=== PATIENT | female | born 1935 | race Caucasian/White ===

== ENCOUNTER 2016-10-24 14:39 | Emergency (ER) | payer MEDICARE, BC ==
--- NOTE | 2016-10-24 17:17 | RAD ---
Indication: Fall striking face. Bruising. Minor laceration to the LEFT facial region. Comparison: June 09, 2006 CT angiogram head. Technique: Noncontrast CT vertex of skull through foramen magnum. Report: Moderate prominence of the cerebral sulci and ventricles secondary to atrophy increased over the 2006 exam. Decreased density in the periventricular and subcortical white matter while non-specific is most likely due to chronic microangiopathy. Negative for lee matter white matter obscuration, intra or extra-axial hemorrhage, or mass effect. Atherosclerotic calcification at the intracranial internal carotid arteries. Negative for calvarial or skull base fracture. Clear visualized paranasal sinuses and mastoid air spaces. Negative for scalp hematoma. IMPRESSION: No evidence for traumatic brain injury or acute intracranial process. Involutional change and stigmata of chronic small vessel ischemic disease.
--- NOTE | 2016-10-24 17:20 | RAD ---
INDICATION: Fall onto face. Bruising and minor laceration to the LEFT facial region. COMPARISON: Head CT of the same date. TECHNIQUE: Multidetector CT base of the skull through mandible without contrast. Multiplanar reformation. REPORT: Artifact from dental amalgam. Mild infiltrative edema or hematoma superficial to the LEFT zygomatic arch. Negative for loculated hematoma. No subcutaneous emphysema evident. Unremarkable orbital contents. The orbital and maxillary sinus margins, zygomatic arches, lamina papyracea, base of the maxilla, pterygoid plates, and nasal bones are intact. The mandible is intact. Normal temporal mandibular joint alignment. Clear paranasal sinuses. IMPRESSION: 1. Mild infiltrative edema or hematoma superficial to the LEFT zygomatic arch. Negative for loculated hematoma. 2. Negative for maxillofacial fracture.
--- NOTE | 2016-10-24 18:20 | ED ---
Head Injury - HPI Summary HPI Summary: 81F presents with facial contusion. She was taking her to his dr trentont today here and was walking from her car that was parked far away and slipped on the pavement due to it being wet. denies any LOC. admits to pain on left side of face and left wrist pain. not on blood thinners. mild headache. no n/v. wrist full ROM. is right handed. has back stimulator. - History Of Current Complaint Chief Complaint: EDFacialInjury Stated Complaint: FALL Time Seen by Provider: 10/24/16 17:49 Pain Intensity: 3 - Allergies/Home Medications Allergies/Adverse Reactions: Allergies Allergy/AdvReac Type Severity Reaction Status Date / Time Alendronate [From Fosamax] Allergy GI Upset Verified 03/20/16 11:49 Meperidine [From Demerol HCl] Allergy BP DROPPED Verified 03/20/16 11:49 Penicillins Allergy Rash Verified 03/20/16 11:49 Risedronate [From Actonel] Allergy GI Upset Verified 03/20/16 11:49 Sulfa Drugs Allergy Rash Verified 03/20/16 11:49 Scopolamine AdvReac Dizziness Verified 03/20/16 11:49 PMH/Surg Hx/FS Hx/Imm Hx Endocrine/Hematology History: Reports: Hx Thyroid Disease - hypo, Other Endocrine/Hematological Disorders Cardiovascular History: Denies: Other Cardiovascular Problems/Disorders Respiratory History: Reports: Hx Sleep Apnea - MILD, Other Respiratory Problems/ Disorders - MUSCLE SPASMS DURING REM SLEEP GI History: Reports: Hx Gastroesophageal Reflux Disease, Hx Irritable Bowel Denies: Other GI Disorders History: Reports: Hx Kidney Stones - MANY YEARS AGO Musculoskeletal History: Reports: Hx Arthritis - ALL OVER, Other Musculoskeletal History Sensory History: Reports: Hx Contacts or Glasses - GLASSES Denies: Hx Hearing Aid Opthamlomology History: Reports: Hx Contacts or Glasses - GLASSES Neurological History: Reports: Hx Migraine - 2001, SILENT MIGRAINE Denies: Other Neuro Impairments/Disorders - Cancer History Cancer Type, Location and Year: skin ca - Surgical History Surgery Procedure, Year, and Place: TAYLER CARPAL TUNNEL, 1979, 1980,. 2009, LOW BACK, [facility]. TAYLER BUNIONECTOMYS, 1985, 1989, [facility]. RIGHT SHOULDER, 1995, [facility]. RIGHT BREAST BX, 1989, [facility]. LEFT KNEE, 2005, [place]. [place]EE, [place] , 2014. DCS trial 03/16/14 Hx Anesthesia Reactions: Yes - NO OPIATES Infectious Disease History: Denies: Traveled Outside the [place] in Last 30 Days - Family History Known Family History: Positive: Hypertension - Social History Alcohol Use: None Substance Use Type: Reports: None Smoking Status (MU): Never Smoked Tobacco Have You Smoked in the Last Year: No Review of Systems Negative: Fever Negative: Chest Pain Negative: Shortness Of Breath Positive: Myalgia - left wrist Positive: Headache All Other Systems Reviewed And Are Negative: Yes Physical Exam Triage Information Reviewed: Yes Vital Signs On Initial Exam: Initial Vitals Temp Pulse Resp BP Pulse Ox 97.9 F 78 18 156/73 96 10/24/16 14:49 10/24/16 14:49 10/24/16 14:49 10/24/16 14:49 10/24/16 14:49 Vital Signs Reviewed: Yes Appearance: Positive: Well-Appearing Skin: Positive: Warm, Dry Head/Face: Positive: Normal Head/Face Inspection, Other - contusion on left side of face, no step off, racoon eyes, schneider sign Eyes: Positive: Normal, EOMI, DA, Conjunctiva Clear ENT: Positive: Normal ENT inspection, Pharynx normal, TMs normal Respiratory/Lung Sounds: Positive: Clear to Auscultation, Breath Sounds Present Cardiovascular: Positive: Normal, RRR Musculoskeletal: Positive: Strength/ROM Intact - left wrist with pain, Other - no step off, tender over left wrist, no snuff box tenderness, good pulses, capillary refill<2 secs Neurological: Positive: Sensory/Motor Intact, Alert, Oriented to Person Place, Time, CN Intact II-III - Dino Coma Scale Best Eye Response: 4 - Spontaneous Best Motor Response: 6 - Obeys Commands Best Verbal Response: 5 - Oriented Coma Scale Total: 15 Diagnostics - Vital Signs Vital Signs Temp Pulse Resp BP Pulse Ox 10/24/16 18:00 98.8 F 68 16 163/71 97 10/24/16 17:59 71 97 10/24/16 17:20 97.4 F 71 16 159/77 100 10/24/16 16:15 98.3 F 74 16 161/83 10/24/16 14:49 97.9 F 78 18 156/73 96 - Laboratory Lab Statement: Any lab studies that have been ordered have been reviewed, and results considered in the medical decision making process. - CT brain CT Interpretation: No Acute Changes CT Interpretation Completed By: Radiologist maxillary facial CT Interpretation: Positive (See Comments) - contusion on left side of face CT Interpretation Completed By: Radiologist Head Injury Course/Dx Course Of Treatment: 81F presents with facial contusion. She was taking her to his dr appt today here and was walking from her car that was parked far away and slipped on the pavement due to it being wet. denies any LOC. admits to pain on left side of face and left wrist pain. not on blood thinners. mild headache. no n/v. wrist full ROM. normal neuro exam. CT face and head normal. patient refused wrist xray. patient will follow up with urgent care if pain tomorrow. patient understands and agrees with plan. - Diagnoses Differential Diagnosis/HQI/PQRI: Concussion Without LOC, Contusion, Hematoma Provider Diagnoses: Facial contusion, Head injury, Left wrist pain Discharge - Discharge Plan Condition: Good Disposition: HOME Patient Education Materials: Contusion in Adults (ED) Referrals: Brian Hernández MD [Primary Care Provider] - Additional Instructions: Take Tylenol every 6 hours as needed for pain Apply ice, rest, elevate Follow up with primary care physician within 5 days Return to ED if develop severe headache, vomiting or any new or worsening symptoms
[2016-10-24 18:46] VITALS: BP 173/67
== END 2016-10-24 18:48 | disposition home or self-care (01) ==
LOC: ED 14:39
DX: S00.83XA Contusion of other part of head, initial encounter (principal); S09.90XA Unspecified injury of head, initial encounter; M25.532 Pain in left wrist; R51 Headache; W19.XXXA Unspecified fall, initial encounter; Y93.9 Activity, unspecified; Y92.9 Unspecified place or not applicable
CPT/HCPCS: 70450; 70486; 99283

== ENCOUNTER 2017-02-17 15:46 | Emergency (ER) | payer MEDICARE, BC ==
[2017-02-17 16:14] VITALS: BP 182/67
--- NOTE | 2017-02-17 16:36 | UC ---
Lower Extremity/Ankle HPI - HPI Summary HPI Summary: 81 yo WF c/o sharp bottom of left foot pain proximal to left ball of foot x 1 day. Has h/o Right foot bunion and hammer toe surgery in 11/2015 and OLD LEFT FOOT (bunion) surgery in 1986, also has h/o osteoporosis , walks with a walker, although denies subjective antalgic gait or recent injuries/trauma. - History of Current Complaint Chief Complaint: UCLowerExtremity Stated Complaint: FOOT PAIN Time Seen by Provider: 02/17/17 16:04 Hx Obtained From: Patient Hx From Patient Unobtainable Due To: Other ?: No Onset/Duration: Sudden Onset Severity Initially: Moderate Severity Currently: Moderate - Allergies/Home Medications Allergies/Adverse Reactions: Allergies Allergy/AdvReac Type Severity Reaction Status Date / Time Alendronate [From Fosamax] Allergy GI Upset Verified 02/17/17 16:01 Meperidine [From Demerol HCl] Allergy BP DROPPED Verified 02/17/17 16:01 Penicillins Allergy Rash Verified 02/17/17 16:01 Risedronate [From Actonel] Allergy GI Upset Verified 02/17/17 16:01 Sulfa Drugs Allergy Rash Verified 02/17/17 16:01 Scopolamine AdvReac Dizziness Verified 02/17/17 16:01 PMH/Surg Hx/FS Hx/Imm Hx - Additional Past Medical History Additional PMH: osteoporosis Previously Healthy: Yes - Surgical History Surgical History: Yes Surgery Procedure, Year, and Place: TAYLER CARPAL TUNNEL, 1979, 1980,. 2009, LOW BACK, [facility]. TAYLER BUNIONECTOMYS, 1985, 1989, [facility]. RIGHT SHOULDER, 1995, [facility]. RIGHT BREAST BX, 1989, [facility]. LEFT KNEE, 2004, [place]. [facility]. DCS trial 03/16/14. R foot surgery 2017 - Family History Known Family History: Positive: Hypertension - Social History Alcohol Use: None Substance Use Type: None Smoking Status (MU): Never Smoked Tobacco Have You Smoked in the Last Year: No - Immunization History Most Recent Influenza Vaccination: 2017 Most Recent Tetanus Shot: unsure Most Recent Pneumonia Vaccination: states up to date Review of Systems Constitutional: Negative Skin: Negative Eyes: Negative ENT: Negative Respiratory: Negative Cardiovascular: Negative Gastrointestinal: Negative Genitourinary: Negative Motor: Negative Neurovascular: Negative Musculoskeletal: Negative, Other: - mid-left planter foot pain Neurological: Negative Psychological: Negative All Other Systems Reviewed And Are Negative: Yes Physical Exam Triage Information Reviewed: Yes Appearance: Well-Appearing, No Pain Distress Vital Signs: Initial Vital Signs Temp 36.6 C 02/17/17 16:05 Pulse 73 02/17/17 16:05 Resp 18 02/17/17 16:05 BP 182/67 02/17/17 16:05 Pulse Ox 100 02/17/17 16:05 Eye Exam: Normal ENT Exam: Normal Dental Exam: Normal Neck exam: Normal Neck: Positive: 1 Respiratory Exam: Normal Cardiovascular Exam: Normal Abdominal Exam: Normal Musculoskeletal Exam: Normal Musculoskeletal: Positive: Strength Intact, ROM Intact, No Edema, Other: - left midfoot plantar tenderness in between 1st and 2nd metatarsal, NVI, DP pulse 2+ Neurological Exam: Normal Psychological Exam: Normal Skin Exam: Normal Lower Extremity Course/Dx - Course Course Of Treatment: XR of left foot neg for fx or stress reaction but positive for mild osteroarthritis and today's left plantar foot pain may be related to increasing arthritic pain, especially around the old surgical site - Differential Dx/Diagnosis Differential Diagnosis/HQI/PQRI: Arthritis, Fracture (Closed), Sprain, Strain, Tendonitis, Tenosynovitis Provider Diagnoses: Osteoarthritis of left foot Discharge - Discharge Plan Condition: Stable Disposition: HOME Patient Education Materials: Arthralgia (ED), Arthritis (ED) Referrals: Brian Hernández MD [Primary Care Provider] - Additional Instructions: as tolerated, F/u with customer solutions specialist
--- NOTE | 2017-02-17 17:08 | RAD ---
Indication: Sharp pain LEFT foot previous bunionectomy and metatarsal shortening. Comparison: No relevant prior exams available on the [facility] for comparison. Technique: AP, lateral, and oblique views LEFT foot. Report: Bone density appears decreased. No fracture or stress reaction evident. Mild hallux valgus deformity and mild osteoarthritis with mild overlying soft tissue swelling at the first metatarsal phalangeal joint. Healed second metatarsal proximal osteotomy site. Mild nonfocal soft tissue swelling. IMPRESSION: Negative for fracture. Mild degenerative arthropathy at the first metatarsal phalangeal joint. Mild nonfocal soft tissue swelling.
== END 2017-02-17 17:51 | disposition home or self-care (01) ==
LOC: UCEAST 15:46
DX: M19.072 Primary osteoarthritis, left ankle and foot (principal); M79.672 Pain in left foot; Z88.5 Allergy status to narcotic agent; Z88.0 Allergy status to penicillin; Z88.2 Allergy status to sulfonamides
CPT/HCPCS: 99212; G0463

== ENCOUNTER 2017-05-26 21:53 | Emergency (ER) | payer MEDICARE, BC ==
[2017-05-26] MEDS ORDERED: NS 0.9% 1000 ML* 1,000 ML IV ONE (23:03)
[2017-05-26] MEDS ORDERED: Ondansetron INJ* 2 MG/ML VIAL IV ONE (23:03)
[2017-05-26 23:19] LABS: Hematocrit 39 % (35-47); Hemoglobin 13.1 g/dl (12.0-16.0); Mean Corpuscular HGB Conc 33 g/dl (31-36); Mean Corpuscular Hemoglobin 30 pg (27-31); Mean Corpuscular Volume 92 fL (80-97); Mean Platelet Volume 7.1 um3 (7.4-10.4); Platelet Count 227 10^3/ul (150-450); Red Blood Count 4.31 10^6/ul (4.0-5.4); Red Cell Distribution Width 14 % (10.5-15); White Blood Count 10.5 10^3/ul (3.5-10.8)
[2017-05-26 23:31] LABS: EGFR Non-African American 60.2 (>60)
[2017-05-27 00:14] LABS: ABS Basophils 0 10^3/ul (0-0.2); ABS Eosinophils 0 10^3/ul (0-0.6); ABS Lymphocytes 0.2 10^3/ul (1.0-4.8); ABS Monocytes 0 10^3/ul (0-0.8); ABS Neutrophils 10.1 10^3/ul (1.5-7.7); ABS Nucleated RBC 0 10^3/ul; Eosinophil % 0.2 % (0-6); Lymphocyte % 2.3 % (25-47); Nucleated Red Blood Cells % 0
[2017-05-27] MEDS ORDERED: Iohexol 300* (CONTRAST) 10 ML SDV IV ONE (00:15)
[2017-05-27 01:12] LABS: INR 0.87 (0.77-1.02)
[2017-05-27 02:12] LABS: Urine Appearance Clear; Urine Blood 1+ (Negative); Urine Color Yellow; Urine Ketones Trace (Negative); Urine Protein Negative (Negative); Urine Specific Gravity > 1.060 (1.010-1.030); Urine Urobilinogen Negative (Negative)
[2017-05-27] MEDS ORDERED: Levofloxacin 500 MG IVPREMIX(* 500 MG/100 ML BAG IVPB ONE (02:17)
[2017-05-27] MEDS ORDERED: Acetaminophen TAB* 325 MG PO ONE (03:20)
[2017-05-27 05:23] VITALS: BP 101/53
--- NOTE | 2017-05-27 05:37 | CONSULT ---
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 After supper, she developed nausea and was assisted to bed by her who then called his son asking him to come over. In bed she had 2 episodes of small volume emesis while lying on her back, but no coughing or SOB. Her son arrived and noted she was hyporesponsive, as in she would acknowledge some questions and ignore others. She would often answer if her name was called first or the question repeated. She also had some tremor in her R hand. Family decided to call EMS for transport and further evaluation. By her arrival to [facility], she was back to her baseline. There was some subjective chills, but no report of facial droop, focal W/N/T, change in vision, swallow, or quality of speech, chest pain, SOB, congestion, fevers, sweats, or diarrhea. She was seen to ambulate the long-axis of the ED using a walker and reporting her ambulation to be at baseline. Options of discharge home vs observation were offered. Questions were sought & answered to their satisfaction. She would prefer to go home and was requested to return to the ED for intractable N/V, further confusion, F/C, or other issues she finds worrisome enough to warrant emergent evaluation. Otherwise, she should call her PCP in the AM and arrange F/U within the week. PMedHx REM sleep w/o atonia hypothyroidism chronic LBP prolapsed bladder GERD esophageal spasms osteoporosis Ambulatory Orders Acetaminophen [Acetaminophen Extra Strength] 500 mg PO Q4H PRN MDD 8 tablets 11/04 Aluminum Hydroxide 600 mbq PO TID PRN 05/26/17 Calcium Carbonate TAB* 1,400 mg PO DAILY 05/26/17 Cholecalciferol TAB* [Vitamin D TAB*] 4,000 unit PO DAILY 05/26/17 DULoxetine CAP* [Cymbalta CAP*] 60 mg PO BEDTIME 05/26/17 Docusate Sodium [Stool Softener] 300 mg PO DAILY 05/26/17 Estradiol VAGINAL TAB(NF) [Vagifem(NF)] 25 mcg VAGINAL .TWICEWEEKLY 05/26/17 Levothyroxine TAB* [Synthroid TAB*] 75 mcg PO DAILY 05/26/17 Magnesium Oxide [Magnesium] 500 - 1,000 mg PO DAILY 05/26/17 Multivitamins/Minerals TAB* [Theragran/minerals TAB*] 1 tab PO DAILY 05/26/17 Oxaprozin [Daypro] 600 mg PO BID 05/26/17 Pantoprazole TAB (NF) [Protonix TAB (NF)] 40 mg PO BID 05/26/17 Psyllium JODEE* [Metamucil JODEE*] 1 pkt PO DAILY 05/26/17 clonazePAM TAB(*) [KlonoPIN TAB(*)] 1 mg PO BEDTIME PRN 05/26/17 levoFLOXacin [Levofloxacin] 500 mg PO DAILY #2 tablet 05/27/17 Allergies Penicillins Allergy (Verified 05/26/17 22:12) Rash risedronate sodium [From Actonel] Allergy (Verified 05/26/17 22:13) Rash And Itching Sulfa (Sulfonamide Antibiotics) Allergy (Verified 05/26/17 22:12) Rash alendronate sodium [From Fosamax] Adverse Reaction (Verified 05/27/17 04:53) Vomiting meperidine [From Demerol] Adverse Reaction (Verified 05/27/17 04:53) Vomiting scopolamine Adverse Reaction (Verified 05/27/17 04:53) Dizziness PSurgHx B carpal tunnel release L bunionectomy R foot surgery L-spine nerve stimulator implant SocHx: no tobacco, rare alcohol, no recreational drugs; lives with her ; full code status FamHx: reviewed & non-contributory to presentation ROS: as above, otherwise reviewed and all were negative vitals: Vital Signs Temp 37.2 C 05/27/17 05:22 Pulse 98 05/27/17 05:22 Resp 16 05/27/17 05:22 BP 101/53 05/27/17 05:22 Pulse Ox 99 05/27/17 05:22 Intake & Output 05/26/17 05/26/17 05/27/17 11:59 23:59 11:59 Intake Total 1000 100 Balance 1000 100 Weight 68.039 kg Intake: IV Fluids 1000 100 Constitutional: NAD, normally developed, obese elderly white female HEENM: atraumatic; sclera/conjunctiva: anicteric/clear; hearing: clinically intact; oropharynx: clear, mucosa moist Neck: soft tissue: no nuchal rigidity; thyroid: normal Pulmonary: clear to auscultation bilaterally, good aeration, no accessory muscle use CV: RR/RR, normal S1S2, no carotid bruit, no jugular venous distention, 2+ B DP/ PT, no edema Abdominal: soft, non-distended, non-tender, no rebound/guarding/rigidity, normoactive bowel sounds, no hepatosplenomegaly or masses, no costovertebral angle tenderness Musculoskeletal: general: grossly intact, non-tender to palpation; gait: stable with walker Integumental: normal appearance and texture of exposed skin Psychiatric orientation: AA&O to PPS affect: calm mood: pleasant eye contact: good content: reliable memory: recalls getting into ambulance, but not the actual ride to [facility] responses: timely insight: good Testing: Lab Results 05/26/17 05/26/17 05/26/17 Range/Units 01:50 22:30 22:30 WBC (3.5-10.8) 10^3/ul RBC (4.0-5.4) 10^6/ul Hgb (12.0-16.0) g/dl Hct (35-47) % MCV (80-97) fL MCH (27-31) pg MCHC (31-36) g/dl RDW (10.5-15) % Plt Count (150-450) 10^3/ul MPV (7.4-10.4) um3 Neut % (Auto) (38-83) % Lymph % (Auto) (25-47) % [place] % (Auto) (0-7) % Eos % (Auto) (0-6) % Baso % (Auto) (0-2) % Absolute Neuts (auto) (1.5-7.7) 10^3/ul Absolute Lymphs (auto) (1.0-4.8) 10^3/ul Absolute Monos (auto) (0-0.8) 10^3/ul Absolute Eos (auto) (0-0.6) 10^3/ul Absolute Basos (auto) (0-0.2) 10^3/ul Absolute Nucleated RBC 10^3/ul Nucleated RBC % INR (Anticoag Therapy) 0.87 (0.77-1.02) APTT 25.2 L (26.0-36.3) seconds Sodium 139 (139-145) mmol/L Potassium 3.8 (3.5-5.0) mmol/L Chloride 103 (101-111) mmol/L Carbon Dioxide 26 (22-32) mmol/L Anion Gap 10 (2-11) mmol/L BUN 23 (6-24) mg/dL Creatinine 0.90 (0.51-0.95) mg/dL Est GFR ( Amer) 77.5 (>60) Est GFR (Non-Af Amer) 60.2 (>60) BUN/Creatinine Ratio 25.6 H (8-20) Glucose 96 (70-100) mg/dL Calcium 9.7 (8.6-10.3) mg/dL Magnesium 1.8 L (1.9-2.7) mg/dL Total Bilirubin 1.10 H (0.2-1.0) mg/dL AST 21 (13-39) U/L ALT 16 (7-52) U/L Alkaline Phosphatase 78 (34-104) U/L C-Reactive Protein 27.46 H (< 5.00) mg/L Total Protein 7.3 (6.4-8.9) g/dL Albumin 4.3 (3.2-5.2) g/dL Globulin 3.0 (2-4) g/dL Albumin/Globulin Ratio 1.4 (1-3) Amylase 40 (29-103) U/L Lipase < 10 L (11.0-82.0) U/L Urine Color Yellow Urine Appearance Clear Urine pH 5.0 (5-9) Ur Specific [place] > 1.060 H (1.010-1.030) Urine Protein Negative (Negative) Urine Ketones Trace A (Negative) Urine Blood 1+ A (Negative) Urine Nitrate Negative (Negative) Urine Bilirubin Negative (Negative) Urine Urobilinogen Negative (Negative) Ur Leukocyte Esterase 2+ A (Negative) Urine WBC (Auto) 2+(11-20/hpf) A (Absent) Urine RBC (Auto) 2+(6-10/hpf) A (Absent) Ur Squamous Epith Cells Present A (Absent) Urine Bacteria Absent (Absent) Urine Glucose Negative (Negative) 05/26/17 Range/Units 22:30 WBC 10.5 (3.5-10.8) 10^3/ul RBC 4.31 (4.0-5.4) 10^6/ul Hgb 13.1 (12.0-16.0) g/dl Hct 39 (35-47) % MCV 92 (80-97) fL MCH 30 (27-31) pg MCHC 33 (31-36) g/dl RDW 14 (10.5-15) % Plt Count 227 (150-450) 10^3/ul MPV 7.1 L (7.4-10.4) um3 Neut % (Auto) 96.9 H (38-83) % Lymph % (Auto) 2.3 L (25-47) % [place] % (Auto) 0.4 (0-7) % Eos % (Auto) 0.2 (0-6) % Baso % (Auto) 0.2 (0-2) % Absolute Neuts (auto) 10.1 H (1.5-7.7) 10^3/ul Absolute Lymphs (auto) 0.2 L (1.0-4.8) 10^3/ul Absolute Monos (auto) 0 (0-0.8) 10^3/ul Absolute Eos (auto) 0 (0-0.6) 10^3/ul Absolute Basos (auto) 0 (0-0.2) 10^3/ul Absolute Nucleated RBC 0 10^3/ul Nucleated RBC % 0 INR (Anticoag Therapy) (0.77-1.02) APTT (26.0-36.3) seconds Sodium (139-145) mmol/L Potassium (3.5-5.0) mmol/L Chloride (101-111) mmol/L Carbon Dioxide (22-32) mmol/L Anion Gap (2-11) mmol/L BUN (6-24) mg/dL Creatinine (0.51-0.95) mg/dL Est GFR ( Amer) (>60) Est GFR (Non-Af Amer) (>60) BUN/Creatinine Ratio (8-20) Glucose (70-100) mg/dL Calcium (8.6-10.3) mg/dL Magnesium (1.9-2.7) mg/dL Total Bilirubin (0.2-1.0) mg/dL AST (13-39) U/L ALT (7-52) U/L Alkaline Phosphatase (34-104) U/L C-Reactive Protein (< 5.00) mg/L Total Protein (6.4-8.9) g/dL Albumin (3.2-5.2) g/dL Globulin (2-4) g/dL Albumin/Globulin Ratio (1-3) Amylase (29-103) U/L Lipase (11.0-82.0) U/L Urine Color Urine Appearance Urine pH (5-9) Ur Specific [place] (1.010-1.030) Urine Protein (Negative) Urine Ketones (Negative) Urine Blood (Negative) Urine Nitrate (Negative) Urine Bilirubin (Negative) Urine Urobilinogen (Negative) Ur Leukocyte Esterase (Negative) Urine WBC (Auto) (Absent) Urine RBC (Auto) (Absent) Ur Squamous Epith Cells (Absent) Urine Bacteria (Absent) Urine Glucose (Negative) CT brain WO, personally reviewed: IMPRESSION: No evidence of acute pathology. CT abd/pel WO, personally reviewed: IMPRESSION: No definite acute pathology. Moderate-sized hiatal hernia. Small fat containing umbilical hernia. Severe degenerative changes of the spine with scoliosis. Impression: 81F presenting with N/V and hypo-responsive episode found to have a UTI & moderate size hiatal hernia DIAGNOSIS & PLAN Primary UTI : 500mg IV levofloxacin given in ED : 500mg PO levofloxacin RX sent to her pharmacy to start Sunday 05/28 : follow up with PCP w/i 1 week : return to ED for F/C, intractable N/V, further confusion or other symptoms worrisome enough to warrant emergent evaluation GERD/hiatal hernia : continue pantoprazole Secondary REM sleep w/o atonia : continue clonazepam HS hypothyroidism : continue levothyroxine chronic LBP : continue duloxetine & oxaprozin prolapsed bladder : keep appointment w/ S MD [facility]
--- NOTE | 2017-05-27 05:58 | ED ---
Amarjit Perkins Stephanie, scribed for Francois Courtney MD on 05/26/17 at 2305 . GI/ HPI - HPI Summary HPI Summary: The pt is an 81 y/o F presenting to the ED with c/o N/V that began today after dinner. Symptoms include confusion, weakness and diarrhea. The pt states she vomited 3 times. Per family, the pt was not able to appropriately respond to questions at 20:00. 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 Onset/Duration: Started Hours Ago - 3, Resolved Timing: Intermittent Current Severity: Mild Pain Intensity: 0 Location of Pain: None Associated Signs and Symptoms: Positive: Weakness, Nausea, Vomiting, Diarrhea, Other: - confusion Aggravating Factor(s): Nothing Alleviating Factor(s): Nothing - Allergy/Home Medications Allergies/Adverse Reactions: Allergies Allergy/AdvReac Type Severity Reaction Status Date / Time Penicillins Allergy Rash Verified 05/26/17 22:12 risedronate sodium Allergy Rash And Verified 05/26/17 22:13 [From Actonel] Itching Sulfa (Sulfonamide Allergy Rash Verified 05/26/17 22:12 Antibiotics) alendronate sodium AdvReac Vomiting Verified 05/27/17 04:53 [From Fosamax] meperidine [From Demerol] AdvReac Vomiting Verified 05/27/17 04:53 scopolamine AdvReac Dizziness Verified 05/27/17 04:53 Home Medications: Home Medications Acetaminophen [Acetaminophen Extra Strength] 500 mg PO Q4H PRN MDD 8 tablets 11/04 [History Confirmed 05/26/17] Aluminum Hydroxide 600 mbq PO TID PRN 05/26/17 [History Confirmed 05/26/17] Calcium Carbonate TAB* 1,400 mg PO DAILY 05/26/17 [History Confirmed 05/26/17] Cholecalciferol TAB* [Vitamin D TAB*] 4,000 unit PO DAILY 05/26/17 [History Confirmed 05/26/17] DULoxetine DR CAP* [Cymbalta CAP*] 60 mg PO BEDTIME 05/26/17 [History Confirmed 05/26/17] Docusate Sodium [Stool Softener] 300 mg PO DAILY 05/26/17 [History Confirmed 11/04] Estradiol VAGINAL TAB(NF) [Vagifem(NF)] 25 mcg VAGINAL .TWICEWEEKLY 05/26/17 [ History Confirmed 05/26/17] Levothyroxine TAB* [Synthroid TAB*] 75 mcg PO DAILY 05/26/17 [History Confirmed 05/26/17] Magnesium Oxide [Magnesium] 500 - 1,000 mg PO DAILY 05/26/17 [History Confirmed 05/26/17] Multivitamins/Minerals TAB* [Theragran/minerals TAB*] 1 tab PO DAILY 05/26/17 [ History Confirmed 05/26/17] Oxaprozin [Daypro] 600 mg PO BID 05/26/17 [History Confirmed 05/26/17] Pantoprazole TAB (NF) [Protonix TAB (NF)] 40 mg PO BID 05/26/17 [History Confirmed 05/26/17] Psyllium JODEE* [Metamucil JODEE*] 1 pkt PO DAILY 05/26/17 [History Confirmed ] clonazePAM TAB(*) [KlonoPIN TAB(*)] 1 mg PO BEDTIME PRN 05/26/17 [History Confirmed 05/26/17] PMH/Surg Hx/FS Hx/Imm Hx Endocrine/Hematology History: Reports: Hx Thyroid Disease - hypo, Other Endocrine/Hematological Disorders Cardiovascular History: Denies: Hx Hypertension, Other Cardiovascular Problems/Disorders Respiratory History: Reports: Hx Sleep Apnea - MILD, Other Respiratory Problems/ Disorders - MUSCLE SPASMS DURING REM SLEEP GI History: Reports: Hx Gastroesophageal Reflux Disease, Hx Irritable Bowel Denies: Other GI Disorders History: Reports: Hx Kidney Stones - MANY YEARS AGO Musculoskeletal History: Reports: Hx Arthritis - ALL OVER, Other Musculoskeletal History Sensory History: Reports: Hx Contacts or Glasses - GLASSES Denies: Hx Hearing Aid Opthamlomology History: Reports: Hx Contacts or Glasses - GLASSES Neurological History: Reports: Hx Migraine - 2001, SILENT MIGRAINE Denies: Other Neuro Impairments/Disorders - Cancer History Cancer Type, Location and Year: skin ca - Surgical History Surgery Procedure, Year, and Place: TAYLER CARPAL TUNNEL, 1979, 1980,. 2009, LOW BACK, [place]. TAYLER BUNIONECTOMYS, 1985, 1989, [place]. RIGHT SHOULDER, 1995, [place]. RIGHT BREAST BX, 1989, [facility] [facility]. LEFT KNEE, 2005, [place]. RIGHT KNEE, [place] , 2014. DCS trial 03/16/14. R foot surgery 2017 Hx Anesthesia Reactions: Yes - NO OPIATES Infectious Disease History: No Infectious Disease History: Denies: Traveled Outside the US in Last 30 Days - Family History Known Family History: Positive: Hypertension - Social History Occupation: Retired Lives: With Family Alcohol Use: None Hx Substance Use: No Substance Use Type: Reports: None Hx Tobacco Use: No Smoking Status (MU): Never Smoked Tobacco Have You Smoked in the Last Year: No Review of Systems Positive: Vomiting, Diarrhea, Nausea Neurological: Other - confusion Positive: Weakness All Other Systems Reviewed And Are Negative: Yes Physical Exam - Summary Physical Exam Summary: VITAL SIGNS: Reviewed. GENERAL: Patient is a well-developed and nourished FEMALE who is lying comfortable in the stretcher. Patient is not in any acute respiratory distress. HEAD AND FACE: No signs of trauma. No ecchymosis, hematomas or skull depressions. No sinus tenderness. EYES: PERRLA, EOMI x 2, No injected conjunctiva, no nystagmus. EARS: Hearing grossly intact. Ear canals and tympanic membranes are within normal limits. MOUTH: Oropharynx within normal limits. NECK: Supple, trachea is midline, no adenopathy, no JVD, no carotid bruit, no c- spine tenderness, neck with full ROM. CHEST: Symmetric, no tenderness at palpation LUNGS: Clear to auscultation bilaterally. No wheezing or crackles. CVS: Regular rate and rhythm, S1 and S2 present, no murmurs or gallops appreciated. ABDOMEN: Soft, non-tender. No signs of distention. No rebound no guarding, and no masses palpated. hyperactive bowel sounds EXTREMITIES: FROM in all major joints, no edema, no cyanosis or clubbing. NEURO: Alert and oriented x 3. No acute neurological deficits. Speech is normal and follows commands. SKIN: Dry and warm Triage Information Reviewed: Yes Vital Signs On Initial Exam: Initial Vitals Temp Pulse Resp BP Pulse Ox 100.3 F 133 16 136/70 96 05/26/17 22:06 05/26/17 22:06 05/26/17 22:06 05/26/17 22:06 05/26/17 22:06 Vital Signs Reviewed: Yes Diagnostics - Vital Signs Vital Signs Temp Pulse Resp BP Pulse Ox 05/26/17 22:06 100.3 F 133 16 136/70 96 - Laboratory Result Diagrams: 05/26/17 22:30 05/26/17 22:30 Lab Statement: Any lab studies that have been ordered have been reviewed, and results considered in the medical decision making process. - CT Abd/Pelvis CT Interpretation: Positive (See Comments) CT Interpretation Completed By: Radiologist - No definite acute pathology. Moderate-sized hiatal hernia. SMall fat containing umbilical hernia. Severe degenerative changes of the spine with scoliosis. ED physician has reviewed this report. Head CT Interpretation: No Acute Changes CT Interpretation Completed By: Radiologist - No evidence of acute pathology. ED physician has reviewed this report. - EKG 02:09 Cardiac Rate: Tachycardia EKG Rhythm: Sinus Tachycardia - 109 BPM EKG Interpretation: Normal axis. Normal interval. No ischemic changes Re-Evaluation - Re-Evaluation First Eval Re-Evaluation Time: 23:46 Change: Improved - The pt feels better but family says pt was confused and unresponsive QUALITY ASSURANCE INTERN for 1.5 hrs. GIGU Course/Dx - Course Course Of Treatment: The pt is an 81 y/o F presenting to the ED with c/o N/V that began today after dinner. Symptoms include confusion, weakness and diarrhea. The pt states she vomited 3 times. Per family, the pt was not able to appropriately respond to questions at 20:00. The pt was examined by the hospitalist who discharged the pt home. - Diagnoses Provider Diagnoses: UTI (urinary tract infection), Vomiting, Syncope, Hiatal hernia - Physician Notifications Discussed Care Of Patient With: Juni Granados Time Discussed With Above Provider: 02:19 Instructed by Provider To: Will See In ED Discharge - Sign-Out/Discharge Documenting (check all that apply): Discharge - Discharge Plan Condition: Stable Disposition: HOME Prescriptions: levoFLOXacin [Levofloxacin] 500 mg PO DAILY #2 tablet Patient Education Materials: Hiatal Hernia (ED), Urinary Tract Infection in Women (ED) Referrals: Brian Hernández MD [Primary Care Provider] - Additional Instructions: As tolerated The documentation as recorded by the Amarjit farooq Stephanie accurately reflects the service I personally performed and the decisions made by me, Francois Courtney MD.
--- NOTE | 2017-05-27 07:37 | RAD ---
INDICATION: Nausea and vomiting after degenerative COMPARISON: None TECHNIQUE: Axial source images were obtained from the hemidiaphragms to the symphysis pubis following administration of intravenous contrast only. 91 mL of Omnipaque 300 was utilized coronal and sagittal reconstructed images were acquired. Lung bases: The lung bases are clear. Liver: The liver is normal in size. There are no masses. There is no ductal dilatation. Gallbladder: There are no calcified gallstones. There is no evidence of wall thickening or pericholecystic fluid. Spleen: The spleen is normal in size. There are no masses. Pancreas: There is no focal pancreatic mass or ductal dilatation. Adrenal glands: There is no evidence of adrenal mass. Kidneys: The kidneys are normal in size and position. There are prompt nephrograms and there is prompt excretion bilaterally. There are no renal parenchymal masses. There is no evidence of nephrolithiasis. Adenopathy: There is no evidence of adenopathy by size criteria. Fluid collections: There are no free or localized fluid collections. Vessels:There are no significant atherosclerotic changes involving the aorta. There is no focal aneurysm. The iliac vessels are normal in caliber. The IVC appears normal. GI tract: Evaluation GI tract is limited as no oral contrast was given. There is moderate to large hiatal hernia. The small bowel is grossly normal. There are scattered diverticula of the colon but the colon is otherwise unremarkable. Pelvic organs: The uterus and adnexa appear normal Bladder: There are no bladder masses. Abdominal and pelvic soft tissues: There is a small fat-containing periumbilical hernia. Osseous structures: There is moderate to advanced osteocytic change of the thoracolumbar spine with a S-type scoliotic deformity. Other: There is a dorsal column stimulator. IMPRESSION: 1. Moderate to large hiatal hernia. 2. Small periumbilical hernia. 3. Degenerative change of the spine with scoliotic deformity. 4. No acute CT findings.
--- NOTE | 2017-05-27 07:48 | RAD ---
INDICATION: Confusion COMPARISON: October 24, 2016 TECHNIQUE: Noncontrast axial source images were acquired from the skull base to the vertex. FINDINGS: Ventricles/sulci: There is cortical atrophy with compensatory dilatation of the CSF spaces. Brain parenchyma: There is periventricular and subcortical white matter change compatible with chronic ischemia. Intracranial hemorrhage:None. Extra-axial spaces: There are no abnormal extra axial fluid collections or evidence of extra-axial mass. Calvarium: There is no calvarial fracture or other calvarial abnormality. Scalp: There is no evidence of scalp or extracalvarial soft tissue abnormality. Paranasal sinuses/mastoid: The paranasal sinuses and mastoid air cells are clear. Other: None. IMPRESSION: Cortical atrophy with chronic microvascular ischemic change. No acute findings
--- NOTE | 2017-05-30 06:45 | PN ---
Progress Note - Progress Note Date of Service: 05/30/17 Note: Patient's urine culture grew E coli greater than 100,000. Patient was placed on Levaquin which final culture shows sensitive to. No further action required.
== END 2017-05-27 05:29 | disposition home or self-care (01) ==
LOC: ED 21:53
DX: N39.0 Urinary tract infection, site not specified (principal); B96.20 Unspecified Escherichia coli [E. coli] as the cause of diseases classified elsewhere; R11.10 Vomiting, unspecified; R55 Syncope and collapse; R41.0 Disorientation, unspecified; R00.0 Tachycardia, unspecified; K44.9 Diaphragmatic hernia without obstruction or gangrene; E03.9 Hypothyroidism, unspecified; K21.9 Gastro-esophageal reflux disease without esophagitis; Z88.5 Allergy status to narcotic agent; Z88.0 Allergy status to penicillin; Z88.2 Allergy status to sulfonamides; Z88.8 Allergy status to other drugs, medicaments and biological substances
CPT/HCPCS: 36415; 70450; 74177; 80053; 81003; 81015; 82150; 83690; 83735; 85025; 85610; 85730; 86140; 87077; 87086; 87186; 93005; 99283; A9270-GY; J1956; J2405; Q9967

== ENCOUNTER 2017-06-12 15:45 | Emergency (ER) | payer MEDICARE, BC ==
[2017-06-12 16:17] VITALS: BP 148/91
[2017-06-12] MEDS ORDERED: Levofloxacin TAB* 250 MG PO ONE (17:30)
--- NOTE | 2017-06-12 17:44 | ED ---
GI/ HPI - HPI Summary HPI Summary: 81 yo WF c/o urinary frequency and urgency x since d/c from ER a few weeks ago ( 05/27) on Levaquin, felt better but UTI sx returned associated with weakness and fatigue, denies f/c/URI sx. Denies LBP, or flank pain - History of Current Complaint Chief Complaint: UCGeneralIllness Time Seen by Provider: 06/12/17 16:11 Stated Complaint: ACHES, AND HEADACHE Hx Obtained From: Patient Hx From Patient Unobtainable Due To: Other Onset/Duration: Started Weeks Ago Timing: Lasting Days Severity: Moderate Current Severity: Moderate Pain Intensity: 7 - Allergy/Home Medications Allergies/Adverse Reactions: Allergies Allergy/AdvReac Type Severity Reaction Status Date / Time Penicillins Allergy Rash Verified 06/12/17 16:12 risedronate sodium Allergy Rash And Verified 06/12/17 16:12 [From Actonel] Itching Sulfa (Sulfonamide Allergy Rash Verified 06/12/17 16:12 Antibiotics) alendronate sodium AdvReac Vomiting Verified 06/12/17 16:12 [From Fosamax] meperidine [From Demerol] AdvReac Vomiting Verified 06/12/17 16:12 scopolamine AdvReac Dizziness Verified 06/12/17 16:12 PMH/Surg Hx/FS Hx/Imm Hx Endocrine/Hematology History: Reports: Hx Thyroid Disease - hypo, Other Endocrine/Hematological Disorders Denies: Hx Diabetes Cardiovascular History: Denies: Hx Hypertension, Other Cardiovascular Problems/Disorders Respiratory History: Reports: Hx Sleep Apnea - MILD, Other Respiratory Problems/ Disorders - MUSCLE SPASMS DURING REM SLEEP GI History: Reports: Hx Gastroesophageal Reflux Disease, Hx Irritable Bowel Denies: Other GI Disorders History: Reports: Hx Kidney Stones - MANY YEARS AGO Denies: Hx Renal Disease Musculoskeletal History: Reports: Hx Arthritis - ALL OVER, Other Musculoskeletal History Sensory History: Reports: Hx Contacts or Glasses - GLASSES Denies: Hx Hearing Aid Opthamlomology History: Reports: Hx Contacts or Glasses - GLASSES Neurological History: Reports: Hx Migraine - 2001, SILENT MIGRAINE Denies: Other Neuro Impairments/Disorders - Cancer History Cancer Type, Location and Year: skin ca - Surgical History Surgery Procedure, Year, and Place: TAYLER CARPAL TUNNEL, 1979, 1980,. 2009, LOW BACK, [facility]. TAYLER BUNIONECTOMYS, 1985, 1989, [place]. RIGHT SHOULDER, 1995, [place]. RIGHT BREAST BX, 1989, [place]. LEFT KNEE, 2004, [place]. RIGHT KNEE, [place] , 2013. DCS trial 03/16/14. R foot surgery 2017 Hx Anesthesia Reactions: Yes - NO OPIATES Infectious Disease History: No Infectious Disease History: Denies: Traveled Outside the US in Last 30 Days - Family History Known Family History: Positive: Hypertension - Social History Alcohol Use: None Hx Substance Use: No Substance Use Type: Reports: None Hx Tobacco Use: No Smoking Status (MU): Never Smoked Tobacco Have You Smoked in the Last Year: No Review of Systems Constitutional: Negative Eyes: Negative ENT: Negative Cardiovascular: Negative Respiratory: Negative Gastrointestinal: Negative Positive: see HPI, frequency, incontinence, urgency Skin: Negative All Other Systems Reviewed And Are Negative: Yes Physical Exam Triage Information Reviewed: Yes Vital Signs On Initial Exam: Initial Vitals Temp Pulse Resp BP Pulse Ox 36.5 C 122 18 148/91 100 06/12/17 16:13 06/12/17 16:13 06/12/17 16:13 06/12/17 16:13 06/12/17 16:13 Vital Signs Reviewed: Yes Appearance: Positive: Well-Appearing Skin: Positive: Warm Eyes: Positive: Normal ENT: Positive: Normal ENT inspection Neck: Positive: Supple Respiratory/Lung Sounds: Positive: Clear to Auscultation Cardiovascular: Positive: Normal Abdomen Description: Positive: CVA Tenderness (R) - mild, CVA Tenderness (L) - mild Diagnostics - Vital Signs Vital Signs Temp Pulse Resp BP Pulse Ox 06/12/17 16:13 36.5 C 122 18 148/91 100 - Laboratory Lab Statement: Any lab studies that have been ordered have been reviewed, and results considered in the medical decision making process. GIGU Course/Dx - Course Course Of Treatment: PT urinated prior to obtaining a UA and could not obtain another. Recommended f/u with her urologist for supression of recurrent UTI in light of her h/o urinary incontinence. Will restart her Levaquin at 250mg PO ( pt was on it for previous UTI 1.5 weeks ago and culture grew E.coli sensitive to Levaquin) for her recurrent UTI and perhaps to mitigate a possible yeast infection - Diagnoses Provider Diagnoses: Recurrent UTI Discharge - Sign-Out/Discharge Documenting (check all that apply): Discharge/Admit/Transfer - Discharge Plan Condition: Stable Disposition: HOME Prescriptions: Levofloxacin TAB* [Levaquin TAB*] 250 mg PO DAILY 7 Days #7 tab Patient Education Materials: Urinary Tract Infection in Women (ED) Referrals: Brian Hernández MD [Primary Care Provider] - Additional Instructions: follow up with your urologist tomorrow - Billing Disposition and Condition Condition: STABLE Disposition: HOME
== END 2017-06-12 17:49 | disposition home or self-care (01) ==
LOC: UCEAST 15:45
DX: N39.0 Urinary tract infection, site not specified (principal); R53.1 Weakness; R53.83 Other fatigue; Z87.440 Personal history of urinary (tract) infections; E03.9 Hypothyroidism, unspecified; K21.9 Gastro-esophageal reflux disease without esophagitis; G43.909 Migraine, unspecified, not intractable, without status migrainosus; Z88.5 Allergy status to narcotic agent; Z88.0 Allergy status to penicillin; Z88.2 Allergy status to sulfonamides; Z88.8 Allergy status to other drugs, medicaments and biological substances
CPT/HCPCS: 99212; A9270-GY; G0463

== ENCOUNTER 2017-10-16 13:25 | Emergency (ER) | payer MEDICARE, BC ==
[2017-10-16] MEDS ORDERED: NS 0.9% 1000 ML* 1,000 ML IV ONE (13:44)
[2017-10-16] MEDS ORDERED: Aspirin 81 mg CHEW TAB* 81 MG TAB.CHEW PO ONE (13:44)
[2017-10-16 13:57] VITALS: BP 155/84
--- NOTE | 2017-10-16 13:57 | UC ---
Cardiac HPI - HPI Summary HPI Summary: Patient is an 82 y/o female who presents to [facility] c/o CP. She states she was doing errands before her appointment with Dr. Lucas this morning, when she began to have sharp, mid-sternal, constant, non-radiating, 10/10 CP. The pain is now 4-5/10 in severity. She also c/o mild SOB and intermittent nausea, but denies any diaphoresis or leg pain. Patient has Lyme disease and has been taking Doxycycline. She states the medication doesnt make her feel good especially after eating. She has a bulls-eye rash on her right knee, and states she might have additional tick bites. PMHx GERD, but no HTN, DM, or HLD. Her BP was 110/60 4 days ago. - History of Current Complaint Stated Complaint: CHEST PAIN Time Seen by Provider: 10/16/17 13:28 Hx Obtained From: Patient Onset/Duration: Sudden Onset, Lasting Hours - This morning, Still Present Timing: Constant Initial Severity: Severe - 10/10 Current Severity: Moderate - 4-5/10 Chest Pain Location: Mid Sternal Character: Sharp/Stabbing Aggravating Factor(s): Nothing Alleviating Factor(s): Nothing Associated Signs & Symptoms: Positive: Chest Pain, SOB, Nausea/Vomiting. Negative: Diaphoresis - Allergy/Home Medications Allergies/Adverse Reactions: Allergies Allergy/AdvReac Type Severity Reaction Status Date / Time Penicillins Allergy Rash Verified 10/16/17 13:58 risedronate sodium Allergy Rash And Verified 10/16/17 13:58 [From Actonel] Itching Sulfa (Sulfonamide Allergy Rash Verified 10/16/17 13:58 Antibiotics) alendronate sodium AdvReac Vomiting Verified 10/16/17 13:58 [From Fosamax] meperidine [From Demerol] AdvReac Vomiting Verified 10/16/17 13:58 scopolamine AdvReac Dizziness Verified 10/16/17 13:58 PMH/Surg Hx/FS Hx/Imm Hx Endocrine History: Other Other Endocrine History: NEGATIVE: DM Cardiovascular History: Other Other Cardiovascular History: NEGATIVE: HTN, HLD GI/ History: Gastroesophageal Reflux - Surgical History Surgical History: Yes Surgery Procedure, Year, and Place: TAYLER CARPAL TUNNEL, 1979, 1980,. 2009, [facility] BACK, [facility]. TAYLER BUNIONECTOMYS, 1985, 1989, [place]. RIGHT SHOULDER, 1995, [place]. RIGHT BREAST BX, 1989, [place]. LEFT KNEE, 2004, [place]. RIGHT KNEE, [place] , 2013. DCS trial 03/16/14. R foot surgery 2017 - Family History Known Family History: Positive: Hypertension - Social History Alcohol Use: None Substance Use Type: None Smoking Status (MU): Never Smoked Tobacco Have You Smoked in the Last Year: No - Immunization History Most Recent Influenza Vaccination: 2017 Most Recent Tetanus Shot: unsure Most Recent Pneumonia Vaccination: states up to date Review of Systems Constitutional: Negative - Diaphoresis Skin: Rash - Tick bite - Lyme disease Respiratory: Shortness Of Breath Cardiovascular: Chest Pain Gastrointestinal: Nausea Musculoskeletal: Negative - Leg pain All Other Systems Reviewed And Are Negative: Yes Physical Exam - Summary Physical Exam Summary: General: well-appearing, no pain distress Skin: warm, color reflects adequate perfusion, dry, Bulls-eye rash on lateral right knee Head: normal Eyes: EOMI, DA ENT: normal Neck: supple, nontender Respiratory: CTA, breath sounds present Cardiovascular: RRR Abdomen: soft, nontender Bowel: present Musculoskeletal: normal, strength/ROM intact Neurological: sensory/motor intact, A&O x3 Psychological: affect/mood appropriate Triage Information Reviewed: Yes Vital Signs Reviewed: Yes Diagnostics - EKG EKG Comments: 13:43 Cardiac Rate: NL - 90 bpm Cardiac Rhythm: Sinus: Normal Ectopy: None ST Segment: Normal - Assessment/Plan Course Of Treatment: TRANSFER BY AMBULANCE TO EMERGENCY DEPARTMENT - Clinical Impression Provider Diagnoses: CHEST PAIN Discharge - Sign-Out/Discharge Documenting (check all that apply): Patient Departure - Transfer All imaging exams completed and their final reports reviewed: No Studies - Discharge Plan Condition: Stable Disposition: TRANS HIGHER LVL OF CARE FAC Referrals: Brian Hernández MD [Primary Care Provider] - - Billing Disposition and Condition Condition: STABLE Disposition: Trans Higher Lvl of Care Fac - Attestation Statements Document Initiated by Scribe: Yes Documenting Scribe: Irma Monreal Provider For Whom Scribe is Documenting (Include Credential): Darell Lackey MD Scribe Attestation: Irma Perkins, scribed for Darell Lackey MD on 10/16/17 at 1412. Scribe Documentation Reviewed: Yes Provider Attestation: The documentation as recorded by the scribeIrma accurately reflects the service I personally performed and the decisions made by me, Darell Lackey MD
== END 2017-10-16 14:20 | disposition short-term general hospital (02) ==
LOC: UCEAST 13:25
DX: R07.89 Other chest pain (principal); R21 Rash and other nonspecific skin eruption; Z88.0 Allergy status to penicillin; Z88.2 Allergy status to sulfonamides; Z88.8 Allergy status to other drugs, medicaments and biological substances; R06.02 Shortness of breath; R11.0 Nausea; A69.20 Lyme disease, unspecified
CPT/HCPCS: 93005; 99213; A9270-GY; G0463

== ENCOUNTER → 2017-10-16 14:40 | Emergency (ER) | payer MEDICARE, BC ==
[~2017-10-16 14:40] MED LIST: Sucralfate SUSP 1 GM/10 ml 10 ML UDC PO SCH
--- NOTE | 2017-10-16 15:09 | ED ---
HPI Chest Pain - HPI Summary HPI Summary: 82 y/o female presents to the ED c/o intermittent sharp pains in the middle of the chest radiating to the chest starting this mid-morning. Mild CP currently. Pt on doxy for lyme disease, started three days ago - and still has an area of redness at her R leg. Pt also c/o nausea. Denies SOB. CP aggravated with swallowing. PMHx GERD and arthritis. - History of Current Complaint Chief Complaint: EDChestPainROMI Hx Obtained From: Patient Onset/Duration: Started Hours Ago Timing: Intermittent Pain Intensity: 0 Pain Scale Used: 0-10 Numeric Chest Pain Location: Mid Sternal Chest Pain Radiates: Yes Chest Pain Radiates To:: Back Character: Sharp/Stabbing Aggravating Factor(s): Other: - swallowing Alleviating Factor(s): Nothing Associated Signs and Symptoms: Positive: Chest Pain, Nausea - Allergy/Home Medications Allergies/Adverse Reactions: Allergies Allergy/AdvReac Type Severity Reaction Status Date / Time Penicillins Allergy Rash Verified 10/16/17 13:58 risedronate sodium Allergy Rash And Verified 10/16/17 13:58 [From Actonel] Itching Sulfa (Sulfonamide Allergy Rash Verified 10/16/17 13:58 Antibiotics) alendronate sodium AdvReac Vomiting Verified 10/16/17 13:58 [From Fosamax] meperidine [From Demerol] AdvReac Vomiting Verified 10/16/17 13:58 scopolamine AdvReac Dizziness Verified 10/16/17 13:58 Home Medications: Home Medications DOXYcycline CAP(*) [DOXYcycline 100MG CAP(*)] 100 mg PO BID 10/16/17 [History Confirmed 10/16/17] PMH/Surg Hx/FS Hx/Imm Hx Previously Healthy: No Endocrine/Hematology History: Reports: Hx Thyroid Disease - hypo, Other Endocrine/Hematological Disorders Denies: Hx Diabetes Cardiovascular History: Denies: Hx Hypertension, Other Cardiovascular Problems/Disorders Respiratory History: Reports: Hx Sleep Apnea - MILD, Other Respiratory Problems/ Disorders - MUSCLE SPASMS DURING REM SLEEP Denies: Hx Asthma, Hx Chronic Obstructive Pulmonary Disease (COPD) GI History: Reports: Hx Gastroesophageal Reflux Disease, Hx Irritable Bowel Denies: Hx Ulcer, Other GI Disorders History: Reports: Hx Kidney Stones - MANY YEARS AGO Denies: Hx Renal Disease Musculoskeletal History: Reports: Hx Arthritis - ALL OVER, Other Musculoskeletal History Sensory History: Reports: Hx Contacts or Glasses - GLASSES Denies: Hx Hearing Aid Opthamlomology History: Reports: Hx Contacts or Glasses - GLASSES Neurological History: Reports: Hx Migraine - 2001, SILENT MIGRAINE Denies: Other Neuro Impairments/Disorders - Cancer History Cancer Type, Location and Year: skin ca - Surgical History Surgery Procedure, Year, and Place: TAYLER CARPAL TUNNEL, 1979, 1980,. 2009, LOW BACK, [facility]. TAYLER BUNIONECTOMYS, 1985, 1989, [facility]. RIGHT SHOULDER, 1995, [place]. RIGHT BREAST BX, 1989, [facility]. LEFT KNEE, 2004, [place]. [place] KNEE, [place] , 2013. DCS trial 03/16/14. R foot surgery 2016. Bladder surgery 08/19/2017 Hx Anesthesia Reactions: Yes - NO OPIATES Infectious Disease History: No Infectious Disease History: Denies: Hx Hepatitis, Hx Human Immunodeficiency Virus (HIV), Traveled Outside the in Last 30 Days - Family History Known Family History: Positive: Hypertension - Social History Alcohol Use: None Hx Substance Use: No Substance Use Type: Reports: None Hx Tobacco Use: No Smoking Status (MU): Never Smoked Tobacco Have You Smoked in the Last Year: No Review of Systems Constitutional: Negative Eyes: Negative ENT: Negative Positive: Chest Pain Respiratory: Negative Positive: Nausea Genitourinary: Negative Musculoskeletal: Negative Positive: Rash - @ R knee Neurological: Negative Psychological: Normal All Other Systems Reviewed And Are Negative: No Physical Exam - Summary Physical Exam Summary: Appearance: Alert, conversive, nontoxic appearing Skin: Warm, dry, no mottling, no contusions. Large target lesion @ R lateral leg. HEENT: EOMI, PERRL, moist mucous membranes Neck: No masses on the neck, supple Respiratory: Clear to auscultation, breath sounds present, no rales, no rhonchi , no wheezes Cardiovascular: RRR, pulses are symmetrical in both lower and upper extremities Abdomen: Soft, non-tender Bowel Sounds: Present Musculoskeletal: No CVA tenderness, no obvious deformity, moving all extremities in a grossly normal manner Neurological: A&Ox3, CN II-XII Intact, moving all extremities symmetrically Psychiatric: Normal affect and mood Triage Information Reviewed: Yes Vital Signs On Initial Exam: Initial Vitals Temp Pulse Resp BP Pulse Ox 99.3 F 87 18 138/87 96 10/16/17 14:46 10/16/17 14:46 10/16/17 14:46 10/16/17 14:46 10/16/17 14:46 Vital Signs Reviewed: Yes Diagnostics - Vital Signs Vital Signs Temp Pulse Resp BP Pulse Ox 10/16/17 14:46 99.3 F 87 18 138/87 96 - Laboratory Result Diagrams: 10/16/17 15:24 10/16/17 15:24 Lab Statement: Any lab studies that have been ordered have been reviewed, and results considered in the medical decision making process. - Radiology CXR Xray Interpretation: No Acute Changes - No evidence for acute intrathoracic disease Radiology Interpretation Completed By: Radiologist - ED Physician Reviews and agrees - EKG 1 EKG Interpretation: 15:06 - SR @ 96 BPM. Normal QRS, QTc, R axis, normal ST T wave segment. Chest Pain Course/Dx - Course Assessment/Plan: 82 y/o female presents to the ED c/o intermittent sharp pains in the middle of the chest radiating to the chest starting this mid-morning. Pt on doxy for lyme diseas. CXR NAD. EKG 15:06 - SR @ 96 BPM. Normal QRS, QTc, R axis, normal ST T wave segment. Trop and repeat Trop 0.01. Pt will be d/c home f /u PCP. - Diagnoses Provider Diagnoses: Chest pain, Esophagitis Discharge - Sign-Out/Discharge Documenting (check all that apply): Patient Departure - Discharge Plan Condition: Stable Disposition: HOME Prescriptions: Sucralfate SUSP (NF) [Carafate SUSP (NF)] 10 ml PO Q6HR #210 ml MDD 40 Patient Education Materials: Chest Pain (ED), Esophagitis (ED) Referrals: Brian Hernández MD [Primary Care Provider] - Additional Instructions: Return if worse or any new symptoms. Take the carafate to help with your esophagitis. when you take the doxycycline, please drink plenty of water. Follow up with your primary care physician. Take all other medications as previously instructed. - Billing Disposition and Condition Condition: STABLE Disposition: Home - Attestation Statements Document Initiated by Scribe: Yes Documenting Scribe: Miguel Blanco Provider For Whom Scribe is Documenting (Include Credential): MD Ana Sifuentes Attestation: I, Miguel Blanco, scribed for Emely Mart MD on 10/16/17 at 1846. Scribe Documentation Reviewed: Yes Provider Attestation: The documentation as recorded by the scribeMiguel accurately reflects the service I personally performed and the decisions made by me, Emely Mart MD
[2017-10-16 15:34] LABS: ABS Basophils 0.1 10^3/ul (0-0.2); ABS Eosinophils 0 10^3/ul (0-0.6); ABS Lymphocytes 1.8 10^3/ul (1.0-4.8); ABS Monocytes 0.6 10^3/ul (0-0.8); ABS Neutrophils 5.2 10^3/ul (1.5-7.7); ABS Nucleated RBC 0 10^3/ul; Eosinophil % 0.3 % (0-6); Hematocrit 39 % (35-47); Hemoglobin 13.1 g/dl (12.0-16.0); Lymphocyte % 23.6 % (25-47); Mean Corpuscular HGB Conc 33 g/dl (31-36); Mean Corpuscular Hemoglobin 30 pg (27-31); Mean Corpuscular Volume 90 fL (80-97); Mean Platelet Volume 6.7 um3 (7.4-10.4); Nucleated Red Blood Cells % 0; Platelet Count 320 10^3/ul (150-450); Red Blood Count 4.36 10^6/ul (4.00-5.40); Red Cell Distribution Width 15 % (10.5-15); White Blood Count 7.7 10^3/ul (3.5-10.8)
--- NOTE | 2017-10-16 15:42 | RAD ---
Indication: Midsternal chest pain. Comparison: May 27, 2017 CT abdomen Technique: Upright AP 1522 hours Report: Negative for pneumothorax. Upper normal heart size. Unremarkable central pulmonary vasculature. Moderate retrocardiac hiatal hernia without change. Dorsal column stimulator leads with the cephalad margin at the level of the T6 vertebral body. Advanced arthropathy of the shoulders. Surgical anchors at the RIGHT humeral head. IMPRESSION: #. No evidence for acute intrathoracic disease.
[2017-10-16 16:00] LABS: EGFR Non-African American 69.8 (>60)
[2017-10-16 18:42] VITALS: BP 140/76
== END | disposition home or self-care (01) ==
LOC: ED 14:40
DX: R07.89 Other chest pain (principal); K20.9 Esophagitis, unspecified; R11.0 Nausea; Z88.5 Allergy status to narcotic agent; Z88.0 Allergy status to penicillin; Z88.2 Allergy status to sulfonamides; Z88.8 Allergy status to other drugs, medicaments and biological substances; R21 Rash and other nonspecific skin eruption; R06.02 Shortness of breath; A69.20 Lyme disease, unspecified
CPT/HCPCS: 36415; 71045; 80053; 83690; 83735; 83880; 84484; 85025; 93005; 99284; A9270-GY

== ENCOUNTER 2017-10-18 01:59 | Emergency (ER) | payer MEDICARE, BC ==
--- OUTSIDE RECORDS SUMMARY | 2017-10-18 02:10 | XMS REPORT ---
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 Problem Hematuria, R31.9 Active 17191340 unspecified Problem Urinary tract N39.0 Active 92342598 infection, site not specified ALLERGIES No Information ENCOUNTERS Encounter Location Date Diagnosis [facility] [address] [place], [place] [id number] [facility] [address], OBGYN [place], [place] [id number] [facility] [address] Sep, Stress incontinence [address] [place], (female) (male) N39.3 [place] [id number] and Complete uterovaginal prolapse N81.3 [facility] [address] Aug, OBGYN [place] [id number] [facility] [address] Aug, Stress incontinence OBGYN [facility], (female) (male) N39.3 [place] [id number] and Complete uterovaginal prolapse N81.3 [place] [facility] [address] Aug, [place] [id number] [place] [facility] [address] Aug, [place], [place] [id number] [place] [facility] [address] Aug, [place] [id number] [facility] [address] [place], Aug, Stress incontinence [facility] [place] [id number] (female) (male) N39.3 and Complete uterovaginal prolapse N81.3 [place] [facility] [address] Aug, [place]BG[place], [place] [id number] [place] [facility] [address] Jul, [place], [place] [id number] [place] [facility] [address] Jul, [place] [id number] [place] [facility] 103 Jul, Incomplete uterovaginal OBGYN [facility], prolapse N81.2 ; [place] [id number] Hematuria, unspecified R31.9 ; Unspecified urinary incontinence R32 and Urinary tract infection, site not specified N39.0 [place] [facility] [address] Jul, Incomplete uterovag[address] [place], prolapse N81.2 ; [place] [id number] Unspecified urinary incontinence R32 ; Hematuria, unspecified R31.9 and Urinary tract infection, site not specified N39.0 [place] [facility] [address] Jul, [place] [id number] [place] [facility] 103 Jul, Unspecified urinary OBGYN [facility], incontinence R32 [place] [id number] [place] [facility] 103 Jul, Unspecified urinary OBGYN [facility], incontinence R32 [place] [id number] [place] [facility] [address] Jul, [place] [id number] [place] [facility] [address] 14 Jul, [address] [place], prolapse N81.2 ; [place] [id number] Unspecified urinary incontinence R32 and Hematuria, unspecified R31.9 [place] [facility] [address] Jul, [place] [id number] [place] [facility] [address] Jul, [place] [id number] [place] [facility] 103 June, Dysuria R30.0 [place] [id number] [place] [facility] [address] June, [place] [id number] [place] [facility] 103 June, Incomplete uterovaginal OBGYN [facility], prolapse N81.2 ; [place] [id number] Unspecified urinary incontinence R32 and Encounter for screening for malignant neoplasm of cervix Z12.4 [place] [facility] 103 June, Incomplete uterovaginal OBGYN [facility], prolapse N81.2 and [place] [id number] Abnormal findings on diagnostic imaging of other specified body structures R93.8 [place] [facility] [address] June, [place] [id number] [place] [facility] 103 June, [place] [id number] [place] [facility] 103 June, Unspecified urinary OBGYN [facility], incontinence R32 [place] [id number] [place] [facility] [address] June, [place]BG[place], [place] [id number] [place] [facility] [address] June, Incomplete uterov[address] [place], prolapse N81.2 and [place] [id number] Unspecified urinary incontinence R32 IMMUNIZATIONS No Known Immunizations SOCIAL HISTORY Never Assessed REASON FOR REFERRAL FUNCTIONAL STATUS PLAN OF CARE VITAL SIGNS MEDICATIONS Unknown Medications PROCEDURES No Known procedures RESULTS No Results REASON FOR VISIT NS Insurance Providers [facility] Member Patient Patient Patient Patient Patient Subscriber Subscriber Subscriber Group Insurance Plan Plan Plan Plan ID Relationship Address Phone Name Date of ID Name Date of No Type Insurance Insurance Insurance Coverage to Subscriber Address Phone Name Dates [place] [phone] [place] [id number] Plan for 1600 Plan for [facility] [employer] [facility] [employer] [place] [employer] [id number] Medicare [phone] Medicare self [place] [id number] [facility] [address] MEDICAL (GENERAL) HISTORY Type Description Date Medical History anxiety Medical History depression Medical History psoriasis Medical History optical migraines Medical History chronic back pain Medical History arthritis Medical History osteopenia - feet Medical History GERD with severe esophageal spasms Medical History fibromyalgia Medical History muscle contractions during REM (REM without Atonia) Medical History RT wrist carpal instability Medical History Back - degenerative disc, stenosis, scoliosis, compressed disc, pinched nerves, slipped discs, spondylolisthesis Surgical History colonoscopy 2007 Surgical History bilateral carpal tunnel [id number] Surgical History LT foot bunionectomy and metatarsal bone reposition 1985 Surgical History RT foot bunionectomy and hammer toe 1989 Surgical History RT rotator cuff 1995 Surgical History breast biopsy 1989 Surgical History LT knee arthroscopic 2004 Surgical History Laminectomies 2 levels lower lumbar 2008 Surgical History numerous nerve blocks Surgical History percutaneous lysis of adhesions 08/24/12 Surgical History arthroscopy RT knee 03/03/13 Surgical History colpocleisis/TOT/cysto 08/19/2017 Hospitalization History childbirth 1960 Hospitalization History childbirth 1963 Hospitalization History childbirth 1966
--- NOTE | 2017-10-18 02:19 | ED ---
GI/ HPI - HPI Summary HPI Summary: This patient is an 82 year old F presenting to [facility] accompanied by her with a chief complaint of nausea and vomiting since 5 days ago. Patient reports that she was seen at [facility] several times this week for similar symptoms. The patient rates the pain 0/10 in severity. Symptoms aggravated by nothing. Symptoms alleviated by nothing. Patient notes pink emesis like coffee grounds . Patient reports rash, abdominal pain, dizziness, lightheadedness, and low fever. Patient also notes chest pain earlier in the week that has resolved. Patient denies diarrhea or dysuria. Patient notes that she has not been drinking as much water recently. Patient reports that she was recently diagnosed with lyme disease and has been taking doxycycline for 4 days. The patient reports that her doctor recommended she stop taking the doxycycline due to her symptoms. - History of Current Complaint Chief Complaint: EDNauseaVomitDiarrh Stated Complaint: VOMITTING Hx Obtained From: Patient, Family/Research Microbiologist - patient's Onset/Duration: Started Days Ago - 5 days, Atraumatic, Still Present Timing: Constant, Lasting Days Pain Intensity: 0 Associated Signs and Symptoms: Positive: Nausea, Vomiting, Fever, Other: - rash Aggravating Factor(s): Nothing Alleviating Factor(s): Nothing - Allergy/Home Medications Allergies/Adverse Reactions: Allergies Allergy/AdvReac Type Severity Reaction Status Date / Time Penicillins Allergy Rash Verified 10/18/17 02:04 risedronate sodium Allergy Rash And Verified 10/18/17 02:04 [From Actonel] Itching Sulfa (Sulfonamide Allergy Rash Verified 10/18/17 02:04 Antibiotics) alendronate sodium AdvReac Vomiting Verified 10/18/17 02:04 [From Fosamax] meperidine [From Demerol] AdvReac Vomiting Verified 10/18/17 02:04 scopolamine AdvReac Dizziness Verified 10/18/17 02:04 PMH/Surg Hx/FS Hx/Imm Hx Endocrine/Hematology History: Reports: Hx Thyroid Disease - hypo, Other Endocrine/Hematological Disorders Denies: Hx Diabetes Cardiovascular History: Denies: Hx Hypertension, Other Cardiovascular Problems/Disorders Respiratory History: Reports: Hx Sleep Apnea - MILD, Other Respiratory Problems/ Disorders - MUSCLE SPASMS DURING REM SLEEP Denies: Hx Asthma, Hx Chronic Obstructive Pulmonary Disease (COPD) GI History: Reports: Hx Gastroesophageal Reflux Disease, Hx Irritable Bowel Denies: Hx Ulcer, Other GI Disorders History: Reports: Hx Kidney Stones - MANY YEARS AGO Denies: Hx Renal Disease Musculoskeletal History: Reports: Hx Arthritis - ALL OVER, Other Musculoskeletal History Sensory History: Reports: Hx Contacts or Glasses - GLASSES Denies: Hx Hearing Aid Opthamlomology History: Reports: Hx Contacts or Glasses - GLASSES Neurological History: Reports: Hx Migraine - 2002, [facility] [place] Denies: Other Neuro Impairments/Disorders - Cancer History Cancer Type, Location and Year: skin ca - Surgical History Surgery Procedure, Year, and Place: TAYLER CARPAL TUNNEL, 1979, 1980,. 2009, LOW BACK, [facility]. TAYLER BUNIONECTOMYS, 1985, 1989, [facility]. [place] [facility], 1995, [facility] [place]. RIGHT BREAST BX, 1989, [facility]. LEFT KNEE, 2004, [place]. [place]NEE, [place] , 2013. DCS trial 03/16/14. R foot surgery 2016. Bladder surgery 08/19/2017 Hx Anesthesia Reactions: Yes - NO OPIATES - Immunization History Date of Tetanus Vaccine: unknown Date of Influenza Vaccine: [id number] Infectious Disease History: No Infectious Disease History: Denies: Hx Hepatitis, Hx Human Immunodeficiency Virus (HIV), Traveled Outside the in Last 30 Days - Family History Known Family History: Positive: Hypertension - Social History Lives: With Family Alcohol Use: None Hx Substance Use: No Substance Use Type: Reports: None Hx Tobacco Use: No Smoking Status (MU): Never Smoked Tobacco Have You Smoked in the Last Year: No Review of Systems Positive: Fever Negative: Epistaxis Positive: Abdominal Pain, Vomiting, Nausea. Negative: Diarrhea Negative: dysuria Positive: Rash Neurological: Other - dizziness, lightheadedness All Other Systems Reviewed And Are Negative: Yes Physical Exam - Summary Physical Exam Summary: Appearance: Well-appearing, Well-nourished, lying in bed comfortably Skin: Warm, dry, no obvious rash Eyes: sclera anicteric, no conjunctival pallor ENT: mucous membranes moist, pharynx appears normal Neck: Supple, nontender Respiratory: Clear to auscultation, no signs of respiratory distress Cardiovascular: Normal S1, S2. No murmurs. Normal distal pulses in tibial and radial bilaterally. Mildly tachycardic with HR 105 bpm. Abdomen: Soft, nontender, normal active bowel sounds present Musculoskeletal: Signs of chronic arthritis in her hands Neurological: A&Ox3, awake and alert, mentation is normal, speech is fluent and appropriate Psychiatric: affect is normal, does not appear anxious or depressed Triage Information Reviewed: Yes Vital Signs On Initial Exam: Initial Vitals Temp Pulse Resp BP Pulse Ox 97.2 F 132 20 158/95 97 10/18/17 02:01 10/18/17 02:01 10/18/17 02:01 10/18/17 02:01 10/18/17 02:01 Vital Signs Reviewed: Yes Diagnostics - Vital Signs Vital Signs Temp Pulse Resp BP Pulse Ox 10/18/17 02:01 97.2 F 132 20 158/95 97 - Laboratory Result Diagrams: 10/18/17 05:54 10/18/17 02:37 Lab Statement: Any lab studies that have been ordered have been reviewed, and results considered in the medical decision making process. - EKG 02:29 Cardiac Rate: Tachycardia - at 106 bpm EKG Rhythm: Sinus Tachycardia ST Segment: Normal Ectopy: None EKG Interpretation: Sinus tachycardia with nml intervals and no ischemic changes Re-Evaluation - Re-Evaluation First Eval Re-Evaluation Time: 03:36 Change: Unchanged Comment: Patient still has nausea despite Zofran. We'll try some Compazine. Her hemoglobin is normal. I will plan on repeating that a couple of hours. There has been no further vomiting. Discharge - Sign-Out/Discharge Documenting (check all that apply): Patient Departure - Discharge Plan Condition: Good Disposition: HOME Prescriptions: Prochlorperazine SUPP* [Compazine Supp*] 25 mg MS Q12H PRN #10 supp PRN Reason: Nausea Patient Education Materials: Lyme Disease (ED), Esophagitis (ED), Radha- Gaitan Syndrome (ED) Referrals: Brian Hernández MD [Primary Care Provider] - Additional Instructions: Continue the 2nd antibiotic prescribed. I think your gastrointestinal symptoms are from the doxycycline. The bleeding has proven to be fairly minimal and should stop on its own as your stomach and esophagus heal. - Attestation Statements Document Initiated by Scribe: Yes Documenting Scribe: Angelika Morales Provider For Whom Scribe is Documenting (Include Credential): Satish Watson MD Scribe Attestation: I, Angelika Morales, scribed for Satish Watson MD on 10/18/17 at 0643.
[2017-10-18] MEDS ORDERED: NS 0.9% 1000 ML* 1,000 ML IV ONE (02:24)
[2017-10-18] MEDS ORDERED: Ondansetron INJ* 2 MG/ML VIAL IV ONE (02:24)
[2017-10-18 02:50] LABS: ABS Basophils 0.1 10^3/ul (0-0.2); ABS Eosinophils 0 10^3/ul (0-0.6); ABS Lymphocytes 1.3 10^3/ul (1.0-4.8); ABS Monocytes 0.8 10^3/ul (0-0.8); ABS Neutrophils 15.8 10^3/ul (1.5-7.7); ABS Nucleated RBC 0 10^3/ul; Eosinophil % 0 % (0-6); Hematocrit 41 % (35-47); Hemoglobin 13.5 g/dl (12.0-16.0); Lymphocyte % 7.3 % (25-47); Mean Corpuscular HGB Conc 33 g/dl (31-36); Mean Corpuscular Hemoglobin 30 pg (27-31); Mean Corpuscular Volume 89 fL (80-97); Nucleated Red Blood Cells % 0.1; Platelet Count 349 10^3/ul (150-450); Red Blood Count 4.57 10^6/ul (4.00-5.40); Red Cell Distribution Width 15 % (10.5-15)
[2017-10-18 02:52] LABS: INR 1.02 (0.77-1.02)
[2017-10-18 03:00] LABS: EGFR Non-African American 66.9 (>60)
[2017-10-18] MEDS ORDERED: PROCHLORPERAZINE INJ 5 MG/ML 2 ML VIAL IV ONE (03:37)
[2017-10-18 06:06] LABS: Hematocrit 37 % (35-47)
[2017-10-18 07:05] VITALS: BP 138/75
== END 2017-10-18 07:01 | disposition home or self-care (01) ==
LOC: ED 01:59
DX: R11.2 Nausea with vomiting, unspecified (principal); E03.9 Hypothyroidism, unspecified; Z85.828 Personal history of other malignant neoplasm of skin
CPT/HCPCS: 36415; 80053; 85014; 85018; 85025; 85610; 86850; 86900; 86901; 93005; 96361; 96374; 96375; 99282; J2405

== ENCOUNTER 2017-10-23 13:46 | Inpatient (IN) | payer MEDICARE, BC ==
[2017-10-23] MEDS ORDERED: NS 0.9% 1000 ML* 1,000 ML IV ONE (13:48)
--- NOTE | 2017-10-23 14:03 | RAD ---
HISTORY: Neurological changes/code lee COMPARISONS: May 27, 2017 TECHNIQUE: Multiple contiguous axial CT scans were obtained of the head without intravenous contrast. FINDINGS: HEMORRHAGE/INFARCT: There is no hemorrhage or acute infarct. MASSES/SHIFT: There is no mass or shift. EXTRA-AXIAL SPACES: There are no extra-axial fluid collections. SULCI AND VENTRICLES: There is diffuse and proportional enlargement of the sulci and ventricles. CEREBRUM: There is hypoattenuation of the periventricular and subcortical white matter. BRAINSTEM: There are no focal parenchymal abnormalities. CEREBELLUM: There are no focal parenchymal abnormalities. VESSELS: The vessels are grossly normal. PARANASAL SINUSES: The paranasal sinuses are clear. ORBITS: The orbits are unremarkable. BONES AND SOFT TISSUE: No bone or soft tissue abnormalities are noted. OTHER: None IMPRESSION: NO ACUTE INTRACRANIAL PATHOLOGY. DIFFUSE INVOLUTIONAL CHANGE WITH CHRONIC SMALL VESSEL ISCHEMIC CHANGES. PRELIMINARY FINDINGS WERE DISCUSSED WITH DR. FIORE AT APPROXIMATELY 1:59 PM ON 2017 .
--- NOTE | 2017-10-23 14:10 | ED ---
Neurological HPI - HPI Summary HPI Summary: This patient is a 82 year old F BIBA to [facility] accompanied by her with a chief complaint of slurred speech that began this morning at 0700 which progressed until she could not speak. The patient rates the pain 0/10 in severity. Patient denies pain and trouble walking. Adenike wilkins called at 1345 Pt was seen by neurology at 1358 at he suggested admitting the patient for a work up. - History of Current Complaint Chief Complaint: EDNeurologicalDeficit Stated Complaint: ADENIKE MARIN Time Seen by Provider: 10/23/17 13:47 Hx Obtained From: Patient Onset/Duration: Still Present Timing: Constant Onset Severity: Mild Current Severity: Moderate Pain Intensity: 0 Pain Scale Used: 0-10 Numeric Syncope Context: Loss of Consciousness: No Associated Signs and Symptoms: Positive: Negative - pain and trouble walking. TPA Considered: No - Allergy/Home Medications Allergies/Adverse Reactions: Allergies Allergy/AdvReac Type Severity Reaction Status Date / Time Penicillins Allergy Rash Verified 10/23/17 14:12 risedronate sodium Allergy Rash And Verified 10/23/17 14:12 [From Actonel] Itching Sulfa (Sulfonamide Allergy Rash Verified 10/23/17 14:12 Antibiotics) alendronate sodium AdvReac Vomiting Verified 10/23/17 14:12 [From Fosamax] meperidine [From Demerol] AdvReac Vomiting Verified 10/23/17 14:12 scopolamine AdvReac Dizziness Verified 10/23/17 14:12 Home Medications: Home Medications Cefuroxime 500 MG(NF) 500 mg PO BID 10/23/17 [History Confirmed 10/23/17] Docusate CAP* [Colace Cap*] 300 mg PO DAILY 10/23/17 [History Confirmed 10/23/17 ] PMH/Surg Hx/FS Hx/Imm Hx Endocrine/Hematology History: Reports: Hx Thyroid Disease - hypo, Other Endocrine/Hematological Disorders Denies: Hx Diabetes Cardiovascular History: Denies: Hx Hypertension, Other Cardiovascular Problems/Disorders Respiratory History: Reports: Hx Sleep Apnea - MILD, Other Respiratory Problems/ Disorders - MUSCLE SPASMS DURING REM SLEEP Denies: Hx Asthma, Hx Chronic Obstructive Pulmonary Disease (COPD) GI History: Reports: Hx Gastroesophageal Reflux Disease, Hx Irritable Bowel Denies: Hx Ulcer, Other GI Disorders History: Reports: Hx Kidney Stones - MANY YEARS AGO Denies: Hx Renal Disease Musculoskeletal History: Reports: Hx Arthritis - ALL OVER, Other Musculoskeletal History Sensory History: Reports: Hx Contacts or Glasses - GLASSES Denies: Hx Hearing Aid Opthamlomology History: Reports: Hx Contacts or Glasses - GLASSES Neurological History: Reports: Hx Migraine - 2002, SILENT MIGRAINE Denies: Other Neuro Impairments/Disorders - Cancer History Cancer Type, Location and Year: skin ca - Surgical History Surgery Procedure, Year, and Place: TAYLER CARPAL TUNNEL, 1979, 1980,. 2009, LOW BACK, [facility]. T[facility]ER BUNIONECTOMYS, 1985, 1989, [place]. RIGHT SHOULDER, 1995, [place]. RIGHT BREAST BX, 1989, [place]. LEFT KNEE, 2004, [place]. RIGHT KNEE, [place] , 2013. DCS trial 03/16/14. R foot surgery 2016. Bladder surgery 08/19/2017 Hx Anesthesia Reactions: Yes - NO OPIATES - Immunization History Date of Tetanus Vaccine: unknown Date of Influenza Vaccine: 8380-1701 Infectious Disease History: Denies: Hx Hepatitis, Hx Human Immunodeficiency Virus (HIV), Traveled Outside the in Last 30 Days - Family History Known Family History: Positive: Hypertension - Social History Alcohol Use: None Hx Substance Use: No Substance Use Type: Reports: None Hx Tobacco Use: No Smoking Status (MU): Never Smoked Tobacco Have You Smoked in the Last Year: No Review of Systems Musculoskeletal: Negative - pain and no altered gait Positive: Slurred Speech All Other Systems Reviewed And Are Negative: Yes Physical Exam - Summary Physical Exam Summary: Appearance: Well-appearing, Well-nourished, lying in bed comfortably Skin: Warm, dry, no obvious rash Eyes: sclera anicteric, no conjunctival pallor ENT: mucous membranes moist, pharynx appears normal Neck: Supple, nontender Respiratory: Clear to auscultation, no signs of respiratory distress Cardiovascular: Normal S1, S2. No murmurs. Normal distal pulses in tibial and radial bilaterally. Abdomen: Soft, nontender, normal active bowel sounds present Musculoskeletal: Normal, Strength/ROM Intact Psychiatric: affect is normal, does not appear anxious or depressed GCS: 15 Triage Information Reviewed: Yes Vital Signs Reviewed: Yes Diagnostics - Laboratory Result Diagrams: 10/24/17 06:28 10/24/17 06:28 Lab Statement: Any lab studies that have been ordered have been reviewed, and results considered in the medical decision making process. - Radiology CXR Radiology Interpretation Completed By: Radiologist - NO ACTIVE CARDIOPULMONARY DISEASE. - CT CT Brain CT Interpretation Completed By: Radiologist - NO ACUTE INTRACRANIAL PATHOLOGY. DIFFUSE INVOLUTIONAL CHANGE WITH CHRONIC SMALL VESSEL ISCHEMIC CHANGES. PRELIMINARY FINDINGS WERE DISCUSSED WITH DR. FIORE AT APPROXIMATELY 1:59 PM ON 2017 . ED physician has reviewed this radiology report. - EKG 14;02 Cardiac Rate: NL EKG Rhythm: Sinus Rhythm - at [address] Segment: Non-Specific EKG Interpretation: abnormal R wave progression, NIH Scale - NIH Scale Level of Consciousness: Alert/Keenly Responsive Ask Patient the Month and His/Her Age: Both Correct Ask Pt to Open/Close Eyes and Batch Still Operator/Release Non-Paretic Hand: Both Correctly Best Gaze (Only Horizontal Eye Movement): Normal Visual Field Testing: No Visual Loss Facial Paresis-Pt to Smile & Close Eyes or Grimace Symmetry: Normal/Symmetrical Motor Function - Right Arm: No Drift-Holds 10 Seconds Motor Function - Left Arm: No Drift-Holds 10 Seconds Motor Function - Right Leg: No Drift-Holds 10 Seconds Motor Function - Left Leg: No Drift-Holds 10 Seconds Limb Ataxia-Must be out of Proportion to Weakness Present: Absent Sensory (Use Pinprick to Test Arms/Legs/Trunk/Face): Normal Best Language (Describe Picture, Name Items): Some Loss Dysarthria (Read Several Words): Normal Extinction and Inattention: No Abnormality Total Score: 1 Re-Evaluation - Re-Evaluation First Eval Re-Evaluation Time: 14:57 Change: Worse Comment: Pt reports PARR and some numbness into her hand. Course/Dx - Course Assessment/Plan: This patient is a 82 year old F BIBA to [facility] accompanied by her with a chief complaint of slurred speech that began this morning at 0700 which progressed until she could not speak. The patient rates the pain 0/ 10 in severity. Patient denies pain and trouble walking. Adenike wilkins called at 1345. Pt was seen by neurology at 1358 at he suggested admitting the patient for a work up. An EKG reveals NSR, non specific t wave changes, abnormal R wave progression. CXR reveals, per radiologist, NO ACTIVE CARDIOPULMONARY DISEASE. CT Brain reveals, per radiologist, NO ACUTE INTRACRANIAL PATHOLOGY. DIFFUSE INVOLUTIONAL CHANGE WITH CHRONIC SMALL VESSEL ISCHEMIC CHANGES. Blood work obtained. We discussed patient care with Dr Townsend and they have accepted the patient for admission. Patient will be admitted. The patient is agreeable with this plan. - Diagnoses Provider Diagnoses: CVA (cerebral vascular accident) Discharge - Sign-Out/Discharge Documenting (check all that apply): Patient Departure - admitted All imaging exams completed and their final reports reviewed: Yes - Discharge Plan Condition: Guarded Disposition: ADMITTED TO [facility] - Billing Disposition and Condition Condition: GUARDED Disposition: Admitted to [facility] - Attestation Statements Document Initiated by Scribe: Yes Documenting Scribe: Ethan Peterson Provider For Whom Adalidibe is Documenting (Include Credential): Satish Watson MD Scribe Attestation: Ethan Perkins , scribed for Satish Watson MD on 10/24/17 at 0850. Scribe Documentation Reviewed: Yes Provider Attestation: The documentation as recorded by the Ethan farooq accurately reflects the service I personally performed and the decisions made by , Satish Watson MD
--- NOTE | 2017-10-23 14:14 | RAD ---
HISTORY: Neurological Changes/Code White COMPARISONS: October 16, 2017 VIEWS: 1: frontal portable view of the chest at 1:58 PM FINDINGS: LINES AND TUBES: None. CARDIOMEDIASTINAL SILHOUETTE: The cardiomediastinal silhouette is normal for portable technique. PLEURA: The costophrenic angles are sharp. No pleural abnormalities are noted. LUNG PARENCHYMA: The lungs are clear. ABDOMEN: The upper abdomen is clear. There is no subphrenic gas. BONES AND SOFT TISSUES: A dorsal column stimulator is noted. There is postsurgical change to the right shoulder. IMPRESSION: NO ACTIVE CARDIOPULMONARY DISEASE.
[2017-10-23 14:33] LABS: INR 0.98 (0.77-1.02)
[2017-10-23 14:43] LABS: ABS Basophils 0 10^3/ul (0-0.2); ABS Eosinophils 0 10^3/ul (0-0.6); ABS Lymphocytes 1.8 10^3/ul (1.0-4.8); ABS Monocytes 0.5 10^3/ul (0-0.8); ABS Neutrophils 5.7 10^3/ul (1.5-7.7); ABS Nucleated RBC 0 10^3/ul; Eosinophil % 0.2 % (0-6); Hematocrit 38 % (35-47); Hemoglobin 12.5 g/dl (12.0-16.0); Lymphocyte % 22.7 % (25-47); Mean Corpuscular HGB Conc 33 g/dl (31-36); Mean Corpuscular Hemoglobin 30 pg (27-31); Mean Corpuscular Volume 90 fL (80-97); Mean Platelet Volume 7.6 um3 (7.4-10.4); Nucleated Red Blood Cells % 0.1; Platelet Count 283 10^3/ul (150-450); Red Blood Count 4.17 10^6/ul (4.00-5.40); Red Cell Distribution Width 15 % (10.5-15)
[2017-10-23] MEDS ORDERED: Perflutren Lipid Microsphere* 3 ML VIAL ONE (15:31)
--- NOTE | 2017-10-23 16:12 | ECHO ---
Amended Report Patient: CHANDLER VILLANUEVA [facility] Rec#: [id number] : 1935 Date: 10/23/2017 Age: 82y Height: 147 cm / 57.9 in Weight: 59 kg / 130.0 lbs Sex: F BSA: 1.51 Room#: ED 12 Admit Date#: 10/23/2017 Type: Inpatient Referring: Abdulaziz Liriano Reading: Leeroy Godoy MD Air Gun Operator: Dina Bob RDCS,RDMS CC: Brian Hernández MD Transthoracic Echocardiogram Indication: CVA BP: 123/71 HR: 77 Rhythm: NSR Findings History: JENNY, CP, esophagitis Technical Comments: The study quality is good. Left Ventricle: The left ventricular chamber size is normal. Basal interventricular septum shows moderate thickening. There are multiple regional wall motion abnormalities. The estimated ejection fraction is 30-35%. closer to 30%. The basal segments and the inferior segments are hyperdynamic. There is chordal NELLY. Abnormal left ventricular diastolic function is observed. Abnormal left ventricular diastolic filling is observed, consistent with impaired relaxation. The mid anterior, mid anterolateral, and mid inferolateral wall segments are hypokinetic (score 2). The apical septal, apical anterior, apical lateral, and apical inferior wall segments are akinetic (score 3). Overall wallmotion score index is 1.69 A thrombus is visualized in the left ventricular apex. Left Atrium: The left atrium is mildly dilated. Right Ventricle: The right ventricular cavity size is normal. The right ventricular global systolic function is hyperdynamic. Right Atrium: The right atrial cavity size is normal. The bubble study is negative. A patent foramen ovale is not demonstrated with color Doppler and agitated contrast. Aortic Valve: The aortic valve is trileaflet. The aortic valve leaflets are mildly thickened. There is no evidence of aortic regurgitation. There is no evidence of aortic stenosis. Mitral Valve: There is mitral annular calcification. The mitral valve leaflets are mildly thickened. There is a trace of mitral regurgitation. There is no evidence of mitral stenosis. Tricuspid Valve: The tricuspid valve leaflets are normal. There is trace tricuspid regurgitation. Unable to estimate the right ventricular systolic pressure. Pulmonic Valve: There is no evidence of pulmonic valve thickening. There is a trace pulmonic regurgitation. Pericardium: There is no significant pericardial effusion. Aorta: The ascending aorta is not well visualized. There is no dilatation of the aortic arch. The aortic root is normal in size. Pulmonary Artery: The main pulmonary artery appears normal. Venous: The inferior vena cava appears normal in size. There is a greater than 50% respiratory change in the inferior vena cava dimension. Contrast: Definity was used to optimize study. A total of 2 ml was used Intravenous agitated saline contrast was used to assess intracardiac shunting. Images 1 and 2 Summary: There was not any prior study for comparison. Conclusions The left atrium is mildly dilated. The aortic valve leaflets are mildly thickened. There is a trace of mitral regurgitation. There is trace tricuspid regurgitation. There are multiple regional wall motion abnormalities. The estimated ejection fraction is 30-35%, closer to 30%. The basal segments and the inferior segments are hyperdynamic. There is chordal NELLY. Abnormal left ventricular diastolic filling is observed, consistent with impaired relaxation. A thrombus is visualized in the left ventricular apex. addendum: A patent foramen ovale is not demonstrated with color Doppler and agitated contrast. Measurements Name Value Normal Range RVIDd (AP) 2D 2.3 cm (0.9 - 2.6) RVDdMajor (2D) 2.9 cm (2.2 - 4.4) RAd ISD 4CH 4.4 cm (3.4 - 4.9) RA (A4C)W 3.4 cm (2.9 - 4.6) IVSd (2D) 1.7 cm (0.6 - 1) LVPWd (2D) 0.9 cm (0.6 - 1) LVIDd (2D) 3.8 cm (3.6 - 5.4) LVIDs (2D) 2 cm - LV FS (2D) 48 % (25 - 45) Aortic Annulus 2 cm (1.4 - 2.6) Ao root diameter (2D) 2.6 cm (2.1 - 3.5) Aortic arch 2.9 cm (1.8 - 3.4) LA dimension (AP) 2D 3.5 cm (2.3 - 3.8) LAd ISD 4CH 5.5 cm (2.9 - 5.3) LA ISD 4CH W 4.3 cm (2.5 - 4.5) Name Value Normal Range LA ESV BP (A/L) index 35 ml/m2 - Name Value Normal Range MV E-wave Vmax 1 m/sec - MV deceleration time 111 msec - MV A-wave Vmax 1.2 m/sec - MV E:A ratio 0.8 ratio - LV septal e' Vmax 0.05 m/sec - LV lateral e' Vmax 0.07 m/sec - LV E:e' septal ratio 20 ratio - LV E:e' lateral ratio 14 ratio - Name Value Normal Range AV Vmax 1.4 m/sec - AV VTI 25 cm - AV peak gradient 8 mmHg - AV mean gradient 5 mmHg - LVOT Vmax 1.3 m/sec - LVOT VTI 25 cm - LVOT peak gradient 7 mmHg - LVOT mean gradient 4 mmHg - MADIHA Vmax 0.4 m/sec - Name Value Normal Range MV Vmax 1.2 m/sec - MV VTI 29 cm - MV peak gradient 6 mmHg - MV mean gradient 3 mmHg - MV PHT 79 msec - MVA (PHT) 2.8 cm2 - Name Value Normal Range IVC diameter 1.9 cm - Name Value Normal Range PV Vmax 0.8 m/sec - PV peak gradient 2.6 mmHg - Wallmotion BAS Normal BA Normal BAL Normal TAYLER Normal BI Normal BIS Normal MAS Normal MA Hypokinetic MAL Hypokinetic MIL Hypokinetic MS Normal MIS Normal Akinetic AA Akinetic AL Akinetic AI Akinetic APEX Akinetic
[2017-10-23] MEDS ORDERED: Metoprolol Tartrate IV* 1 MG/ML 5 ML VIAL IV ONE (16:45)
[2017-10-23] MEDS ORDERED: Psyllium PAK PO PRN (16:46)
--- NOTE | 2017-10-23 17:03 | HP ---
H&P (Free Text) History and Physical: Reviewed the TTE report. Pt has low EF at 30% and a left ventricular thrombus. I suspect her dysphasia is related to a cardio-embolic stroke in the setting of a left ventricular thrombus. The patient's NIHSS is 1 for mild dysphasia. She is at high risk for developing new embolic strokes with or without any further cardiac interventions. Given the low NIHSS, her stroke core is small and most likely tiny embolization involving the left hemisphere greater than right. I recommend , with the risks and benefits discussed with family, to proceed with cardiac catheterization if the patient has evidence of an PA or develops symptoms of an acute PA. Please keep SBP greater than 120 < 160 mmHg during the procedure. We will repeat a CT head without contrast tomorrow to evaluate for the size of the cerebral infarction. If we don't see any infarction, or tiny embolic infarction on CT, then anti-platelet and anticoagulation therapy can be initiated with a lower risk for ICH or hemorrhagic conversion. Again risk and benefits of anti-platelet and anticoagulation therapy will need to be discussed in detail with the patient and spouse. I will continue to follow. Please call me with any questions or concerns.
[2017-10-23] MEDS ORDERED: Ondansetron INJ* 2 MG/ML VIAL IV PRN (17:06)
[2017-10-23] MEDS ORDERED: cefTRIAXone(*) 2 GM in NS 0.9% 50 ML* 100 ML IVPB SCH (18:00)
[2017-10-23] MEDS ORDERED: Potassium Chlor TAB* 20 MEQ TAB.ER PO ONE (18:00)
[2017-10-23] MEDS ORDERED: Magnesium Sulfate 1 GM IV* 1 GM/100 ML BAG IV ONE (18:07)
[2017-10-23] MEDS: cefTRIAXone(*) 2 GM in NS 0.9% 50 ML* 50 ML IVPB SCH (18:28)
[2017-10-23] MEDS: Heparin DRIP 25,000 UNITS(*) 25,000 UNITS/500 ML BAG IV SCH (18:28)
[2017-10-23] MEDS: Sucralfate TAB* 1 GM PO SCH (19:42)
[2017-10-23] MEDS: DULoxetine DR CAP* 60 MG CAP.DR PO SCH (20:10)
[2017-10-23] MEDS: Omeprazole CAP* 20 MG PO SCH (20:10)
[2017-10-23] MEDS: Metoprolol Tartrate TAB* 25 MG PO SCH (20:14)
--- NOTE | 2017-10-23 20:54 | CONS ---
NEUROLOGY CONSULTATION REPORT: DATE OF CONSULT: 10/23/17 CONSULTING PROVIDER: Dr. Brian Hernández. REASON FOR CONSULT: Activated code lee to evaluate the patient for word- finding difficulty. CHIEF COMPLAINT: Confusion. HISTORY OF PRESENT ILLNESS: Mrs. Opal Quick is an 82-year-old right-handed female who presents to [facility] via EMS due to sudden onset of word - finding difficulty. The patient was diagnosed with Lyme disease last week on 10/16/17 after she discovered a rash in the right lower extremity. According to her , the patient lives in [place] and they have ticks all around the grass. This morning, the patient was in normal state of health at 6:30 a.m. She went back to bed until 7 to 8 a.m. when her noticed that she has intermittent confusion. She could not items that they needed for grocery shopping when they were making a list. She was unable to recall names. Her symptoms got better, but restarted again at 12 p.m. EMS was immediately contacted. The patient denied any headaches, right upper extremity weakness, or paresthesias. She denied any seizure-like activity. She has never had similar symptoms in the past. NIH Stroke Scale was [address] head was obtained without contrast that showed no evidence of acute intracranial process. CTA was not performed due to low NIH Stroke Scale. The patient was started on IV fluids. She is aspirin naive. The patient's complains that the patient has had memory problems over the last year. She forgets objects and items throughout the house; however, he also is concerned that he may be having memory problems and it is hard to monitor her memory dysfunction. PAST MEDICAL HISTORY: Recent diagnosis of Lyme. The patient has history of anxiety. PAST SURGICAL HISTORY: She had a bladder lift. MEDICATIONS: 1. Multivitamins. 2. Calcium. 3. Magnesium oxide. 4. Vitamin D. 5. Pantoprazole. 6. Duloxetine 60 mg. 7. Aluminum hydroxide 600 p.o. t.i.d. 8. Acetaminophen. 9. Oxaprozin. 10. Klonopin 0.5 mg at bedtime. 11. Prochlorperazine 25 mg daily. 12. Cefuroxime 500 mg tablets twice daily. ALLERGIES: PENICILLIN, RISEDRONATE, SULFA. FAMILY HISTORY: No family history of stroke or seizures. SOCIAL HISTORY: The patient is retired. 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 She lives in [place]. She denied any tobacco or alcohol use. REVIEW OF SYSTEMS: A 14-point review of systems was obtained and otherwise negative except for what was mentioned in the HPI. PHYSICAL EXAM: Vitals: Temperature of 97.8, pulse of 82, respiratory rate of 19, oxygen saturation of 99%, blood pressure of 123/71. General: Well- nourished, well- developed female, in no acute distress. She is alert and cooperative. Head is normocephalic without any obvious abnormality. Eyes: Conjunctivae/corneas are clear. No scleral icterus. Neck is supple and symmetrical with no carotid bruit. Lungs are clear to auscultation bilaterally. Cardiovascular: Regular rate and rhythm with normal S1, S2. Extremities: Normal range of motion with no cyanosis. Skin: No skin lesions or lacerations. Psych: Affect is broad. She is slightly anxious, but comfortable overall. Neurological Examination: Mental Status: The patient is alert, awake, and oriented to person, place, time, and general circumstances. She has mild dysphasia, but is able to follow complex command, name, and repeat without any limitation. Cranial Nerves: Normal confrontation testing bilaterally. Normal consensual response. Extraocular muscles are intact. No ptosis. Sensation is intact in the face to light touch and pinprick. No facial asymmetry. She is able to hear throughout the history process. She has symmetrical palatal elevation. Tongue is symmetric and midline with no atrophy or fasciculation. Motor: She has no abnormal movement and questionable pronator drift on the right upper extremity that is more upright than downward drift. Otherwise, strength is 5/5 throughout the upper and lower extremities. Reflexes: Right/ left, brachioradialis 1/1, biceps 1/1, triceps 1/1, patella 1/1, ankle 1/1, plantar mute/flexor. Sensation is intact to light touch, pinprick, and temperature sensation throughout. She has reduced vibration to 3 seconds on the right and 4 seconds on the left toe, but intact proprioception at the great toes bilaterally. Coordination: Normal [id number] and rapid alternating movement. Gait was not assessed as the patient was being evaluated for acute stroke. DIAGNOSTIC STUDIES/LAB DATA: There is no laboratory data available. We do know that Accu-Chek was 106, within normal range. CT head without contrast was reviewed. The CT showed diffuse cerebral atrophy most prominent in the frontal and temporal region with extensive white matter hypodensity consistent with chronic small vessel disease. ASSESSMENT: Mrs. Opal Quick is an 82-year-old female who was recently diagnosed with Lyme's disease, who presents with fluctuating word-finding difficulty. Her NIH Stroke Scale was 1. We suspect that the patient may have an acute distal MCA ischemia infarction involving the left frontoparietal region. Other differential diagnosis may be encephalitis related to Lyme disease. We will order an MRI brain with and without contrast to evaluate for a stroke or any leptomeningeal enhancement. She has no nuchal rigidity and no fevers and therefore, I do not suspect this is related to an encephalitis. I also recommend ordering a carotid ultrasound and an MRA of the head to evaluate the intracranial vessels. Please also order a transthoracic echo with bubble study. Please place the patient on aspirin 81 mg daily. If the MRI is negative and she continues to have symptoms of word-finding difficulty, then we will need to proceed with a lumbar puncture. Please start the patient on heparin subcutaneous injection 5000 units for DVT prophylaxis rather than starting enoxaparin as we will not be able to perform the lumbar puncture on enoxaparin for at least 12 hours after the last dose. I also recommend starting the patient on IV fluids. Keep her systolic blood pressure between 140 to less than 180. Admit to the hospitalist service. Continue neuro checks every 4 hours. Continue supportive care. Please add that the patient was not a candidate for IV t-PA due to low NIH Stroke Scale and last known well time is outside the 4-1/2-hour window. We did not assess for large vessel occlusion since the patient's NIH Stroke Scale was low. Recent history of Lyme disease. The patient could not tolerate doxycycline due to GI upset. She is currently on cefuroxime. Defer further management to the primary team. TIME SPENT: I spent a total of 70 minutes, of which greater than 50% was spent directly reviewing the medical chart, obtaining history, examining the patient, education and counseling, and discussing the treatment plan as mentioned above. I will continue to follow. [id number]/[facility] #: [id number] BRODIE
--- NOTE | 2017-10-23 22:34 | HP ---
CC: Dr. Brian Hernández; Dr. Abdulaziz Liriano * HISTORY AND PHYSICAL: DATE OF ADMISSION: 10/23/17 PRIMARY CARE PROVIDER: Dr. Brian Hernández. ATTENDING PHYSICIAN: Dr. Denisse Townsend * (dictated by Sharad Meza NP). CHIEF COMPLAINT: Difficulty with speech. HISTORY OF PRESENT ILLNESS: Ms. Quick is an 82-year-old female with past medical history significant for sleep apnea, hypothyroidism, chronic low back pain, history of prolapsed bladder, GERD, esophageal spasms, osteoporosis, who reported to being in her usual state of health until approximately 10 days ago when she developed erythema migrans. The patient was started on doxycycline, which she took for a couple of days. She then developed epigastric discomfort and was seen in [facility] and then transferred to the emergency room on . At that time, she had troponins that were flat x2 at 0.01. It was suspected that her chest discomfort and epigastric pain was secondary to gastritis and she was started on Carafate and prescribed Compazine. The patient states that her symptoms have resolved. She denies any recent fevers, chills, chest pain, shortness of breath, or diarrhea. This morning, the patient awoke and was noted to have slurred speech around 7 a.m. This then progressed to aphasia. Its to note that the patient isn't clear on her history at this time. Due to her symptoms, her brought her to the emergency room for further evaluation. While in the emergency room, the patient continued to have some mild aphasia and a Code White was called. She had a CT showing chronic small vessel ischemic changes, but no acute findings. She had a chest x-ray without acute findings. She had the labs that were unremarkable with the exception of an elevated troponin of 0.96. She had an EKG showing a sinus rhythm with abnormal R-wave progression and mild ST elevation. She was seen in consultation by Dr. Abdulaziz Liriano, who recommended she would be admitted. During the patient's time in the emergency room, she was really unsure why she presented to [facility]gent Care approximately a week ago. She was unsure if she was having chest pain at that time or not. She was really unable to explain any of her current symptoms. When asked how she was feeling, she was able to state "horrible", and reported nausea, but then stated that she just did not feel well. She was really unable to elaborate on how she was feeling. She was also seen in consultation by Cardiology after she had an echocardiogram in the emergency room showing EF of 30% and a left ventricle thrombus. The patient is reporting a headache in the emergency room and states this has been ongoing since today. At this time, she denies any pain such as chest pain or shortness of breath. The hospitalists were asked to evaluate the patient for admission. PAST MEDICAL HISTORY: 1. REM sleep abnormality. 2. Hypothyroidism. 3. Chronic low back pain. 4. Prolapsed bladder. 5. Skin cancer. 6. GERD. 7. Esophageal spasms. 8. Osteoporosis. 9. Sleep apnea. PAST SURGICAL HISTORY: 1. Status post bladder surgery for repair of prolapse. 2. Status post bilateral knee surgery. 3. Status post right breast biopsy. 4. Status post right shoulder surgery. 5. Status post bilateral carpal tunnel release. 6. Status post bilateral bunionectomies. 7. Status post right foot surgery. 8. Status post lumbar spine nerve stimulator implant. MEDICATIONS: Home medications include: 1. Carafate 10 mL oral every 6 hours. 2. Klonopin 0.5 mg oral daily at bedtime as needed for anxiety. 3. Aluminum hydroxide 600 mEq oral 3 times daily as needed for indigestion. 4. Acetaminophen 500 mg oral every 4 hours as needed for fever and pain. 5. Selenium 1 packet oral daily as needed for constipation. 6. Colace 300 mg oral daily. 7. Cymbalta 600 mg oral daily at bedtime. 8. Protonix 40 mg oral twice daily. 9. Magnesium oxide 500 to 1000 mg oral daily. 10. Vitamin D 4000 units oral daily. 11. Multivitamin 1 tablet oral daily. 12. Calcium carbonate 1400 mg oral daily. 13. Cefuroxime 500 mg oral twice daily. 14. Compazine 25 mg [place] every 12 hours as needed for nausea. ALLERGIES: PENICILLIN, ACTONEL, SULFA, FOSAMAX, DEMEROL, SCOPOLAMINE. FAMILY HISTORY: The patient's father passed in his 80s from a CVA. She denies family history of heart disease or diabetes. Her sister has a history of breast cancer. SOCIAL HISTORY: She denies tobacco, alcohol, or recreational drug use. She lives with her . Her , Cornell Quick, will be her surrogate decision maker in the event that she is unable to make decisions for herself. REVIEW OF SYSTEMS: I performed a 11-point review of systems. All the pertinent positives and negatives are mentioned in the history of present illness. The remaining review of systems is negative. PHYSICAL EXAMINATION GENERAL APPEARANCE: The patient is alert, pleasant, appears to be in no acute distress. VITAL SIGNS: Temperature 97.8, heart rate 87, respiratory rate 16, O2 saturation 100% on room air, blood pressure 126/75. HEENT: Normocephalic, atraumatic. Pupils are equal and reactive to light. Extraocular movements are intact. RESPIRATORY: There is no accessory muscle use and the lungs are clear to auscultation bilaterally. CARDIOVASCULAR: Regular rate and rhythm. S1 and S2 present. There are no murmurs, rubs, or gallops heard. ABDOMEN: Soft, nontender, and nondistended. There are bowel sounds present x4. EXTREMITIES: There is no lower extremity edema. DP and PT pulses are 2+ and symmetric. MUSCULOSKELETAL: There is no clubbing or cyanosis noted. NEUROLOGICAL: The paitent is alert and oriented to person, place and time. She continues to have mild aphasia. Smile is symmetric with the exception of a very subtle left sided facial droop. Hand general ledger accountant are equal and she has no pronator drift. Dorsi and plantar flex are equal bilateral. She is able to perform heel from ankle to knee and finger to nose bilateral. PSYCHOLOGICAL: The patient is calm and cooperative. SKIN: There are no rashes or abnormalities seen DIAGNOSTIC STUDIES/LABORATORY DATA: Sodium 139, potassium 3.7, chloride 107, CO2 24, BUN 18, creatinine 0.68, glucose 99. White blood cell count 8.0, hemoglobin 12.5, hematocrit 38, and platelet count 283. Troponin 0.96. EKG shows a sinus rhythm with a rate of 83. There is a T-wave inversion and aVL , and abnormal R-wave progression of possible mild ST elevation. Chest x-ray from today. Radiologist impression: No active cardiopulmonary disease. Brain CT from today. Radiologist impression: No acute intracranial pathology. Diffuse involutional changes with chronic ischemic changes. Transthoracic echocardiogram from today. Body Die Maker's conclusion: Left atrium is mildly dilated, the aortic leaflets are mildly thickened, there is trace mitral regurgitation, trace tricuspid regurgitation. There are multiple regional wall motion abnormalities. The estimated ejection fraction is 30% to 35%, closer to 30%. The basal segments and the inferior segments are hyperdynamic. There is chordal NELLY. Abnormal left ventricular diastolic filling is observed, consistent with impaired relaxation. A thrombus is visualized in the left ventricular apex. IMPRESSION: Ms. Quick is an 82-year-old female with past medical history significant for rapid eye movement sleep disorder and sleep apnea, hypothyroidism, chronic low back pain, prolapsed bladder, status post repair; skin cancer, gastroesophageal reflux disease, esophageal spasms, and osteoporosis, who presented to the emergency room with complaints of aphasia. She will be admitted as an inpatient for cerebrovascular accident, elevated troponin, and left ventricular thrombus. ASSESSMENT/PLAN: 1. Aphasia. I suspect this is likely secondary to a cerebrovascular accident. The patient has been seen in consultation by Neurology. She will have neuro Checks q.2 hours, and will be monitored on telemetry. She is unable to have an MRI due to a lumbar spinal stimulator. She will have a repeat CT in the morning to eval for evolving cerebrovascular accident. We will check fasting lipids in the morning. Due to the finding of a left ventricular thrombus, the patient will be put on a heparin drip as this is likely the source of her cerebrovascular accident. We will hold on aspirin as she, per Neurology, does not need aspirin as she is being placed on heparin drip. She is not currently on a statin, once we know her fasting lipids in the morning we will evaluate her need for a statin and place her on a statin accordingly. 2. Elevated troponin. I suspect this could be secondary to the left ventricular thrombus or an myocardial infarction. The patient was previously seen with complaints of chest pain, but at this time is unsure if she is having chest pain or not. We will trend her troponins, monitor on telemetry, check fasting lipids in the morning. Cardiology asked for now that we hold the aspirin. We will give her aspirin if her troponins are trending up. She already had an echo as described previously. She had been seen in consultation by Cardiology. We will get her electrolyte to a goal of potassium of greater than 4, magnesium greater than 2. We will give her potassium, magnesium supplements today, recheck tomorrow. The patient appeared to have slight ST elevation on first EKG, but repeat EKG in ER looks like this is improving. Cardiology is requesting that the patient receive 5 mg of IV metoprolol to lower her heart rate in the ER and then place her on a low-dose beta-debbie. We need to be cautious with any antihypertensive agents as we want to allow permissive hypertension in the setting of a cerebrovascular accident. 3. Suspected gastritis. The patient will be continued on Carafate and Protonix. 4. Erythema migrans. The patient was initially treated with doxycycline and then had gastrointestinal upset. This was changed to cefuroxime on 10/17/17, for a 10- day supply. For now, I am going to change the patient to ceftriaxone 2 g to cover for the possibility of Lyme endocarditis. 5. 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 We are going to hold the patient's clonazepam in the setting of cerebrovascular accident, as I would like to be able to identify changes on her neurological status overnight. 6. Hypothyroidism. Her TSH is 2.32. It looks like she is no longer taking levothyroxine. 7. Chronic low back pain. She will be continued on her Cymbalta. I am going to hold the oxaprozin in the setting of possible gastritis. 8. Fluids, electrolytes, and nutrition. She is having nausea. We will just place her on a clear liquid diet and they are determining if they are going to take her for cardiac catheterization. 9. Code status. Full code. 10. DVT prophylaxis. She is at highest risk and is on a heparin drip. 11. Disposition. Inpatient. TIME SPENT: Time for this admission was approximately 60 minutes, greater than half of that was spent with the patient and discussing medications, past medical history, the events leading up to her arrival today, performing a physical examination. The case has been reviewed with the attending, Dr. Townsend, who agrees with the plan of care. Reviewed by SHARAD MEZA, PRETTY 10/24/17 1258 [id number]/[facility] #: [id number] BRODIE
--- NOTE | 2017-10-23 23:07 | CONS ---
CC: Dr. Hernández; Dr. Godoy * CARDIOLOGY CONSULTATION: DATE OF CONSULT: 10/23/17 CONSULTING PHYSICIAN: Dr. Denisse Townsend. REASON FOR EVALUATION: Stroke, cardiomyopathy, intracardiac thrombus. HISTORY OF PRESENT ILLNESS: This is an 82-year-old woman who is accompanied by her . She has had multiple complaints over the last 10 days or so, but today was brought to the emergency room because of confused speech and suspected to have had a right MCA CVA. No complaints of shortness of breath, orthopnea, dyspnea, or chest pain. However, as part of her workup, she got an echocardiogram, which revealed severe LV dysfunction with an anterior apical wall motion abnormality, EF of approximately 30% and what appeared to be an apical thrombus. She has no previous history of heart disease. She does have history of migraine headaches dating back to 2001. She denies diabetes, tobacco use ,or hypertension. She has been diagnosed with gastroesophageal reflux, apparently had some reflux symptoms about 2 months ago when she was seen for UTI. She also had multiple evaluations over the last week for variable symptoms. The history is somewhat confusing based on the patient's inability to express herself and 's limited memory, but apparently about 10 days ago, he noted a rash on her right leg and she was complaining of some weakness. She apparently was started on doxycycline, but came back to the emergency room on 10/16/17 complaining of sharp chest pain 10/10 dropping to 5/ 10 and nausea and vomiting and it was thought that she had had possible reaction to her medication. She was transferred to the emergency room and had a negative troponin and her EKG from 10/16/17 at 1506 revealed sinus rhythm with possible LVH and minor nonspecific ST changes. Repeat EKG from 10/18/17 at 2:29 a.m. revealed sinus rhythm with minor nonspecific ST depressions laterally. According to the , she had no further chest burning after that , but did well until this morning when she had the expressive aphasia. She was brought here and her EKG from 1402 revealed sinus rhythm with approximately 0.[address] elevation in I, aVL and anteriorly, new compared to the previous. She had a repeat EKG at 1700, which revealed partial improvement in ST elevations. Her troponin came back elevated at 0.96. As mentioned on 10/16/17, she had 2 troponins that were 0.01. She denies any syncope, palpitations, orthopnea, or peripheral edema. She is limited by spinal stenosis and walks with a walker. Normally, she is able to walk through the supermarket with a walker. PAST MEDICAL HISTORY: Includes recent Lyme disease, UTI, GERD, and laminectomies, leg pain. She denies strokes, mini strokes, tobacco use, diabetes, hypertension. She does have a history of migraine headaches diagnosed in 2001. She also has optical migraines, chronic back pain through early 60s, osteoporosis, GERD with severe esophageal spasms, fibromyalgia in 2003, 2002. Tinnitus in 2013. PAST SURGICAL HISTORY: Include carpal tunnel surgery of both wrist, left foot bunionectomy and metatarsal bone reposition, right foot bunionectomy and hammertoe 1989, right rotator cuff surgery, breast biopsy, arthroscopy on the left knee, back laminectomies in 2008 in her low lumbar spine. She had multiple nerve blocks. ALLERGIES: Include PENICILLIN, SULFA, DEMEROL, and OSTEOPOROSIS MEDS. She has been able to tolerate Versed and fentanyl. SOCIAL HISTORY: She denies alcohol abuse since her 20s. She denies tobacco use. She is and will be 61 years this year. She is accompanied by her . She has 3 children, 2 sons and a daughter. 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 REVIEW OF SYSTEMS: Review of systems x10 was negative except as above. PHYSICAL EXAM: She is a well-developed, well-nourished female, in no apparent distress. When asked questions, she responds, but has trouble getting her words straight and often has difficulty making a sensible response. She could not tell me the date or the month. Blood pressure 128/71, pulse 85. No significant JVD. Carotids 2+ without bruits. Extraocular muscles intact. Sclerae anicteric. Cardiac Exam: S1, S2. No clear murmurs, gallops, or rubs. Chest was clear. No CVAT. Abdominal Exam: Bowel sounds present, nontender. Femoral pulses intact with a right femoral bruit. Distal pulses intact. No edema. Motor strength 5/5 bilaterally in the upper extremities and the lower extremities. Deep tendon reflexes diminished in the lower extremities, 2/4 in the upper extremities. DIAGNOSTIC STUDIES/LAB DATA: Labs include sodium 139, potassium of 3.7, BUN 18 , creatinine of 0.68, magnesium of 1.7. Troponin of 0.96. Cholesterol 163, LDL of 92, HDL of 46, triglycerides of 128. Chest x-ray, no significant changes. EKGs were described above. Echocardiogram performed earlier this afternoon revealed multiple regional wall motion abnormalities, EF of 30% to 35% closer to 30%. The apical regions were akinetic and there was apical thrombus. There was severe hypokinesis at the [id number] anterior septal, anterolateral, anterior segments and distal inferolateral. RV with normal size and function. There is trace MR, trace TR, trace PI. IMPRESSION: My impression is that Ms. Quick appears to have CVA, cardiomyopathy with intracardiac thrombus, and elevated troponins. It is possible that she had a recent infarct complicated by LV dysfunction and thrombus formation. The timing is unclear. Other possibilities include a nonischemic cardiomyopathy or perhaps a stress cardiomyopathy. Options for treatment are limited due to her recent stroke. I have discussed the case with Dr. Townsend and Dr. Liriano of Neurology. She is at increased risk for conversion of hemorrhagic stroke with aggressive anticoagulation. I have also discussed the case with our interventionalist, Dr. Davila and I have discussed the case with the patient, her , and her son via telephone. Her diagnosis is guarded. At this point, I recommend the followin. We will continue with IV heparin without bolus as per Neurology. 2. We will consider adding aspirin if safe to use it from neurologic standpoint. We will try using a low dose of metoprolol given the recent infarct and LV dysfunction. We will start with IV Lopressor 5 mg and 12.5 mg b.i.d. trying to avoid excessive hypotension. 3. We will follow serial EKGs and troponins. 4. We will check CRP and sed rate. 5. We will consider adding a statin given her suspected recent infarct and femoral bruit heard on exam. 6. Carotid studies are pending. 7. Prognosis is guarded. [id number]/[facility] #: [id number] [facility] LAWRENCE HEALTH SYSTEMFelipa
[2017-10-23] MEDS: Atorvastatin* 40 MG TAB PO SCH (23:42)
[2017-10-24] MEDS: Sucralfate TAB* 1 GM PO SCH ×4 (00:45→17:34)
[2017-10-24 07:05] LABS: ABS Basophils 0.1 10^3/ul (0-0.2); ABS Eosinophils 0 10^3/ul (0-0.6); ABS Lymphocytes 1.9 10^3/ul (1.0-4.8); ABS Monocytes 0.5 10^3/ul (0-0.8); ABS Neutrophils 3.6 10^3/ul (1.5-7.7); ABS Nucleated RBC 0 10^3/ul; Eosinophil % 0.6 % (0-6); Hematocrit 34 % (35-47); Hemoglobin 11.2 g/dl (12.0-16.0); Lymphocyte % 31.8 % (25-47); Mean Corpuscular HGB Conc 33 g/dl (31-36); Mean Corpuscular Hemoglobin 30 pg (27-31); Mean Corpuscular Volume 91 fL (80-97); Mean Platelet Volume 8.1 um3 (7.4-10.4); Nucleated Red Blood Cells % 0.1; Platelet Count 239 10^3/ul (150-450); Red Blood Count 3.75 10^6/ul (4.00-5.40); Red Cell Distribution Width 15 % (10.5-15); White Blood Count 6.1 10^3/ul (3.5-10.8)
[2017-10-24 07:14] LABS: EGFR Non-African American 90.7 (>60)
--- NOTE | 2017-10-24 08:10 | RAD ---
HISTORY: Follow-up CVA COMPARISONS: 6 October 23, 2017 TECHNIQUE: Multiple contiguous axial CT scans were obtained of the head without intravenous contrast. FINDINGS: HEMORRHAGE/INFARCT: There is no hemorrhage or acute infarct. MASSES/SHIFT: There is no mass or shift. EXTRA-AXIAL SPACES: There are no extra-axial fluid collections. SULCI AND VENTRICLES: There is diffuse and proportional enlargement of the sulci and ventricles. CEREBRUM: There is hypoattenuation of the periventricular and subcortical white matter. BRAINSTEM: There are no focal parenchymal abnormalities. CEREBELLUM: There are no focal parenchymal abnormalities. VESSELS: The vessels are grossly normal. PARANASAL SINUSES: The paranasal sinuses are clear. ORBITS: The orbits are unremarkable. BONES AND SOFT TISSUE: No bone or soft tissue abnormalities are noted. OTHER: None IMPRESSION: NO ACUTE INTRACRANIAL PATHOLOGY. DIFFUSE INVOLUTIONAL CHANGE WITH CHRONIC SMALL VESSEL ISCHEMIC CHANGES. NO SIGNIFICANT CHANGE FROM 2017
[2017-10-24] MEDS: Metoprolol Tartrate TAB* 25 MG PO SCH ×2 (08:36→22:06)
[2017-10-24] MEDS: Omeprazole CAP* 20 MG PO SCH ×2 (08:36→22:06)
[2017-10-24] MEDS: Multivitamins/Minerals TAB PO SCH (08:36)
[2017-10-24] MEDS: Aspirin 81 mg CHEW TAB* 81 MG TAB.CHEW PO SCH (10:43)
[2017-10-24] MEDS: NS 0.9% 1000 ML* 1,000 ML IV SCH ×2 (10:44→18:12)
[2017-10-24] MEDS ORDERED: Iohexol 350* (CONTRAST) 500 ML MDV IV ONE (11:07)
[2017-10-24] MEDS: Cyanocobalamin TAB* 500 MCG PO SCH (13:07)
--- NOTE | 2017-10-24 13:57 | RAD ---
HISTORY: left MCA stroke COMPARISONS: Head CT dated October 24, 2017, CTA dated June 09, 2006 TECHNIQUE: Multiple contiguous axial CT scans were obtained of the head and neck after the administration of nonionic intravenous contrast timed to the systemic arterial phase of contrast enhancement. Coronal and sagittal multiplanar reformations are submitted for review. Multiple 3-D maximum intensity projection reconstructions are also submitted for review. FINDINGS: CTA NECK: AORTIC ARCH: There is a bovine configuration, with the left common carotid artery originating from the brachiocephalic trunk. There is no ostial or proximal stenosis of the cephalic great vessels. RIGHT VERTEBRAL ARTERY: The right vertebral artery is patent along its course, without stenosis. LEFT VERTEBRAL ARTERY: The left vertebral artery is patent along its course, without stenosis. DOMINANCE: The vertebral arteries are codominant. RIGHT COMMON CAROTID ARTERY: The right common carotid artery is patent. The right carotid bifurcation occurs at C5-C6 RIGHT INTERNAL CAROTID ARTERY: There is atheromatous disease of the right carotid bifurcation, without right internal carotid artery stenosis by NASCET criteria. RIGHT EXTERNAL CAROTID ARTERY: The right external carotid artery is unremarkable. LEFT COMMON CAROTID ARTERY: The left common carotid artery is patent. The left carotid bifurcation occurs at C5-C6 LEFT INTERNAL CAROTID ARTERY: There is atheromatous disease of the left carotid bifurcation, without left internal carotid artery stenosis by NASCET criteria. LEFT EXTERNAL CAROTID ARTERY: The left external carotid artery is unremarkable. VENOUS CIRCULATION: The venous system is unremarkable. SALIVARY GLANDS: The parotid glands, submandibular glands, sublingual glands are normal. NASAL CAVITY/NASOPHARYNX: The nasal cavity and nasopharynx are normal. ORAL CAVITY/OROPHARYNX: The oral cavity is obscured by streak artifact from dental amalgam. The visualized oral cavity and oropharynx are unremarkable. LARYNGEAL APPARATUS/HYPOPHARYNX: The laryngeal apparatus and hypopharynx are normal. UPPER AIRWAY/UPPER ESOPHAGUS: The visualized upper airway and esophagus are normal. LUNG APICES: The lung apices are clear. THYROID GLAND: The thyroid gland is normal. LYMPH NODES: There is no lymphadenopathy by size criteria. BONES AND SOFT TISSUES: There is diffuse osteopenia. Degenerative changes are noted. CTA HEAD: INTRACRANIAL CIRCULATION: There is no aneurysm, vascular malformation, occlusion, or stenosis of the visualized intracranial circulation. The anterior communicating artery complex is clear. The posterior communicating arteries are diminutive, if present. VENOUS CIRCULATION: The venous system is unremarkable. PERFUSION: There is no obvious parenchymal perfusion deficit. HEMORRHAGE/INFARCT: There is no hemorrhage or acute infarct. MASSES/SHIFT: There is no mass or shift. EXTRA-AXIAL SPACES: There are no extra-axial fluid collections. SULCI AND VENTRICLES: There is diffuse and proportional enlargement of the sulci and ventricles. CEREBRUM: There is hypoattenuation of the periventricular and subcortical white matter. BRAINSTEM: There are no focal parenchymal abnormalities. CEREBELLUM: There are no focal parenchymal abnormalities. PARANASAL SINUSES: The paranasal sinuses are clear. ORBITS: The orbits are unremarkable. BONES AND SOFT TISSUE: No bone or soft tissue abnormalities are noted. OTHER: There is no abnormal enhancement. IMPRESSION: 1. ATHEROMATOUS DISEASE. 2. NO INTERNAL CAROTID ARTERY STENOSIS BY NASCET CRITERIA. 3. NO ANEURYSM, VASCULAR MALFORMATION, OCCLUSION, OR STENOSIS OF THE VISUALIZED INTRACRANIAL CIRCULATION. CPT II Codes: 3100F.
--- NOTE | 2017-10-24 15:45 | PN ---
Subjective Date of Service: 10/24/17 Interval History: no chest pain no dysarthria, no aphasia, no weakness. Reports some parasthesias to right leg for few weeks. CT brain noncontrast no CVA or bleed CTA head/neck without occlusion or stenosis Can't get MRI because of Neurostimulator 05/04/14 [employer]) aspirin 81mg started. Objective Active Medications: Aspirin (Aspirin 81 Mg Chew Tab*) 81 mg PO DAILY [facility] Last Admin: 10/24/17 10:43 Dose: 81 mg Atorvastatin Calcium (Lipitor*) 40 mg PO 2100 [facility] Last Admin: 10/23/17 23:42 Dose: 40 mg Cyanocobalamin (Vitamin B12 Tab*) 1,000 mcg PO DAILY [facility] Last Admin: 10/24/17 13:07 Dose: 1,000 mcg Duloxetine HCl (Cymbalta Cap*) 60 mg PO BEDTIME [facility] Last Admin: 10/23/17 20:10 Dose: 60 mg Heparin Sodium/Dextrose (Heparin Drip 25,000 Units(*)) 25,000 units in 500 mls @ 0 mls/hr IV PER RATE [facility]; Protocol Last Admin: 10/23/17 18:28 Dose: 14 mls/hr Ceftriaxone Sodium 2 gm/ (Sodium Chloride) 50 mls @ 100 mls/hr IVPB Q24H [facility] Last Admin: 10/23/17 18:28 Dose: 100 mls/hr Sodium Chloride (Ns 0.9% 1000 Ml*) 1,000 mls @ 60 mls/hr IV .PER RATE [facility] Stop: 10/24/17 22:44 Last Admin: 10/24/17 10:44 Dose: 60 mls/hr Levothyroxine Sodium (Synthroid Tab*) 75 mcg PO 0600 [facility] Metoprolol Tartrate (Lopressor Tab*) 12.5 mg PO Q12HR [facility] Last Admin: 10/24/17 08:36 Dose: 12.5 mg Multivitamins/Minerals (Theragran/Minerals Tab*) 1 tab PO DAILY [facility] Last Admin: 10/24/17 08:36 Dose: 1 tab Omeprazole (Prilosec Cap*) 20 mg PO BID [facility] Last Admin: 10/24/17 08:36 Dose: 20 mg Ondansetron HCl (Zofran Inj*) 4 mg IV Q6H PRN PRN Reason: NAUSEA Psyllium Hydrophilic Mucilloid (Metamucil Sudarshan*) 1 pkt PO DAILY PRN PRN Reason: CONSTIPATION Sucralfate (Carafate*) 1 gm PO Q6H [facility] Last Admin: 10/24/17 11:08 Dose: Not Given Vital Signs - 8 hr 10/24/17 10/24/17 10/24/17 08:00 08:10 08:31 Temperature Pulse Rate 68 67 Respiratory 10 14 Rate Blood Pressure 150/65 (mmHg) O2 Sat by Pulse 99 99 99 Oximetry 10/24/17 10/24/17 10/24/17 08:39 09:00 09:01 Temperature 99.3 F Pulse Rate 72 67 Respiratory 13 24 Rate Blood Pressure 98/69 (mmHg) O2 Sat by Pulse 100 99 Oximetry 10/24/17 10/24/17 10/24/17 09:30 10:00 10:01 Temperature Pulse Rate 61 63 62 Respiratory 19 19 18 Rate Blood Pressure 108/66 103/70 (mmHg) O2 Sat by Pulse 99 97 97 Oximetry 10/24/17 10/24/17 10/24/17 10:30 10:51 11:00 Temperature Pulse Rate 59 63 Respiratory 12 12 18 Rate Blood Pressure 97/66 100/60 (mmHg) O2 Sat by Pulse 98 99 Oximetry 10/24/17 10/24/17 10/24/17 11:31 12:00 13:00 Temperature 98 F Pulse Rate 56 58 62 Respiratory 13 18 17 Rate Blood Pressure 100/59 96/67 (mmHg) O2 Sat by Pulse 99 99 99 Oximetry 10/24/17 10/24/17 14:00 15:00 Temperature Pulse Rate 83 74 Respiratory 18 21 Rate Blood Pressure (mmHg) O2 Sat by Pulse 92 97 Oximetry Oxygen Devices in Use Now: None Appearance: NAD Eyes: No Scleral Icterus, PERRLA Ears/Nose/Mouth/Throat: NL Teeth, Lips, Gums, Mucous Membranes Moist Neck: NL Appearance and Movements; NL JVP Respiratory: Symmetrical Chest Expansion and Respiratory Effort, Clear to Auscultation Cardiovascular: NL Sounds; No Murmurs; No JVD, RRR Abdominal: NL Sounds; No Tenderness; No Distention Extremities: No Edema Skin: No Rash or Ulcers, No Nodules or Sclerosis Neurological: Alert and Oriented x 3, - - complaint of mild parasthesias of right leg; sensation intact to light touch and proprioception. CN II-XII intact Nutrition: Taking PO's Result Diagrams: 10/24/17 06:28 10/24/17 06:28 Additional Lab and Data: Laboratory Results - last 24 hr 10/23/17 10/24/17 10/24/17 20:01 00:13 06:28 WBC RBC Hgb Hct MCV MCH MCHC RDW Plt Count MPV Neut % (Auto) Lymph % (Auto) [place] % (Auto) Eos % (Auto) Baso % (Auto) Absolute Neuts (auto) Absolute Lymphs (auto) Absolute Monos (auto) Absolute Eos (auto) Absolute Basos (auto) Absolute Nucleated RBC Nucleated RBC % ESR APTT 57.0 H Sodium 138 Potassium 4.1 Chloride 111 Carbon Dioxide 21 L Anion Gap 6 BUN 11 Creatinine 0.63 Est GFR ( Amer) 109.7 Est GFR (Non-Af Amer) 90.7 BUN/Creatinine Ratio 17.5 Glucose 100 Calcium 8.4 L Magnesium 2.1 Troponin I 0.56 H* C-Reactive Protein 9.92 H Triglycerides 124 Cholesterol 138 LDL Cholesterol 76 HDL Cholesterol 36.8 10/24/17 10/24/17 10/24/17 06:28 06:28 13:12 WBC 6.1 RBC 3.75 L Hgb 11.2 L Hct 34 L MCV 91 MCH 30 MCHC 33 RDW 15 Plt Count 239 MPV 8.1 Neut % (Auto) 58.8 Lymph % (Auto) 31.8 [place] % (Auto) 7.8 H Eos % (Auto) 0.6 Baso % (Auto) 1.0 Absolute Neuts (auto) 3.6 Absolute Lymphs (auto) 1.9 Absolute Monos (auto) 0.5 Absolute Eos (auto) 0 Absolute Basos (auto) 0.1 Absolute Nucleated RBC 0 Nucleated RBC % 0.1 ESR 36 APTT 74.4 H 145.7 H* Sodium Potassium Chloride Carbon Dioxide Anion Gap BUN Creatinine Est GFR ( Amer) Est GFR (Non-Af Amer) BUN/Creatinine Ratio Glucose Calcium Magnesium Troponin I C-Reactive Protein Triglycerides Cholesterol LDL Cholesterol HDL Cholesterol 10/24/17 18:01 WBC RBC Hgb Hct MCV MCH MCHC RDW Plt Count MPV Neut % (Auto) Lymph % (Auto) [place] % (Auto) Eos % (Auto) Baso % (Auto) Absolute Neuts (auto) Absolute Lymphs (auto) Absolute Monos (auto) Absolute Eos (auto) Absolute Basos (auto) Absolute Nucleated RBC Nucleated RBC % ESR APTT 28.8 Sodium Potassium Chloride Carbon Dioxide Anion Gap BUN Creatinine Est GFR ( Amer) Est GFR (Non-Af Amer) BUN/Creatinine Ratio Glucose Calcium Magnesium Troponin I C-Reactive Protein Triglycerides Cholesterol LDL Cholesterol HDL Cholesterol Microbiology and Other Data: Microbiology 10/23/17 17:50 Nasal Nasal Screen MRSA (PCR) - Final Mrsa Not Detected Assess/Plan/Problems-Billing Assessment: 82 yo female PMH spinal stenosis , GERD, migraines, recent right leg rash and numbness dx & tx empirically for lyme presents with dysphagia and found to have new systolic dysfunction and regional wma, downtrending troponins (just in ED negative 1 week ago). ECHO with ventricular thrombus on heparin gtt and now aspirin. Interventional Cards deferring LHC. Can't get MRI (has neurostimulator) . - Patient Problems (1) CVA (cerebral vascular accident) Current Visit: Yes Status: Acute Code(s): I63.9 - CEREBRAL INFARCTION, UNSPECIFIED SNOMED Code(s): 643050104 Comment: Appreciate neuro recs. likely cardioembolic from left ventricular thrombus continue heparin gtt until atleast 10/25 then consider transition to NOAC vs coumadin aspirin 81mg started, discussed with cardiology and neurology. lipitor 40mg CTA w/o e/o occlusion or stenosis repeat CTH no bleed or e/o acute CVA (2) CHF (congestive heart failure) Current Visit: Yes Status: Acute Code(s): I50.9 - HEART FAILURE, UNSPECIFIED SNOMED Code(s): 25896045 Comment: metoprolol 12.5mg BID ischemic evaluation deferred by interventional cardiology for now in setting of acute CVA ddx includes stress cardiomyopathy EF 30-35% (3) Left ventricular thrombus Current Visit: Yes Status: Acute Code(s): I51.3 - INTRACARDIAC THROMBOSIS, NOT ELSEWHERE CLASSIFIED SNOMED Code(s): 136918680 Comment: plan as above, heparin gtt for now. (4) NSTEMI (non-ST elevated myocardial infarction) Current Visit: Yes Status: Acute Code(s): I21.4 - NON-ST ELEVATION (NSTEMI) MYOCARDIAL INFARCTION SNOMED Code(s): 628757960 Comment: statin, BB, also on heparin gtt currently for thrombus chest pain free. EKG w/ Lateral TWI and nondiagnostic ST elevation in aVL (5) Acute Lyme disease with erythema migrans lesion 5 cm or greater in diameter Current Visit: Yes Status: Acute Code(s): A69.20 - LYME DISEASE, UNSPECIFIED SNOMED Code(s): 199553966 Comment: did not tolerate doxy, continue CFTX (was on cefuroxime at home) Status and Disposition: medicine inpatient.
[2017-10-24] MEDS: cefTRIAXone(*) 2 GM in NS 0.9% 50 ML* 50 ML IVPB SCH (17:34)
--- NOTE | 2017-10-24 21:24 | PN ---
NEUROLOGY PROGRESS NOTE: DATE OF SERVICE: 10/24/17 REASON FOR NEUROLOGY FOLLOWUP: Aphasia and suspected left MCA embolic infarction. SUBJECTIVE: The patient is resting comfortably in the ICU. She continues to have word-finding difficulty, but slightly better than yesterday. She denied any focal weakness. She denied any headaches or visual disturbance. She is asking to advance her diet. I discussed the case with the patient and her , who was at bedside. There has been a concern that the patient may have had MIs in the past. The patient stated that over the last year, she has been taking large amount of antacids due to GERD-like pain. She has always had some chest discomfort, but she related it to acid reflux as well as her hiatal hernia. I am concerned that she may have had myocardial infarctions rather than acid reflux disease. The patient also, over the last week, has been complaining of radiating numbness that starts from the hip region into the lateral leg and the lateral thigh on the right lower extremity. This started after she noticed a rash and while she was taking doxycycline for Lyme disease. REVIEW OF SYSTEMS: She denied any chest pain, shortness of breath, or palpitations. MEDICATIONS: 1. Aspirin 81 mg daily. 2. Atorvastatin 40 mg daily. 3. Rocephin 2 g. 4. Sodium chloride daily. 5. Cymbalta 60 mg p.o. at bedtime. 6. Heparin drip infusion. 7. Levothyroxine 75 mcg daily. 8. Metoprolol 12.5 mg every 12 hours. 9. Multivitamins. 10. Omeprazole. 11. Ondansetron. 12. Sodium chloride. 13. Sucralfate. DIAGNOSTIC STUDIES/LAB DATA: WBC of 6.1, hemoglobin of 11.2, hematocrit of 34, platelet count of 239. APTT of 74. Sodium of 138, potassium 4.1, chloride 111 , BUN of 11, creatinine of 0.63, glucose of 100, calcium 8.4, magnesium 2.1. C - reactive protein of 9.92. Her troponins were trended at 0.96, 0.79, and most recent one is 0.56. Triglycerides 124, cholesterol 138, LDL 76, HDL 36.8. Vitamin B12 224, TSH is 2.32. The patient had a transthoracic echo completed on 10/23/17 that showed the left atrium that is mildly dilated. The aortic valve leaflets are mildly thickened. There is a trace of mitral regurgitation. There is trace tricuspid regurgitation. There are multiple regional wall motion abnormalities. The estimated ejection fraction is 30%-35% closer to 30%. There is chordal NELLY. There is abnormal left ventricular diastolic filling. There is thrombus visualized in the left ventricular apex. PHYSICAL EXAMINATION: Vitals: Temperature of 99.3, heart rate of 62, respiratory rate of 18, oxygen saturation of 99% on room air, blood pressure of 100/60. General: Well-nourished, well-developed female, in no acute distress. She is alert and cooperative. Head is atraumatic and normocephalic. Eyes: Normal conjunctivae. No scleral icterus. Neck is supple and symmetrical with no carotid bruit. The lungs are clear to auscultation bilaterally. Cardiovascular: Regular rate and rhythm. Normal S1, S2. Extremities: Normal range of motion with no cyanosis. Neurological Examination: The patient is awake, alert, and oriented to person, place, time, and general circumstances, but she does have a mild component of expressive aphasia where she has trouble with fluency, but comprehends fairly well. She is able to repeat short sentences. Cranial Nerves: Normal confrontation to testing bilaterally. Pupils are mid range and reactive to light. Pupils are measuring 4 mm bilaterally, constricted to 3 mm. No ptosis. Sensation is intact to the forehead, cheeks, and jaw region bilaterally. No facial asymmetry. She is able to hear throughout the history process. Tongue is symmetrical and midline with no atrophy or fasciculation. Motor Examination: No abnormal movements or pronator drift. She has got normal bulk and tone throughout. No fasciculation. Strength is 5/5 in the upper and lower extremities, distal and proximal area. Reflexes: Right/left, brachioradialis 2/1, biceps 2/1, triceps 2/1, patella 2 /1, and ankle 0/0. Plantar upgoing extensor toe response on the right, flexor toe response on the left. Sensation is intact to light touch and pinprick throughout. There is some hyperesthesia on the lateral surface of the right thigh that goes down to the right lateral aspect of the leg and the dorsum of the foot. Coordination: Normal [id number] bilaterally. Gait was not assessed as the patient in the ICU and is receiving a heparin drip. ASSESSMENT AND PLAN: Ms. Opal Quick is an 82-year-old female with a recent diagnosis of Lyme disease after discovering a rash, who has some radicular paresthesias in the right lower extremity, who presented to [facility] Emergency Department with sudden onset of word-finding difficulty. The patient was found to have left ventricular thrombus on transthoracic echo. She was admitted to the ICU for close monitoring given that she has been requiring heparin drip. Expressive aphasia - slightly improving. I suspect this is related to an embolic left MCA vascular territory infarction. Repeat CT of the head was obtained this morning and there was no evidence of acute infarction or intraparenchymal hemorrhage. However, the patient does have cortical atrophy as well as extensive white matter disease, so it is going to be difficult to see the infarct on CT. The patient cannot have MRIs due to an old spinal cord stimulator that was placed for chronic low back pain. The stimulator is not working. I have ordered CTA head and neck to further evaluate for intracranial or extracranial vascular disease. In the meantime, we do suspect that the stroke is embolic and small in size given her clinical presentation and therefore she is requiring anticoagulation therapy as well as an antiplatelet therapy from the cardiovascular standpoint. There is a small risk of intraparenchymal hemorrhage or hemorrhagic conversion of that infarct; however, that risk is small again given her clinical presentation. The patient was going to undergo cardiac catheterization, but since her troponins have been improving, that has been canceled. She is going need to be on long-term anticoagulation therapy due to the thrombus. Defer further treatment to the primary team; however, oral anticoagulation can be started 48 hours after her stroke as well as after the APTT has been normalized. Please consult [employer] to evaluate her swallowing function as she is requesting to advance her diet. Continue neuro checks every 1 hour. Continue supportive care. I will sign out to Dr. Madelyn Evans, who will follow the patient on the weekend. TIME SPENT: I spent a total of 30 minutes and greater than 50% of that was spent directly reviewing the medical chart, obtaining history, examining the patient, and discussing the treatment plan. I suspect the patient will continue to improve given her rapid improvement in her language function over the last 24 hours. [id number]/[facility] #: [id number] [facility] SIENA MEDICAL CENTERFelipa
[2017-10-24] MEDS: DULoxetine DR CAP* 60 MG CAP.DR PO SCH (22:05)
[2017-10-24] MEDS: Atorvastatin* 40 MG TAB PO SCH (22:05)
[2017-10-25] MEDS: Sucralfate TAB* 1 GM PO SCH ×4 (01:24→18:38)
[2017-10-25 05:48] LABS: ABS Basophils 0 10^3/ul (0-0.2); ABS Eosinophils 0.1 10^3/ul (0-0.6); ABS Lymphocytes 1.4 10^3/ul (1.0-4.8); ABS Monocytes 0.4 10^3/ul (0-0.8); ABS Neutrophils 4.4 10^3/ul (1.5-7.7); ABS Nucleated RBC 0 10^3/ul; Eosinophil % 1.5 % (0-6); Hematocrit 31 % (35-47); Hemoglobin 10.1 g/dl (12.0-16.0); Lymphocyte % 22.4 % (25-47); Mean Corpuscular HGB Conc 33 g/dl (31-36); Mean Corpuscular Hemoglobin 30 pg (27-31); Mean Corpuscular Volume 90 fL (80-97); Mean Platelet Volume 7.6 um3 (7.4-10.4); Nucleated Red Blood Cells % 0; Platelet Count 192 10^3/ul (150-450); Red Blood Count 3.39 10^6/ul (4.00-5.40); Red Cell Distribution Width 15 % (10.5-15); White Blood Count 6.3 10^3/ul (3.5-10.8)
[2017-10-25] MEDS: Levothyroxine TAB* 75 MCG TAB PO SCH (06:01)
[2017-10-25 06:03] LABS: EGFR Non-African American 94.1 (>60)
[2017-10-25] MEDS: Metoprolol Tartrate TAB* 25 MG PO SCH ×2 (08:17→20:53)
[2017-10-25] MEDS: Cyanocobalamin TAB* 500 MCG PO SCH (08:17)
[2017-10-25] MEDS: Multivitamins/Minerals TAB PO SCH (08:18)
[2017-10-25] MEDS: Omeprazole CAP* 20 MG PO SCH ×2 (08:19→20:52)
[2017-10-25] MEDS: Aspirin 81 mg CHEW TAB* 81 MG TAB.CHEW PO SCH (08:19)
--- NOTE | 2017-10-25 09:51 | PN ---
Subjective Date of Service: 10/25/17 Interval History: Feels good today. Thinks her speech is resolved. Has walked to the bathroom with a walker, which she also uses at home Objective Active Medications: Aspirin (Aspirin 81 Mg Chew Tab*) 81 mg PO DAILY [facility] Last Admin: 10/25/17 08:19 Dose: 81 mg Atorvastatin Calcium (Lipitor*) 40 mg PO 2100 [facility] Last Admin: 10/24/17 22:05 Dose: 40 mg Cyanocobalamin (Vitamin B12 Tab*) 1,000 mcg PO DAILY [facility] Last Admin: 10/25/17 08:17 Dose: 1,000 mcg Duloxetine HCl (Cymbalta Cap*) 60 mg PO BEDTIME [facility] Last Admin: 10/24/17 22:05 Dose: 60 mg Heparin Sodium/Dextrose (Heparin Drip 25,000 Units(*)) 25,000 units in 500 mls @ 0 mls/hr IV PER RATE [facility]; Protocol Last Admin: 10/23/17 18:28 Dose: 14 mls/hr Ceftriaxone Sodium 2 gm/ (Sodium Chloride) 50 mls @ 100 mls/hr IVPB Q24H [facility] Last Admin: 10/24/17 17:34 Dose: 100 mls/hr Levothyroxine Sodium (Synthroid Tab*) 75 mcg PO 0600 [facility] Last Admin: 10/25/17 06:01 Dose: 75 mcg Metoprolol Tartrate (Lopressor Tab*) 12.5 mg PO Q12HR [facility] Last Admin: 10/25/17 08:17 Dose: 12.5 mg Multivitamins/Minerals (Theragran/Minerals Tab*) 1 tab PO DAILY [facility] Last Admin: 10/25/17 08:18 Dose: 1 tab Omeprazole (Prilosec Cap*) 20 mg PO BID [facility] Last Admin: 10/25/17 08:19 Dose: 20 mg Ondansetron HCl (Zofran Inj*) 4 mg IV Q6H PRN PRN Reason: NAUSEA Psyllium Hydrophilic Mucilloid (Metamucil Sudarshan*) 1 pkt PO DAILY PRN PRN Reason: CONSTIPATION Sucralfate (Carafate*) 1 gm PO Q6H [facility] Last Admin: 10/25/17 06:02 Dose: Not Given Warfarin Sodium (Coumadin Tab(*)) 5 mg PO DAILY@1700 [facility]; Protocol Vital Signs - 8 hr 10/25/17 10/25/17 10/25/17 03:39 07:57 08:00 Temperature 98.1 F 97.7 F Pulse Rate 67 70 Respiratory 16 16 16 Rate Blood Pressure 113/56 145/68 (mmHg) O2 Sat by Pulse 96 100 100 Oximetry Oxygen Devices in Use Now: None Appearance: alert, well appearing Eyes: No Scleral Icterus Ears/Nose/Mouth/Throat: NL Teeth, Lips, Gums Neck: NL Appearance and Movements; NL JVP Respiratory: Symmetrical Chest Expansion and Respiratory Effort, Clear to Auscultation Cardiovascular: NL Sounds; No Murmurs; No JVD, RRR Abdominal: NL Sounds; No Tenderness; No Distention Lymphatic: No Cervical Adenopathy Extremities: No Edema Skin: No Rash or Ulcers Neurological: Alert and Oriented x 3, - - speech is clear, word finding in tact , coordination and strength in tact Result Diagrams: 10/25/17 05:27 10/25/17 05:27 Additional Lab and Data: Laboratory Results - last 24 hr 10/23/17 10/24/17 10/24/17 20:01 00:13 06:28 WBC RBC Hgb Hct MCV MCH MCHC RDW Plt Count MPV Neut % (Auto) Lymph % (Auto) [place] % (Auto) Eos % (Auto) Baso % (Auto) Absolute Neuts (auto) Absolute Lymphs (auto) Absolute Monos (auto) Absolute Eos (auto) Absolute Basos (auto) Absolute Nucleated RBC Nucleated RBC % ESR APTT 57.0 H Sodium 138 Potassium 4.1 Chloride 111 Carbon Dioxide 21 L Anion Gap 6 BUN 11 Creatinine 0.63 Est GFR ( Amer) 109.7 Est GFR (Non-Af Amer) 90.7 BUN/Creatinine Ratio 17.5 Glucose 100 Calcium 8.4 L Magnesium 2.1 Troponin I 0.56 H* C-Reactive Protein 9.92 H Triglycerides 124 Cholesterol 138 LDL Cholesterol 76 HDL Cholesterol 36.8 10/24/17 10/24/17 10/24/17 06:28 06:28 13:12 WBC 6.1 RBC 3.75 L Hgb 11.2 L Hct 34 L MCV 91 MCH 30 MCHC 33 RDW 15 Plt Count 239 MPV 8.1 Neut % (Auto) 58.8 Lymph % (Auto) 31.8 [place] % (Auto) 7.8 H Eos % (Auto) 0.6 Baso % (Auto) 1.0 Absolute Neuts (auto) 3.6 Absolute Lymphs (auto) 1.9 Absolute Monos (auto) 0.5 Absolute Eos (auto) 0 Absolute Basos (auto) 0.1 Absolute Nucleated RBC 0 Nucleated RBC % 0.1 ESR 36 APTT 74.4 H 145.7 H* Sodium Potassium Chloride Carbon Dioxide Anion Gap BUN Creatinine Est GFR ( Amer) Est GFR (Non-Af Amer) BUN/Creatinine Ratio Glucose Calcium Magnesium Troponin I C-Reactive Protein Triglycerides Cholesterol LDL Cholesterol HDL Cholesterol 10/24/17 18:01 WBC RBC Hgb Hct MCV MCH MCHC RDW Plt Count MPV Neut % (Auto) Lymph % (Auto) [place] % (Auto) Eos % (Auto) Baso % (Auto) Absolute Neuts (auto) Absolute Lymphs (auto) Absolute Monos (auto) Absolute Eos (auto) Absolute Basos (auto) Absolute Nucleated RBC Nucleated RBC % ESR APTT 28.8 Sodium Potassium Chloride Carbon Dioxide Anion Gap BUN Creatinine Est GFR ( Amer) Est GFR (Non-Af Amer) BUN/Creatinine Ratio Glucose Calcium Magnesium Troponin I C-Reactive Protein Triglycerides Cholesterol LDL Cholesterol HDL Cholesterol Microbiology and Other Data: Microbiology 10/23/17 17:50 Nasal Nasal Screen MRSA (PCR) - Final Mrsa Not Detected Assess/Plan/Problems-Billing Assessment: 82 yo female with history of spinal stenosis , GERD, migraines, undergoing empiric tx for lyme, presents with dysphasia and found to have new systolic dysfunction with rwma, downtrending troponins (just in ED negative 1 week ago). ECHO with LV thrombus on heparin gtt and now aspirin. Interventional Cards deferring C. Can't get MRI (has neurostimulator). - Patient Problems (1) Left ventricular thrombus Current Visit: Yes Status: Acute Code(s): I51.3 - INTRACARDIAC THROMBOSIS, NOT ELSEWHERE CLASSIFIED SNOMED Code(s): 811555072 Comment: has been on heparin drip since admission; will start coumadin today (noac not approved for lv thrombus) (2) Acute systolic (congestive) heart failure Current Visit: Yes Status: Acute Code(s): I50.21 - ACUTE SYSTOLIC ( CONGESTIVE) HEART FAILURE SNOMED Code(s): 981375060 Comment: likely ischemic in nature needs [facility], but holding off for now (3) Acute Lyme disease with erythema migrans lesion 5 cm or greater in diameter Current Visit: Yes Status: Acute Code(s): A69.20 - LYME DISEASE, UNSPECIFIED SNOMED Code(s): 993527839 Comment: did not tolerate doxy, continue CFTX (was on cefuroxime at home) (4) CVA (cerebral vascular accident) Current Visit: Yes Status: Acute Code(s): I63.9 - CEREBRAL INFARCTION, UNSPECIFIED SNOMED Code(s): 088862278 Comment: Appreciate neuro recs. likely cardioembolic from left ventricular thrombus lipitor 40mg CTA w/o e/o occlusion or stenosis repeat CTH no bleed or e/o acute CVA cannot have MRI due to neurostimulator (5) NSTEMI (non-ST elevated myocardial infarction) Current Visit: Yes Status: Acute Code(s): I21.4 - NON-ST ELEVATION (NSTEMI) MYOCARDIAL INFARCTION SNOMED Code(s): 215283839 Comment: statin, BB, also on heparin gtt currently for thrombus chest pain free. EKG w/ Lateral TWI and nondiagnostic ST elevation in aVL Status and Disposition: medicine inpatient.
[2017-10-25] MEDS: Warfarin TAB(*) 5 MG PO SCH (17:22)
[2017-10-25] MEDS: cefTRIAXone(*) 2 GM in NS 0.9% 50 ML* 50 ML IVPB SCH (17:25)
--- NOTE | 2017-10-25 18:47 | PN ---
PROGRESS NOTE: DATE OF FOLLOWUP: 10/25/17 HISTORY: Opal Quick is an 82-year-old woman who was admitted on October 23 in the setting of recent diagnosis of Lyme disease based on erythema migrans , originally treated with doxycycline, who presented with slurred speech which progressed to expressive aphasia. This occurs in the setting of a history of sleep apnea. In her workup, she was found to have 30% ejection fraction with a left LV thrombus and is on heparin drip converting to Coumadin oral therapy. She had a CT of the brain which showed significant small vessel ischemic disease in the periventricular area which remained unchanged on repeat scanning. These films were reviewed directly and compared to each other. She could not have MRI of the brain secondary to spinal cord stimulator in the setting of chronic back pain. She went on to have a CTA of the brain and neck which showed atherosclerosis; however, no significant occlusion which would require surgery and would be responsible for her symptoms. On review of the notes, speech deficits continued to improve. The patient today feels her speech is back to her baseline. She has also had intermittent GERD like pain in the last year which she had attributed to her hiatal hernia and more recently has been questioned if it is cardiac. She is to undergo a cardiac cath in 1 to 2 weeks according to review of cardiology notes. On today's visit, she denies any new change in vision. She feels her speech is normal. She denies any new numbness or weakness of her arms or legs. PHYSICAL EXAMINATION: On examination, her most recent temperature was 97.7 degrees Fahrenheit. Her cardiac rate was 70, respiratory rate 16, saturation 100%, and blood pressure was 145/68 with 150 being the highest systolic blood pressure noted in the last 24 hours. She had a regular cardiac rhythm. Her lungs were clear to auscultation. She was awake, alert, and aware of where she was, able to tell me about her recent move to [place] and different issues going on with [place]. She was aware of the symptoms that brought her to hospital. She was articulate. She had full extraocular movements with no nystagmus. Full gutiérrez to confrontation. Her facial expression was symmetric. There was no dysarthria, no expressive aphasia. She had no pronator drift, arthritic changes were noted. She gave good resistance in her arms and legs with no evidence of dysmetria with [id number]-[id number] or [id number] movements. Records were reviewed including Dr. Liriano's consultation and followup notes, the admission note, results of the CT of the brain was reviewed and films were reviewed directly. CTA of the brain and neck was reviewed. Her most recent white count and platelets were normal. Her hemoglobin and hematocrit were low at 10.1 and 31. This is down from yesterday at 11.2 and 34 respectively. Her PTT is at 52.8. MAR: reviewed IMPRESSION: An 82-year-old woman with episode of dysarthria and expressive aphasia in the setting of low ejection fraction and left ventricular thrombus, most likely cardioembolic in etiology. She is currently anticoagulated with heparin with transition to Coumadin. Her neurologic exam at this time shows no focal findings. She feels her speech is back to normal. Education was given regarding findings to date in her medical workup, findings on her CT of the brain, CTA of the brain, echocardiogram, treatment of left ventricular thrombus, why left ventricular thrombus could result in symptoms. TIME SPENT: Over 30 minutes was spent in patient care, in addition to time reviewing chart. Over 50% of that time was spent in education and counselling and all questions were answered. At this point, given resolution of her speech deficit, etiology of event most likely being LV thrombus, now with initiation of therapy, I will sign off the case. Please call if further neurologic input is needed. [id number]/[facility] #: [id number] BRODIE
[2017-10-25] MEDS: Atorvastatin* 40 MG TAB PO SCH (20:52)
[2017-10-25] MEDS: DULoxetine DR CAP* 60 MG CAP.DR PO SCH (20:53)
[2017-10-25] MEDS: clonazePAM TAB(*) 0.5 MG PO PRN (22:04)
[2017-10-26] MEDS: Sucralfate TAB* 1 GM PO SCH ×4 (01:12→19:55)
[2017-10-26 05:18] LABS: Hematocrit 31 % (35-47); Hemoglobin 10.2 g/dl (12.0-16.0); Mean Corpuscular HGB Conc 33 g/dl (31-36); Mean Corpuscular Hemoglobin 30 pg (27-31); Mean Corpuscular Volume 91 fL (80-97); Mean Platelet Volume 7.7 um3 (7.4-10.4); Platelet Count 191 10^3/ul (150-450); Red Blood Count 3.45 10^6/ul (4.00-5.40); Red Cell Distribution Width 15 % (10.5-15); White Blood Count 7.2 10^3/ul (3.5-10.8)
[2017-10-26 05:23] LABS: INR 0.98 (0.77-1.02)
[2017-10-26 05:39] LABS: ABS Basophils 0 10^3/ul (0-0.2); ABS Eosinophils 0.2 10^3/ul (0-0.6); ABS Lymphocytes 1.5 10^3/ul (1.0-4.8); ABS Monocytes 0.5 10^3/ul (0-0.8); ABS Neutrophils 4.8 10^3/ul (1.5-7.7); ABS Nucleated RBC 0 10^3/ul; Eosinophil % 2.3 % (0-6); Lymphocyte % 21.3 % (25-47); Nucleated Red Blood Cells % 0
[2017-10-26] MEDS: Levothyroxine TAB* 75 MCG TAB PO SCH (05:46)
[2017-10-26] MEDS: Metoprolol Tartrate TAB* 25 MG PO SCH ×2 (09:41→19:45)
[2017-10-26] MEDS: Aspirin 81 mg CHEW TAB* 81 MG TAB.CHEW PO SCH (09:41)
[2017-10-26] MEDS: Cyanocobalamin TAB* 500 MCG PO SCH (09:41)
[2017-10-26] MEDS: Multivitamins/Minerals TAB PO SCH (09:41)
[2017-10-26] MEDS: Omeprazole CAP* 20 MG PO SCH ×2 (09:41→19:45)
--- NOTE | 2017-10-26 13:35 | PN ---
Subjective Date of Service: 10/26/17 - CC: thinking wrong Interval History: The patient states she feels better, but couldn't be specific Pt denies SOB, chest pain, jaw, neck or arm pain. Medications Active Medications: Aspirin (Aspirin 81 Mg Chew Tab*) 81 mg PO DAILY [facility] Last Admin: 10/26/17 09:41 Dose: 81 mg Atorvastatin Calcium (Lipitor*) 40 mg PO 2100 [facility] Last Admin: 10/25/17 20:52 Dose: 40 mg Clonazepam (Klonopin Tab(*)) 0.5 mg PO BEDTIME PRN PRN Reason: ANXIETY Last Admin: 10/25/17 22:04 Dose: 0.5 mg Cyanocobalamin (Vitamin B12 Tab*) 1,000 mcg PO DAILY [facility] Last Admin: 10/26/17 09:41 Dose: 1,000 mcg Duloxetine HCl (Cymbalta Cap*) 60 mg PO BEDTIME [facility] Last Admin: 10/25/17 20:53 Dose: 60 mg Heparin Sodium/Dextrose (Heparin Drip 25,000 Units(*)) 25,000 units in 500 mls @ 0 mls/hr IV PER RATE [facility]; Protocol Last Admin: 10/23/17 18:28 Dose: 14 mls/hr Ceftriaxone Sodium 2 gm/ (Sodium Chloride) 50 mls @ 100 mls/hr IVPB Q24H [facility] Last Admin: 10/25/17 17:25 Dose: 100 mls/hr Levothyroxine Sodium (Synthroid Tab*) 75 mcg PO 0600 [facility] Last Admin: 10/26/17 05:46 Dose: 75 mcg Metoprolol Tartrate (Lopressor Tab*) 12.5 mg PO Q12HR [facility] Last Admin: 10/26/17 09:41 Dose: 12.5 mg Multivitamins/Minerals (Theragran/Minerals Tab*) 1 tab PO DAILY [facility] Last Admin: 10/26/17 09:41 Dose: 1 tab Omeprazole (Prilosec Cap*) 20 mg PO BID [facility] Last Admin: 10/26/17 09:41 Dose: 20 mg Ondansetron HCl (Zofran Inj*) 4 mg IV Q6H PRN PRN Reason: NAUSEA Psyllium Hydrophilic Mucilloid (Metamucil Sudarshan*) 1 pkt PO DAILY PRN PRN Reason: CONSTIPATION Sucralfate (Carafate*) 1 gm PO Q6H [facility] Last Admin: 10/26/17 12:30 Dose: Not Given Warfarin Sodium (Coumadin Tab(*)) 5 mg PO DAILY@1700 [facility]; Protocol Last Admin: 10/25/17 17:22 Dose: 5 mg Objective Vital Signs: Temp Pulse Resp BP Pulse Ox 98.1 F 73 16 139/62 97 10/26/17 11:01 10/26/17 11:01 10/26/17 12:02 10/26/17 11:01 10/26/17 07:16 Oxygen Devices in Use Now: None Appearance: elderley short female, seated, appears comfortable. Eyes: PERRLA Ears/Nose/Mouth/Throat: Clear Oropharnyx Neck: No Thyroid Enlargement, Masses Respiratory: Symmetrical Chest Expansion and Respiratory Effort, Clear to Auscultation Cardiovascular: NL Sounds; No Murmurs; No JVD, RRR Abdominal: NL Sounds; No Tenderness; No Distention Skin: No Rash or Ulcers Lines/Tubes/Other Access: Clean, Dry and Intact Peripheral IV Laboratory Results: 10/26/17 05:01 10/26/17 05:02 INR (Anticoag Therapy) 0.98 (0.77-1.02) 10/26/17 05:02 APTT 54.2 seconds (26.0-36.3) H 10/26/17 08:13 Total Bilirubin 0.60 mg/dL (0.2-1.0) 10/23/17 14:11 AST 26 U/L (13-39) 10/23/17 14:11 ALT 12 U/L (7-52) 10/23/17 14:11 Alkaline Phosphatase 74 U/L (34-104) 10/23/17 14:11 Total Protein 6.5 g/dL (6.4-8.9) 10/23/17 14:11 Albumin 3.7 g/dL (3.2-5.2) 10/23/17 14:11 Globulin 2.8 g/dL (2-4) 10/23/17 14:11 Albumin/Globulin Ratio 1.3 (1-3) 10/23/17 14:11 Triglycerides 124 mg/dL 10/24/17 06:28 Cholesterol 138 mg/dL 10/24/17 06:28 LDL Cholesterol 76 mg/dL 10/24/17 06:28 HDL Cholesterol 36.8 mg/dL 10/24/17 06:28 TSH 2.32 mcIU/mL (0.34-5.60) 10/23/17 16:55 10/23/17 10/23/17 10/23/17 14:11 16:55 20:01 Troponin I 0.96 H* 0.79 H* 0.56 H* 10/26/17 05:02 Troponin I 0.30 H* Diagnostic Imaging: ECHO: EF 30%, apex akinetic, trace valvular insufficiency, CLOT in LV apex. EKG Data: 10/26/17: NSR 64 bpm, QRS axis +30, inverted T waves lateral leads V4-V6 (new). Assessment/Plan 82 yo female undergoing treatment for Lyme, presented with dysphasia and found to have new systolic dysfunction with apical akinesis, LV clot and newly elevated troponins. CT scans have not confirmed a stroke to date . LV thrombus: Agree with coumodin/anticoagulation. NQMI: Acute interventional approach not advised due to bleeding risks with what appears to be an acute embolic stroke based on her presentation. Future imaging options include cardiac catheterization once neuro feels she would be OK for DAPT + coumodin. Chemical stress test could be performed in the interim to evaluate extent of RI and reversible territory. Tx: Continue ASA, lipator. Consider addition of an ACEI. 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 These new T wave inversions would support getting a leximyoview prior to discharge.
--- NOTE | 2017-10-26 13:51 | PN ---
Subjective Date of Service: 10/26/17 Interval History: Patient is feeling well. No persistent neurological deficits. Patient had one episode of self-resolving chest pain overnight which felt like indigestion. Patient denies SOB, N/V, abdominal pain, diarrhea, F/C, dizziness, or other pain. Patient states that she has not been able to exercise much over the last year due to surgeries and feels like this contributed to her heart issues and deconditioning. Family History: Unchanged from Admission Social History: Unchanged from Admission Past Medical History: Unchanged from Admission Objective Active Medications: Aspirin (Aspirin 81 Mg Chew Tab*) 81 mg PO DAILY [facility] Last Admin: 10/26/17 09:41 Dose: 81 mg Atorvastatin Calcium (Lipitor*) 40 mg PO 2100 [facility] Last Admin: 10/25/17 20:52 Dose: 40 mg Clonazepam (Klonopin Tab(*)) 0.5 mg PO BEDTIME PRN PRN Reason: ANXIETY Last Admin: 10/25/17 22:04 Dose: 0.5 mg Cyanocobalamin (Vitamin B12 Tab*) 1,000 mcg PO DAILY [facility] Last Admin: 10/26/17 09:41 Dose: 1,000 mcg Duloxetine HCl (Cymbalta Cap*) 60 mg PO BEDTIME [facility] Last Admin: 10/25/17 20:53 Dose: 60 mg Heparin Sodium/Dextrose (Heparin Drip 25,000 Units(*)) 25,000 units in 500 mls @ 0 mls/hr IV PER RATE [facility]; Protocol Last Admin: 10/23/17 18:28 Dose: 14 mls/hr Ceftriaxone Sodium 2 gm/ (Sodium Chloride) 50 mls @ 100 mls/hr IVPB Q24H [facility] Last Admin: 10/25/17 17:25 Dose: 100 mls/hr Levothyroxine Sodium (Synthroid Tab*) 75 mcg PO 0600 [facility] Last Admin: 10/26/17 05:46 Dose: 75 mcg Metoprolol Tartrate (Lopressor Tab*) 12.5 mg PO Q12HR [facility] Last Admin: 10/26/17 09:41 Dose: 12.5 mg Multivitamins/Minerals (Theragran/Minerals Tab*) 1 tab PO DAILY [facility] Last Admin: 10/26/17 09:41 Dose: 1 tab Omeprazole (Prilosec Cap*) 20 mg PO BID [facility] Last Admin: 10/26/17 09:41 Dose: 20 mg Ondansetron HCl (Zofran Inj*) 4 mg IV Q6H PRN PRN Reason: NAUSEA Psyllium Hydrophilic Mucilloid (Metamucil Sudarshan*) 1 pkt PO DAILY PRN PRN Reason: CONSTIPATION Sucralfate (Carafate*) 1 gm PO Q6H [facility] Last Admin: 10/26/17 12:30 Dose: Not Given Warfarin Sodium (Coumadin Tab(*)) 5 mg PO DAILY@1700 [facility]; Protocol Last Admin: 10/25/17 17:22 Dose: 5 mg Vital Signs - 8 hr 10/26/17 10/26/17 10/26/17 07:16 11:01 12:02 Temperature 98.1 F 98.1 F Pulse Rate 71 73 Respiratory 16 18 16 Rate Blood Pressure 132/64 139/62 (mmHg) O2 Sat by Pulse 97 Oximetry Oxygen Devices in Use Now: None Appearance: Patient is an 82yo female who appears stated age and is sitting in the bed in [facility]. Eyes: No Scleral Icterus, PERRLA Ears/Nose/Mouth/Throat: NL Teeth, Lips, Gums, Clear Oropharnyx, Mucous Membranes Moist Neck: NL Appearance and Movements; NL JVP, Trachea Midline Respiratory: Symmetrical Chest Expansion and Respiratory Effort, Clear to Auscultation Cardiovascular: NL Sounds; No Murmurs; No JVD, RRR, No Edema Abdominal: NL Sounds; No Tenderness; No Distention, No Hepatosplenomegaly Lymphatic: No Cervical Adenopathy Extremities: No Edema, No Clubbing, Cyanosis Skin: No Nodules or Sclerosis, - - Ecchymosis on arms. Neurological: Alert and Oriented x 3, NL Sensation, NL Muscle Strength and Tone , - - CN II-XII intact. Reflexes normal. Cerebellar testing without difficulty. Result Diagrams: 10/26/17 05:01 10/26/17 05:02 Additional Lab and Data: Laboratory Results - last 24 hr Microbiology and Other Data: Microbiology 10/23/17 17:50 Nasal Nasal Screen MRSA (PCR) - Final Mrsa Not Detected Assess/Plan/Problems-Billing Assessment: 82 yo female with history of spinal stenosis , GERD, migraines, undergoing empiric tx for lyme, presents with dysphasia and found to have new systolic dysfunction with rwma, downtrending troponins (just in ED negative 1 week ago). ECHO with LV thrombus on heparin gtt and now aspirin. Interventional Cards deferring LHC. Can't get MRI (has neurostimulator). Being Started on Coumadin and bridged with heparin drip. - Patient Problems (1) NSTEMI (non-ST elevated myocardial infarction) Current Visit: Yes Status: Acute Code(s): I21.4 - NON-ST ELEVATION (NSTEMI) MYOCARDIAL INFARCTION SNOMED Code(s): 383613949 Comment: - Statin, BB, - Still on heparin gtt currently for thrombus - Intermittent CP, Troponin still trending down - EKG w/ Lateral TWI and nondiagnostic ST elevation in aVL. Increased T wave inversion in Lateral Leads this AM - Consider Stress Test before D/C to help identify possible salvagable ischamic territory. (2) Acute Lyme disease with erythema migrans lesion 5 cm or greater in diameter Current Visit: Yes Status: Acute Code(s): A69.20 - LYME DISEASE, UNSPECIFIED SNOMED Code(s): 925369042 Comment: - Did not tolerate doxy, - Continue Ceftriaxone - No signs of [place] MAGISTRATE or heart involvement at this time. (3) Acute systolic (congestive) heart failure Current Visit: Yes Status: Acute Code(s): I50.21 - ACUTE SYSTOLIC ( CONGESTIVE) HEART FAILURE SNOMED Code(s): 934098461 Comment: - Likely ischemic in nature - Needs C, but holding off for now due to stroke - Unlikely due to Lyme Myocarditis (4) CHF (congestive heart failure) Current Visit: Yes Status: Acute Code(s): I50.9 - HEART FAILURE, UNSPECIFIED SNOMED Code(s): 97389741 Comment: - Appreciate Cardiology recommendations - Start Metoprolol 12.5mg BID - Ischemic evaluation deferred by interventional cardiology for now in setting of acute CVA - DDX includes stress cardiomyopathy - EF 30-35% - Repeat Echo outpatient. (5) CVA (cerebral vascular accident) Current Visit: Yes Status: Acute Code(s): I63.9 - CEREBRAL INFARCTION, UNSPECIFIED SNOMED Code(s): 431570607 Comment: - No residual Deficits - Appreciate neuro recommendations. - Likely cardioembolic from left ventricular thrombus - Start Lipitor 40mg - CTA w/o e/o occlusion or stenosis - Repeat CTH no bleed or e/o acute CVA - Cannot have MRI due to neurostimulator (6) Left ventricular thrombus Current Visit: Yes Status: Acute Code(s): I51.3 - INTRACARDIAC THROMBOSIS, NOT ELSEWHERE CLASSIFIED SNOMED Code(s): 435049349 Comment: - Heparin drip - Bridge to Coumadin - Heparin drip at this time due to concern for possible hemorrhagic stroke conversion. (7) DVT prophylaxis Current Visit: Yes Status: Acute Code(s): [id number] - SNOMED Code(s): 928386397 Comment: - Heparin Drip (8) Full code status Current Visit: Yes Status: Acute Code(s): Z78.9 - OTHER SPECIFIED HEALTH STATUS SNOMED Code(s): 058721701 Status and Disposition: Medicine Inpatient.
[2017-10-26] MEDS: cefTRIAXone(*) 2 GM in NS 0.9% 50 ML* 50 ML IVPB SCH (17:15)
[2017-10-26] MEDS: Warfarin TAB(*) 5 MG PO SCH (17:15)
[2017-10-26] MEDS: DULoxetine DR CAP* 60 MG CAP.DR PO SCH (19:45)
[2017-10-26] MEDS: Atorvastatin* 40 MG TAB PO SCH (19:45)
[2017-10-26] MEDS: clonazePAM TAB(*) 0.5 MG PO PRN (23:23)
[2017-10-26] MEDS: Heparin DRIP 25,000 UNITS(*) 25,000 UNITS/500 ML BAG IV SCH (23:26)
[2017-10-27] MEDS: Sucralfate TAB* 1 GM PO SCH ×4 (01:00→17:41)
[2017-10-27] MEDS: Levothyroxine TAB* 75 MCG TAB PO SCH (05:32)
[2017-10-27 05:34] LABS: Hematocrit 32 % (35-47); Hemoglobin 10.5 g/dl (12.0-16.0); Mean Corpuscular HGB Conc 33 g/dl (31-36); Mean Corpuscular Hemoglobin 30 pg (27-31); Mean Corpuscular Volume 90 fL (80-97); Platelet Count 199 10^3/ul (150-450); Red Blood Count 3.54 10^6/ul (4.00-5.40); Red Cell Distribution Width 15 % (10.5-15); White Blood Count 7.4 10^3/ul (3.5-10.8)
[2017-10-27 05:44] LABS: INR 1.37 (0.77-1.02)
[2017-10-27 05:50] LABS: ABS Basophils 0 10^3/ul (0-0.2); ABS Eosinophils 0.1 10^3/ul (0-0.6); ABS Lymphocytes 1.3 10^3/ul (1.0-4.8); ABS Monocytes 0.6 10^3/ul (0-0.8); ABS Neutrophils 5.1 10^3/ul (1.5-7.7); ABS Nucleated RBC 0 10^3/ul; EGFR Non-African American 90.7 (>60); Eosinophil % 1.7 % (0-6); Lymphocyte % 18.2 % (25-47); Nucleated Red Blood Cells % 0
[2017-10-27] MEDS: Omeprazole CAP* 20 MG PO SCH ×2 (08:14→20:10)
[2017-10-27] MEDS: Metoprolol Tartrate TAB* 25 MG PO SCH ×2 (08:14→20:10)
[2017-10-27] MEDS: Cyanocobalamin TAB* 500 MCG PO SCH (08:15)
[2017-10-27] MEDS: Aspirin 81 mg CHEW TAB* 81 MG TAB.CHEW PO SCH (08:15)
[2017-10-27] MEDS: Multivitamins/Minerals TAB PO SCH (08:15)
--- NOTE | 2017-10-27 16:13 | PN ---
Subjective Date of Service: 10/27/17 Interval History: Patient seen and examined. States no chest pain today, no dizziness, no SOB, no dysarthria. Has been OOB to chair without incident. Discussed plan for cardiac diagnostics at length. Family History: Unchanged from Admission Social History: Unchanged from Admission Past Medical History: Unchanged from Admission Objective Active Medications: Aspirin (Aspirin 81 Mg Chew Tab*) 81 mg PO DAILY [facility] Last Admin: 10/27/17 08:15 Dose: 81 mg Atorvastatin Calcium (Lipitor*) 40 mg PO 2100 [facility] Last Admin: 10/26/17 19:45 Dose: 40 mg Clonazepam (Klonopin Tab(*)) 0.5 mg PO BEDTIME PRN PRN Reason: ANXIETY Last Admin: 10/26/17 23:23 Dose: 0.5 mg Cyanocobalamin (Vitamin B12 Tab*) 1,000 mcg PO DAILY [facility] Last Admin: 10/27/17 08:15 Dose: 1,000 mcg Duloxetine HCl (Cymbalta Cap*) 60 mg PO BEDTIME [facility] Last Admin: 10/26/17 19:45 Dose: 60 mg Heparin Sodium/Dextrose (Heparin Drip 25,000 Units(*)) 25,000 units in 500 mls @ 0 mls/hr IV PER RATE [facility]; Protocol Last Admin: 10/26/17 23:26 Dose: 10 mls/hr Ceftriaxone Sodium 2 gm/ (Sodium Chloride) 50 mls @ 100 mls/hr IVPB Q24H [facility] Last Admin: 10/26/17 17:15 Dose: 100 mls/hr Levothyroxine Sodium (Synthroid Tab*) 75 mcg PO 0600 [facility] Last Admin: 10/27/17 05:32 Dose: 75 mcg Metoprolol Tartrate (Lopressor Tab*) 12.5 mg PO Q12HR [facility] Last Admin: 10/27/17 08:14 Dose: 12.5 mg Multivitamins/Minerals (Theragran/Minerals Tab*) 1 tab PO DAILY [facility] Last Admin: 10/27/17 08:15 Dose: 1 tab Omeprazole (Prilosec Cap*) 20 mg PO BID [facility] Last Admin: 10/27/17 08:14 Dose: 20 mg Ondansetron HCl (Zofran Inj*) 4 mg IV Q6H PRN PRN Reason: NAUSEA Psyllium Hydrophilic Mucilloid (Metamucil Sudarshan*) 1 pkt PO DAILY PRN PRN Reason: CONSTIPATION Sucralfate (Carafate*) 1 gm PO Q6H [facility] Last Admin: 10/27/17 12:06 Dose: Not Given Warfarin Sodium (Coumadin Tab(*)) 5 mg PO DAILY@1700 [facility]; Protocol Last Admin: 10/26/17 17:15 Dose: 5 mg Vital Signs - 8 hr 10/27/17 10/27/17 11:23 15:28 Temperature 98.4 F 98.3 F Pulse Rate 63 69 Respiratory 16 16 Rate Blood Pressure 115/54 115/50 (mmHg) O2 Sat by Pulse 98 97 Oximetry Oxygen Devices in Use Now: None Appearance: Alert, NAD Eyes: No Scleral Icterus, PERRLA Ears/Nose/Mouth/Throat: NL Teeth, Lips, Gums, Mucous Membranes Moist Neck: NL Appearance and Movements; NL JVP, Trachea Midline Respiratory: Symmetrical Chest Expansion and Respiratory Effort, Clear to Auscultation Cardiovascular: NL Sounds; No Murmurs; No JVD, RRR, No Edema Abdominal: NL Sounds; No Tenderness; No Distention Neurological: Alert and Oriented x 3, NL Sensation Nutrition: Taking PO's Result Diagrams: 10/27/17 05:19 10/27/17 05:19 Additional Lab and Data: Laboratory Results - last 24 hr Microbiology and Other Data: Microbiology 10/23/17 17:50 Nasal Nasal Screen MRSA (PCR) - Final Mrsa Not Detected Assess/Plan/Problems-Billing Assessment: This is an 82 yo female with history of spinal stenosis , GERD, migraines, undergoing empiric tx for lyme, presents with dysphasia 2/2 ecardioembolic event and found to have new systolic dysfunction with rwma, downtrending troponins (just in ED negative 1 week ago). ECHO with LV thrombus on heparin gtt and now aspirin. - Patient Problems (1) CVA (cerebral vascular accident) Code(s): I63.9 - CEREBRAL INFARCTION, UNSPECIFIED SNOMED Code(s): 094858968 Comment: - No residual deficits, cannot have MRI due to neurostimulator - Neuro following, like cardioembolic from left ventricular thrombus - Continue statin - Imaging with no acute infarct noted - Will be maintained on coumadin (2) NSTEMI (non-ST elevated myocardial infarction) Code(s): I21.4 - NON-ST ELEVATION (NSTEMI) MYOCARDIAL INFARCTION SNOMED Code(s ): 808692594 Comment: - Trops trending down - Per cardiology will need LHC as an outpatient, no efficacy for lexiscan while inpatient, coordinated with Dr. Washington - Heparin drip with coumadin bridge for LV thrombus - Continue statin and BB (3) Left ventricular thrombus Code(s): I51.3 - INTRACARDIAC THROMBOSIS, NOT ELSEWHERE CLASSIFIED SNOMED Code (s): 783563753 Comment: - Continue heparin drip with coumadin bridge, NOAC not indicated for LV thrombus (4) Acute systolic (congestive) heart failure Code(s): I50.21 - ACUTE SYSTOLIC (CONGESTIVE) HEART FAILURE SNOMED Code(s): 722060549 Comment: - Likely ischemic in nature - Needs LHC, but holding off for now due to CVA - Unlikely due to Lyme Myocarditis - Appears euvolemic (5) Acute Lyme disease with erythema migrans lesion 5 cm or greater in diameter Code(s): A69.20 - LYME DISEASE, UNSPECIFIED SNOMED Code(s): 563239179 Comment: - Failed outpatient doxy due to reaction - Continue ceftriaxone until DC, then place back on cefuroxime to complete course (6) DVT prophylaxis Code(s): JBF1355 - SNOMED Code(s): 749412756 Comment: - Heparin and bridge to coumadin (7) Full code status Code(s): Z78.9 - OTHER SPECIFIED HEALTH STATUS SNOMED Code(s): 160811713 Status and Disposition: DC in AM after checking INR. Will DC home with VNS and outpatient coumadin monitoring. Will need cardio follow up to schedule LHC when clear by neuro.
[2017-10-27] MEDS: Warfarin TAB(*) 5 MG PO SCH (17:22)
[2017-10-27] MEDS: cefTRIAXone(*) 2 GM in NS 0.9% 50 ML* 50 ML IVPB SCH (17:22)
[2017-10-27] MEDS: DULoxetine DR CAP* 60 MG CAP.DR PO SCH (20:10)
[2017-10-27] MEDS: Atorvastatin* 40 MG TAB PO SCH (20:10)
[2017-10-27] MEDS: clonazePAM TAB(*) 0.5 MG PO PRN (22:21)
[2017-10-28] MEDS: Sucralfate TAB* 1 GM PO SCH ×3 (00:05→12:55)
[2017-10-28 05:59] LABS: ABS Basophils 0.1 10^3/ul (0-0.2); ABS Eosinophils 0.1 10^3/ul (0-0.6); ABS Lymphocytes 1.5 10^3/ul (1.0-4.8); ABS Monocytes 0.6 10^3/ul (0-0.8); ABS Neutrophils 5.2 10^3/ul (1.5-7.7); ABS Nucleated RBC 0 10^3/ul; Eosinophil % 1.8 % (0-6); Hematocrit 33 % (35-47); Hemoglobin 10.9 g/dl (12.0-16.0); Lymphocyte % 20.3 % (25-47); Mean Corpuscular HGB Conc 33 g/dl (31-36); Mean Corpuscular Hemoglobin 30 pg (27-31); Mean Corpuscular Volume 90 fL (80-97); Mean Platelet Volume 8.1 um3 (7.4-10.4); Nucleated Red Blood Cells % 0.1; Platelet Count 206 10^3/ul (150-450); Red Blood Count 3.68 10^6/ul (4.00-5.40); Red Cell Distribution Width 15 % (10.5-15); White Blood Count 7.5 10^3/ul (3.5-10.8)
[2017-10-28 06:04] LABS: INR 2.05 (0.77-1.02)
[2017-10-28 06:24] LABS: EGFR Non-African American 87.5 (>60)
[2017-10-28] MEDS: Levothyroxine TAB* 75 MCG TAB PO SCH (06:37)
[2017-10-28] MEDS: Omeprazole CAP* 20 MG PO SCH (07:44)
[2017-10-28] MEDS: Cyanocobalamin TAB* 500 MCG PO SCH (07:44)
[2017-10-28] MEDS: Multivitamins/Minerals TAB PO SCH (07:44)
[2017-10-28] MEDS: Aspirin 81 mg CHEW TAB* 81 MG TAB.CHEW PO SCH (07:44)
[2017-10-28] MEDS: Metoprolol Tartrate TAB* 25 MG PO SCH (07:44)
[2017-10-28] MEDS ORDERED: Acetaminophen TAB* 325 MG PO ONE (08:43)
--- NOTE | 2017-10-28 11:44 | RAD ---
INDICATION: Headache blurred vision, recent CVA. COMPARISON: Appear seated is made with a prior CT of the brain from October 24, 2017. TECHNIQUE: Contiguous axial sections of the brain were obtained from the skull base to the vertex without contrast. FINDINGS: The ventricles, cisterns and sulci are enlarged consistent with diffuse atrophy. There are multiple focal areas of decreased density in the subcortical and periventricular white matter suggestive of moderate chronic small vessel ischemic changes. No other focal abnormality or mass effect is seen. There is no evidence for hemorrhage. No significant focal osseous abnormality is seen. The visualized portion of the paranasal sinuses and mastoid air cells appear clear. IMPRESSION: 1. NO EVIDENCE FOR GROSS ACUTE INFARCT, MASS EFFECT OR HEMORRHAGE. 2. ATROPHY AND FINDINGS CONSISTENT WITH CHRONIC SMALL VESSEL ISCHEMIC CHANGES.
--- NOTE | 2017-10-28 12:02 | DS ---
CC: Dr. Brian Hernández; Dr. Abdulaziz Liriano; Dr. Leeroy Godoy * DISCHARGE SUMMARY: DATE OF ADMISSION: 10/23/17 DATE OF DISCHARGE: 10/28/17 PRIMARY CARE PROVIDER: Dr. Brian Hernández. MY ATTENDING FOR TODAY: Dr. Denisse Townsend.* (DICTATED BY BAHMAN VIERA NP) PATIENT'S ATTENDING PHYSICIAN THIS ADMISSION: Dr. Denisse Townsend. NEUROLOGY: Dr. Abdulaziz Liriano. CARDIOLOGY: Dr. Leeroy Godoy. HOSPITAL COURSE: This is an 82-year-old female patient with a past medical history of obstructive sleep apnea, hypothyroidism, chronic low back pain, prolapsed bladder, GERD and esophagitis, esophageal spasms, osteoporosis, who stated she was at home and being treated for a tick bite. She had erythema migrans and was started on doxycycline. She took the doxy for a few days and she developed some nausea and vomiting. She was seen in [facility] and transferred directly to the emergency room. At that time, they were evaluating her for chest pain. She had negative troponins. She was started on Carafate and Compazine and the patient's states that her symptoms resolved. However, the morning coming to the emergency department on 10/23/17, she began to have some slurred speech and also some expressive aphasia. The timing of this issue was a bit unclear. It happened sometime in the morning. She came to the emergency department for evaluation again. It was noted at that time that she was possibly having a CVA. Saira White was called, she was seen by Dr. Liriano. She had a CT of the head showing chronic small vessel ischemic changes but no acute findings. The patient does have a neurostimulator implanted, which prevented her from getting an MRI. She was ordered for a repeat CT in the morning and a CT angiogram to rule out large vessel occlusion. There were no acute ischemic findings on her CAT scan and her symptoms began to resolve spontaneously. It was again not noted whether this was an subacute infarct and because of chronic small vessel ischemic changes, it was difficult to ascertain the exact area of where this stroke occurred. However, during this time, she also had some EKG changes that were noted. It was normal sinus rhythm with an abnormal R-wave progression and a mild ST elevation. Her echocardiogram at that point showed a decreased ejection fraction and also a left ventricular thrombus. The patient was started on heparin drip and then also seen by Cardiology. Also, her presenting troponin on 10/23/17 was 0.96, began trending downward to 0.79, 0.56, and 0.30. The patient did not describe any chest pain at that time. Her only complaint was some epigastric pain and discomfort, which again she had initially attributed to her new antibiotics. The patient also had some electrolyte disturbances, magnesium was mildly low, which was also treated. She did not have a white count. She was mildly anemic, but no further abnormalities on her laboratory work. Because of her left ventricular thrombus, she was bridged to Coumadin as a NOAC would not be appropriate therapy for anticoagulation for that issue. She was bridged, heparin was stopped on the morning of 10/28/17. Her expressive aphasia completely resolved. Her swallow evaluation was normal. Cardiology initially recommended that the patient may benefit from stress test; however, after discussing with Dr. Washington yesterday, he felt it would be better for the patient instead of undergoing Lexiscan to follow up with Dr. Godoy as an outpatient and schedule her for an outpatient cardiac catheterization. The utility of having stress test in hospital, he felt definitively in either case whether it was low-risk stress test or high risk, either way he was recommending cardiac cath. The patient is agreeable to this plan. She passed her physical therapy evaluation. She has no acute skill needs at this time and expressed her wish to be discharged to home with visiting nurse services. REVIEW OF SYSTEMS: On day of discharge is negative. The patient has no complaints today. She denies any fever, fatigue, or chills. No chest pain, no shortness of breath, no nausea, no vomiting. No diarrhea or constipation. No arthralgias or myalgias. No headache. No diplopia and no neurologic complaints and no further constitutional complaints. PHYSICAL EXAMINATION: The patient is well appearing, no acute distress. Vital Signs: Today, blood pressure 123/53, heart rate 78, respiratory rate 16, O2 saturation 97% on room air with a temperature of 98.1. HEENT: The patient is atraumatic, normocephalic. PERRLA with nonicteric sclerae. Oral mucosa is moist. Tongue is midline. Extraocular movements are intact. Neck is supple, nontender. No JVD noted. No carotid bruits auscultated. Cardiovascular: S1, S2 present. No murmurs, gallops, or rubs noted. She has regular sinus rhythm on telemetry with no further ectopy. Lungs are clear bilaterally at the apices , diminished at the bases. No wheezing, rhonchi, or rales. Abdomen: Soft, nontender, nondistended. Positive bowel sounds in all 4 quadrants. She is passing flatus. : Deferred. Musculoskeletal: There is no clubbing, no cyanosis, and no edema. She has +2 distal pulses palpable. Full range of motion and a steady gait. Neurologic: She is grossly intact. Cranial nerves I through X grossly intact. No neural focality is noted. Psychiatric: She is cooperative and appropriate. DIAGNOSTIC STUDIES/LAB DATA: INR is 2.05 today. WBC is 7.5, RBC is 3.68, hemoglobin 10.9, hematocrit 33, platelets 206. Sodium 138, potassium 4.1, chloride 106, CO2 of 26, BUN 16, creatinine 0.63, GFR 90.7, glucose 97, calcium 8.3, and magnesium 1.8, repleted. Troponins as stated above. CRP was 9.92. Triglycerides 124, cholesterol 138, LDL 76, HDL 36.8. TSH is 2.32. Imaging: CTA of the head dated 10/24/17, shows atheromatous disease, no internal carotid artery stenosis by NASCET criteria. No aneurysm, vascular malformation, occlusion, or stenosis of the visualized intracranial circulation. CT of the brain dated 10/24/17, shows no acute intracranial pathology, diffuse involutional changes with chronic small vessel ischemic changes with no significant change from initial CT imaging of 10/23/17. Chest x-ray dated 10/23/17, shows no active cardiopulmonary disease. Echocardiogram dated 10/23/17, conclusions show left atrium is mildly dilated. The aortic valve leaflets are mildly thickened. There is trace mitral regurg, trace tricuspid regurg. There are multiple regional wall motion abnormalities. Estimated ejection fraction is 30% to 35% closer to 30%, the basal segments of the inferior segments are hyperdynamic. There is chordal NELLY. Abnormal left ventricular diastolic filling is observed consistent with impaired relaxation. A thrombus is visualized in the left ventricular apex. Addendum: A patent foramen ovale is not demonstrated with color Doppler and agitated contrast. She has no PFO. DISPOSITION: The patient will be discharged to home in the care of her . FOLLOWUPS: The patient will follow up with visiting nurse services, who will evaluate her in her home. She should see Dr. Brian Hernández in the next 1 [address] Leeroy Godoy in the next 4 to 7 days to schedule diagnostic cardiac cath. DIET: She should have a heart healthy, low sodium less than 2 g diet. Strict I 's and O's and daily weights. The patient did have heart failure during this episode considering her low ejection fraction and NSTEMI. She was told to monitor salt intake and also notify Cardiology of any 2-pound weight gain in a 24-hour period. DISCHARGE DIAGNOSES: 1. Cerebrovascular accident with no residual deficits. 2. Non-ST elevation myocardial infarction, now resolved, will need left heart cath. 3. Left ventricular thrombus, on systemic anticoagulation. 4. Acute systolic heart failure, likely secondary to cardiac ischemia, again should be scheduled for left heart cath. 5. Acute Lyme disease with erythema migrans. The patient has completed her course of antibiotics that was initially started on 10/17/17. She was treated with ceftriaxone while inpatient, last dose was on 10/27/17. DISCHARGE MEDICATIONS: 1. Levothyroxine 75 mcg daily. 2. Carafate 10 mL q.6 hours daily. 3. Clonazepam 0.5 mg at bedtime as needed. 4. Oxaprozin 600 mg 2 times a day. 5. Aluminum hydroxide 600 mg 3 times a day as needed. 6. Tylenol 500 mg q.4 hours as needed. 7. Metamucil 1 packet daily as needed. 8. Docusate 300 mg daily as needed. 9. Duloxetine 60 mg at bedtime. 10. Pantoprazole 40 mg 2 times a day. 11. Vitamin D 4000 units daily. 12. Multivitamin 1 tablet daily. 13. Calcium carbonate 1400 mg daily. 14. Warfarin 5 mg daily. 15. Metoprolol tartrate 12.5 mg q.12 hours. 16. Vitamin B12 1000 mcg daily. 17. Atorvastatin 40 mg daily. 18. Aspirin 81 mg daily. CONDITION ON DISCHARGE: The patient was discharged in stable condition. All questions were answered. The patient stated her understanding of her discharge followups and medications. BAHMAN VIERA, BILLING DEPARTMENT SUPERVISOR [id number]/[facility] #: [id number] B[facility] SETON HOSPITALFelipa
[2017-10-28 12:27] VITALS: BP 122/60
== END 2017-10-28 13:38 | disposition home or self-care (01) | DRG 64 ==
LOC: ED 13:46 → ICU 16:22 → MEDTELE 10-24 16:47
PROVIDERS: ADMIT Internal Medicine; ATTEND Internal Medicine
DX: I63.10 Cerebral infarction due to embolism of unspecified precerebral artery (principal); I21.4 Non-ST elevation (NSTEMI) myocardial infarction; I50.21 Acute systolic (congestive) heart failure; I23.6 Thrombosis of atrium, auricular appendage, and ventricle as current complications following acute myocardial infarction; A69.20 Lyme disease, unspecified; I42.9 Cardiomyopathy, unspecified; R47.01 Aphasia; G47.30 Sleep apnea, unspecified; E03.9 Hypothyroidism, unspecified; M54.5 Low back pain; K21.9 Gastro-esophageal reflux disease without esophagitis; M81.0 Age-related osteoporosis without current pathological fracture; C44.90 Unspecified malignant neoplasm of skin, unspecified; K22.4 Dyskinesia of esophagus; M48.00 Spinal stenosis, site unspecified; Z79.1 Long term (current) use of non-steroidal anti-inflammatories (NSAID); Z79.899 Other long term (current) drug therapy; Z88.5 Allergy status to narcotic agent; Z88.0 Allergy status to penicillin; Z88.2 Allergy status to sulfonamides; Z88.8 Allergy status to other drugs, medicaments and biological substances; Z82.3 Family history of stroke; Z80.3 Family history of malignant neoplasm of breast
CPT/HCPCS: 36415; 70450; 70496; 70498; 71045; 80048; 80053; 80061; 82550; 82565; 82607; 83605; 83735; 84443; 84484; 84520; 85025; 85610; 85652; 85730; 86140; 87641; 93005; 93306; 99281; A9270-GY; C8929; G8978-GP-CI; G8979-GP-CI; G8980-GP-CI; G8987-GO-CJ; G8988-GO-CH; G8989-GO-CI; J0696; J3475; J3490; Q9967

== ENCOUNTER 2017-11-01 10:23 | Inpatient (IN) | payer MEDICARE, BC ==
[2017-11-01] MEDS ORDERED: NS 0.9% 1000 ML* 1,000 ML IV ONE (10:24)
--- OUTSIDE RECORDS SUMMARY | 2017-11-01 10:28 | XMS REPORT ---
:1935 External Reference #:[id number] [facility] Address [address] [place] [address] [place] [address] Phone [phone] Care Team Providers Name Role Phone Brian Hernández MD Primary Care Physician Unavailable Payers Type Date Identification Numbers Payment Provider Subscriber Medicare Primary Effective: Policy Number: Medicare Opal Quick 2001 [id number] PayID: [id number] [address] [place] [address] Medigap Part B Policy Number: [id number] [facility] [employer] Group Number: [id number] [address] PayID: [id number] [place] [address] Problems Date Description Provider Status Onset: 09/22/2014 Migraine without aura Tonya Brennan M.D. Active Onset: 09/22/2014 Cerebrovascular disease Tonya Brennan M.D. Active Onset: 09/22/2014 Excessive somnolence Tonya Brennan M.D. Active Family History Date Family Member(s) Problem(s) Comments Father due to Stroke () Mother Leukemia Mother due to Leukemia () Siblings 1 Social History Type Date Description Comments Lives With Spouse Both live at [facility] ETOH Use Denies alcohol use Smoking Patient has never smoked Daily Caffeine consumes chocolate occasionally Exercise Type/Frequency Does not exercise Allergies, Adverse Reactions, Alerts Date Description Reaction Status Severity Comments 06/16/2012 Penicillin active 06/16/2012 Sulfa Antibiotics active 12/28/2013 Hydrocodone Nausea and Vomiting active 10/30/2017 Demerol active decrease blood pressure 10/30/2017 Fosamax active "gerd" Medications Medication Date Status Form Strength Qnty SIG Indications Ordering Provider Aspir-81 10/30/ Active Tablets DR 81mg 30tabs 1 by Deborah Medina mouth Foster, every day N.P. (chewable ) Protonix / Active Tablets DR 40mg 30tabs 1 po bid Unknown 0000 Levoxyl / Active Tablets 75mcg 90tabs 1 po qd Unknown 0000 Clonazepam / Active Tablets 1mg 20tabs 1/2 of Unknown 0000 tablet po qhs Oxaprozin / Active Tablets 600mg 60tabs 1 tab po Unknown 0000 bid Tylenol Extra / Active Tablets 500mg 100tab 2 tabs po Unknown Strength 0000 s every night Fluocinonide / Active Cream 0.05% 60gm bid prn Unknown 0000 rash Metamucil / Active Capsules 0.52gm 60caps 3 cap po Unknown 0000 qam with water Colace / Active Capsules 100mg 1 cap po Unknown 0000 up to tid prn Magnesium / Active Tablets 500mg 2 po qd Unknown 0000 prn Vagifem / Active Tablets 10mcg 24tabs pv twice Unknown 0000 a week (with applicato r) Tatum / Active .125 1 tab sl Unknown 0000 prn Aspercreme / Active Lotion 10% topical Unknown 0000 prn Vitamin D / Active Tablets 1000Unit 4 po qd Unknown 0000 Glucosamine / Active Capsules 500mg 3 po qd Unknown 0000 (has not taken the last week 10/30/17) Calcium / Active Tablets 1400mg 60tabs take one Unknown Carbonate 0000 tablet by mouth every day Multi For Her / Active Capsules 1 po qd Unknown 50+ 0000 Tramadol HCL / Active Tablets 50mg 50tabs 1/2 tab Unknown 0000 po qhs prn Lysine HCL / Active Tablets 500mg 1 tabs Unknown 0000 bid by mouth at the onset of herpes symptoms. prn Cymbalta / Active Caps DR Part 30mg 3 tablets Unknown 0000 by mouth every hs Aluminum-[place] / Active Suspension 2 tsp at Unknown xide Gel 0000 hs po as needed Lipitor / Active Tablets 40mg 1 by Unknown 0000 mouth at bedtime B12 / Active PO take one Unknown 0000 capsule/t ablet daily Metoprolol / Active Tablets 25mg 1/2 Unknown Tartrate 0000 tablet by mouth twice a day Coumadin / Active Tablets 5mg 1 by Unknown 0000 mouth every pm Gabapentin / Hx Capsules 200mg 270cap 1 po qam Unknown 0000 - s 2015 Gabapentin / Hx Capsules 100mg 120cap 5 tabs Tonya M. 0000 - s qhs Stackman, 07/11/ .D. 2015 Aluminum / Hx Suspension 600mg/5ML 2 tbsp po Unknown Hydroxide 0000 - tid prn 2017 Hydrocodone/Ac / Hx Tablets 5-325mg 60tabs 1-2 po Unknown etaminophen 0000 - qid prn 2013 Calcium 600+D / Hx Tablets 600-400mg- 60tabs 1 po bid Unknown 0000 - Unit 2013 Vital Signs Date Vital Result Comment 10/30/2017 Height 58 inches 4'10" Weight 130.00 lb Heart Rate 76 /min BP Systolic 132 mmHg right arm BP Diastolic 64 mmHg right arm BMI (Body Mass Index) 27.2 kg/m2 Ejection Fraction 30-35% closer to 30% Echocardiogram 10/23/2017 07/13/2015 Height 58 inches 4'10" Weight 125.00 lb Heart Rate 92 /min BP Systolic Sitting 118 mmHg BP Diastolic Sitting 76 mmHg Respiratory Rate 14 /min BMI (Body Mass Index) 26.1 kg/m2 09/22/2014 Height 58 inches 4'10" Weight 135.00 lb Heart Rate 56 /min BP Systolic Sitting 128 mmHg BP Diastolic Sitting 82 mmHg Respiratory Rate 14 /min BMI (Body Mass Index) 28.2 kg/m2 12/28/2013 Height 58 inches 4'10" Weight 137.00 lb Heart Rate 60 /min BP Systolic Sitting 140 mmHg BP Diastolic Sitting 74 mmHg Respiratory Rate 16 /min BMI (Body Mass Index) 28.6 kg/m2 06/18/2013 Height 58 inches 4'10" Weight 137.00 lb Heart Rate 62 /min BP Systolic Sitting 120 mmHg BP Diastolic Sitting 70 mmHg Respiratory Rate 16 /min BMI (Body Mass Index) 28.6 kg/m2 12/17/2012 Heart Rate 76 /min BP Systolic Sitting 120 mmHg BP Diastolic Sitting 80 mmHg Respiratory Rate 17 /min Results Description No Information Procedures Description No Information Encounters Type Date Location Provider CPT E/M Dx Office Visit 10/30/2017 2:00p [facility] Deborah Ruffin, N.P. 60316 I21.4 I24.0 I42.9 E78.5 I10 Office Visit 10/26/2017 12:46p [facility] Wilma Watkins M.D. 06958 I21.4 [place] Office Visit 05/27/2017 4:01p [facility] [place], [address] N30.01 Asskimberley,greg Hospitalists Eirc K44.9 R11.2 E03.9 Office Visit 07/13/2015 3:30p [facility] Tonya Brennan, 66853 G43.009 [facility] [place] Eric I67.9 R40.0 Office Visit 09/22/2014 11:45a [facility] Tonya Brennan, 52129 346.10 [facility] [place] Leonel.Dangelo 437.9 780.79 Office Visit 12/28/2013 2:15p [facility] Tonya Brennan, 77036 346.10 [facility] [place] M.D. 437.9 780.79 Office Visit 06/18/2013 10:45a [facility] Tonya Brennan, 80232 346.10 [facility] [place] Leonel.Dangelo 780.79 437.9 Office Visit 12/17/2012 8:45a [facility] Tonya Brennan, 59886 784.0 [facility] [place] Eric 780.79 Office Visit 06/16/2012 3:15p [facility] Tonya Brennan, 71583 784.0 [facility] [place] Leonel.DBriseida 437.9 Plan of Care Future Appointment(s):12/29/2017 1:00 pm - [place] [facility]2017 - Deborah Ruffin, N.P.I21.4 Non-St elevation (Nstemi) myocardial infarctionRecommendations:Will recommend nuclear stress test or cardiac catheterization WIll discuss wtih Dr. Godoy and call you.I24.0 Acute coronary thrombosis not resulting in myocardial lmlxeU04.9 Cardiomyopathy, unspecifiedNew Orders:EchocardiogramRecommendations:I will order LifeVest Plan to recheck echo in 2 m Will try to start low dose [id number] Hyperlipidemia , [id number] Essential (primary) hypertension
--- OUTSIDE RECORDS SUMMARY | 2017-11-01 10:28 | XMS REPORT ---
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 Problem Hematuria, R31.9 Active 75414894 unspecified Problem Urinary tract N39.0 Active 36918320 infection, site not specified ALLERGIES Substance Reaction Event Type Date Status demerol low BP Drug Allergy Oct, Active Sulfa hives Drug Allergy Oct, Active penicillin hives Drug Allergy Oct, Active doxycycline vomiting Drug Allergy Oct, Active Fosamax GERD Drug Allergy Oct, Active ENCOUNTERS Encounter Location Date Diagnosis [facility] [address] [place], [place] [id number] [facility] [address] [place] [address] Oct, [address] [place], (female) (male) N39.3 [place] [id number] and Complete uterovaginal prolapse N81.3 [facility] [address] Sep, OBGYN [place], [place] [id number] [place] [facility] [address] Sep, [address] [place], (female) (male) N39.3 [place] [id number] and Complete uterovaginal prolapse N81.3 [place] [facility] [address] Aug, OBGYN [place], [place] [id number] [facility] [address] Aug, Stress incontinence OBGYN [facility], (female) (male) N39.3 [place] [id number] and Complete uterovaginal prolapse N81.3 [place] [facility] [address] Aug, OBGYN [place] [id number] [facility] [address] Aug, [place] [id number] [facility] 103 Aug, [place] [id number] [facility] [address] [place], Aug, [facility] [place] [id number] (female) (male) N39.3 and Complete uterovaginal prolapse N81.3 [place] [facility] [address] Aug, [place]BG[place] [id number] [place] [facility] [address] Jul, [place]BG[place], [place] [id number] [place] [facility] [address] Jul, [place] [id number] [place] [facility] 103 Jul, Incomplete uterovaginal OBGYN [facility], prolapse N81.2 ; [place] [id number] Hematuria, unspecified R31.9 ; Unspecified urinary incontinence R32 and Urinary tract infection, site not specified N39.0 [place] [facility] [address] Jul, Incomplete uterovag[address] [place], prolapse N81.2 ; [place] [id number] Unspecified urinary incontinence R32 ; Hematuria, unspecified R31.9 and Urinary tract infection, site not specified N39.0 [place] [facility] [address] Jul, OBGYN [place], [place] [id number] [place] [facility] 103 Jul, Unspecified urinary OBGYN [facility], incontinence R32 [place] [id number] [facility] [address] Jul, Unspecified urinary OBGYN [facility], incontinence R32 [place] [id number] [place] [facility] 103 Jul, [place]BG[place] [id number] [place] [facility] [address] Jul, Incomplete uterovag[address] [place], prolapse N81.2 ; [place] [id number] Unspecified urinary incontinence R32 and Hematuria, unspecified R31.9 [place] [facility] [address] Jul, [place] [id number] [place] [facility] 103 Jul, [place] [id number] [place] [facility] 103 June, Dysuria R30.0 [place], [place] [id number] [place] [facility] [address] June, [place] [id number] [place] [facility] 103 June, Incomplete uterovaginal OBGYN [facility], prolapse N81.2 ; [place] [id number] Unspecified urinary incontinence R32 and Encounter for screening for malignant neoplasm of cervix Z12.4 [place] [facility] [address] June, Incomplete uterovaginal OBGYN [facility], prolapse N81.2 and [place] [id number] Abnormal findings on diagnostic imaging of other specified body structures R93.8 [place] [facility] [address] June, OBGYN [place] [id number] [facility] [address] June, OBGYN [facility], [place] [id number] [facility] [address] June, Unspecified urinary OBGYN [facility], incontinence R32 [place] [id number] [facility] [address] June, OBG[facility], [place] [id number] [facility] [address] June, In[address] [place], prolapse N81.2 and [place] [id number] Unspecified urinary incontinence R32 IMMUNIZATIONS No Known Immunizations SOCIAL HISTORY Never Assessed REASON FOR REFERRAL FUNCTIONAL STATUS PLAN OF CARE Activity Details Follow Up F/u PRN. Annual in 6 month. Reason: VITAL SIGNS Height 57 in 2017-10-30 Weight 129 lbs 2017-10-30 BMI 27.91 kg/m2 2017-10-30 Blood pressure systolic 122 mm Hg 2017-10-30 Blood pressure diastolic 72 mm Hg 2017-10-30 MEDICATIONS Medication Instructions Dosage Frequency Start End Duration Status Date Date warfarin 5 mg orally once a 1 tab(s) 24h Active day aluminum chewed 4 times a 2 tab(s) Active hydroxide-magnesium day (after meals carbonate 160 and at bedtime) mg-105 mg atorvastatin 40 mg orally once a 1 tab(s) 24h Active day Metoprolol Tartrate orally BID 1/2 12h Active 25 mg tab(s) duloxetine 60 mg orally once a 1 cap(s) 24h Active day clonazepam 0.5 mg orally 3 times a 1 tab(s) 8h Active day oxaprozin 600 mg orally once a 2 tab(s) 24h Active day psyllium 3.4 g/5.8 orally qd 24h Active g magnesium oxide 500 orally once a 1 tab(s) 24h Active mg day cholecalciferol orally once a 1 tab(s) 24h Active 1000 intl units day docusate sodium 100 orally 2 times a 1 tab(s) 12h Active mg day calcium carbonate orally once a 2 tab(s) 24h Active 600 mg day multivitamin orally once a 1 cap(s) 24h Active Multiple Vitamins day acetaminophen 500 orally every 6 2 tab(s) 6h Active mg hours baby asa 81mg 1 24h Active levothyroxine 75 orally once a 1 tab(s) 24h Active mcg (0.075 mg) day PROCEDURES No Known procedures RESULTS No Results REASON FOR VISIT f/u 1 month to reassess colpocleisis / TOT repair Insurance Providers [facility] Member Patient Patient Patient Patient Patient Subscriber Subscriber Subscriber Group Insurance Plan Plan Plan Plan ID Relationship Address Phone Name Date of ID Name Date of No Type Insurance Insurance Insurance Coverage to Subscriber Address Phone Name Dates [place] [phone] Fito Joseph [id number] Plan for 1600 Plan for [facility] [place] [address] Medicare [phone] Medicare self Opal [id number] [facility] [address] MEDICAL (GENERAL) HISTORY Type Description Date Medical [...] compressed disc, pinched nerves, slipped discs, spondylolisthesis Medical History Lyme disease Medical History Stroke Medical History Heart attack Surgical History colonoscopy 2007 Surgical History bilateral carpal tunnel [phone] Surgical History LT foot bunionectomy and metatarsal [...] History childbirth 1963 Hospitalization History childbirth 1966 Hospitalization History Heart attack, stroke, Lymes disease 10/23/17
--- NOTE | 2017-11-01 10:29 | ED ---
Neurological HPI - HPI Summary HPI Summary: Patient is a 82 y/o F BIBA w/ c/o syncopal episode and possible CVA. Adenike jesus was called at 1011. Patient arrived at 1019, Dr. Gardner was present to evaluate patient immediately. Per EMS, patient had a witnessed syncopal episode by . EMS states that reports last known well of patient was 0855. Patient is reported to have collapsed in hallway after getting out of bed. BG was 88, patient is poorly responsive with right side facial droop, noted to have right sided weakness. Patient is mute and thus level 5 caveat. Patient is alert and able to follow commands, but unable to speak/answer questions. No Hx of seizures per EMS, patient was seen at [facility] 1.5 weeks ago. At the time, patient was unable to speak, adenike marin was called at time. However, CT taken at the time showed no acute intracranial findings. PMHx includes NSTEMI , GERD, hypothyroidism, Lyme, left ventricular thrombosis. Patient is reported to have normal renal function. She is on Coumadin. Home medications and allergies reviewed. - History of Current Complaint Stated Complaint: ADENIKE MARIN Hx Obtained From: EMS, Medical Records Hx From Patient Unobtainable Due To: Other - patient is mute and level 5 caveat Onset/Duration: Sudden Onset, Started hours ago - onset 0855, Still Present Timing: Constant Neurological Deficit Location: Facial - right side, RUE Syncope Context: Witnessed Associated Signs and Symptoms: Positive: Impaired Speech - Additional Pertinent History Primary Care Physician: [id number] - Allergy/Home Medications Allergies/Adverse Reactions: Allergies Allergy/AdvReac Type Severity Reaction Status Date / Time doxycycline Allergy Dizziness Verified 11/01/17 11:22 Penicillins Allergy Rash Verified 10/23/17 14:12 risedronate sodium Allergy Rash And Verified 10/23/17 14:12 [From Actonel] Itching Sulfa (Sulfonamide Allergy Rash Verified 10/23/17 14:12 Antibiotics) alendronate sodium AdvReac Vomiting Verified 10/23/17 14:12 [From Fosamax] meperidine [From Demerol] AdvReac Vomiting Verified 10/23/17 14:12 scopolamine AdvReac Dizziness Verified 10/23/17 14:12 PMH/Surg Hx/FS Hx/Imm Hx Endocrine/Hematology History: Reports: Hx Thyroid Disease - hypo, Other Endocrine/Hematological Disorders Denies: Hx Diabetes Cardiovascular History: Denies: Hx Hypertension, Other Cardiovascular Problems/Disorders Respiratory History: Reports: Hx Sleep Apnea - MILD, Other Respiratory Problems/ Disorders - MUSCLE SPASMS DURING REM SLEEP Denies: Hx Asthma, Hx Chronic Obstructive Pulmonary Disease (COPD) GI History: Reports: Hx Gastroesophageal Reflux Disease, Hx Irritable Bowel Denies: Hx Ulcer, Other GI Disorders History: Reports: Hx Kidney Stones - MANY YEARS AGO, Other Problems/ Disorders - bladder surgery Denies: Hx Renal Disease Musculoskeletal History: Reports: Hx Arthritis - ALL OVER, Other Musculoskeletal History Sensory History: Reports: Hx Contacts or Glasses - GLASSES Denies: Hx Hearing Aid Opthamlomology History: Reports: Hx Contacts or Glasses - GLASSES Neurological History: Reports: Hx Migraine - 2001, SILENT MIGRAINE Denies: Other Neuro Impairments/Disorders - Cancer History Cancer Type, Location and Year: skin ca - Surgical History Surgery Procedure, Year, and Place: TAYLER CARPAL TUNNEL, 1979, 1980,. 2008, LOW BACK, [facility]. TAYLER BUNIONECTOMYS, 1985, 1989, [facility]. [facility] RIGHT BRE[place] BX, 1989, [facility]. LEFT KNEE, 2004, [place]. [place] KNEE, [place] , 2013. DCS trial 03/16/14. R foot surgery 2016. Bladder surgery 08/19/2017 Hx Anesthesia Reactions: Yes - NO OPIATES - Immunization History Date of Tetanus Vaccine: unknown Date of Influenza Vaccine: [id number] Infectious Disease History: Reports: Hx Clostridium Difficile, History Other Infectious Disease - Lyme Denies: Hx Hepatitis, Hx Human Immunodeficiency Virus (HIV) - Family History Known Family History: Positive: Hypertension - Social History Alcohol Use: None Hx Substance Use: No Substance Use Type: Reports: None Hx Tobacco Use: No Smoking Status (MU): Never Smoked Tobacco Have You Smoked in the Last Year: No Review of Systems Negative: Fever - temp is 98.4 F on vitals Neurological: Other - mute Positive: Weakness - RUE, right side facial droop , Syncope All Other Systems Reviewed And Are Negative: No - Comments Additional Review of Systems Comments: mute, level 5 caveat as pt unable to provide ROS Physical Exam - Summary Physical Exam Summary: Appearance: Patient appears distressed ; alert, unable to speak or answer questions; can follow commands; level 5 caveat Skin: warm, dry, reflects adequate perfusion; right shoulder scar, implanted device in lower back Head/face: normal, atraumatic Eyes: EOMI, DA ENT: normal Neck: supple, non-tender Respiratory: CTA, breath sounds present Cardiovascular: RRR, pulses symmetrical Abdomen: non-tender, soft Bowel Sounds: present Musculoskeletal: normal, strength/ROM intact Neuro: see NIH scale Triage Information Reviewed: Yes Vital Signs On Initial Exam: Initial Vitals Temp Pulse Resp BP Pulse Ox 98.4 F 83 16 184/74 96 11/01/17 10:24 11/01/17 10:24 11/01/17 10:24 11/01/17 10:24 11/01/17 10:24 Vital Signs Reviewed: Yes Diagnostics - Laboratory Result Diagrams: 11/01/17 10:46 11/01/17 10:46 Lab Statement: Any lab studies that have been ordered have been reviewed, and results considered in the medical decision making process. - Radiology CXR Xray Interpretation: No Acute Changes Radiology Interpretation Completed By: Radiologist - no evidence for acute disease; this report was reviewed by ED physician - CT Brain CT CT Interpretation: No Acute Changes CT Interpretation Completed By: Radiologist - IMPRESSION: 1. NO EVIDENCE FOR GROSS ACUTE INFARCT, MASS EFFECT OR HEMORRHAGE. 2. ATROPHY AND FINDINGS MOST CONSISTENT WITH MODERATE CHRONIC SMALL VESSEL ISCHEMIC CHANGES. THIS REPORT WAS REVIEWED BY ED PHYSICIAN CTA Head CT Interpretation: No Acute Changes CT Interpretation Completed By: Radiologist - IMPRESSION: 1. NO EVIDENCE FOR HEMODYNAMICALLY SIGNIFICANT CAROTID STENOSIS. 2. NO EVIDENCE FOR LARGE VESSEL INTRACRANIAL THROMBUS. THIS REPORT WAS REVIEWED BY ED PHYSICIAN. - EKG 1049 Cardiac Rate: NL - rate of 76 EKG Rhythm: Sinus Rhythm EKG Interpretation: normal axis, deep flipped t waves in v3-6, lead 1,2 and aVL. Long QT EKG Comparison: Other - flipped T waves were not present on 10/24/17 EKG NIH Scale - NIH Scale Level of Consciousness: Alert/Keenly Responsive Ask Patient the Month and His/Her Age: Neither Correct/Aphasic Ask Pt to Open/Close Eyes and Sales Attendant/Release Non-Paretic Hand: Both Correctly Best Gaze (Only Horizontal Eye Movement): Normal Visual Field Testing: No Visual Loss Facial Paresis-Pt to Smile & Close Eyes or Grimace Symmetry: Partial Paralysis Motor Function - Right Arm: Drifts LT 10 seconds Motor Function - Left Arm: No Drift-Holds 10 Seconds Motor Function - Right Leg: No Drift-Holds 10 Seconds Motor Function - Left Leg: No Drift-Holds 10 Seconds Limb Ataxia-Must be out of Proportion to Weakness Present: Present in Two Limbs Sensory (Use Pinprick to Test Arms/Legs/Trunk/Face): Normal Best Language (Describe Picture, Name Items): Mute/Global Aphasia Dysarthria (Read Several Words): Unintelligible or Mute Extinction and Inattention: No Abnormality Total Score: 12 Re-Evaluation - Re-Evaluation First Eval Re-Evaluation Time: 10:48 Change: Unchanged Comment: Patient's family members state that patient's INR has been high, that she has a clot in left heart. She also has neurostimulator in spine, which r/o MRI Second Eval Re-Evaluation Time: 11:11 Change: Unchanged Comment: Informed plan to transfer patient to [place] by air; they are agreeable with this plan Third Eval Re-Evaluation Time: 11:24 Change: Unchanged Comment: Updated family on cancellation of transfer. They are agreeable with plan to continue care at [facility]. Fourth Eval Re-Evaluation Time: 11:33 Change: Improved Comment: BP is down to 148 systolic Fifth Eval Re-Evaluation Time: 11:47 Change: Improved Comment: Patient's facial droop and RUE deficit is resolving, still no speech. Course/Dx - Course Course Of Treatment: Patient presents with acute stroke syndrome including right -sided facial droop, mild right weakness, ataxia, and totally mute. Her NIH on presentation is 12. Her blood pressure slightly elevated 185. She is not a candidate for TPA given that she is on Coumadin with a supratherapeutic INR. Telestroke was obtained and we were considering transfer the patient pending the results of CT angiogram. The CT angiogram resulted after flight had been arranged. The CTA was negative for large vessel occlusion. At that point transfer was canceled and neurology at this facility was contacted. They will see the patient and consultation. The patient was admitted to hospitalist service. Her deficits continued to improve throughout the ER stay. Her blood pressure normalized into the 140s. Patient is not a candidate for MRI given her implanted neurostimulator - Differential Dx Differential Diagnoses Neuro: Positive: Other - Hemorrhagic stroke, ischemic stroke, vasospastic stroke, NE - Diagnoses Provider Diagnoses: Acute CVA (cerebrovascular accident), Elevated INR (international normalized ratio) During the Visit The Following Alert/Code Occurred: Adenike Fields - called at 1011 - Physician Notifications Discussed Care Of Patient With: Sarah Dolan Time Discussed With Above Provider: 10:33 Instructed by Provider To: Other - Dr. Dolan was consulted on patient's case at 1033. Dr. Dolan and Dr. Gardner are agreeable on plan of care for patient. 1051 - - Dr. Licea communicated results of CT to Dr. Gardner. 1102 -- Consult with Dr. Morris Chen from [place] was consulted on patient's case. Dr. Chen accepts patient for admission. 1122 -- Dr. Chen called back; flight and transfer will be cancelled as it is stated that the patient is not a candidate for intervention. 1129 -- Dr. Dolan was called and updated on patient's situation. He agrees to see patient when she is admitted to [facility]. 1134 -- Dr. Roche was consulted on patient's case. Dr. Roche accepts patient for admission to [facility]. - Critical Care Time Critical Care Time: 75-104 min - 75 minutes; CCT is EXCLUSIVE of separately billable procedures. Discharge - Sign-Out/Discharge Documenting (check all that apply): Patient Departure - admit - Discharge Plan Condition: Good Disposition: ADMITTED TO [facility] Referrals: Brian Hernández MD [Primary Care Provider] - - Billing Disposition and Condition Condition: GOOD Disposition: Admitted to [facility] - Attestation Statements Document Initiated by Adaildibe: Yes Documenting Scribe: Kerwin Solomon Provider For Whom Ana is Documenting (Include Credential): Immanuel Gardner MD Scribe Attestation: Kerwin Perkins, scribed for Immanuel Gardner MD on 11/01/17 at 1309. Scribe Documentation Reviewed: Yes Provider Attestation: The documentation as recorded by the Kerwin farooq accurately reflects the service I personally performed and the decisions made by me, Immanuel Gardner MD
[2017-11-01] MEDS ORDERED: Iodixanol* (CONTRAST) 320 MG/ML 100 ML SDV IV ONE (10:43)
[2017-11-01 10:55] LABS: ABS Basophils 0 10^3/ul (0-0.2); ABS Eosinophils 0.2 10^3/ul (0-0.6); ABS Lymphocytes 1.6 10^3/ul (1.0-4.8); ABS Monocytes 0.4 10^3/ul (0-0.8); ABS Neutrophils 4.4 10^3/ul (1.5-7.7); ABS Nucleated RBC 0 10^3/ul; Eosinophil % 2.4 % (0-6); Hematocrit 34 % (35-47); Hemoglobin 11.3 g/dl (12.0-16.0); Mean Corpuscular HGB Conc 34 g/dl (31-36); Mean Corpuscular Hemoglobin 30 pg (27-31); Mean Corpuscular Volume 90 fL (80-97); Mean Platelet Volume 6.9 um3 (7.4-10.4); Nucleated Red Blood Cells % 0; Platelet Count 267 10^3/ul (150-450); Red Blood Count 3.75 10^6/ul (4.00-5.40); Red Cell Distribution Width 15 % (10.5-15); White Blood Count 6.7 10^3/ul (3.5-10.8)
--- NOTE | 2017-11-01 10:56 | RAD ---
INDICATION: Neurologic changes, code lee. COMPARISON: Comparison is made with a prior CT of the brain from October 28, 2017. TECHNIQUE: Contiguous axial sections of the brain were obtained from the skull base to the vertex without contrast. FINDINGS: The ventricles, cisterns and sulci are enlarged consistent with diffuse atrophy. There are multiple focal areas of decreased density in the subcortical and periventricular white matter suggestive of moderate chronic small vessel ischemic changes. No other focal abnormality or mass effect is seen. There is no evidence for hemorrhage. No significant focal osseous abnormality is seen. The visualized portion of the paranasal sinuses and mastoid air cells appear clear. The results of this exam were called to the referring clinician at 1045 hours. IMPRESSION: 1. NO EVIDENCE FOR GROSS ACUTE INFARCT, MASS EFFECT OR HEMORRHAGE. 2. ATROPHY AND FINDINGS MOST CONSISTENT WITH MODERATE CHRONIC SMALL VESSEL ISCHEMIC CHANGES.
[2017-11-01 11:08] LABS: INR 6.19 (0.77-1.02)
[2017-11-01 11:10] LABS: EGFR Non-African American 60.9 (>60)
--- NOTE | 2017-11-01 11:18 | RAD ---
INDICATION: Stroke. COMPARISON: Comparison is made with a prior CT angiogram of the brain from October 24, 2017. TECHNIQUE: A CT angiogram of the head and neck was performed following intravenous injection of 80 ml of Visipaque 320 nonionic contrast. Contiguous axial sections were obtained from the thoracic inlet through the skull vertex. Images were reconstructed in the coronal and sagittal planes and in a 3-D volume rendered format. The distal cervical internal carotid artery diameter is used as the denominator for stenosis measurement. FINDINGS: RIGHT CAROTID: The common and internal carotid arteries appear patent without evidence for hemodynamically significant stenosis. There is mild soft and calcific plaque present within the carotid bulb. LEFT CAROTID: The common and internal carotid arteries appear patent without evidence for hemodynamically significant stenosis. There is mild calcific plaque in the carotid bulb. VERTEBRALS: The vertebral arteries appear patent without evidence for high-grade stenosis or occlusion. CTA BRAIN: ANTERIOR CIRCULATION: The internal carotid, anterior and middle cerebral arteries appear patent without evidence for high-grade stenosis or occlusion. There is moderate calcific plaque present within the cavernous portion of the internal carotid arteries. The A1 segment of the right anterior cerebral artery is absent and unchanged from the prior study. There is moderate narrowing in the mid portion of the left anterior cerebral artery which appears unchanged. POSTERIOR CIRCULATION: The vertebral, basilar and posterior cerebral arteries appear patent without evidence for high-grade stenosis or occlusion. EVALUATION FOR ANEURYSM: No aneurysm or vascular malformation is seen. NECK: No significant enlarged lymph nodes are seen within the neck. The thyroid, parotid and submandibular glands appear to be within normal limits. LUNG APICES: The lung apices appear clear. SINUSES: The paranasal sinuses and mastoid air cells appear clear IMPRESSION: 1. NO EVIDENCE FOR HEMODYNAMICALLY SIGNIFICANT CAROTID STENOSIS. 2. NO EVIDENCE FOR LARGE VESSEL INTRACRANIAL THROMBUS. CPT II Codes: 3100F
--- NOTE | 2017-11-01 11:21 | RAD ---
INDICATION: Neurologic changes, code lee. COMPARISON: Comparison is made with prior chest x-ray study from October 23, 2017. TECHNIQUE: A portable view of the chest was obtained. FINDINGS: Cardiac and mediastinal contours appear to be within normal limits. The lungs are hyperinflated and grossly clear. No pleural effusion is seen. IMPRESSION: NO EVIDENCE FOR ACUTE DISEASE.
[2017-11-01 11:48] LABS: Urine Appearance Clear; Urine Blood Negative (Negative); Urine Color Straw; Urine Ketones Negative (Negative); Urine Protein Negative (Negative); Urine Urobilinogen Negative (Negative)
[2017-11-01] MEDS ORDERED: Prochlorperazine SUPP* 25 MG SUPP PR PRN (12:37)
[2017-11-01] MEDS ORDERED: Psyllium PAK PO PRN (12:37)
[2017-11-01] MEDS: Sucralfate SUSP 1 GM/10 ml 10 ML UDC PO SCH ×2 (18:19→21:13)
--- NOTE | 2017-11-01 19:29 | HP ---
CC: Dr. Hernández; Dr. Godoy * [facility] HISTORY AND PHYSICAL: DATE OF ADMISSION: 11/01/17 PRIMARY CARE PHYSICIAN: Dr. Hernández. ARMED SECURITY OFFICER: Dr. Godoy. ATTENDING PHYSICIAN: Dr. Olga Wang * (dictation provided by Seda Mccarty NP ). CHIEF COMPLAINT: Aphasia and right-sided weakness. HISTORY OF PRESENT ILLNESS: Ms. Quick is an 82-year-old female with a recent discharge from our hospital on 10/28/17 after being treated for a transient ischemic attack with symptoms of aphasia as well as a non-ST elevation FL. Ms. Quick originally presented to our hospital on 10/23/17. At that time, she described slurred speech and expressive aphasia. Her CT at that time showed no acute findings. She was unable to go for an MRI due to implanted neurostimulator for chronic low back pain. The patient's workup included an echocardiogram that showed that she had a left ventricular thrombus and for that, she was started on Coumadin for prophylaxis of stroke. She also during that admission had a non-ST elevation FL. Her troponins peaked at 0.96 and she had EKG changes with T-wave inversions. She did not describe chest pain , but had described some epigastric pain and discomfort. Ms. Quick was discharged on 10/28/17. Again, her TIA symptoms have completely resolved. The patient states that she followed up with Dr. Godoy's nurse practitioner, Deborah Ruffin, yesterday. She is reported to have an echocardio-gram, but I do not see the results of that study in [facility]. The patient was noted to have an elevated INR to 6.02 and she was told to hold Coumadin until Friday and follow up with the [facility]. The patient woke up this morning and was feeling normal. She went back to sleep. When she awoke , her saw her again to be normal, but as she was walking down in the hallway, she suddenly collapsed. On assessment by her , she was noted to be completely aphasic and to have a right facial droop and a right arm weakness. Ms. Quick was transferred to the hospital via EMS. Here, she continued to be aphasic and have right arm weakness and right facial droop. During her time in the ED, her symptoms have started to resolve and her right arm weakness is only very minimal to nonexistent. Her right facial droop has also resolved and she is beginning to say a few words. PAST MEDICAL HISTORY: 1. Non-ST elevation FL, October 2017. 2. TIA, October 2017, with symptoms of aphasia. 3. History of recent Lyme disease, treated with doxycycline and Keflex after she developed an allergy to DOXYCYCLINE. 4. History of left ventricular thrombus, on Coumadin. 5. Obstructive sleep apnea. 6. Hypothyroidism. 7. Prolapsed bladder. 8. GERD. 9. REM sleep abnormality. 10. Neurostimulator for chronic low back pain. 11. Chronic systolic congestive heart failure with ejection fraction of 30% to 35%. 13. Skin cancer. PAST SURGICAL HISTORY: 1. Status post bladder surgery for repair of prolapse. 2. Bilateral knee surgeries. 3. Status post right breast biopsy. 4. Right shoulder surgery. 5. Bilateral carpal tunnel release. 6. Bilateral bunionectomies. 7. Right foot surgery. 8. Lumbar spine nerve stimulator implant. MEDICATIONS: 1. Levothyroxine 75 mcg p.o. daily. 2. Carafate 10 mL q.6 hours daily. 3. Clonazepam 0.5 mg at bedtime as needed. 4. Oxaprozin 600 mg 2 times a day. 5. Aluminum hydroxide 600 mg 3 times a day as needed. 6. Tylenol 500 mg q.4 hours as needed. 7. Metamucil 1 packet daily as needed. 8. Docusate 300 mg daily. 9. Duloxetine 60 mg at bedtime. 10. Pantoprazole 40 mg b.i.d. 11. Vitamin D 4000 units daily. 12. Multivitamin 1 tab daily. 13. Calcium carbonate 1400 mg daily. 14. Warfarin 5 mg daily (the patient told to stop as of yesterday). 15. Metoprolol tartrate 12.5 mg p.o. q.12 hours. 16. Vitamin B12 1000 mcg daily. 17. Atorvastatin 40 mg daily. 18. Aspirin 81 mg daily. ALLERGIES: To DOXYCYCLINE, PENICILLIN, RISEDRONATE SODIUM, SULFA, ALENDRONATE, MEPERIDINE, SCOPOLAMINE. FAMILY HISTORY: The patient's father in his 80s from CVA. She has a sister with breast cancer. SOCIAL HISTORY: No report of alcohol, tobacco, or drug use. She lives with her , who will be the healthcare proxy. REVIEW OF SYSTEMS: Attempted to perform a 14-point review of systems with Ms. Quick, but she is aphasic and is only able to provide limited information other than shaking her head yes or no. PHYSICAL EXAMINATION GENERAL: Ms. Quick is lying in the bed. She is in no acute distress. VITAL SIGNS: Temperature 98.4, pulse rate 69, respiratory rate 15, O2 saturation 97% on room air, blood pressure 161/71. LUNGS: Clear to auscultation bilaterally with no accessory muscle use and good aeration. HEART: S1, S2. No murmur, rub, or gallop, and regular. ABDOMEN: Soft, nontender. There are bowel sounds positive x4. EXTREMITIES: No cyanosis or edema. NEURO: She is alert. She has severe aphasia. She is able to state that she is 81 years old and to partially say the word October when I asked the month. She follows all commands appropriately. There is no facial asymmetry. Her extraocular movements are intact. Visual gutiérrez are intact to confrontation. She has good strength in right and left upper extremities as well as lower extremities. No ataxia noted either upper or lower extremities. Sensation is intact bilaterally, upper and lower extremities. SKIN: Intact. DIAGNOSTIC STUDIES/LAB DATA: WBC 6.7, hemoglobin 11.3, hematocrit 34, platelet count 267. INR 6.19. Sodium 137, potassium 4.9, chloride 102, serum bicarbonate 28, BUN 26, creatinine 0.89, glucose 92, lactic acid 1.2. Urine shows no evidence of infection. CT brain shows "no evidence for gross acute infarct, mass effect, or hemorrhage. " She had CTA head and neck, which showed no evidence for hemodynamically significant carotid stenosis, no evidence of large vessel intracranial thrombus. EKG showed sinus rhythm with a heart rate of about 70. There is evidence of ischemia with T-wave inversions in II, III, aVL, V1 through V6. These are consistent with previous EKG from 10/26/17, although the T-wave inversions in I and II appear new. Chest x-ray shows no acute intrathoracic process. ASSESSMENT AND PLAN: Ms. Quick is an 82-year-old female with a past medical history of recent admission to our hospital with discharge on 10/28/17 after being treated for transient ischemic attack and non-ST elevation myocardial infarction, during which time she was found to have a left ventricular thrombus and treatment with Coumadin was begun. She returns today to the hospital with similar symptoms to her transient ischemic attack including aphasia, but now with right arm weakness and right facial droop. The patient's symptoms are improving significantly in the emergency department, although she still remains severely aphasic. Our plans are for observation in the hospital for the followin. Cerebrovascular accident. The patient has undergone extensive workup at her prior admission and was found to have a left ventricular thrombus and was started on Coumadin. Despite this, she returns with symptoms of new cerebrovascular accident. Her INR is actually supratherapeutic at 6. I have discussed the case with Dr. Dolan from Neurology and he concurs that no further treatment can be undertaken at this time other than to keep her blood pressure at an appropriate level, resume coumadin when appropriate, continue aspirin therapy, and to provide supportive care with therapy services as needed. The patient will have Coumadin held until her INR is between 2 and 3. 2. History of recent non-ST elevation myocardial infarction. The patient denies symptoms of chest pain or anginal equivalent. She will continue on aspirin, atorvastatin, and metoprolol. 3. Gastroesophageal reflux disease. Continue home medications. 4. Hypothyroidism. Continue levothyroxine. 5. Depression. Continue duloxetine. 6. DVT prophylaxis with SCDs with supratherapeutic INR. 7. Code status is full code. TIME SPENT: Approximately 60 minutes was spent in the admission of this patient , more than half the time spent with the patient at the bedside reviewing the events leading up to this hospitalization, performing the physical examination, and reviewing the plan of care. SEDA MCCARTY NP [id number]/CPS #: [id number] BRODIE
[2017-11-01] MEDS: OXAPROZIN 600 MG PO SCH (21:18)
[2017-11-01] MEDS: Atorvastatin* 40 MG TAB PO SCH (21:19)
[2017-11-01] MEDS: DULoxetine DR CAP* 60 MG CAP.DR PO SCH (21:19)
[2017-11-01] MEDS: Metoprolol Tartrate TAB* 25 MG PO SCH (21:19)
[2017-11-01] MEDS: OMEPRAZOLE 20 MG PO SCH (21:20)
[2017-11-01] MEDS: clonazePAM TAB(*) 0.5 MG PO PRN (21:20)
[2017-11-02 05:54] LABS: ABS Basophils 0 10^3/ul (0-0.2); ABS Eosinophils 0.1 10^3/ul (0-0.6); ABS Lymphocytes 1.5 10^3/ul (1.0-4.8); ABS Monocytes 0.5 10^3/ul (0-0.8); ABS Neutrophils 3.3 10^3/ul (1.5-7.7); ABS Nucleated RBC 0 10^3/ul; Hematocrit 31 % (35-47); Hemoglobin 10.5 g/dl (12.0-16.0); Lymphocyte % 27.4 % (25-47); Mean Corpuscular HGB Conc 34 g/dl (31-36); Mean Corpuscular Hemoglobin 30 pg (27-31); Mean Corpuscular Volume 90 fL (80-97); Mean Platelet Volume 7.1 um3 (7.4-10.4); Nucleated Red Blood Cells % 0; Platelet Count 267 10^3/ul (150-450); Red Blood Count 3.47 10^6/ul (4.00-5.40); Red Cell Distribution Width 15 % (10.5-15); White Blood Count 5.4 10^3/ul (3.5-10.8)
[2017-11-02 06:00] LABS: INR 3.99 (0.77-1.02)
[2017-11-02] MEDS: Sucralfate SUSP 1 GM/10 ml 10 ML UDC PO SCH ×4 (06:08→22:02)
[2017-11-02] MEDS: Aspirin 81 mg CHEW TAB* 81 MG TAB.CHEW PO SCH (09:14)
[2017-11-02] MEDS: Levothyroxine TAB* 75 MCG TAB PO SCH (09:14)
[2017-11-02] MEDS: Cholecalciferol TAB* 1000 UNITS PO SCH (09:15)
[2017-11-02] MEDS: OMEPRAZOLE 20 MG PO SCH ×2 (09:18→22:01)
[2017-11-02] MEDS: Metoprolol Tartrate TAB* 25 MG PO SCH ×2 (09:18→22:01)
[2017-11-02] MEDS: Calcium Carbonate TAB* 1250 MG (CALCIUM 500 MG) PO SCH (09:19)
[2017-11-02] MEDS: Cyanocobalamin TAB* 500 MCG PO SCH (09:19)
[2017-11-02] MEDS: Docusate CAP* 100 MG PO SCH (09:21)
[2017-11-02] MEDS: Multivitamins/Minerals TAB PO SCH (09:21)
[2017-11-02] MEDS: OXAPROZIN 600 MG PO SCH ×2 (09:23→21:59)
--- NOTE | 2017-11-02 16:49 | PN ---
Subjective Date of Service: 11/02/17 Interval History: Feels good today, her is at the bedside and agrees that she is back to herself. They both describe a collapse yesterday, after which she stared at her but could not talk. No urinary or fecal incontinence. Today, no headaches, chest pain, nausea, change in vision, weakness. Objective Active Medications: Aspirin (Aspirin 81 Mg Chew Tab*) 81 mg PO DAILY [facility] Last Admin: 11/02/17 09:14 Dose: 81 mg Atorvastatin Calcium (Lipitor*) 40 mg PO 2100 [facility] Last Admin: 11/01/17 21:19 Dose: 40 mg Calcium Carbonate (Calcium Carbonate Tab*) 1,400 mg PO DAILY [facility] Last Admin: 11/02/17 09:19 Dose: 1,400 mg Cholecalciferol (Vitamin D Tab*) 4,000 units PO DAILY [facility] Last Admin: 11/02/17 09:15 Dose: 4,000 units Clonazepam (Klonopin Tab(*)) 0.5 mg PO BEDTIME PRN PRN Reason: ANXIETY Last Admin: 11/01/17 21:20 Dose: 0.5 mg Cyanocobalamin (Vitamin B12 Tab*) 1,000 mcg PO DAILY [facility] Last Admin: 11/02/17 09:19 Dose: 1,000 mcg Docusate Sodium (Colace Cap*) 300 mg PO DAILY [facility] Last Admin: 11/02/17 09:21 Dose: 300 mg Duloxetine HCl (Cymbalta Cap*) 60 mg PO BEDTIME [facility] Last Admin: 11/01/17 21:19 Dose: 60 mg Levothyroxine Sodium (Synthroid Tab*) 75 mcg PO 0800 [facility] Last Admin: 11/02/17 09:14 Dose: 75 mcg Metoprolol Tartrate (Lopressor Tab*) 12.5 mg PO Q12HR [facility] Last Admin: 11/02/17 09:18 Dose: 12.5 mg Multivitamins/Minerals (Theragran/Minerals Tab*) 1 tab PO DAILY [facility] Last Admin: 11/02/17 09:21 Dose: 1 tab Pto:(Oxaprozin [ (Daypro] 600 Mg)) 600 mg PO BID [facility] Last Admin: 11/02/17 09:23 Dose: 600 mg Omeprazole (Prilosec Cap*) 20 mg PO BID [facility] Last Admin: 11/02/17 09:18 Dose: 20 mg Prochlorperazine (Compazine Supp*) 25 mg IN Q12H PRN PRN Reason: NAUSEA Psyllium Hydrophilic Mucilloid (Metamucil Sudarshan*) 1 pkt PO DAILY PRN PRN Reason: CONSTIPATION Last Admin: 11/01/17 21:22 Dose: 1 pkt Sucralfate (Sucralfate Susp) 1 gm PO 0600,1100,1600,2100 [facility] Last Admin: 11/02/17 16:37 Dose: Not Given Oxygen Devices in Use Now: None Appearance: alert, well appearing Eyes: No Scleral Icterus Ears/Nose/Mouth/Throat: NL Teeth, Lips, Gums Neck: NL Appearance and Movements; NL JVP Respiratory: Symmetrical Chest Expansion and Respiratory Effort, Clear to Auscultation Cardiovascular: NL Sounds; No Murmurs; No JVD, RRR Abdominal: NL Sounds; No Tenderness; No Distention Lymphatic: No Cervical Adenopathy Extremities: No Edema Skin: No Rash or Ulcers Neurological: Alert and Oriented x 3, NL Sensation, NL Muscle Strength and Tone Result Diagrams: 11/02/17 05:41 11/01/17 10:46 Assess/Plan/Problems-Billing Assessment: 82 year old female with history of NSTEMI and presumed ischemic cardiomyopathy, LV thrombus, and recent CVA. She was discharged on 10/28 and was doing well at home, then on 11/01 collapsed in her home and had a period of unresponsiveness and staring when she could not speak, which resolved in the ED. - Patient Problems (1) Delirium Current Visit: Yes Status: Acute Code(s): R41.0 - DISORIENTATION, UNSPECIFIED SNOMED Code(s): 1698675 Comment: TIA vs. Seizure? collapse would be unusual for a TIA, though she is certainly high risk appreciate neurology input; case discussed with Dr. Dolan today EEG tomorrow (2) CHF (congestive heart failure) Current Visit: No Status: Acute Code(s): I50.9 - HEART FAILURE, UNSPECIFIED SNOMED Code(s): 52918227 Comment: Chronic and euvolemic EF 30-35% suspected to be ischemic but ischemic work up was on hold last admission due to acute CVA -- needs cardiology follow up (3) CVA (cerebral vascular accident) Current Visit: No Status: Acute Code(s): I63.9 - CEREBRAL INFARCTION, UNSPECIFIED SNOMED Code(s): 266931686 Comment: Occurred on 10/23/17 No residual deficits, cannot have MRI due to neurostimulator Thought to have been cardioembolic from LV thrombus Continue statin Continue coumadin (4) Left ventricular thrombus Current Visit: No Status: Acute Code(s): I51.3 - INTRACARDIAC THROMBOSIS, NOT ELSEWHERE CLASSIFIED SNOMED Code(s): 481891919 Comment: coumadin on hold due to supratherapeutic inr (5) Supratherapeutic INR Current Visit: Yes Status: Acute Code(s): R79.1 - ABNORMAL COAGULATION PROFILE SNOMED Code(s): 776038078 Comment: improving with coumadin on hold goal inr 2-3
[2017-11-02] MEDS: DULoxetine DR CAP* 60 MG CAP.DR PO SCH (22:00)
[2017-11-02] MEDS: Atorvastatin* 40 MG TAB PO SCH (22:00)
[2017-11-02] MEDS: clonazePAM TAB(*) 0.5 MG PO PRN (22:00)
[2017-11-03] MEDS: Sucralfate SUSP 1 GM/10 ml 10 ML UDC PO SCH ×5 (05:35→21:45)
[2017-11-03 05:51] LABS: ABS Basophils 0 10^3/ul (0-0.2); ABS Eosinophils 0.1 10^3/ul (0-0.6); ABS Lymphocytes 1.4 10^3/ul (1.0-4.8); ABS Monocytes 0.6 10^3/ul (0-0.8); ABS Neutrophils 5.9 10^3/ul (1.5-7.7); ABS Nucleated RBC 0 10^3/ul; Eosinophil % 1.4 % (0-6); Hematocrit 32 % (35-47); Hemoglobin 10.6 g/dl (12.0-16.0); Lymphocyte % 17.7 % (25-47); Mean Corpuscular HGB Conc 34 g/dl (31-36); Mean Corpuscular Hemoglobin 30 pg (27-31); Mean Corpuscular Volume 89 fL (80-97); Nucleated Red Blood Cells % 0; Platelet Count 265 10^3/ul (150-450); Red Blood Count 3.53 10^6/ul (4.00-5.40); Red Cell Distribution Width 15 % (10.5-15)
[2017-11-03 05:55] LABS: INR 3.34 (0.77-1.02)
[2017-11-03 06:13] LABS: EGFR Non-African American 76.5 (>60)
[2017-11-03] MEDS: Multivitamins/Minerals TAB PO SCH (09:28)
[2017-11-03] MEDS: OMEPRAZOLE 20 MG PO SCH ×2 (09:28→21:38)
[2017-11-03] MEDS: Cyanocobalamin TAB* 500 MCG PO SCH (09:28)
[2017-11-03] MEDS: Levothyroxine TAB* 75 MCG TAB PO SCH (09:28)
[2017-11-03] MEDS: Docusate CAP* 100 MG PO SCH (09:28)
[2017-11-03] MEDS: Aspirin 81 mg CHEW TAB* 81 MG TAB.CHEW PO SCH (09:29)
[2017-11-03] MEDS: Metoprolol Tartrate TAB* 25 MG PO SCH ×2 (09:29→21:38)
[2017-11-03] MEDS: Cholecalciferol TAB* 1000 UNITS PO SCH (09:29)
[2017-11-03] MEDS: OXAPROZIN 600 MG PO SCH ×2 (11:28→21:37)
[2017-11-03] MEDS: Calcium Carbonate TAB* 1250 MG (CALCIUM 500 MG) PO SCH (11:42)
--- NOTE | 2017-11-03 13:34 | CONS ---
NEUROLOGY CONSULTATION NOTE: DATE OF CONSULT: 11/03/17 REASON FOR NEUROLOGICAL CONSULT: Recurrent episode of slurred speech. CHIEF COMPLAINT: Transient slurred speech. HISTORY OF PRESENT ILLNESS: Ms. Quick is an 82-year-old, right-handed female , who is known to me from a recent hospitalization, where she presented with stereotypical neurological complaints of transient word finding difficulty and aphasia. The first episode occurred on 10/23/17 and she had a second episode on 11/01/17. She told me today that she also had a similar presentation 5 years ago where she fell and was unable to communicate with her for a few minutes. On 11/01/17, the patient woke up at 7 a.m. in normal state of health. She was deciding if she should get out of bed or sleep for a few hours. She did end up sleeping for 3 more hours when she woke up again at 10: 30. She was in a huerta to go use the bathroom. She got up quickly, did not feel lightheaded, and took a few steps before she actually fell down. She denied losing consciousness but was having trouble finding words. She stated that she can hear everyone around her, but she was just not able to produce any words. There was a report of right facial droop and right arm weakness, which she also had on the presentation on 10/23/17. She recalls going into the ambulance and taking the ride all to the hospital. Her symptoms seemed to have improved almost an hour later. She does not have any residual neurological deficits. She gets extremely frustrated and stressed out during these episodes due to increased anxiety. She denied any chest pain or shortness of breath. She denied lightheadedness, dizziness, vertigo, or preceding symptoms of palpitation. She did not have any convulsions but did feel tremulous. She reported having "flashes of light" in the left eye one day prior to the aphasia. 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 She denied any visual or auditory hallucinations, tongue biting, or incontinence. To recall, the patient was found to have a left ventricular thrombus and was taking Coumadin. She stopped Coumadin on Friday due to supratherapeutic INR of 6. She will resume Coumadin after the dose is adjusted once the INR is within therapeutic range. Risk factors: The patient has no history of meningitis or encephalitis. She has no history of febrile seizures. She has no family history of epilepsy. She denied any brain or spinal cord surgeries. The patient cannot have an MRI due to a neurostimulator. Dr. Tilley evaluated the patient yesterday during her episode. The patient apparently was making remarks of shaking her head yes or no to questions but was unable to produce words. This lasted for about 20-30 minutes while she was in the ED. It was thought that she had severe aphasia. PAST MEDICAL HISTORY: Non-ST segment elevation HI; questionable TIA; history of recent Lyme disease, on Keflex; history of left ventricle thrombus, on Coumadin; obstructive sleep apnea; hypothyroidism; GERD; nerve stimulator for chronic low back pain; chronic systolic heart failure with ejection fraction of 30%-35%. PAST SURGICAL HISTORY: Bladder surgery, bilateral knee surgeries, status post right breast biopsy, right shoulder surgery, bilateral carpal tunnel release surgery, bilateral bunionectomy, right foot surgery, lumbar spine nerve stimulator implant. MEDICATIONS: 1. Levothyroxine 75 mcg p.o. daily. 2. Carafate 10 mL every 6 hours daily. 3. Clonazepam 0.5 mg at bedtime as needed. 4. Oxaprozin 600 mg 2 times a day. 5. Aluminum hydroxide 600 mg 3 times a day. 6. Tylenol 500 mg every 4 hours. 7. Metamucil 1 pack per day. 8. Docusate 300 mg daily. 9. Duloxetine 60 mg at bedtime. 10. Pantoprazole 40 mg b.i.d. 11. Vitamin D 4000 units daily. 12. Multivitamin 1 tablet daily. 13. Calcium carbonate 1400 mg daily. 14. Warfarin 5 mg daily. 15. Metoprolol tartrate 12.5 mg p.o. every 12 hours. 16. Vitamin B12 1000 mcg daily. 17. Atorvastatin 40 mg daily. 18. Aspirin 81 mg daily. ALLERGIES: She is allergic to DOXYCYCLINE, PENICILLIN, RISEDRONATE, SULFA, ALENDRONATE, MEPERIDINE, and SCOPOLAMINE. FAMILY HISTORY: The patient's father from a stroke in his 80s. Her sister had breast cancer. Her son has migraine headache and atrial fibrillation. SOCIAL HISTORY: She denied any history of alcohol, tobacco, or drug use. 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 She lives with her . REVIEW OF SYSTEMS: A 14-point review of systems was obtained and otherwise negative except for what was mentioned in the HPI. PHYSICAL EXAM: Vitals: Temperature of 97.9, heart rate of 69, respiratory rate of 16, oxygen saturation of 98%, blood pressure of 110/59. Orthostatic vitals were obtained at bedside, supine of 107/54 with a pulse of 84 and standing 106/70 with a pulse of 85. General: Well-nourished, well-developed female, in no acute distress. Head: Atraumatic, normocephalic without any obvious abnormalities. Eyes: Conjunctivae/corneas are clear. Neck is supple and symmetrical with no carotid bruit. Lungs are clear to auscultation bilaterally with nonlabored breathing. Cardiovascular: Regular rhythm with normal S1, S2. Extremities: Normal range of motion with no cyanosis. She has crepitus throughout the elbow and knee joints bilaterally. She does have restricted range of motion on the right shoulder due to shoulder pain and arthritis in that area. Skin: No skin lesions or lacerations. Psych: Affect is broad with normal mood. She is easy to establish rapport. Neurological Examination: The patient is awake, alert, oriented to person, place, time, and general circumstances. Speech and language including expression, naming, repetition, and comprehension were assessed and found to be normal. Cranial Nerves: Normal confrontation bilaterally. Pupils are mid range and reactive to light. Extraocular muscles are intact. Sensation is intact in forehead, cheeks, and jaw region bilaterally. There is no facial droop. No facial asymmetry while smiling. She is able to hear throughout the history process. She has symmetrical palatal elevation. She has normal strength against shoulder shrug. Tongue is symmetrical and midline with no atrophy or fasciculation. Motor: No abnormal movements or pronator drift. Normal bulk and tone throughout. Motor strength is 5/5 throughout the upper and lower extremities, proximal and distal regions. Reflexes: Right/left, brachioradialis 1/1, biceps 1/1, triceps 1/1, patella 1/1, ankles 0/equal, plantar flexor/flexor. Sensation is intact to light touch and pinprick throughout. Coordination: Normal finger-to- nose and rapid alternating movement. Gait: Wide-based, antalgic gait, required 1- person assist when she stood up but she routinely uses a walker. DIAGNOSTIC STUDIES/LAB DATA: WBC 6.7, hemoglobin 11.3, hematocrit 34. INR 6.19 on presentation but today is 3.34. Sodium 137, potassium 4.9, carbon dioxide 28, creatinine is 0.89. Urinalysis negative for pyuria. CT head showed there is no evidence of gross acute infarction, mass effect, or hemorrhage. There is diffuse atrophy and moderate chronic small vessel ischemic changes. CTA head and neck was repeated on 11/01/17 as it was also done on 10/23/17. There is no evidence for hemodynamically significant carotid stenosis or evidence for large vessel intracranial thrombus. The patient had an EEG done today that showed intermittent slowing in the right temporal region consistent with a focal neuronal dysfunction. There were no epileptiform discharges. ASSESSMENT AND PLAN: Mrs. Opal Quick is an 82-year-old female with multiple medical histories including anxiety, recent diagnosis of left ventricular thrombus, on anticoagulation therapy, who presented with an supratherapeutic INR, hypertension, who has stereotypical spells of aphasia. We cannot obtain an MRI to further evaluate for any possible stroke given that she has a spinal cord stimulator that is MRI incompatible. It is unlikely that she can have a second transient ischemic attack in the same distribution as the initial transient ischemic attack that she had early October. In addition, it is unlikely that she can have a transient ischemic attack with supratherapeutic INR. She has no evidence of intracranial hemorrhage. The CT head does not show any acute areas of hypodensity but it is very hard to assess given the moderate degree of diffuse chronic small vessel disease. A CTA does not show any stenosis of the left middle cerebral artery to suggest that she could possibly be symptomatic from a vascular standpoint. Therefore, I am concerned that this could potentially be focal partial seizures without secondary generalization. We know she does not have secondary generalization since she was responding to command during the episode of the aphasia. Interestingly, these are stereotypical events that she also had 5 years ago, which she forgot to share with us earlier on during the initial workup. She has no significant risk factors for seizures other than chronic small vessel ischemic disease and age. I checked her orthostatic vitals today but she did not have any abnormalities or drop in her blood pressure when standing. Plus she has never lost consciousness to suspect syncope. I do not think this is a functional problem as the patient has no significant psychiatric history other than some anxiety. If she is having seizures, I do not think these are related to Lyme disease. Another differential diagnosis to consider would be painless migraine or migraine aura with cortical spreading depression involving the dominant hemisphere. 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 RECOMMENDATIONS: We agreed to start a low-dose levetiracetam 250 mg twice daily to see if this will ameliorate her symptoms. We also spent time discussing how to prevent any possible orthostasis by trying to stand up slowly and standing at the edge of the bed for a minute or two before she starts ambulating. I do not think this a stroke or TIA. We do not need any further evaluation as an inpatient and she should follow up with Dr. Dolan in 2 weeks. I will arrange the followup. Please resume her anticoagulation therapy when medically indicated. She will probably need a lower dose and have the INR checked sooner within the next 7 days. The patient would like to stay in the hospital one more day before discharge to make sure she can tolerate levetiracetam. TIME SPENT: I spent a total of 70 minutes and greater than 50% of that was spent directly reviewing the medical chart, obtaining history, examining the patient, education and counseling, and discussing the treatment plan and prognosis. Also, discussed this case with the patient's family at bedside today. They will update the patient's . Please contact me for any questions or concerns. [id number]/[facility] #: [id number] [facility]TD[facility]
[2017-11-03] MEDS: levETIRAcetam TAB* 500 MG PO SCH ×2 (15:56→21:38)
--- NOTE | 2017-11-03 16:29 | PN ---
Subjective Date of Service: 11/03/17 Interval History: EEG done this morning, report is pending. She feels okay but very nervous to go home. She has not walked since she has been here. No pain, no headaches, no weakness, no further episodes of aphasia or confusion. Objective Active Medications: Aspirin (Aspirin 81 Mg Chew Tab*) 81 mg PO DAILY [facility] Last Admin: 11/03/17 09:29 Dose: 81 mg Atorvastatin Calcium (Lipitor*) 40 mg PO 2100 [facility] Last Admin: 11/02/17 22:00 Dose: 40 mg Calcium Carbonate (Calcium Carbonate Tab*) 1,400 mg PO DAILY [facility] Last Admin: 11/03/17 11:42 Dose: Not Given Cholecalciferol (Vitamin D Tab*) 4,000 units PO DAILY [facility] Last Admin: 11/03/17 09:29 Dose: 4,000 units Clonazepam (Klonopin Tab(*)) 0.5 mg PO BEDTIME PRN PRN Reason: ANXIETY Last Admin: 11/02/17 22:00 Dose: 0.5 mg Cyanocobalamin (Vitamin B12 Tab*) 1,000 mcg PO DAILY [facility] Last Admin: 11/03/17 09:28 Dose: 1,000 mcg Docusate Sodium (Colace Cap*) 300 mg PO DAILY [facility] Last Admin: 11/03/17 09:28 Dose: 300 mg Duloxetine HCl (Cymbalta Cap*) 60 mg PO BEDTIME [facility] Last Admin: 11/02/17 22:00 Dose: 60 mg Levetiracetam (Keppra Tab*) 250 mg PO BID [facility] Last Admin: 11/03/17 15:56 Dose: 250 mg Levothyroxine Sodium (Synthroid Tab*) 75 mcg PO 0800 [facility] Last Admin: 11/03/17 09:28 Dose: 75 mcg Metoprolol Tartrate (Lopressor Tab*) 12.5 mg PO Q12HR [facility] Last Admin: 11/03/17 09:29 Dose: 12.5 mg Multivitamins/Minerals (Theragran/Minerals Tab*) 1 tab PO DAILY [facility] Last Admin: 11/03/17 09:28 Dose: 1 tab Pto:(Oxaprozin [ (Daypro] 600 Mg)) 600 mg PO BID [facility] Last Admin: 11/03/17 11:28 Dose: 600 mg Omeprazole (Prilosec Cap*) 20 mg PO BID [facility] Last Admin: 11/03/17 09:28 Dose: 20 mg Prochlorperazine (Compazine Supp*) 25 mg SC Q12H PRN PRN Reason: NAUSEA Psyllium Hydrophilic Mucilloid (Metamucil Sudarshan*) 1 pkt PO DAILY PRN PRN Reason: CONSTIPATION Last Admin: 11/01/17 21:22 Dose: 1 pkt Sucralfate (Sucralfate Susp) 1 gm PO 0600,1100,1600,2100 [facility] Last Admin: 11/03/17 12:21 Dose: Not Given Vital Signs - 8 hr 11/03/17 11/03/17 09:19 09:23 Pulse Rate 84 99 Blood Pressure 107/48 106/61 (mmHg) O2 Sat by Pulse 99 100 Oximetry Oxygen Devices in Use Now: None Appearance: alert, no distress, visiting with her family Eyes: No Scleral Icterus Ears/Nose/Mouth/Throat: NL Teeth, Lips, Gums Neck: NL Appearance and Movements; NL JVP Respiratory: Symmetrical Chest Expansion and Respiratory Effort, Clear to Auscultation Cardiovascular: NL Sounds; No Murmurs; No JVD, RRR Abdominal: NL Sounds; No Tenderness; No Distention Lymphatic: No Cervical Adenopathy Extremities: No Edema Skin: No Rash or Ulcers Neurological: Alert and Oriented x 3, NL Sensation, NL Muscle Strength and Tone Result Diagrams: 11/03/17 05:34 11/03/17 05:34 Assess/Plan/Problems-Billing Assessment: 82 year old female with history of NSTEMI and presumed ischemic cardiomyopathy, LV thrombus, and recent CVA. She was discharged on 10/28 and was doing well at home, then on 11/01 collapsed in her home and had a period of unresponsiveness and staring when she could not speak, which resolved in the ED. - Patient Problems (1) Delirium Current Visit: Yes Status: Acute Code(s): R41.0 - DISORIENTATION, UNSPECIFIED SNOMED Code(s): 5499253 Comment: TIA vs. Seizure? EEG showed some temporal slowing and no epileptiform activity. case discussed with Dr. Liriano, who recommended starting keppra (2) CHF (congestive heart failure) Current Visit: No Status: Acute Code(s): I50.9 - HEART FAILURE, UNSPECIFIED SNOMED Code(s): 88706011 Comment: Chronic and euvolemic EF 30-35% suspected to be ischemic but ischemic work up was on hold last admission due to acute CVA -- needs cardiology follow up (3) CVA (cerebral vascular accident) Current Visit: No Status: Acute Code(s): I63.9 - CEREBRAL INFARCTION, UNSPECIFIED SNOMED Code(s): 366025296 Comment: Occurred on 10/23/17 No residual deficits, cannot have MRI due to neurostimulator Thought to have been cardioembolic from LV thrombus Continue statin Continue coumadin (4) Left ventricular thrombus Current Visit: No Status: Acute Code(s): I51.3 - INTRACARDIAC THROMBOSIS, NOT ELSEWHERE CLASSIFIED SNOMED Code(s): 013037714 Comment: coumadin on hold due to supratherapeutic inr--resume tomorrow (5) Supratherapeutic INR Current Visit: Yes Status: Acute Code(s): R79.1 - ABNORMAL COAGULATION PROFILE SNOMED Code(s): 894012438 Comment: improving with coumadin on hold goal inr 2-3 (6) Physical deconditioning Current Visit: Yes Status: Acute Code(s): R53.81 - OTHER MALAISE SNOMED Code(s): 92251083512745 Comment: she is very nervous to go home consult PT prior to discharge
[2017-11-03] MEDS ORDERED: levETIRAcetam TAB* 500 MG PO SCH (21:00)
[2017-11-03] MEDS: Atorvastatin* 40 MG TAB PO SCH (21:38)
[2017-11-03] MEDS: DULoxetine DR CAP* 60 MG CAP.DR PO SCH (21:38)
[2017-11-03] MEDS: clonazePAM TAB(*) 0.5 MG PO PRN (21:40)
--- NOTE | 2017-11-04 04:43 | EEG ---
ELECTROENCEPHALOGRAPHY REPORT: DATE OF SERVICE: 11/03/17 - ROOM #[id number] DATE READ: 11/03/17 ORDERING PROVIDER: Yaritza Tilley DO TIME OF RECORDIN:48 - 10:13. CLINICAL PROBLEM: Mrs. Opal Quick is an 82-year-old female with a history of left ventricular thrombus who presents with recurrent episodes of word- finding difficulty associated with staring spells. This EEG was obtained to evaluate for epileptiform abnormalities or electrographic seizures. MEDICATIONS: 1. Acetaminophen. 2. Levothyroxine. 3. Docusate. 4. Calcium. 5. Metoprolol. 6. Oxaprozin. 7. Theragran. 8. Clonazepam. 9. Vitamin D. 10. Atorvastatin. 11. Aspirin. CLINICAL STATE: Awake and sleep. REPORT: The waking background showed appropriate organization with clearly defined anterior-posterior voltage and frequency gradients. There was a well- defined posterior dominant rhythm of 9 Hz which was symmetrical and showed normal reactivity. Anteriorly, there was an expected pattern of lower voltage, irregular, mixed frequency slowing. Attenuation of the occipital rhythm accompanied drowsiness. There were sleep spindles and K-complexes seen throughout the recording suggesting stage 2 sleep. There were intermittent, occasional, irregular, medium amplitude, 1-2 Hz delta slowing lasting for 0.5 - 1 second seen in the right temporal region, maximal at T4, T6, and A2. There were no clear epileptiform abnormalities or electrographic seizures. CLINICAL IMPRESSION: This is an abnormal awake and sleep EEG due to the presence of intermittent right temporal slowing. There were no epileptiform abnormalities. These findings are suggestive of focal neuronal dysfunction in the right temporal region. Clinical correlation is recommended. [id number]/[facility] #: [id number] [facility]
[2017-11-04] MEDS: Sucralfate SUSP 1 GM/10 ml 10 ML UDC PO SCH ×2 (06:29→09:21)
[2017-11-04 07:37] VITALS: BP 119/60
[2017-11-04] MEDS: Levothyroxine TAB* 75 MCG TAB PO SCH (07:49)
[2017-11-04] MEDS: OXAPROZIN 600 MG PO SCH (09:21)
[2017-11-04] MEDS: Calcium Carbonate TAB* 1250 MG (CALCIUM 500 MG) PO SCH (09:21)
[2017-11-04] MEDS: Cholecalciferol TAB* 1000 UNITS PO SCH (09:21)
[2017-11-04] MEDS: Docusate CAP* 100 MG PO SCH (09:22)
[2017-11-04] MEDS: OMEPRAZOLE 20 MG PO SCH (09:22)
[2017-11-04] MEDS: Multivitamins/Minerals TAB PO SCH (09:22)
[2017-11-04] MEDS: Cyanocobalamin TAB* 500 MCG PO SCH (09:22)
[2017-11-04] MEDS: Aspirin 81 mg CHEW TAB* 81 MG TAB.CHEW PO SCH (09:23)
[2017-11-04] MEDS: Metoprolol Tartrate TAB* 25 MG PO SCH (09:23)
[2017-11-04] MEDS: levETIRAcetam TAB* 500 MG PO SCH (09:24)
[2017-11-04 10:26] LABS: INR 1.93 (0.77-1.02)
[2017-11-04] MEDS ORDERED: Warfarin TAB(*) 5 MG PO ONE (10:46)
[2017-11-04] MEDS ORDERED: Enoxaparin(*) 80 MG/0.8 ML SYR SUBCUT SCH (11:00)
--- NOTE | 2017-11-05 02:39 | PN ---
NEUROLOGY PROGRESS NOTE: DATE OF SERVICE: 11/04/17 - ROOM #448 PRIMARY PROVIDER: DO OLINDA Nino NEUROLOGY FOLLOWING: Transient episode of aphasia. CHIEF COMPLAINT: "My left toe is catching the ground." SUBJECTIVE: The patient is resting comfortably. She slept well overnight. She had breakfast this morning without any complication. She denied any choking spells. She denied any episodes of word-finding difficulty. She denied any headache. She is having trouble when walking, her left foot catches the floor. This is not a new problem. The patient does have known history of degenerative disk disease of the lumbosacral spine with chronic low back pain. She denied any upper extremity weakness. REVIEW OF SYSTEMS: The patient denies any chest pain, shortness of breath, palpitation. MEDICATIONS: 1. Docusate sodium 300 mg p.o. daily. 2. Cymbalta 60 mg p.o. at bedtime. 4. Lovenox 80 mg subcutaneous every 12 hours. 5. Levetiracetam 250 mg p.o. twice daily. 6. Levothyroxine 75 mcg daily. 7. Metoprolol 12.5 mg p.o. every 12 hours. 8. Multivitamins. 9. Omeprazole 20 mg p.o. twice daily. 10. Prochlorperazine 25 mg every 12 hours. Coumadin is going to be resumed at 5 mg 3 days a week and 3 mg the remaining of the days. LABORATORY TESTING: INR is 1.93. PHYSICAL EXAMINATION: Vitals: 97.6, pulse rate 71, respiratory rate of 20, oxygen saturation 98%, blood pressure is 119/60. General: The patient is well- nourished, well-developed female, in no acute distress. She is sitting in a chair comfortably and is having breakfast. HEENT: Atraumatic, normocephalic. No nuchal rigidity. Cardiovascular: Regular rate and rhythm with normal S1, S2. Pulmonary: Clear to auscultation bilaterally. Extremities: Restricted range of motion of her shoulders bilaterally due to arthritis. 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 Neurological assessment and mental status: The patient is awake, alert, and oriented to person, place and time and general circumstance. Her speech and language were assessed and found to be normal. Cranial nerves: Pupils equal, round, reactive to light. Extraocular muscles are intact. There is no facial asymmetry. Motor Examination: 5/5 strength throughout the upper and lower extremity, except for she has 4/5 ankle dorsiflexion and hip abduction on the left side. She does have decreased sensation to light touch on the lateral surface of the left leg. Vibratory sensation and proprioception at the toes are intact and seemed to be normal. [id number] testing is normal. No dysmetria was noted. Gait: Wide-based antalgic gait. No ataxia. She does have a slight steppage gait on the left side. ASSESSMENT AND RECOMMENDATION: Mrs. Opal Quick is an 82-year-old female, who has a history of left ventricular thrombus, who is on anticoagulation therapy, who has recurrent episode of aphasia. We suspect that the aphasia is related to either cortical depression secondary to migraine or due to a seizure phenomenon. The patient was started on Keppra 250 mg twice daily. She is tolerating the medication well without any reported side effects. She will follow up with Dr. Dolan in 3 to 4 weeks. We discussed fall precautions. The patient also has known history of degenerative disk disease in the lumbosacral spine with evidence of L5 radiculopathy on the left side. She does have weakness to left ankle dorsiflexion. She may benefit from an EMG/nerve conduction study done as an outpatient. This is not a new finding. I encouraged the patient to discuss this further with her PCP and consider using an ankle foot orthotics if she develops any foot drop. She was evaluated by an demo event specialist in the past and was deemed not a surgical candidate due to prior procedures. She has got a spinal cord stimulator, which she is not using at this time. TIME SPENT: I spent 25 minutes obtaining further history, examining the patient , and discussing precautious measures, especially fall precautions. The patient is on anticoagulation therapy and is at risk of developing intracranial hematomas if she does fall. She verbalized understanding. She will always use the walker when ambulating. [id number]/[facility] #: [id number] [facility]
--- NOTE | 2017-11-05 03:38 | DS ---
CC: Dr. Hernández; Dr. Godoy; Dr. Novak * DISCHARGE SUMMARY: DATE OF ADMISSION: 11/01/17 DATE OF DISCHARGE: 11/04/17 PRINCIPAL DISCHARGE DIAGNOSES: 1. Seizure disorder. 2. Recent transient ischemic attack. 3. LV thrombus. 4. Supratherapeutic INR. SECONDARY DISCHARGE DIAGNOSES: 1. Acute systolic heart failure. 2. Recent non-ST elevation myocardial infarction. 3. Recent history of Lyme disease. 4. Obstructive sleep apnea. 5. Hypothyroidism. 6. Chronic low back pain with a lumbar neurostimulator. 7. Gastroesophageal reflux disease. HOSPITAL COURSE BY PROBLEM: 1. Seizure disorder. Ms. Quick presented to the emergency department 4 days after she was discharged from the hospital and her called EMS because she had an episode of collapse where she remained awake; however, she was unable to speak and her expressed that she was staring past him and unable to communicate. There was concern for a new CVA at admission; however, seizure was also on the differential and thought to be more likely given her presentation and her supratherapeutic INR. Neurology consult was obtained and an EEG was performed on 11/03/17, which showed an abnormal awake and sleep EEG due to the presence of intermittent right temporal slowing with no epileptiform abnormalities. This was suggestive of focal neuronal dysfunction in the right temporal region. Therefore, Dr. Liriano recommended initiation of levetiracetam, which was started and she tolerated it well. 2. Supratherapeutic INR. At admission, her INR was 6. Her warfarin was held. On the day of discharge, her INR dipped to the low therapeutic range so she was given a dose of Lovenox and her warfarin was resumed at a lower dose. I spoke with Dr. Hernández's Coumadin clinic and asked them to get her established within the next week. I also explained this to her and if she does not hear from them, she is to call their office for an INR check before the weekend. 3. Acute systolic heart failure. This was thought to be ischemic in nature due to a recent NSTEMI on that admission 2 weeks ago. An ischemic workup was deferred due to acute TIA versus CVA and tPA administration. She was evaluated by Dr. Godoy at that time and she needs to follow up with him for ongoing evaluation and consideration of an ischemic workup. 4. LV thrombus. Again as above, her INR was supratherapeutic and she is being discharged on Coumadin and plan for establishment with the Coumadin clinic at Dr. Hernández's office. 5. Recent TIA. Again, she did receive tPA 2 weeks ago for a suspected CVA; however, her symptoms resolved and unfortunately, she was unable to get an MRI due to a nerve stimulator in her back. Therefore, the diagnosis of TIA versus CVA was unable to be ascertained. Still, she may have a focus for seizure disorder due to this recent event. She has no residual deficits and she was continued on aspirin and statin. PHYSICAL EXAM: At the time of discharge, temperature 97.6, heart rate 71, respiratory rate 16, pulse ox 98% on room air, blood pressure 119/60. General: Alert, well appearing female, in no distress, sitting up in the chair. HEENT: Pupils are equal, round, and reactive to light with no nystagmus. Oral mucosa is moist. Face is symmetric. Tongue is midline. Neck: No JVP. No cervical adenopathy. Chest: Regular rate and rhythm. No murmurs. PMI is nondisplaced. Lungs are clear bilaterally. Abdomen: Soft, nontender, nondistended. Extremities: No rashes or ulcers. Her strength is 5/5 in all extremities and her sensation is intact. DISPOSITION: Ms. Quick is being discharged to home with her on 11/04. She has been evaluated by Physical Therapy and they recommend home physical therapy. Case management has arranged for home PT, home nursing and home health aid. She is to follow up with Dr. Hernández, Dr. Godoy and a neurologist. For neurology, she would like to schedule followup with Dr. Novak in the office. I spoke with all 3 offices and they recommended having her call the office to schedule an appointment and I have explained this to her and her . Please do not hesitate to call me with any questions on concerns about this patient's admission and hospitalization. [id number]/[facility] #: [id number] MTDD
== END 2017-11-04 11:55 | disposition hospice, home (50) | DRG 100 ==
LOC: ED 10:23 → MEDTELE 12:31
PROVIDERS: ADMIT Nurse Practitioner Acute Care; ATTEND Internal Medicine
DX: G40.909 Epilepsy, unspecified, not intractable, without status epilepticus (principal); I21.4 Non-ST elevation (NSTEMI) myocardial infarction; I50.22 Chronic systolic (congestive) heart failure; R47.01 Aphasia; I25.5 Ischemic cardiomyopathy; R79.1 Abnormal coagulation profile; G47.33 Obstructive sleep apnea (adult) (pediatric); E03.9 Hypothyroidism, unspecified; M54.5 Low back pain; K21.9 Gastro-esophageal reflux disease without esophagitis; R41.0 Disorientation, unspecified; N81.10 Cystocele, unspecified; M51.17 Intervertebral disc disorders with radiculopathy, lumbosacral region; Z86.73 Personal history of transient ischemic attack (TIA), and cerebral infarction without residual deficits; Z85.828 Personal history of other malignant neoplasm of skin; Z79.01 Long term (current) use of anticoagulants; Z79.1 Long term (current) use of non-steroidal anti-inflammatories (NSAID); Z79.82 Long term (current) use of aspirin; Z79.899 Other long term (current) drug therapy; Z88.0 Allergy status to penicillin; Z88.2 Allergy status to sulfonamides; Z88.8 Allergy status to other drugs, medicaments and biological substances; Z80.3 Family history of malignant neoplasm of breast; Z82.3 Family history of stroke
CPT/HCPCS: 36415; 70450; 70496; 70498; 71045; 80048; 80053; 80061; 81003; 83605; 84484; 85025; 85610; 85730; 86850; 86900; 86901; 90686; 93005; 95819; 99285; A9270-GY; G8978-GP-CJ; G8979-GP-CI; J1650; Q9967

== ENCOUNTER 2018-03-03 11:01 | Emergency (ER) | payer MEDICARE, BC ==
--- OUTSIDE RECORDS SUMMARY | 2018-03-03 11:33 | XMS REPORT ---
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 Problem Hematuria, R31.9 Active 10537782 unspecified Problem Urinary tract N39.0 Active 21224340 infection, site not specified ALLERGIES No Information ENCOUNTERS Encounter Location Date Diagnosis [facility] [address] [place] [address] May, Road [address] [place] [id number] [facility] [address] [place] [address] Feb, Road [address] [place], [place] [id number] [facility] [address] Jan, Urinary tract infection, OBGYN [facility], site not specified N39.0 [place] [id number] [facility] [address] [place] [address] 13 Jan, [address] [place] [address], (female) (male) N39.3 ; [place] [id number] Complete uterovaginal prolapse N81.3 and Dysuria R30.0 [place] [facility] [address] Nov, OBG[place], [place] [id number] [place] [facility] [address] [facility] Oct, Stress incontin[address] [place], (female) (male) N39.3 [place] [id number] and Complete uterovaginal prolapse N81.3 [place] [facility] [address] Sep, [place]BG[place], [place] [id number] [place] [facility] [address] [facility] Sep, [address] [place], [place] [id number] [place] [facility] 103 Aug, [place]BG[place] [id number] [place] [facility] 103 Aug, Stress incontinence OBGYN [facility], (female) (male) N39.3 [place] [id number] and Complete uterovaginal prolapse N81.3 [place] [facility] 103 Aug, [place]BG[place] [id number] [place] [facility] 103 Aug, [place] [id number] [place] [facility] 103 Aug, [place] [id number] [facility] [place] [address] [place], Aug, Stress [facility] [place] [id number] (female) (male) N39.3 and Complete uterovaginal prolapse N81.3 [place] [facility] 103 Aug, [place]BG[place] [id number] [place] [facility] 103 Jul, [place] [id number] [place] [facility] [address] Jul, [place] [id number] [place] [facility] 103 Jul, Incomplete uterovaginal OBGYN [facility], prolapse N81.2 ; [place] [id number] Hematuria, unspecified R31.9 ; Unspecified urinary incontinence R32 and Urinary tract infection, site not specified N39.0 [place] [facility] [address] [facility] Jul, Incomplete uter[address] [place], prolapse N81.2 ; [place] [id number] Unspecified urinary incontinence R32 ; Hematuria, unspecified R31.9 and Urinary tract infection, site not specified N39.0 [place] [facility] [address] Jul, [place] [id number] [facility] 103 Jul, Unspecified urinary OBGYN [facility], incontinence R32 [place] [id number] [place] [facility] 103 Jul, Unspecified urinary OBGYN [facility], incontinence R32 [place] [id number] [place] [facility] 103 Jul, [place]BG[place] [id number] [place] [facility] [address] [facility] Jul, Incomplete uterovaginal Road [address] [place], prolapse N81.2 ; [place] [id number] Unspecified urinary incontinence R32 and Hematuria, unspecified R31.9 [place] [facility] 103 Jul, [place] [id number] [place] [facility] 103 Jul, [place] [id number] [facility] 103 June, Dysuria R30.0 [place] [id number] [place] [facility] [address] June, [place] [id number] [place] [facility] 103 June, Incomplete uterovaginal OBGYN [facility], prolapse N81.2 ; [place] [id number] Unspecified urinary incontinence R32 and Encounter for screening for malignant neoplasm of cervix Z12.4 [place] [facility] 103 June, Incomplete uterovaginal OBGYN [facility], prolapse N81.2 and [place] [id number] Abnormal findings on diagnostic imaging of other specified body structures R93.8 [place] [facility] 103 June, [place] [id number] [place] [facility] 103 June, [place] [id number] [place] [facility] 103 June, Unspecified urinary OBGYN [facility], incontinence R32 [place] [id number] [place] [facility] [address] June, [place] [id number] [place] [facility] [address] [facility] June, Incomplete uterovaginal Road [address] [place], prolapse N81.2 and [place] [id number] Unspecified urinary incontinence R32 IMMUNIZATIONS No Known Immunizations SOCIAL HISTORY Never Assessed REASON FOR REFERRAL FUNCTIONAL STATUS PLAN OF CARE VITAL SIGNS MEDICATIONS Medication Instructions Dosage Frequency Start Date End Date Duration Status Macrobid orally 2 times a 1 cap(s) 12h 7 days Active macrocrystals-m day onohydrate 100 mg PROCEDURES No Known procedures RESULTS No Results REASON FOR VISIT E. coli UTI Insurance Providers [facility]ly [facility] Health Member Patient Patient Patient Patient Patient Subscriber Subscriber Subscriber Group Insurance Plan Plan Plan Plan ID Relationship Address Phone Name Date of ID Name Date of No Type Insurance Insurance Insurance Coverage to Subscriber Address Phone Name Dates [place] [phone] [place] [id number] Plan for 1600 [facility] [employer] [place] [id number] Medicare [phone] Medicare self [place] [id number] [facility] [address] MEDICAL (GENERAL) HISTORY Type Description Date Medical [...] colonoscopy 2007 Surgical History bilateral carpal tunnel [id number] Surgical History LT foot bunionectomy and metatarsal [...]
--- NOTE | 2018-03-03 13:07 | ED ---
Lower Extremity - HPI Summary HPI Summary: This patient is a 82 year old F presenting to [facility] with a chief complaint of right posterior upper thigh near the gluteal fold. The patient was seen at [facility] on 02-28-18 and given prednisone. The patient rates the pain 8/10 in severity. Symptoms aggravated by walking, she states she is unable to ambulate. Patient reports fever. Patient denies injury. The patient denied pain medications. Hx of blood clots. - History of Current Complaint Chief Complaint: EDExtremityLower Stated Complaint: SHARP HIP PAIN/THIGH Time Seen by Provider: 03/03/18 12:59 Hx Obtained From: Patient Mechanism Of Injury: Other - none Onset/Duration: Still Present Severity Initially: Moderate Severity Currently: Moderate Pain Intensity: 8 Pain Scale Used: 0-10 Numeric Timing: Constant Aggravating Factor(s): Standing, Ambulation Able to Bear Weight: No - Allergies/Home Medications Allergies/Adverse Reactions: Allergies Allergy/AdvReac Type Severity Reaction Status Date / Time doxycycline Allergy Dizziness Verified 03/03/18 11:20 Penicillins Allergy Rash Verified 03/03/18 11:20 risedronate sodium Allergy Rash And Verified 03/03/18 11:20 [From Actonel] Itching Sulfa (Sulfonamide Allergy Rash Verified 03/03/18 11:20 Antibiotics) alendronate sodium AdvReac Vomiting Verified 03/03/18 11:20 [From Fosamax] meperidine [From Demerol] AdvReac Vomiting Verified 03/03/18 11:20 scopolamine AdvReac Dizziness Verified 03/03/18 11:20 PMH/Surg Hx/FS Hx/Imm Hx Endocrine/Hematology History: Reports: Hx Thyroid Disease - hypo, Other Endocrine/Hematological Disorders Denies: Hx Diabetes Cardiovascular History: Reports: Other Cardiovascular Problems/Disorders - left ventricle decrease output with clot Denies: Hx Hypertension Respiratory History: Reports: Hx Sleep Apnea - MILD, Other Respiratory Problems/ Disorders - MUSCLE SPASMS DURING REM SLEEP Denies: Hx Asthma, Hx Chronic Obstructive Pulmonary Disease (COPD) GI History: Reports: Hx Gastroesophageal Reflux Disease, Hx Irritable Bowel Denies: Hx Ulcer, Other GI Disorders History: Reports: Hx Kidney Stones - MANY YEARS AGO, Other Problems/ Disorders - bladder surgery Denies: Hx Renal Disease Musculoskeletal History: Reports: Hx Arthritis - ALL OVER, Hx Back Problems, Other Musculoskeletal History Sensory History: Reports: Hx Contacts or Glasses - GLASSES Denies: Hx Hearing Aid Opthamlomology History: Reports: Hx Contacts or Glasses - GLASSES Neurological History: Reports: Hx Migraine - 2002, SILENT MIGRAINE Denies: Other Neuro Impairments/Disorders - Cancer History Cancer Type, Location and Year: skin ca - Surgical History Surgery Procedure, Year, and Place: TAYLER CARPAL TUNNEL, 1979, 1980,. 2009, LOW BACK, [facility]. TAYLER BUNIONECTOMYS, 1985, 1989, [facility]. [facility] [place] [place] [facility] [facility], [place], [facility]. LEFT KNEE, 2004, [place]. RIGHT KNEE, [place] , 2013. DCS trial 03/16/14. R foot surgery 2016. Bladder surgery 08/19/2017 Hx Anesthesia Reactions: Yes - NO OPIATES - Immunization History Date of Tetanus Vaccine: unknown Date of Influenza Vaccine: [id number] Infectious Disease History: No Infectious Disease History: Reports: Hx Clostridium Difficile, History Other Infectious Disease - Lyme Denies: Hx Hepatitis, Hx Human Immunodeficiency Virus (HIV), Traveled Outside the in Last 30 Days - Family History Known Family History: Positive: Hypertension - Social History Alcohol Use: None Hx Substance Use: No Substance Use Type: Reports: None Hx Tobacco Use: No Smoking Status (MU): Never Smoked Tobacco Have You Smoked in the Last Year: No Review of Systems Constitutional: Negative - injury Negative: Fever Positive: Other - Right leg pain All Other Systems Reviewed And Are Negative: Yes Physical Exam - Summary Physical Exam Summary: Appearance: The patient is well-nourished in no acute distress and in no acute pain. Skin: The skin is warm and dry and skin color reflects adequate perfusion. HEENT: The head is normocephalic and atraumatic. The pupils are equal and reactive. The conjunctivae are clear and without drainage. Nares are patent and without drainage. Mouth reveals moist mucous membranes and the throat is without erythema and exudate. The external ears are intact. The ear canals are patent and without drainage. The tympanic membranes are intact. Neck: The neck is supple with full range of motion and non-tender. There are no carotid bruits. There is no neck vein distension. Respiratory: Chest is non-tender. Lungs are clear to auscultation and breath sounds are symmetrical and equal. Cardiovascular: Heart is regular rate and rhythm. There is no murmur or rub auscultated. There is no peripheral edema and pulses are symmetrical and equal. Abdomen: The abdomen is soft and non-tender. There are normal bowel sounds heard in all four quadrants and there is no organomegaly palpated. Musculoskeletal: There is no back tenderness noted. Extremities are non-tender with full range of motion. There is good capillary refill. There is no peripheral edema or calf tenderness elicited. She is TTP in the right sciatic area. Straight leg test is negative bilaterally. Neurological: Patient is alert and oriented to person, place and time. The patient has symmetrical motor strength in all four extremities. Cranial nerves are grossly intact. Deep tendon reflexes are symmetrical and equal in all four extremities. Psychiatric: The patient has an appropriate affect and does not exhibit any anxiety or depression Triage Information Reviewed: Yes Vital Signs On Initial Exam: Initial Vitals Temp Pulse Resp BP Pulse Ox 97.4 F 54 16 148/67 95 03/03/18 11:13 03/03/18 11:13 03/03/18 11:13 03/03/18 11:13 03/03/18 11:13 Vital Signs Reviewed: Yes Diagnostics - Vital Signs Vital Signs Temp Pulse Resp BP Pulse Ox 03/03/18 11:13 97.4 F 54 16 148/67 95 - Laboratory Result Diagrams: 03/03/18 13:33 03/03/18 13:33 Lab Statement: Any lab studies that have been ordered have been reviewed, and results considered in the medical decision making process. - CT L spine CT CT Interpretation Completed By: Radiologist Summary of CT Findings: 1. TRANSITIONAL ANATOMY USING THE COUNTING SCHEME DESCRIBED ABOVE. 2. SCOLIOSIS. 3. OSTEOPENIA. 4. POSTSURGICAL CHANGE. 5. DEGENERATIVE DISC DISEASE AND OSTEOARTHRITIS. 6. THERE IS SEVERE NARROWING OF THE CENTRAL CANAL AT L4-L5 WITH MILD NARROWING AT L3-L4. 7. THERE IS MULTILEVEL NEUROFORAMINAL NARROWING DESCRIBED ABOVE. 8. 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 ED physician has reviewed this radiology report. - EKG 13 Cardiac Rate: Bradycardia EKG Rhythm: Sinus Bradycardia - at 48 BPM Summary of EKG Findings: LVH 1321 Cardiac Rate: Bradycardia EKG Rhythm: Sinus Bradycardia - at 48 BPM Summary of EKG Findings: LVH - Additional Comments Diagnostic Additional Comments: Venous Doppler Study reveals, per radiologist, NO EVIDENCE FOR DEEP VENOUS THROMBOSIS. ED physician has reviewed this radiology report. Lower Extremity Course/Dx - Course Course Of Treatment: Ms. Quick presented complaining of pain in her right buttock where the leg meets the gluteus. She's had it for several days and was given prednisone at [facility]. For some reason she was sent in for an ultrasound of her leg. She is nontoxic in appearance and her vital signs are stable on arrival. She was tender in the sciatic area on exam. She had a negative straight leg raise. Doppler of the leg shows no DVT and CT of her lumbar spine shows a great deal of degenerative disc disease. I think this is a radicular pain and recommended muscle relaxers in addition to the prednisone she is already been given. - Diagnoses Provider Diagnoses: Lumbar radiculopathy Discharge - Sign-Out/Discharge Documenting (check all that apply): Patient Departure - Discharge Plan Condition: Stable Disposition: HOME Prescriptions: LORazepam TAB(*) [Ativan 0.5 MG TAB (*)] 0.5 mg PO BEDTIME PRN #5 tab MDD 1 PRN Reason: Pain - Back Patient Education Materials: Lumbar Radiculopathy (ED) Referrals: Brian Hernández MD [Primary Care Provider] - 1 Day Additional Instructions: Stop taking your Metoprolol until you see Dr. Hernández. RETURN TO THE EMERGENCY DEPARTMENT FOR CHANGING OR WORSENING SYMPTOMS - Billing Disposition and Condition Condition: STABLE Disposition: Home - Attestation Statements Document Initiated by Ana: Yes Documenting Scribe: Ethan Peterson Provider For Whom Ana is Documenting (Include Credential): Satish Courtney MD Scribe Attestation: Ethan Perkins , scribed for Satish Courtney MD on 03/03/18 at 2030. Scribe Documentation Reviewed: Yes Provider Attestation: The documentation as recorded by the Ethan farooq accurately reflects the service I personally performed and the decisions made by me, Satish Courtney MD Status of Scribe Document: Viewed
[2018-03-03 13:47] LABS: ABS Basophils 0 10^3/ul (0-0.2); ABS Eosinophils 0 10^3/ul (0-0.6); ABS Lymphocytes 2.5 10^3/ul (1.0-4.8); ABS Monocytes 1.1 10^3/ul (0-0.8); ABS Neutrophils 7.5 10^3/ul (1.5-7.7); ABS Nucleated RBC 0 10^3/ul; Eosinophil % 0 %; Hematocrit 38 % (35-47); Hemoglobin 12.1 g/dl (12.0-16.0); Lymphocyte % 22.2 %; Mean Corpuscular HGB Conc 32 g/dl (31-36); Mean Corpuscular Hemoglobin 28 pg (27-31); Mean Corpuscular Volume 88 fL (80-97); Nucleated Red Blood Cells % 0; Platelet Count 307 10^3/ul (150-450); Red Blood Count 4.33 10^6/ul (4.00-5.40); Red Cell Distribution Width 16 % (10.5-15); White Blood Count 11.1 10^3/ul (3.5-10.8)
[2018-03-03 13:54] LABS: INR 0.91 (0.77-1.02)
[2018-03-03 14:12] LABS: Albumin 3.7 g/dL (3.2-5.2); Albumin/Globulin Ratio 1.2 (1-3); BUN/Creatinine Ratio 43.2 (8-20); Calcium 9.4 mg/dL (8.6-10.3); EGFR Non-African American 67.9 (>60); Globulin 3.2 g/dL (2-4); Magnesium 2.1 mg/dL (1.9-2.7); Potassium 4.1 mmol/L (3.5-5.0); Total Bilirubin 0.5 mg/dL (0.2-1.0); Total Protein 6.9 g/dL (6.4-8.9)
[2018-03-03 14:30] LABS: TSH (Thyroid Stimulating Horm) 2.73 mcIU/mL (0.34-5.60)
[2018-03-03 15:38] VITALS: BP 157/84
== END 2018-03-03 15:36 | disposition home or self-care (01) ==
LOC: ED 11:01
DX: M54.16 Radiculopathy, lumbar region (principal); M25.551 Pain in right hip; K21.9 Gastro-esophageal reflux disease without esophagitis; Z88.0 Allergy status to penicillin; Z88.2 Allergy status to sulfonamides; Z85.828 Personal history of other malignant neoplasm of skin
CPT/HCPCS: 36415; 72131; 80053; 83605; 83735; 84443; 84484; 85025; 85610; 93005; 99282

== ENCOUNTER 2018-07-17 17:24 | Emergency (ER) | payer MEDICARE, BC ==
[2018-07-17 18:57] LABS: ABS Lymphocytes 0.7 10^3/ul (1.0-4.8); ABS Monocytes 0.6 10^3/ul (0-0.8); ABS Neutrophils 7.7 10^3/ul (1.5-7.7); Eosinophil % 0.2 %; Hematocrit 42 % (35-47); Lymphocyte % 7.6 %; Mean Corpuscular HGB Conc 33 g/dL (31-36); Mean Corpuscular Hemoglobin 32 pg (27-31); Mean Corpuscular Volume 95 fL (80-97); Mean Platelet Volume 7.1 fL (7.4-10.4); Platelet Count 251 10^3/uL (150-450); Red Blood Count 4.43 10^6 /uL (3.70-4.87); Red Cell Distribution Width 14 % (10.5-15)
[2018-07-17 19:03] LABS: INR 0.96 (0.82-1.09)
[2018-07-17 19:13] LABS: Albumin 4.5 g/dL (3.2-5.2); Albumin/Globulin Ratio 1.4 (1-3); BUN/Creatinine Ratio 23.8 (8-20); Calcium 9.8 mg/dL (8.6-10.3); EGFR African American 78.7 (>60); EGFR Non-African American 65.1 (>60); Globulin 3.2 g/dL (2-4); Total Bilirubin 0.9 mg/dL (0.2-1.0); Total Protein 7.7 g/dL (6.4-8.9)
--- NOTE | 2018-07-17 19:49 | ED ---
Complex/Multi-Sys Presentation - HPI Summary HPI Summary: 82 year old F presenting to [facility] accompanied by with a chief complaint of nausea since today. Symptoms aggravated by nothing. Symptoms alleviated by nothing. Patient reports headache rated 8/10 in severity. Patient states that while using and leaning on her walker, she tipped over, fell, and hit the right side of her head on carpeted floor yesterday. She reports right sided head pain and right foot pain. She reports neck stiffness. She reports decreased appetite. She denies LOC, dizziness, chest pain, vomiting. Patient is taking Plavix. Patient normally uses a walker at home. reports hx OK, hx strokes, hx seizures, and hx Lyme Disease. Patient takes Keppra. Patient's neurologist is Dr. Dolan. Patient has a neuro stimulator on her back. Patient lives with her at [place]. Patient takes levothroxine, pantoprazole, oxybutynin, levetiracetam, atorvastatin, aspirin, metoprolol, duloxetine, zantac , pantoprazole. Vital signs while in room: HR 104 bpm, BP 148/96, O2 sat 97% - History Of Current Complaint Chief Complaint: EDGeneral Time Seen by Provider: 07/17/18 19:39 Hx Obtained From: Patient, Family/Docketing Specialist - Onset/Duration: Lasting Days - 1, Still Present Timing: Constant Severity Currently: Mild Severity Initially: Mild Location: Pain At: - right PARR, right foot Character: Dull Aggravating Factor(s): Nothing Alleviating Factor(s): Nothing Associated Signs And Symptoms: Positive: Other - headache, right sided head pain , right foot pain, neck stiffness, decreased appetite; NEGATIVE: LOC, dizziness , chest pain, vomiting. - Allergies/Home Medications Allergies/Adverse Reactions: Allergies Allergy/AdvReac Type Severity Reaction Status Date / Time doxycycline Allergy Dizziness Verified 07/18/18 09:03 Penicillins Allergy Rash Verified 07/18/18 09:03 risedronate sodium Allergy Rash And Verified 07/18/18 09:03 [From Actonel] Itching Sulfa (Sulfonamide Allergy Rash Verified 07/18/18 09:03 Antibiotics) alendronate sodium AdvReac Vomiting Verified 07/18/18 09:03 [From Fosamax] meperidine [From Demerol] AdvReac Vomiting Verified 07/18/18 09:03 scopolamine AdvReac Dizziness Verified 07/18/18 09:03 Home Medications: Home Medications Oxybutynin Chloride [Oxybutynin Chloride ER] 10 mg PO DAILY 07/17/18 [History Confirmed 07/17/18] PMH/Surg Hx/FS Hx/Imm Hx Previously Healthy: No Endocrine/Hematology History: Reports: Hx Thyroid Disease - hypo Denies: Hx Diabetes Cardiovascular History: Reports: Hx Myocardial Infarction, Other Cardiovascular Problems/Disorders - left ventricle decrease output with clot Denies: Hx Hypertension Respiratory History: Reports: Hx Sleep Apnea - MILD, Other Respiratory Problems/ Disorders - MUSCLE SPASMS DURING REM SLEEP Denies: Hx Asthma, Hx Chronic Obstructive Pulmonary Disease (COPD) GI History: Reports: Hx Gastroesophageal Reflux Disease, Hx Irritable Bowel Denies: Hx Ulcer, Other GI Disorders History: Reports: Hx Kidney Stones - MANY YEARS AGO, Other Problems/ Disorders - bladder surgery Denies: Hx Renal Disease Musculoskeletal History: Reports: Hx Arthritis - ALL OVER, Hx Back Problems, Other Musculoskeletal History - carpal tunnel Sensory History: Reports: Hx Contacts or Glasses - GLASSES Denies: Hx Hearing Aid Opthamlomology History: Reports: Hx Contacts or Glasses - GLASSES Neurological History: Reports: Hx Migraine, Hx Seizures, Other Neuro Impairments /Disorders - stroke - Cancer History Cancer Type, Location and Year: skin ca - Surgical History Surgery Procedure, Year, and Place: TAYLER CARPAL TUNNEL, 1979, 1980,. 2009, LOW BACK, [facility]. TAYLER BUNIONECTOMYS, 1985, 1989, [facility]. RIGHT SHOULDER, 1995, [facility]. RIGHT BREAST BX, 1989, [facility]. LEFT KNEE, 2004, [facility]. RIGHT KNEE, [place] , 2013. DCS trial 03/16/14. R foot surgery 2017. Bladder surgery 08/19/2017 Hx Anesthesia Reactions: Yes - NO OPIATES - Immunization History Date of Tetanus Vaccine: unknown Infectious Disease History: Yes Infectious Disease History: Reports: Hx Clostridium Difficile, History Other Infectious Disease - Lyme Denies: Hx Hepatitis, Hx Human Immunodeficiency Virus (HIV), Traveled Outside the in Last 30 Days - Family History Known Family History: Positive: Hypertension - Social History Lives: Assisted Living - [place] with Alcohol Use: None Hx Substance Use: No Substance Use Type: Reports: None Hx Tobacco Use: No Smoking Status (MU): Never Smoked Tobacco Have You Smoked in the Last Year: No Review of Systems Constitutional: Negative Eyes: Negative ENT: Negative Negative: Chest Pain Respiratory: Negative Positive: Nausea, Other - decreased appetite. Negative: Vomiting Positive: no symptoms reported Positive: Other - head pain, right foot pain, neck stiffness Skin: Negative Neurological: Negative - LOC, dizziness Positive: Headache Psychological: Normal All Other Systems Reviewed And Are Negative: Yes Physical Exam - Summary Physical Exam Summary: Appearance: well-appearing, moderate pain distress, well-nourished Skin: multiple, purple macular lesions on bilateral anterior tibiae Head: Minor ecchymosis over her right eye Eyes: Conjunctiva clear, PERRL, EOMI, no nystagmus ENT: Normal inspection, TM's clear, moist mucosal membranes Neck: Supple, no nodes, no JVD, no spinal tenderness Respiratory: Lungs clear, normal breath sounds, no respiratory distress Cardio: RRR, No murmur, pulses normal, brisk capillary refill Abdomen: Soft, nontender, nondistended Bowel sounds: Present Musculoskeletal: Strength Intact/ROM intact, no calf tenderness, no edema, tenderness right lateral midfoot, without ecchymosis Psychological: Normal Neuro: Alert, muscle tone normal, no focal deficit Triage Information Reviewed: Yes Vital Signs On Initial Exam: Initial Vitals Temp Pulse Resp BP Pulse Ox 98.9 F 101 16 128/94 98 07/17/18 17:25 07/17/18 17:25 07/17/18 17:25 07/17/18 17:25 07/17/18 17:25 Vital Signs Reviewed: Yes Diagnostics - Vital Signs Vital Signs Temp Pulse Resp BP Pulse Ox 07/17/18 17:25 98.9 F 101 16 128/94 98 - Laboratory Lab Results: Lab Results 07/17/18 07/17/18 07/17/18 Range/Units 18:40 18:40 18:41 WBC 9.0 (3.5-10.8) 10^3/uL RBC 4.43 (3.70-4.87) 10^6 /uL Hgb 14.0 (12.0-16.0) g/dL Hct 42 (35-47) % MCV 95 (80-97) fL MCH 32 H (27-31) pg MCHC 33 (31-36) g/dL RDW 14 (10.5-15) % Plt Count 251 (150-450) 10^3/uL MPV 7.1 L (7.4-10.4) fL Neut % (Auto) 85.1 % Lymph % (Auto) 7.6 % [place] % (Auto) 6.8 % Eos % (Auto) 0.2 % Baso % (Auto) 0.3 % Absolute Neuts (auto) 7.7 (1.5-7.7) 10^3/ul Absolute Lymphs (auto) 0.7 L (1.0-4.8) 10^3/ul Absolute Monos (auto) 0.6 (0-0.8) 10^3/ul Absolute Eos (auto) 0.0 (0-0.6) 10^3/ul Absolute Basos (auto) 0.0 (0-0.2) 10^3/ul Absolute Nucleated RBC 0.0 10^3/ul Nucleated RBC % 0.0 INR (Anticoag Therapy) 0.96 (0.82-1.09) Sodium 138 (135-145) mmol/L Potassium 4.0 (3.5-5.0) mmol/L Chloride 103 (101-111) mmol/L Carbon Dioxide 27 (22-32) mmol/L Anion Gap 8 (2-11) mmol/L BUN 20 (6-24) mg/dL Creatinine 0.84 (0.51-0.95) mg/dL Est GFR ( Amer) 78.7 (>60) Est GFR (Non-Af Amer) 65.1 (>60) BUN/Creatinine Ratio 23.8 H (8-20) Glucose 104 H (70-100) mg/dL Lactic Acid (0.5-2.0) mmol/L Calcium 9.8 (8.6-10.3) mg/dL Total Bilirubin 0.90 (0.2-1.0) mg/dL AST 16 (13-39) U/L ALT 15 (7-52) U/L Alkaline Phosphatase 71 (34-104) U/L Troponin I 0.00 (<0.04) ng/mL Total Protein 7.7 (6.4-8.9) g/dL Albumin 4.5 (3.2-5.2) g/dL Globulin 3.2 (2-4) g/dL Albumin/Globulin Ratio 1.4 (1-3) TSH Pending 07/17/18 Range/Units 18:41 WBC (3.5-10.8) 10^3/uL RBC (3.70-4.87) 10^6 /uL Hgb (12.0-16.0) g/dL Hct (35-47) % MCV (80-97) fL MCH (27-31) pg MCHC (31-36) g/dL RDW (10.5-15) % Plt Count (150-450) 10^3/uL MPV (7.4-10.4) fL Neut % (Auto) % Lymph % (Auto) % [place]wall % (Auto) % Eos % (Auto) % Baso % (Auto) % Absolute Neuts (auto) (1.5-7.7) 10^3/ul Absolute Lymphs (auto) (1.0-4.8) 10^3/ul Absolute Monos (auto) (0-0.8) 10^3/ul Absolute Eos (auto) (0-0.6) 10^3/ul Absolute Basos (auto) (0-0.2) 10^3/ul Absolute Nucleated RBC 10^3/ul Nucleated RBC % INR (Anticoag Therapy) (0.82-1.09) Sodium (135-145) mmol/L Potassium (3.5-5.0) mmol/L Chloride (101-111) mmol/L Carbon Dioxide (22-32) mmol/L Anion Gap (2-11) mmol/L BUN (6-24) mg/dL Creatinine (0.51-0.95) mg/dL Est GFR ( Amer) (>60) Est GFR (Non-Af Amer) (>60) BUN/Creatinine Ratio (8-20) Glucose (70-100) mg/dL Lactic Acid 1.4 (0.5-2.0) mmol/L Calcium (8.6-10.3) mg/dL Total Bilirubin (0.2-1.0) mg/dL AST (13-39) U/L ALT (7-52) U/L Alkaline Phosphatase (34-104) U/L Troponin I (<0.04) ng/mL Total Protein (6.4-8.9) g/dL Albumin (3.2-5.2) g/dL Globulin (2-4) g/dL Albumin/Globulin Ratio (1-3) TSH Result Diagrams: 07/17/18 18:41 07/17/18 18:40 Lab Statement: Any lab studies that have been ordered have been reviewed, and results considered in the medical decision making process. - Radiology CXR Radiology Interpretation Completed By: ED Physician Summary of Radiographic Findings: No acute disease. Pending official report. Right foot x-ray Radiology Interpretation Completed By: ED Physician Summary of Radiographic Findings: Status post metal in her right great toe. Possible avulsion fracture of MTP of her fifth digit. Pending official report. - CT Brain CT Interpretation Completed By: Radiologist Summary of CT Findings: 1. No acute intracranial pathology. 2. Other chronic findings, as above. ED physician has reviewed this report. Cervical spine CT Interpretation Completed By: Radiologist Summary of CT Findings: No acute cervical spine fracture. ED physician has reviewed this report. - EKG 1955 Cardiac Rate: Tachycardia - 100 BPM EKG Rhythm: Sinus Tachycardia ST Segment: Non-Specific Ectopy: None EKG Comparison: Other - Rate is much faster compared to 03/03/18 Summary of EKG Findings: Nml AV/IV CT, nml QTc, and nml axis. Non-specific. No acute changes. ED MD has reviewed and interpreted this EKG. Re-Evaluation - Re-Evaluation First Eval Re-Evaluation Time: 21:06 Comment: Patient updated on plan of care. Patient has a slight headache. Her nausea is better. Patient is ready to go. Pt's remains with her. Both pt and voice understanding of DC instructions. Complex Multi-Symp Course/Dx Course Of Treatment: 82 yo F presents with nausea and PARR and right foot pain, two days after a mechanical fall. Pt is on daily aspirin 81mg. Pt also has hx of seizure disorder on Keppra, but pt states she did not have a seizure, was awake when she fell. Patient medications reviewed this visit. Nurses notes reviewed. Allergies noted. High blood pressure noted. Bloodwork was unremarkable. EKG was unchanged from previous EKG. Brain CT shows 1. No acute intracranial pathology. In ED course, patient was given Tylenol and zofran. Patient feels better and would like to go home. Patient will be discharged home with follow up from Dr. Hernández, primary care provider, in 2 days. Patient was instructed to return to ED for new or worsening symptoms. Patient understands and is agreeable to discharge plan. - Diagnoses Differential Diagnoses/HQI/PQRI: Closed Cranial Trauma, CVA, Metabolic Abnormality, Sepsis, Urinary Tract Infection Provider Diagnoses: Fall, Concussion Discharge - Sign-Out/Discharge Documenting (check all that apply): Patient Departure - Discharge Patient Received Moderate/Deep Sedation with Procedure: No - Discharge Plan Condition: Stable Disposition: HOME Prescriptions: Ondansetron ODT TAB* [Zofran 4 MG Odt TAB*] 4 mg PO Q8H PRN #15 tab.odt PRN Reason: Nausea Patient Education Materials: Concussion (ED), Fall Prevention for Older Adults (ED) Referrals: Brian Hernández MD [Primary Care Provider] - 2 Days Additional Instructions: We did CT's of your brain and cervical spine that did not show any significant abnormalities. Dr. Collado read your chest xray and your foot xray and did not see any significant abnormalities, except possibly a small avulsion fracture of your right 5th toe, which can be treated like a sprain. We will contact you if there is a change in the readings of those xrays that needs a change in your care. You should take your evening medications when you get home. We have drawn a keppra level on you and it will be several days before that level is resulted, so please be sure to have Dr. Hernández and Dr. Dolan check that level. We do not think that you had a seizure, syncope, or a stroke while you were here today, but we do think that you had a concussion from your fall. You were given ondansetron 4mg oral disintegrating tablet for your nausea, which helped and some Tylenol for your headache which helped some. You may continue both of these medications. Please have definite follow up with Dr. Hernández. And return to the ER if you have any new or worsening symptoms. - Billing Disposition and Condition Condition: STABLE Disposition: Home - Attestation Statements Document Initiated by Scribe: Yes Documenting Scribe: Jennifer Malin Provider For Whom Traee is Documenting (Include Credential): Dhara Collado MD Scribe Attestation: Jennifer Perkins, scribed for Dhara Collado MD on 07/20/18 at 0100. Scribe Documentation Reviewed: Yes Provider Attestation: The documentation as recorded by the scribe, Jennifer Malin accurately reflects the service I personally performed and the decisions made by me, Dhara Collado MD Status of Scribe Document: Viewed
[2018-07-17] MEDS ORDERED: Ondansetron ODT TAB* 4 MG PO ONE (19:51)
[2018-07-17] MEDS ORDERED: Acetaminophen TAB* 325 MG PO ONE (19:55)
[2018-07-17 19:59] LABS: TSH (Thyroid Stimulating Horm) 0.79 mcIU/mL (0.34-5.60)
[2018-07-17 21:38] VITALS: BP 125/75
== END 2018-07-17 21:37 | disposition home or self-care (01) ==
LOC: ED 17:24
DX: S06.0X9A Concussion with loss of consciousness of unspecified duration, initial encounter (principal); R51 Headache; Z88.0 Allergy status to penicillin; Z88.2 Allergy status to sulfonamides; I25.2 Old myocardial infarction; K21.9 Gastro-esophageal reflux disease without esophagitis; Z87.442 Personal history of urinary calculi; Z85.828 Personal history of other malignant neoplasm of skin; W19.XXXA Unspecified fall, initial encounter; Y92.9 Unspecified place or not applicable
CPT/HCPCS: 36415; 70450; 71045; 72125; 80053; 80177; 83605; 84443; 84484; 85025; 85610; 87040; 93005; 99283; A9270-GY

== ENCOUNTER 2018-07-18 08:55 | Inpatient (IN) | payer MEDICARE, BC ==
[2018-07-18] MEDS ORDERED: Ondansetron INJ* 2 MG/ML VIAL IV ONE (09:11)
[2018-07-18] MEDS ORDERED: NS 0.9% 1000 ML** 1,000 ML IV ONE (09:11)
--- NOTE | 2018-07-18 09:45 | ED ---
Influenza-Like Illness - HPI Summary HPI Summary: This pt is an 82 y/o female presenting to [facility] via EMS from [facility] c/o headache, nausea, vomiting, and fever today. Pt reports nausea began yesterday but did not have vomiting until today. Denies abd pain, chest pain, SOB. She notes she was seen in the ED last night for nausea, headache and a fall she had 2 days ago. Pt had lab work, brain CT, cervical CT, and foot XR yesterday that all resulted negative. She was discharged home from the ED yesterday. She is on anticoagulants. - History of Current Complaint Chief Complaint: EDFluSymptoms Time Seen by Provider: 07/18/18 09:00 Hx Obtained From: Patient Onset/Duration: Gradual Onset, Lasting Hours, Still Present Severity: Moderate Associated Signs & Symptoms: Fever, Headache, Vomiting - Allergy/Home Medications Allergies/Adverse Reactions: Allergies Allergy/AdvReac Type Severity Reaction Status Date / Time doxycycline Allergy Dizziness Verified 07/18/18 09:03 Penicillins Allergy Rash Verified 07/18/18 09:03 risedronate sodium Allergy Rash And Verified 07/18/18 09:03 [From Actonel] Itching Sulfa (Sulfonamide Allergy Rash Verified 07/18/18 09:03 Antibiotics) alendronate sodium AdvReac Vomiting Verified 07/18/18 09:03 [From Fosamax] meperidine [From Demerol] AdvReac Vomiting Verified 07/18/18 09:03 scopolamine AdvReac Dizziness Verified 07/18/18 09:03 Home Medications: Home Medications Calcium Carbonate/Vitamin D3 [Calcium Carbonate/Vitamin] 2 tab PO DAILY [History Confirmed 07/18/18] Clopidogrel Bisulfate [Plavix] 75 mg PO DAILY 07/18/18 [History Confirmed ] DULoxetine DR CAP* [Cymbalta CAP*] 30 mg PO DAILY 07/18/18 [History Confirmed ] Metoprolol Succinate XL TAB* [Toprol XL TAB*] 50 mg PO BEDTIME 07/18/18 [ History Confirmed 07/18/18] Oxaprozin 600 mg PO SEE INSTRUCTIONS 07/18/18 [History Confirmed 07/18/18] clonazePAM [Clonazepam] 0.5 mg PO SEE INSTRUCTIONS PRN 07/18/18 [History Confirmed 07/18/18] PMH/Surg Hx/FS Hx/Imm Hx Endocrine/Hematology History: Reports: Hx Thyroid Disease - hypo, Other Endocrine/Hematological Disorders Denies: Hx Diabetes Cardiovascular History: Reports: Hx Myocardial Infarction, Other Cardiovascular Problems/Disorders - left ventricle decrease output with clot Denies: Hx Hypertension Respiratory History: Reports: Hx Sleep Apnea - MILD, Other Respiratory Problems/ Disorders - MUSCLE SPASMS DURING REM SLEEP Denies: Hx Asthma, Hx Chronic Obstructive Pulmonary Disease (COPD) GI History: Reports: Hx Gastroesophageal Reflux Disease, Hx Irritable Bowel Denies: Hx Ulcer, Other GI Disorders History: Reports: Hx Kidney Stones - MANY YEARS AGO, Other Problems/ Disorders - bladder surgery Denies: Hx Renal Disease Musculoskeletal History: Reports: Hx Arthritis - ALL OVER, Hx Back Problems, Other Musculoskeletal History - carpal tunnel Sensory History: Reports: Hx Contacts or Glasses - GLASSES Denies: Hx Hearing Aid Opthamlomology History: Reports: Hx Contacts or Glasses - GLASSES Neurological History: Reports: Hx Migraine - 2001, [facility], Hx Seizures , Other Neuro Impairments/Disorders - stroke - Cancer History Cancer Type, Location and Year: skin ca - Surgical History Surgery Procedure, Year, and Place: TAYLER CARPAL TUNNEL, 1979, 1980,. 2009, LOW BACK, [facility]. TAYLER BUNIONECTOMYS, 1985, 1989, [facility]. RIGHT SHOULDER, 1995, [facility]. RIGHT BREAST BX, 1989, [facility]. LEFT KNEE, 2004, [place]. RIGHT KNEE, [place] , 2013. DCS trial 03/16/14. R foot surgery 2016. Bladder surgery 08/19/2017 Hx Anesthesia Reactions: Yes - NO OPIATES - Immunization History Date of Tetanus Vaccine: unknown Date of Influenza Vaccine: [id number] Infectious Disease History: No Infectious Disease History: Reports: Hx Clostridium Difficile, History Other Infectious Disease - Lyme Denies: Hx Hepatitis, Hx Human Immunodeficiency Virus (HIV), Traveled Outside the [place] in Last 30 Days - Family History Known Family History: Positive: Hypertension - Social History Alcohol Use: Rare Hx Substance Use: No Substance Use Type: Reports: None Hx Tobacco Use: No Smoking Status (MU): Never Smoked Tobacco Have You Smoked in the Last Year: No Review of Systems Positive: Fever Negative: Chest Pain Negative: Shortness Of Breath Positive: Vomiting, Nausea. Negative: Abdominal Pain Positive: Headache All Other Systems Reviewed And Are Negative: Yes Physical Exam - Summary Physical Exam Summary: VITAL SIGNS: Reviewed. GENERAL: Patient is a well-developed and nourished female who is lying comfortable in the stretcher. Patient is not in any acute respiratory distress. HEAD AND FACE: No signs of trauma. No ecchymosis, hematomas or skull depressions. No sinus tenderness. EYES: PERRLA, EOMI x 2, No injected conjunctiva, no nystagmus. EARS: Hearing grossly intact. Ear canals and tympanic membranes are within normal limits. MOUTH: Oropharynx within normal limits. NECK: Supple, trachea is midline, no adenopathy, no JVD, no carotid bruit, no c- spine tenderness, neck with full ROM. CHEST: Symmetric, no tenderness at palpation LUNGS: Clear to auscultation bilaterally. No wheezing or crackles. CVS: Regular rate and rhythm, S1 and S2 present, no murmurs or gallops appreciated. ABDOMEN: Soft, non-tender. No signs of distention. No rebound no guarding, and no masses palpated. Bowel sounds are normal. EXTREMITIES: FROM in all major joints, no edema, no cyanosis or clubbing. NEURO: Alert and oriented x 3. No acute neurological deficits. Speech is normal and follows commands. SKIN: Dry and warm Triage Information Reviewed: Yes Vital Signs On Initial Exam: Initial Vitals Temp Pulse Resp BP Pulse Ox 102.2 F 87 19 148/86 93 07/18/18 09:00 07/18/18 09:00 07/18/18 09:00 07/18/18 09:00 07/18/18 09:00 Vital Signs Reviewed: Yes Diagnostics - Vital Signs Vital Signs Temp Pulse Resp BP Pulse Ox 07/18/18 09:00 102.2 F 87 19 148/86 93 - Laboratory Result Diagrams: 07/19/18 05:19 07/19/18 05:19 Lab Statement: Any lab studies that have been ordered have been reviewed, and results considered in the medical decision making process. - Radiology Chest XR Radiology Interpretation Completed By: Radiologist Summary of Radiographic Findings: IMPRESSION: 1. No radiographic evidence of acute cardiopulmonary disease. 2. No radiographically apparent acute abnormalities of the abdomen. Dr. Tee has reviewed this report. Abdomen XR Radiology Interpretation Completed By: Radiologist Summary of Radiographic Findings: IMPRESSION: 1. No radiographic evidence of acute cardiopulmonary disease. 2. No radiographically apparent acute abnormalities of the abdomen. Dr. Tee has reviewed this report. - EKG 09:21 Cardiac Rate: NL - at 89 bpm EKG Rhythm: Sinus Rhythm Summary of EKG Findings: No ST elevations. Flu Symptom Course/Dx - Course Assessment/Plan: This pt is an 82 y/o female [facility] c/o headache, nausea, vomiting, and fever today. Pt reports nausea began yesterday but did not have vomiting until today. Denies abd pain, chest pain, SOB. She notes she was in the ED last night for nausea s/p falling 2 days ago while chasing her cat. Pt had a brain CT yesterday that resulted negative. She was discharged home from the ED yesterday. She is on anticoagulants. Past medical history significant for CHF, nondistended, CVA, delirium. Blood work without any significant abnormality except for WBCs of 15.3, glucose is 121, total bili is 1.20, CRP is 60.9, and lipase is less than 10. Chest x-ray impression: No radiographic evidence of acute cardiopulmonary disease. Abdomen x-ray impression: No radiographic apparently acute abnormalities of the abdomen. Urinalysis positive for UTI. patient was started on Rocephin. The patient already had a fall here today, the patient noted to have nausea and vomiting, I believe that the patient would benefit for admission for control of the UTI. I discussed my physical exam, findings and test results with Dr. Roche from the hospitalist services and she agrees to admit patient to her services. Patient is hemodynamically stable, alert and oriented x 3. - Diagnoses Provider Diagnoses: UTI (urinary tract infection), Sepsis - Physician Notifications Discussed Care Of Patient With: Olga Roche - hospitalist Time Discussed With Above Provider: 14:20 Instructed by Provider To: Admit As Inpatient Discharge - Sign-Out/Discharge Documenting (check all that apply): Patient Departure - Admit to [facility] Patient Received Moderate/Deep Sedation with Procedure: No - Discharge Plan Condition: Stable Disposition: ADMITTED TO [facility] - Billing Disposition and Condition Condition: STABLE Disposition: Admitted to [facility] - Attestation Statements Document Initiated by Scribe: Yes Documenting Scribe: Yumi Dickerson Provider For Whom Scribe is Documenting (Include Credential): Jono Tee MD Scribe Attestation: I, Yumi Dickerson, scribed for Jono Tee MD on 07/19/18 at 1828. Scribe Documentation Reviewed: Yes Provider Attestation: The documentation as recorded by the scribe, Yumi Dickerson accurately reflects the service I personally performed and the decisions made by me, Jono Tee MD Status of Scribe Document: Viewed
[2018-07-18 09:54] LABS: Hematocrit 37 % (35-47); Hemoglobin 12.2 g/dL (12.0-16.0); Mean Corpuscular HGB Conc 33 g/dL (31-36); Mean Corpuscular Hemoglobin 31 pg (27-31); Mean Corpuscular Volume 94 fL (80-97); Red Blood Count 3.91 10^6 /uL (3.70-4.87); Red Cell Distribution Width 14 % (10.5-15); White Blood Count 15.3 10^3/uL (3.5-10.8)
[2018-07-18 10:09] LABS: ALT 12 U/L (7-52); AST 14 U/L (13-39); Albumin 3.8 g/dL (3.2-5.2); Albumin/Globulin Ratio 1.4 (1-3); Alkaline Phosphatase 60 U/L (34-104); Anion Gap 7 mmol/L (2-11); BUN/Creatinine Ratio 24.7 (8-20); Blood Urea Nitrogen 22 mg/dL (6-24); C Reactive Protein 60.92 mg/L (<8.01); CO2 Carbon Dioxide 26 mmol/L (22-32); Calcium 9.1 mg/dL (8.6-10.3); Chloride 103 mmol/L (101-111); EGFR African American 73.7 (>60); EGFR Non-African American 60.9 (>60); Globulin 2.8 g/dL (2-4); Glucose 121 mg/dL (70-100); Potassium 3.9 mmol/L (3.5-5.0); Sodium 136 mmol/L (135-145); Total Protein 6.6 g/dL (6.4-8.9)
[2018-07-18 10:14] LABS: ABS Lymphocytes 0.7 10^3/ul (1.0-4.8); ABS Monocytes 1.3 10^3/ul (0-0.8); ABS Neutrophils 13.2 10^3/ul (1.5-7.7); Lymphocyte % 4.6 %; Mean Platelet Volume 7.1 fL (7.4-10.4); Nucleated Red Blood Cells % 0.1; Platelet Count 199 10^3/uL (150-450)
[2018-07-18 13:07] LABS: Urine Appearance Cloudy; Urine Bacteria 1+ (Absent); Urine Bilirubin Negative (Negative); Urine Blood Negative (Negative); Urine Color Yellow; Urine Glucose Negative (Negative); Urine Ketones Negative (Negative); Urine Nitrite Positive (Negative); Urine Protein 1+(30 mg/dL) (Negative); Urine Red Blood Cell 2+(6-10/hpf) (Absent); Urine Specific Gravity 1.013 (1.010-1.030); Urine Urobilinogen Negative (Negative); Urine White Blood Cell 3+(>20/hpf) (Absent)
[2018-07-18] MEDS ORDERED: cefTRIAXone(*) 1 GM in NS 0.9% 50 ML* 50 ML IVPB ONE (14:15)
[2018-07-18] MEDS ORDERED: NS 0.9% 1000 ML** 1,000 ML IV SCH (15:15)
[2018-07-18] MEDS ORDERED: clonazePAM TAB(*) 0.5 MG PO PRN (15:30)
[2018-07-18] MEDS: levETIRAcetam TAB* 500 MG PO SCH ×2 (16:30→20:17)
[2018-07-18] MEDS: Enoxaparin(*) 40 MG/0.4 ML SYR SUBCUT SCH (16:30)
--- NOTE | 2018-07-18 19:31 | HP ---
CC: Dr. Hernández; Dr. Lopez * [facility] MEDICINE HISTORY AND PHYSICAL: DATE OF ADMISSION: 07/18/18 PROVIDER: Diana Cash NP PRIMARY CARE PROVIDER: Dr. Hernández. ATTENDING PHYSICIAN WHILE IN THE HOSPITAL: Yumi Millan MD * (dictated by Diana Cash NP) CHIEF COMPLAINT: Shaking, chills, nausea, and vomiting. HISTORY OF PRESENT ILLNESS: Ms. Quick is an 82-year-old female with a past medical history significant for TIA, NSTEMI, MD, recurrent UTI, hypothyroidism, history of prolapsed bladder, chronic low back pain, history of congestive heart failure with EF of 30% to 35%, who presented to the emergency room with a complaint of shaking chills. The patient reports she woke at approximately between 7:00 and 8:00 this morning with shaking chills. She felt nauseated. She had a dry mouth. She reports that she was unable to get warm. Due to these symptoms, she called the ambulance and was brought to the emergency room for further evaluation. The patient reports that she did have a fall yesterday. She was leaning over to fix the cover on her cat and lost her balance and fell. She did hit the right side of her face and does have some ecchymosis noted to her right eye. On arrival to the emergency room, the patient had routine lab work drawn, she had vital signs. She was found to have a temperature of 102.2, elevated white count of 15,000, and urine that showed leukocyte esterase 3+, wbc's 3+, rbc's 2+ , bacteria was 1+, nitrites were positive, and protein was 1+. Due to the patient meeting sepsis criteria, we were asked to see and evaluate the patient for admission. PAST MEDICAL HISTORY: Significant for: 1. Non-STEMI in October 2017. 2. TIA in October 2017. 3. History of left ventricular thrombus in 2018. 4. Obstructive sleep apnea. 5. Hypothyroidism. 6. History of prolapsed bladder, status post surgical repair. 7. GERD. 8. History of congestive heart failure with a last known EF from October 2017 of 30% to 35%. 9. Seizures. PAST SURGICAL HISTORY: 1. Status post bladder repair for prolapse. 2. Bilateral knee surgeries. 3. Status post right breast biopsy. 4. Right shoulder surgery. 5. Bilateral carpal tunnel release. 6. Bilateral bunionectomies. 7. Right foot surgery. 8. Lumbar spine surgery with a nerve stimulator, and in 2008, lumbar laminectomy. MEDICATIONS: Home medications include: 1. Levothyroxine 75 mcg p.o. daily. 2. Tylenol 500 mg p.o. q.4 hours as needed for pain. 3. Pantoprazole 40 mg p.o. b.i.d. 4. Magnesium oxide 500 to 1000 mg p.o. daily. 5. Aspirin 81 mg p.o. daily. 6. Calcium carbonate 2 tabs p.o. daily. 7. Clonazepam 0.5 mg at bedtime as needed for restless leg. 8. Multivitamin 1 tab p.o. daily. 9. Docusate 300 mg p.o. daily. 10. Duloxetine 30 mg p.o. daily. 11. Oxybutynin 10 mg p.o. daily. 12. Metoprolol 50 mg p.o. at bedtime. 13. Clopidogrel 75 mg p.o. daily. 14. Keppra 250 mg p.o. daily. 15. Atorvastatin 40 mg p.o. daily. 16. Oxaprozin 600 mg Friday, Friday, and Friday for arthritis. ALLERGIES: 1. DOXYCYCLINE. 2. PENICILLIN. 3. FOSAMAX. 4. SULFA. 5. ACTONEL. 6. DEMEROL. 7. SCOPOLAMINE. FAMILY HISTORY: Father from a stroke in his 80s. Sister had breast cancer. Mother from leukemia. SOCIAL HISTORY: The patient denies any tobacco, alcohol, or illicit drug use. She is . She lives at [facility], in independent living with her . Surrogate decision maker in the event she is unable to make her own decisions is her or her children. She is a full code. REVIEW OF SYSTEMS: The patient reports fever and chills. Denies any chest pain or edema. She denies any cough or hemoptysis. She does report a little shortness of breath. She does report nausea and vomiting. No diarrhea or abdominal pain. No gross hematuria or dysuria. She does report a little bit of pain before and after urination. Denies any weakness or sensory loss, any visual complaints, dysphagia. She does report generalized muscle and joint aches today. She denies any rashes, lesions, or open sores. Denies any psychosis or anxiety. PHYSICAL EXAMINATION GENERAL: At this time, Ms. Quick is an 82-year-old female, she is alert and oriented, resting on the stretcher in the emergency room, she is in no acute distress. VITAL SIGNS: Temperature was 102.2, heart rate is 75, respirations are 19, O2 saturation 98%, blood pressure was 116/69. HEENT: Head is atraumatic, normocephalic. Eyes: EOMs are intact. Sclerae anicteric and not pale. Oral mucosa appeared to be moist. NECK: Supple. LUNGS: Clear to auscultation bilaterally. No wheezes, rales, or rhonchi. CARDIAC: S1, S2. Regular rate and rhythm. No murmurs, rubs, or gallops. ABDOMEN: Soft and nontender. Bowel sounds are present x4. She has no CVA tenderness. EXTREMITIES: She is able to move all 4 extremities with 5/5 strength. There is no clubbing or cyanosis. Pedal pulses are +2 bilaterally. NEUROLOGIC: She is awake, alert, and oriented x3. Speech is clear. Thought process is intact. There are no gross focal deficits. SKIN: Intact. DIAGNOSTIC STUDIES/LAB DATA: WBCs are 15.3, RBCs 3.91, hemoglobin 12.2, hematocrit 37, platelet count 199. Sodium 136, potassium 3.9, chloride 103, carbon dioxide 26, anion gap of 7, BUN 22, creatinine 0.89. Glucose 121. Lactic acid 1.1. Calcium 9.1. Total bilirubin 1.20. ASTs were 14, ALTs were 12, alkaline phosphatase was 60. Troponin was 0.00. C-reactive protein was 16.92. Lipase was less than 10. Urine color was yellow, cloudy, pH was 7.0, specific gravity 1.013, urine protein was 1+; ketones and blood were negative; nitrites were positive; bilirubin and urobilinogen were negative; leukocyte esterase was 3+, wbc's were 3+, rbc's were 2+, bacteria was 1+, glucose was negative, ascorbic acid was positive. She had a chest x-ray, radiologist's impression: No active cardiopulmonary disease. She had an abdominal x-ray, radiologist's impression: No evidence of acute cardiopulmonary disease, no radiographic evidence of acute abnormality of the abdomen. She had an electrocardiogram, which showed sinus rhythm at a rate of 89. She does have T-wave inversions in V3 and lead III, which are chronic. ASSESSMENT AND PLAN: Ms. Quick is an 82-year-old female who presented to the emergency room complaining of shaking chills and fever with nausea and vomiting. She was found to have a urinary tract infection. She will be admitted for sepsis, inpatient. 1. Sepsis. The patient meets sepsis with leukocytosis and white count of 15, 000 and a fever of 102.2 and suspected source of a urinary tract infection. The patient was given 1 g of ceftriaxone in the emergency room. She will continue on ceftriaxone 1 g IV q.24 hours. I will continue normal saline at 75 cc an hour per 1 liter. 2. History of seizures. I will place her seizure precautions. I will continue her Keppra at 250 mg p.o. b.i.d. 3. History of coronary artery disease. She will continue on her metoprolol, Plavix, aspirin, and atorvastatin as previously prescribed. 4. History of transient ischemic attack. The patient will continue on aspirin , atorvastatin, and Plavix as previously prescribed. 5. Gastroesophageal reflux disease. She will continue on omeprazole 40 mg p.o. b.i.d. 6. Hyperlipidemia. She will continue on atorvastatin 40 mg p.o. daily. 7. Code status. She is a full code. 8. DVT prophylaxis. I will place her on Lovenox subcu. 9. FEN. She can have heart healthy, caffeine okay diet. TIME SPENT: Time spent on this admission was approximately 60 minutes, greater than half that time was spent at the bedside reviewing events leading thus far to her hospitalization, performing physical exam, reviewing my plan of care. I have discussed this with my attending Dr. Yumi Millan, she is in agreement with my plan. DIANA DIONNA, FRONT OFFICE REPRESENTATIVE [id number]/[facility] #: [id number] MTDD
[2018-07-18] MEDS: Acetaminophen TAB* 325 MG PO PRN (19:48)
[2018-07-18] MEDS: Pantoprazole TAB * 40 MG TAB PO SCH (20:17)
[2018-07-18] MEDS: Metoprolol Succinate XL TAB* 50 MG PO SCH (20:17)
[2018-07-18] MEDS: Atorvastatin* 40 MG TAB PO SCH (20:17)
[2018-07-18] MEDS ORDERED: Ondansetron INJ* 2 MG/ML VIAL IV PRN (20:40)
[2018-07-18] MEDS ORDERED: LEVETIRACETAM 250 MG PO SCH (21:00)
[2018-07-18] MEDS ORDERED: NS 0.9% 250 ML* 250 ML IV ONE (23:30)
[2018-07-19] MEDS: Levothyroxine TAB* 75 MCG TAB PO SCH (05:43)
[2018-07-19 05:59] LABS: ABS Lymphocytes 1.2 10^3/ul (1.0-4.8); ABS Monocytes 0.9 10^3/ul (0-0.8); ABS Neutrophils 9.7 10^3/ul (1.5-7.7); Hematocrit 32 % (35-47); Hemoglobin 10.2 g/dL (12.0-16.0); Lymphocyte % 10.5 %; Mean Corpuscular HGB Conc 33 g/dL (31-36); Mean Corpuscular Hemoglobin 31 pg (27-31); Mean Corpuscular Volume 96 fL (80-97); Mean Platelet Volume 7.1 fL (7.4-10.4); Platelet Count 179 10^3/uL (150-450); Red Blood Count 3.28 10^6 /uL (3.70-4.87); Red Cell Distribution Width 14 % (10.5-15); White Blood Count 11.8 10^3/uL (3.5-10.8)
[2018-07-19 06:24] LABS: BUN/Creatinine Ratio 24.4 (8-20); Calcium 8.2 mg/dL (8.6-10.3); EGFR Non-African American 66.9 (>60); Potassium 3.8 mmol/L (3.5-5.0)
[2018-07-19] MEDS: Oxybutynin TAB* 5 MG PO SCH (08:11)
[2018-07-19] MEDS: Clopidogrel TAB* 75 MG PO SCH (08:11)
[2018-07-19] MEDS: levETIRAcetam TAB* 500 MG PO SCH ×2 (08:13→21:37)
[2018-07-19] MEDS: DULoxetine DR CAP* 30 MG CAP.DR PO SCH (08:13)
[2018-07-19] MEDS: Multivitamins/Minerals TAB PO SCH (08:13)
[2018-07-19] MEDS: Aspirin 81 mg CHEW TAB* 81 MG TAB.CHEW PO SCH (08:13)
[2018-07-19] MEDS: Pantoprazole TAB * 40 MG TAB PO SCH ×2 (08:13→21:39)
[2018-07-19] MEDS: Docusate CAP* 100 MG PO SCH (08:28)
[2018-07-19] MEDS ORDERED: Docusate CAP* 100 MG PO SCH ×2 (09:00→21:00)
[2018-07-19] MEDS: cefTRIAXone(*) 1 GM in NS 0.9% 50 ML* 50 ML IVPB SCH (14:01)
[2018-07-19] MEDS: Enoxaparin(*) 40 MG/0.4 ML SYR SUBCUT SCH (16:11)
[2018-07-19] MEDS: Atorvastatin* 40 MG TAB PO SCH (21:37)
[2018-07-19] MEDS: Metoprolol Succinate XL TAB* 50 MG PO SCH (21:39)
[2018-07-19] MEDS: Acetaminophen TAB* 325 MG PO PRN (21:39)
[2018-07-20] MEDS: Levothyroxine TAB* 75 MCG TAB PO SCH (05:13)
[2018-07-20 09:53] LABS: ABS Eosinophils 0.1 10^3/ul (0-0.6); ABS Lymphocytes 0.9 10^3/ul (1.0-4.8); ABS Monocytes 0.5 10^3/ul (0-0.8); ABS Neutrophils 5.4 10^3/ul (1.5-7.7); Eosinophil % 0.9 %; Hematocrit 34 % (35-47); Hemoglobin 11.5 g/dL (12.0-16.0); Lymphocyte % 13.3 %; Mean Corpuscular HGB Conc 33 g/dL (31-36); Mean Corpuscular Hemoglobin 32 pg (27-31); Mean Corpuscular Volume 95 fL (80-97); Platelet Count 190 10^3/uL (150-450); Red Blood Count 3.61 10^6 /uL (3.70-4.87); Red Cell Distribution Width 14 % (10.5-15); White Blood Count 6.9 10^3/uL (3.5-10.8)
[2018-07-20 10:09] LABS: BUN/Creatinine Ratio 22.4 (8-20); Calcium 8.6 mg/dL (8.6-10.3); EGFR African American 88.4 (>60); Potassium 3.2 mmol/L (3.5-5.0)
[2018-07-20] MEDS: Oxybutynin TAB* 5 MG PO SCH (10:12)
[2018-07-20] MEDS: Docusate CAP* 100 MG PO SCH (10:12)
[2018-07-20] MEDS: levETIRAcetam TAB* 500 MG PO SCH (10:12)
[2018-07-20] MEDS: Multivitamins/Minerals TAB PO SCH (10:12)
[2018-07-20] MEDS: DULoxetine DR CAP* 30 MG CAP.DR PO SCH (10:14)
[2018-07-20] MEDS: Aspirin 81 mg CHEW TAB* 81 MG TAB.CHEW PO SCH (10:14)
[2018-07-20] MEDS: Pantoprazole TAB * 40 MG TAB PO SCH (10:14)
[2018-07-20] MEDS: Clopidogrel TAB* 75 MG PO SCH (10:14)
[2018-07-20] MEDS: cefTRIAXone(*) 1 GM in NS 0.9% 50 ML* 50 ML IVPB SCH (14:34)
[2018-07-20] MEDS ORDERED: Potassium Chlor TAB* 20 MEQ TAB.ER PO ONE (16:00)
[2018-07-20] MEDS: Enoxaparin(*) 40 MG/0.4 ML SYR SUBCUT SCH (16:24)
[2018-07-20 17:04] VITALS: BP 107/61
--- NOTE | 2018-07-21 06:18 | DS ---
CC: Dr. Hernández * DISCHARGE SUMMARY: DATE OF ADMISSION: 07/18/18 DATE OF DISCHARGE: 07/20/18 ATTENDING PROVIDER: Dr. Gonzalez * (DICTATED BY DURAN BRO) PRIMARY DIAGNOSIS: Urosepsis. SECONDARY DIAGNOSES: 1. [id number] myocardial infarction in 2018. 2. Transient ischemic attack in 2018. 3. Left ventricular thrombus in 2018. 4. Obstructive sleep apnea. 5. Hypothyroidism. 6. History of prolapsed bladder, status post surgical repair. 7. Gastroesophageal reflux disease. 8. Congestive heart failure with reduced EF, EF of 30%to 35%. 9. Seizures. STUDIES: EKG on 07/18/18, sinus rhythm 89 beats per minute, no ST-elevation or depression. No T-wave changes. Abdomen x-ray on 07/18/18, no evidence of acute disease. No apparent acute abnormalities of the abdomen. Chest x-ray on 07/18/18, no acute cardiopulmonary disease. PERTINENT LABS: White blood cell count on 07/18/18 is 15.3, white blood count on day of discharge 6.9, potassium 3.2, lactic acid 1.1. Urine culture, E. coli , pansensitive. DISCHARGE MEDICATIONS: 1. Cefdinir 300 mg p.o. q.12 hours x5 days. CONTINUED HOME MEDICATIONS: 1. Lipitor 40 mg p.o. daily. 2. Levetiracetam 250 mg p.o. b.i.d. 3. Plavix 75 mg daily. 4. Metoprolol succinate 50 mg p.o. at bedtime. 5. Oxybutynin 10 mg p.o. daily. 6. Oxaprozin 600 mg p.r.n. 3 times a week. 7. Tylenol 500 mg p.o. q.4 hours p.r.n. pain. 8. Duloxetine 30 mg p.o. daily. 9. Docusate 300 mg p.o. daily. 10. Multivitamin tab. 11. Clonazepam 0.5 mg daily p.r.n. for restless legs. 12. Calcium and vitamin D supplement 2 tabs p.o. daily. 13. Synthroid 75 mcg p.o. daily. 14. Aspirin 81 mg p.o. daily. 15. Magnesium oxide 500 to 1000 mg p.o. daily. 16. Zofran 4 mg p.o. q.8 hours p.r.n. nausea, vomiting. 18. Protonix 40 mg p.o. b.i.d. HISTORY OF PRESENT ILLNESS/HOSPITAL COURSE: The patient is an 82-year-old female with past medical history significant for TIA, NSTEMI, recurrent UTIs, history of prolapsed bladder and congestive heart failure with reduced ejection fraction, who presented to the emergency department on 07/18/18 due to chills. Please see history and physical by Elissa Cash NP for further information. She was found to have temperature of 101.2 degrees Fahrenheit and positive urinalysis. She met sepsis criteria due to her fever and leukocytosis , presumed urinary tract infection. She was treated empirically with ceftriaxone and given IV fluid. Her signs of sepsis later resolved as her vital signs returned to normal and she became afebrile. Her leukocytosis resolved. Her urine culture grew E. Coli that was pansensitive. On the day of discharge, the patient's symptoms were resolved. She denies fever, chills. She denied dysuria, hematuria, abdominal pain, pain and flank pain, chest pain, shortness of breath. During her hospital stay, she was continued her home medications for seizure of levetiracetam. She is continued her on home treatment for coronary artery disease with atorvastatin, Plavix, metoprolol , aspirin, and magnesium oxide. She was continued on her home Synthroid. REVIEW OF SYSTEMS: An 11-point review of systems was completed and all pertinent positives and negatives are above in the HPI. All other systems are negative. PHYSICAL EXAM: General: Elderly white female, sitting over side of the bed, appearing in no acute distress. Eyes: PERRL. Sclerae anicteric. ENT: Mucous membranes moist. Neck: Supple without JVD. Cardiac: Regular rate and rhythm without murmurs, rubs, or gallops. Pulm: Lungs are clear to auscultation throughout. Abdomen: Abdomen is soft, nontender, nondistended. Negative tenderness in the suprapubic region. No CVA tenderness. Extremities: No clubbing, cyanosis or edema. Neuro: The patient is alert and oriented x3. No focal deficit. Gait, steady with walker. Skin: Skin is warm, dry and intact. Psych: The patient is pleasant and cooperative. DISCHARGE PLAN: Diet: Heart healthy diet. Activity: The patient may return to regular activity. The patient was advised to follow up with her primary care provider within 1 week. She is to take her antibiotics of Cefdinir until completion. She was advised to return to the emergency department if she again have fever or chills , dysuria, hematuria, suprapubic pain. Discussed proper hydration and proper hygiene in the prevention of future UTIs. The patient is to continue her home medication for coronary artery disease of Plavix, metoprolol, aspirin, Lipitor. For history of her bladder prolapse, she is to continue her oxaprozin and oxybutynin. For her hypothyroidism, she is continue her levothyroxine. For history of seizures to continue her home levetiracetam. At time of follow up with her primary care provider, it is recommended that a BMP be drawn to followup potassium level as the patient had one time of hypokalemia during her hospital stay. CONDITION ON DISCHARGE: Stable. DISPOSITION: Home. TIME SPENT: Approximately 45 minutes was spent on the this discharge, approximately half of this time was spent at bedside. DURAN BRO [id number]/[facility] #: [id number] MTDFelipa
== END 2018-07-20 18:33 | disposition home or self-care (01) | DRG 872 ==
LOC: ED 08:55 → MEDTELE 15:11
PROVIDERS: ADMIT Internal Medicine; ATTEND Internal Medicine
DX: A41.9 Sepsis, unspecified organism (principal); N39.0 Urinary tract infection, site not specified; I50.9 Heart failure, unspecified; B96.20 Unspecified Escherichia coli [E. coli] as the cause of diseases classified elsewhere; G47.33 Obstructive sleep apnea (adult) (pediatric); E03.9 Hypothyroidism, unspecified; K21.9 Gastro-esophageal reflux disease without esophagitis; G40.909 Epilepsy, unspecified, not intractable, without status epilepticus; M54.5 Low back pain; I25.2 Old myocardial infarction; W18.30XA Fall on same level, unspecified, initial encounter; Y92.009 Unspecified place in unspecified non-institutional (private) residence as the place of occurrence of the external cause; Z86.73 Personal history of transient ischemic attack (TIA), and cerebral infarction without residual deficits; Z87.440 Personal history of urinary (tract) infections; Z79.1 Long term (current) use of non-steroidal anti-inflammatories (NSAID); Z79.82 Long term (current) use of aspirin; Z79.899 Other long term (current) drug therapy; Z88.1 Allergy status to other antibiotic agents; Z88.0 Allergy status to penicillin; Z88.2 Allergy status to sulfonamides; Z88.8 Allergy status to other drugs, medicaments and biological substances; Z82.3 Family history of stroke; Z80.3 Family history of malignant neoplasm of breast; Z80.6 Family history of leukemia
CPT/HCPCS: 36415; 71046; 74019; 80048; 80053; 81003; 81015; 83605; 83690; 83880; 84484; 85025; 86140; 87040; 87077; 87086; 87186; 93005; 99285; A9270-GY; J0696; J1650; J2405

== ENCOUNTER 2018-11-12 20:38 | Emergency (ER) | payer MEDICARE, BC ==
--- OUTSIDE RECORDS SUMMARY | 2018-11-12 20:49 | XMS REPORT | Summary of Care ---
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 Mouth/Lip Problem Patient has been causing dry mouth. Encounter Details Date Type Department Care Team Description 10/01/2018 Office Visit Brian Singletary Fibromyalgia ( Primary Dx); Yonathan Umana MD Essential hypertension; [address] Other specified hypothyroidism; [place] [place] [id number] [place] [address] Partial seizure disorder (HCC); [phone] Primary osteoarthritis involving multiple joints; [phone] 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) (Fax) Allergies Active Allergy Reactions Severity Noted Date Comments Risedronate-Calcium GI Reaction Medium 01/21/2007 Carbonate Demerol Cardiac Reaction High 02/16/2013 Doxy GI Reaction 01/27/2017 Nausea and vomiting Fosamax GI Reaction Medium 01/21/2007 Penicillins Hives 02/23/2007 Sulfacetamide Sodium Hives 02/23/2007 documented as of this encounter (statuses as of 10/01/2018) Medications Medication Sig Dispensed Refills Start Date End Date Status daily vitamin PO TABS Take 1 Tab by mouth 0 Active DAILY. ALUMINUM HYDROXIDE Take 600 mg by 1 1 07/08/2007 Active 600 MG/5ML Oral mouth FOUR TIMES SuspensionIndications DAILY NEEDED : Dyspepsia stomach pain CALCIUM-CARB 600 PO Take 2 Tabs by 0 Active mouth DAILY. Fluocinonide 1 Appl by Apply 60 g 5 09/17/2012 Active Emulsified Base 0.05 externally route % Apply externally TWICE DAILY. CreamIndications: Eczema Additional information Patient taking differently: 1 Appl Apply externally BID PRN, Reported on 11/14 3:04 PM Trolamine Salicylate 10 Inches by Apply 0 Active (ASPERCREME) 10 % externally route Apply externally NEEDED. Lotion Dentifrices (BIOTENE by Dental route 0 Active DRY MOUTH NEEDED. DT)Indications: Dry mouth Lysine 1000 MG Oral Take 1 Tab by 0 Active Tab mouth NEEDED. Psyllium (METAMUCIL) Take 3 Caps by 0 Active 0.52 g Oral Cap mouth DAILY NEEDED. Aspirin 81 MG Oral Tab Take by mouth 0 Active EC DAILY. atorvastatin (LIPITOR) Take 1 Tab by 90 Tab 5 11/15/19 Active 40 MG Oral Tab mouth EVERY 18 BEDTIME. levetiracetam (KEPPRA) Take 1 Tab by 180 Tab 5 11/15/19 Active 250 MG Oral Tab mouth TWICE DAILY. 18 levothyroxine Take 1 Tab by 90 Tab 3 12/11/19 Active (SYNTHROID) 75 MCG mouth BEFORE 18 Oral Tab BREAKFAST. clopidogrel (PLAVIX) Take 1 Tab by 90 Tab 3 01/02/20 Active 75 MG Oral Tab mouth DAILY. 18 metoprolol succinate Take 1 Tab by 90 Tab 3 03/20/19 Active (TOPROL XL) 50 MG Oral mouth EVERY 19 TABLET SR 24 BEDTIME. HRIndications: Chronic systolic CHF (congestive heart failure) ([facility]) oxaprozin (DAYPRO) 600 Take 600 mg by 0 Active MG Oral Tab mouth THREE TIMES PER WEEK. ranitidine (ZANTAC 150 Take 150 mg by 0 Active MAXIMUM STRENGTH) 150 mouth EVERY MG Oral Tab BEDTIME. acetaminophen Take 2 Tabs by 60 Tab 0 04/16/19 Active (TYLENOL) 500 MG Oral mouth EVERY 19 Tab BEDTIME. pantoprazole TAKE 1 TABLET BY 180 Tab 3 08/28/19 Active (PROTONIX) 40 MG Oral MOUTH TWICE A DAY 19 Tab ECIndications: Reflux esophagitis oxybutynin (DITROPAN Take 1 Tab by 90 Tab 5 08/27/19 Active XL) 10 MG Oral TABLET mouth DAILY. 19 SR 24 HR duloxetine (CYMBALTA) Take 1 Cap by 90 Cap 5 10/02/19 Active 60 MG Oral CAPSULE mouth DAILY. 19 ENTERIC COATED PARTICLES nitrofurantoin Take 100 mg by 0 10/02/19 Discontinued monohydrate mouth TWICE DAILY. 19 (Provider macrocrystal Discontinued) (MACROBID) 100 MG Oral Cap duloxetine (CYMBALTA) Take 1 Cap by 60 Cap 4 08/27/19 10/02/19 Discontinued 30 MG Oral CAPSULE mouth DIRECTED. 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 Target Range: 2.0-3.0 Duration: Indefinite Additional factors influencing anticoagulation: LV thrombus seen on echo post NSTEMI 10/25/2017 Aspirin increases bleeding risk Duloxetine increases warfarin level Levothyroxine increases warfarin effect Oxaprozin increases bleeding risk Initial Referral: 10/31/17 Initial ACS Orders: 11/05/17 Left ventricular apical thrombus following SD 10/31/2017 Essential hypertension 06/05/2017 Other specified hypothyroidism 12/13/2016 Acquired hallux valgus of right foot 11/15/2015 REM sleep behavior disorder 11/01/2015 Overview: REM atonia diagnosis made by Dr Brennan neurology [facility] Treated by Anu bowers at bedtime Primary osteoarthritis involving multiple joints 06/07/2015 Chondrocalcinosis 06/07/2015 Postmenopausal atrophic vaginitis 12/20/2014 Postlaminectomy syndrome, lumbar region 11/01/2013 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 White coat hypertension 03/08/2010 Degenerative lumbar spinal stenosis 05/16/2008 Overview: Decompressive laminectomy 02/2008 Dr Cadena [facility] phone [phone] Spinal stenosis, lumbar region, without neurogenic claudication 05/19/2007 Overview: MRI and CT myelogram 2006 MRI [facility] 10/[address] Ashutosh Cadena: s/p L3-5 laminectomy, L5-S1 mild spinal stenosis, L4-5 osteoarthritis with facet arthropathy, bilateral neural foraminal narrowing L4-5, right foraminal stenosis L3-4 Chronic low back pain 02/23/2007 Overview: [facility] 2013 s/p lumbar transforaminal steroid block Dr Spencer Jones [place] [facility] [place] Vitamin D deficiency 02/23/2007 Fibromyalgia 01/21/2007 Irritable bowel syndrome 01/21/2007 Mixed hyperlipidemia 01/21/2007 Reflux esophagitis 06/21/2005 Personal history of skin cancer 06/17/1996 Overview: S/p left face skin biopsy History of non-ST elevation myocardial infarction (NSTEMI) History of CVA in adulthood documented as of this encounter (statuses as of 10/01/2018) Resolved Problems Problem Noted Date Resolved Date Cerebrovascular accident (CVA) due to embolism of left 10/31/2017 06/02/2018 middle cerebral artery Injury of left wrist 11/15/2016 06/05/2017 Low back pain radiating to both legs 11/01/2013 12/16/2013 Medial meniscus tear 11/26/2012 12/16/2013 Arthritis of wrist, right, degenerative involving the STT 07/15/20122017 joint Degenerative arthritis of right thumb MPJ 07/15/2012 06/05/2017 Knee osteoarthritis 04/23/2012 04/16/2018 Overview: Left knee hylgan injections and arthroscopic surgery Dr dottie Ol[place], [place] 2009 Sleep disorder 06/26/2011 06/05/2017 Overview: REM atonia diagnosis made by Dr Brennan neurology [facility] Treated by Anu bowers at bedtime Left knee DJD 10/02/2009 12/16/2013 Obesity (BMI 30-39.9) 11/04/2008 06/26/2011 Overview: BMI 33 10/26 Replaced inactive diagnosis Osteoporosis 10/06/2008 06/26/2011 Overview: DEXA 06/25 Obstructive sleep apnea 10/29/2007 06/26/2011 Insomnia 10/13/2007 06/26/2011 Overview: Nocturnal polysomnogram negative 09/24. Carpal tunnel syndrome 02/23/2007 06/26/2011 Overview: Bilateral carpal tunnel surgery 1979 and 1980. Recurrance 2008: moderate median nerve entrapment Dr Brennan 10/26 Dysthymic disorder 02/23/2007 08/26/2018 Leg cramps 02/23/2007 01/22/2012 Unspecified hypothyroidism 01/21/2007 12/13/2016 Migraine variant 01/21/2007 10/06/2008 Osteoarthritis of lumbar spine 01/21/2007 01/22/2012 Photoaging of skin 01/23/1999 06/26/2011 Lyme disease 12/10/2017 Seizure disorder 04/16/2018 documented as of this encounter (statuses as of 10/01/2018) Immunizations Name Administration Dates Next Due Celestone Soluspan(12mg) 12/22/2008 Depo Medrol (40mg) 09/30/2012 Depo Medrol (80mg) 11/29/2010 H1N1 Injectable Adult 02/21/2009 Hyalgan (20 mg) 07/31/2011, 10/17/2009, 10/02/2009, 03/02/2009 Influenza (IM) Preservative Free 12/08/2012, 11/12/2009, 11/19/2008 Influenza Vaccine High Dose 11/17/2017, 10/31/2016, 11/21/2015, 11/24/2014, 10/18/2013 Influenza Vaccine Whole 11/13/2011, 12/10/2006 Influenza Virus Vaccine - Whole 11/17/2005 PNEUMOCOCCAL POLYSACCHARIDE VACCINE 02/18/2007 Pneumococcal Conjugate(13 Valent) 03/08/2014 TDAP Vaccine 11/13/2009 TETANUS & DIPHTHERIA TOXOID (OVER 7 08/23/2005 YRS) ZOSTER (ZOSTAVAX) VACCINE 02/18/2007 documented as of this encounter Social History Tobacco Use Types Packs/Day Years Used Date Never Smoker Smokeless Tobacco: Never Used Alcohol Use Drinks/Week oz/Week Comments No 0 Standard drinks or equivalent 0.0 Sex Assigned at Date Recorded Not on file Job Start Date Occupation Industry Not on file Not on file Not on file Travel History Travel Start Travel End No recent travel history available. documented as of this encounter Last Filed Vital Signs Vital Sign Reading Time Taken Comments Blood Pressure 124/60 10/01/2018 1:53 PM EDT Pulse 64 10/01/2018 1:53 PM EDT Temperature - - Respiratory Rate - - Oxygen Saturation - - Inhaled Oxygen Concentration - - Weight 59.9 kg (132 lb) 10/01/2018 1:53 PM EDT Height 147.3 cm (4' 10") 10/01/2018 1:53 PM EDT Body Mass Index 27.59 10/01/2018 1:53 PM EDT documented in this encounter Patient Instructions Patient InstructionsBrian Hernández MD - 10/01/2018 1:40 PM EDTContinue duloxitene 60 mg in am Reduce calcium to one in am You are doing well overallElectronically signed by Brian Hernández MD at 2:11 PM EDT documented in this encounter Progress Notes Brian Hernández MD - 10/01/2018 1:40 PM EDT PATIENT: Opal Quick : 1935 DATE OF SERVICE: 10/01/2018 CHIEF COMPLAINT: Chief Complaint Patient presents with Depression patient states that fluoxetine has helped alot. Mouth/Lip Problem Patient has been causing dry mouth. Subjective HISTORY OF PRESENT ILLNESS: Opal Quick is a 83-y.o. female. HPI Here with son follow up to depression and fibromyalgia She is now up to duloxitene 60 mg and feels the muscular and osteoarthritis pain is 25% better she is also doing daily physical therapy exercise Balance class at [employer] and this helps as well she is moving better stronger in her legs using wheeled walker and denies falls Her mood is better less anhedonia and mor patient with her her sleep is now fine no sleep aids Patient Active Problem List Diagnosis Reflux esophagitis Fibromyalgia Irritable bowel syndrome Mixed hyperlipidemia Chronic low back pain Vitamin D deficiency Spinal stenosis, lumbar region, without neurogenic claudication Degenerative lumbar spinal stenosis Personal history of skin cancer White coat hypertension SLAC (scapholunate advanced collapse) wrist Postlaminectomy syndrome, lumbar region Postmenopausal atrophic vaginitis Primary osteoarthritis involving multiple joints Chondrocalcinosis REM sleep behavior disorder Acquired hallux valgus of right foot Other specified hypothyroidism Essential hypertension Left ventricular apical thrombus following SD (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 History of non-ST elevation myocardial infarction (NSTEMI) 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 ALUMINUM HYDROXIDE 600 MG/5ML Oral Suspension Take 600 mg by mouth FOUR TIMES DAILY NEEDEDstomach pain Aspirin 81 MG Oral Tab EC Take by mouth DAILY. atorvastatin (LIPITOR) 40 MG Oral Tab Take 1 Tab by mouth EVERY BEDTIME. CALCIUM-CARB 600 PO Take 2 Tabs by mouth DAILY. clopidogrel (PLAVIX) 75 MG Oral Tab Take 1 Tab by mouth DAILY. daily vitamin PO TABS Take 1 Tab by mouth DAILY. Dentifrices (BIOTENE DRY MOUTH DT) by Dental route NEEDED. duloxetine (CYMBALTA) 60 MG Oral CAPSULE ENTERIC COATED PARTICLES Take 1 Cap by mouth DAILY. Fluocinonide Emulsified Base 0.05 % Apply externally Cream 1 Appl by Apply externally route TWICE DAILY. (Patient taking differently: 1 Appl by Apply externally route TWO TIMES DAILY NEEDED.) levetiracetam (KEPPRA) 250 MG Oral Tab Take 1 Tab by mouth TWICE DAILY. levothyroxine (SYNTHROID) 75 MCG Oral Tab Take 1 Tab by mouth BEFORE BREAKFAST. Lysine 1000 MG Oral Tab Take 1 Tab by mouth NEEDED. metoprolol succinate (TOPROL XL) 50 MG Oral TABLET SR 24 HR Take 1 Tab by mouth EVERY BEDTIME. oxaprozin (DAYPRO) 600 MG Oral Tab Take 600 mg by mouth THREE TIMES PER WEEK. oxybutynin (DITROPAN XL) 10 MG Oral TABLET SR 24 HR Take 1 Tab by mouth DAILY. pantoprazole (PROTONIX) 40 MG Oral Tab EC TAKE 1 TABLET BY MOUTH TWICE A DAY Psyllium (METAMUCIL) 0.52 g Oral Cap Take 3 Caps by mouth DAILY NEEDED. ranitidine (ZANTAC 150 MAXIMUM STRENGTH) 150 MG Oral Tab Take 150 mg by mouth EVERY BEDTIME. Trolamine Salicylate (ASPERCREME) 10 % Apply externally Lotion 10 Inches by Apply externally route NEEDED. No current facility-administered medications for this visit. Allergies Allergen Reactions Demerol Cardiac Reaction Actonel With Calcium [Risedronate-Calcium Carbonate] GI Reaction Fosamax GI Reaction Doxy GI Reaction Nausea and vomiting Pcn [Penicillins] Hives Sulfacetamide Sodium Hives Social History Socioeconomic History Marital status: Spouse name: Not on file Number of children: Not on file Years of education: Not on file Highest education level: Not on file Occupational History Not on file Social Needs Financial resource strain: Not on file Food insecurity: Worry: Not on file Inability: Not on file Transportation needs: Medical: Not on file Non-medical: Not on file Tobacco Use Smoking status: Never Smoker Smokeless tobacco: Never Used Substance and Sexual Activity Alcohol use: No Alcohol/week: 0.0 standard drinks Drug use: No Sexual activity: Yes Partners: Male Lifestyle Physical activity: Days per week: Not on file Minutes per session: Not on file Stress: Not on file Relationships Social connections: Talks on phone: Not on file Gets together: Not on file Attends latter-day service: Not on file Active member of club or organization: Not on file Attends meetings of clubs or organizations: Not on file Relationship status: Not on file Intimate partner violence: Fear of current or ex partner: Not on file Emotionally abused: Not on file Physically abused: Not on file Forced sexual activity: Not on file Other Topics Concern Back Care Not Asked Bike Helmet Not Asked Blood Transfusions Not Asked Caffeine Concern Not Asked Exercise Yes Comment: walks daily Hobby Hazards Not Asked International Travel Not Asked Service Not Asked Occupational Exposure Not Asked Seat Belt Not Asked Self-Exams Not Asked Sleep Concern Not Asked Special Diet Not Asked Stress Concern Not Asked Weight Concern Not Asked Social History Narrative Lives in [place] with ROS no gastro-intestinal or cardiovascular symptoms Objective PHYSICAL EXAM: VITALS: BP 124/60 | Pulse 64 | Ht 4' 10" (1.473 m) | Wt 132 lb (59.9 kg) | BMI 27.59 kg/m Body mass index is 27.59 kg/m. Physical Exam Mental status exam; she is alert, orient to time, person and place. Normal thought content, speech, affect, mood and dress are noted. S1 and S2 normal, no murmurs, clicks, gallops or rubs. Regular rate and rhythm. Chest is clear; no wheezes or rales. No edema or JVD. ASSESSMENT / IMPRESSION: ICD-9-CM ICD-10-CM 1. Fibromyalgia in remission continue duloxitene 729.1 M79.7 2. Essential hypertension at goal no medications 401.9 I10 3. Other specified hypothyroidism continue current medications 244.8 E03.8 4. Partial seizure disorder (HCC) stable continue current medications 345.50 G40.109 5. Primary osteoarthritis involving multiple joints stable continue current medications 715.09 M15.0 6. 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) continue duloxitene 296.26 F32.5 Patient Instructions Continue duloxitene 60 mg in am Reduce calcium to one in am You are doing well overall Brian Hernández MD 10/01/2018 14:12 documented in this encounter Plan of Treatment Date Type Specialty Care Team Description 10/08/2018 Office Visit Urology Williams Law MD [address] [place] [address] [phone] 12/01/2018 Office Visit Internal Medicine Brian Hernández MD [address] [place] [id number] Health Maintenance Due Date Last Done Comments ZOSTER IMMUNIZATION SERIES 04/15/2007 02/18/2007 (2 of 3) PAP SMEAR 02/20/2009 02/20/2007, 02/04/2005, 02/01/2004, Additional history exists MEDICARE ANNUAL WELLNESS 11/25/2015 11/24/2014, 11/24/2014, VISIT 06/26/2012, Additional history exists INFLUENZA VACCINE (#1) 2018 11/17/2017, 10/31/2016, 11/21/2015, Additional history exists FALL RISK ASSESSMENT 03/20/2019 03/20/2018, 03/20/2018 DEPRESSION SCREENING 09/02/2019 09/01/2018, 09/01/2018 PNEUMOCOCCAL 65+YRS Completed 03/08/2014, 02/18/2007 HPV IMMUNIZATION SERIES Aged Out No longer eligible based on patient's age to complete this topic MENINGOCOCCAL VACCINE IMM Aged Out No longer eligible based on patient's age to complete this topic documented as of this encounter Goals Goal Patient Goal Associated Recent Patient-Stated? Author Type Problems Progress Blood Pressure Blood Pressure 124/60 No Betty, < 150/90 (10/01/2018 Brian Umana, 1:53 PM EDT) Note: This is an individualized treatment (blood pressure) goal for Opal Quick: Displayed above (on the left) is your goal for blood pressure control. Your most recent blood pressure is also shown above, on the right. You should try to achieve blood pressures that are lower than your goal listed above (on the left). Weight increase vs. 18 mo CHF 6 (10/01/2018 1:53 PM EDT) Brian Cordoba MD min (lbs) < 5 Note: This is an individualized treatment (congestive heart failure, CHF) goal for Opal Quick: Displayed above (on the right) is how many pounds you are in excess of your lowest weight over the past 18 months. Note that lower numbers are better. Excessive weight gain often indicates fluid reten tion and worsening heart failure. You should contact your doctor immediately if the above number is too high (above your goal, the number on the left). Depression screen Depression 4 (09/01/2018 11:48 AM Brian Cordoba, (PHQ-9) total score < 5 EDT) Note: This is an individualized treatment (depression) goal for Opal Quick: Displayed above is your goal for a depression screening (PHQ-9) score that would indicate good control of your depression. Keep a regular sleep schedule Lifestyle Brian Cordoba MD Note: This is an individualized lifestyle goal for Opal Quick: Please maintain a regular sleep schedule. This may help with some symptoms of depression. Consume a gr-vegko-xbwi diet Lifestyle Brian Cordoba MD Note: This is an individualized lifestyle goal for Opal Quick: Please do not add additional salt to your food. Additional salt may lead to fluid retention and worsen your congestive heart failure. Take all prescribed medications as Self-management Brian Cordoba MD directed Note: This is an individualized self-management goal for Opal Quick: Please take all prescribed medications as directed. 1. Do not skip doses. If you cannot afford your medications, talk with your doctor. 2. Use a pill reminder system such as a pill box if needed. Your pharmacist can help you with this. 3. Contact your Pharmacy 5 days before your medication runs out. If you cannot take your medications for any reasons, talk with your doctor. 4. Please bring all of your medication bottles and inhalers (or a list of all your medications/inhalers) with you to every visit. Potential barriers to meeting all of your care plan goals will continue to be addressed on an ongoing basis. Check your weight daily Self-management Brian Cordoba MD Note: This is an individualized self-management goal for Opal Quick: Please check your weight daily. Refer to the accompanying CHF treatment goal and call your doctor immediately for further instructions on how to respond to unexpected weight gain. documented as of this encounter Implants Implanted Type Area [employer] Counterperson Device Shelf Model / Serial Identifier Expiration Date / Lot 2.5mm Fp Screw, Locking 12 Right: BIOMET [id number] / Implanted: Qty: 1 on 12/06/2015 by Nicolás Mcconnell DPM at [facility] [employer] / Sp Screw, Non-Locking 14 Right: BIOMET [id number] / Implanted: Qty: 1 on 12/06/2015 by Nicolás Mcconnell DPM at [facility] FOOT SYSTEM / 2.5mm Fp Screw, Locking 14 Right: BIOMET [id number] / Implanted: Qty: 1 on 12/06/2015 by Nicolás Mcconnell DPM at [facility] FOOT SYSTEM / 2.5mm Fp Screw, Locking 18 Right: BIOMET [id number] / Implanted: Qty: 1 on 12/06/2015 by Nicolás Mcconnell DPM at [facility] FOOT SYSTEM / 2.5mm Fp Screw, Locking 16 Right: BIOMET [id number] / Implanted: Qty: 2 on 12/06/2015 by Nicolás Mcconnell DPM at [facility] FOOT SYSTEM / 1st Mtp Fusion Small Right Right: BIOMET [id number] / Implanted: Qty: 1 on 12/06/2015 by Nicolás Mcconnell DPM at [facility] FOOT SYSTEM / 2.5mm Multi-Directional Threaded Peg Right: BIOMET [id number] / Implanted: Qty: 1 on 12/06/2015 by Nicolás Mcconnell DPM at [facility] FOOT SYSTEM / documented as of this encounter Results Not on filedocumented in this encounter Visit Diagnoses Diagnosis Fibromyalgia - Primary Mylagia and myositis, unspecified Essential hypertension Unspecified essential hypertension Other specified hypothyroidism Partial seizure disorder (HCC) Localization-related (focal) (partial) epilepsy and epileptic syndromes with simple partial seizures, without mention of intractable epilepsy Primary osteoarthritis involving multiple joints 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) Major depressive disorder, single episode in full remission documented in this encounter Guarantor Name Account Type Relation to Date of Phone Billing Patient Address Opal Quick Personal/Family 1935 [phone] [address] [facility] (Home) PAK [phone] [place], [place] (Work) [id number] documented as of this encounter Advance Directives Type Date Recorded Patient Blue Print Control Clerk Explanation Advance Directives 01/26/2015 8:47 AM Health Care Proxy Advance Directives 12/07/2015 10:36 AM LIVING WILL Advance Directives 12/07/2015 10:36 AM HEALTH CARE PROXY
--- OUTSIDE RECORDS SUMMARY | 2018-11-12 20:49 | XMS REPORT | Continuity of Care Document ---
:1935 External Reference #:[id number] Author Name Monica Cole Care Team Providers Name Role Phone Brian Hernández MD Primary Care Physician Unavailable Payers Date Identification Numbers Payment Provider Subscriber Effective: 2001 Policy Number: [id number] Medicare Opal Quick PayID: [id number] [address] [place] [address] Policy Number: [id number] [facility] [employer] Group Number: [id number] [address] PayID: [id number] [place] [address] Problems Active Problems Provider Date Migraine without aura Tonya Brennan M.D. Onset: 09/22/2014 Cerebrovascular disease Tonya Brennan M.D. Onset: 09/22/2014 Excessive somnolence Tonya Brennan M.D. Onset: 09/22/2014 Blood coagulation disorder, categorized by Davis Dolan M.D. Onset: value of screening test Heart disease Davis Dolan M.D. Onset: 11/11/2017 Altered mental status Davis Dolan M.D. Onset: 11/11/2017 Acute subendocardial infarction Davis Dolan M.D. Onset: 11/11/2017 Electroencephalogram abnormal Davis Dolan M.D. Onset: 12/22/2017 Unconscious Davis Dolan M.D. Onset: 04/02/2018 Epilepsy Davis Dolan M.D. Onset: 09/24/2018 Family History Date Family Member(s) Observation Comments Father due to Stroke () Mother Leukemia Mother due to Leukemia () Siblings 1 Social History Type Date Description Comments Sex Unknown Lives With Spouse Both live at [facility] Hand Dominance Right-handed ETOH Use Denies alcohol use Tobacco Use Start: Unknown Patient has never smoked Smoking Status Reviewed: 09/24/18 Patient has never smoked Exercise Does not exercise Type/Frequency Allergies, Adverse Reactions, Alerts Active Allergies Reaction Severity Comments Date Penicillin 06/16/2012 Sulfa Antibiotics 06/16/2012 Hydrocodone Nausea and Vomiting 12/28/2013 Demerol decrease blood pressure 10/30/2017 Fosamax "gerd" 10/30/2017 Doxycycline 11/11/2017 Medications Active Medications SIG Qnty Indications Ordering Provider Date Clopidogrel Bisulfate Davis Dolan, 03/27/2018 Eric 75mg Tablets Aspir-81 1 by mouth 30tabs Deborah Ruffin, 10/30/2017 81mg Tablets every day N.P. (chewable) Oxybutynin Chloride 1 by mouth Unknown ER every day 10mg Tablets ER 24HR Acetaminophen Extra 2 tabs by mouth Unknown Strength every 8 hours 500mg Tablets as needed for pain or fever Zantac 150 Maximum 1 by mouth Unknown Strength twice a day 150mg Tablets Levetiracetam take one tablet Unknown 250mg by mouth twice Tablets a day Metoprolol Tartrate 1 tab qhs Unknown 50mg Tablets Lipitor 1 by mouth at Unknown 40mg Tablets bedtime Cymbalta 2 tablets by Unknown 30mg Caps DR mouth every hs Part Multi For Her 50+ 1 po qd Unknown Capsules Calcium Carbonate take one tablet 60tabs Unknown by mouth every 1400mg Tablets day Vitamin D 3 po qd Unknown 1000Unit Tablets Magnesium 2 po qd prn Unknown 250mg Tablets Colace 1 cap po up to Unknown 100mg Capsules tid prn Metamucil 3 cap po qam 60caps Unknown 0.52gm with water as Capsules needed Fluocinonide bid prn rash 60gm Unknown 0.05% Cream Tylenol Extra 2 tabs po every 100tabs Unknown Strength night 500mg Tablets Oxaprozin 1 tab po 3x a 60tabs Unknown 600mg Tablets week Levoxyl 1 po qd 90tabs Unknown 75mcg Tablets Protonix 2 po bid 30tabs Unknown 40mg Tablets DR Prema Medications Glucosamine 3 po qd (has not Unknown - 500mg taken the last 03/26/2018 Capsules week 10/30/17) Tramadol HCL 1/2 tab po qhs prn 50tabs Unknown - 50mg 03/26/2018 Tablets Lysine HCL 1 tabs bid by Unknown - 1000mg mouth at the onset 03/26/2018 Tablets of herpes symptoms. prn Aluminum-Hydroxide 2 tsp at hs po as Unknown - Gel needed 03/26/2018 Suspension B12 take one Unknown - PO capsule/tablet 09/23/2018 daily Coumadin 1 by mouth every Unknown - 5mg Tablets pm Managed by 03/27/2018 [place] Clindamycin HCL 1 tab by mouth Unknown - 150mg trhee times a day 12/25/2017 Capsules Ondansetron dissolve one Unknown - 4mg Tablets tablet orally 03/26/2008 Dispers every 8 hours as needed for nausea. Oxybutynin Chloride 1 by mouth every Unknown - 5mg day 09/23/2018 Tablets Calcium 600+D 1 po bid 60tabs Unknown - 06/18/2013 [id number] Tablets Aspercreme topical prn Unknown - 10% Lotion 03/26/2018 Hydrocodone/Acetamino 1-2 po qid prn 60tabs Unknown - phen pain 12/18/2013 5-325mg Tablets Tatum 1 tab sl prn Unknown - .125 03/26/2018 Vagifem pv twice a week 24tabs Unknown - 10mcg Tablets (with applicator) 11/10/2017 Aluminum Hydroxide 2 tbsp po tid prn Unknown - 10/29/2017 600mg/5ML Suspension Gabapentin 5 tabs qhs 120caps Tonya Brennan, - 100mg M.D. 07/12/2015 Capsules Gabapentin 1 po qam 270caps Unknown - 200mg 07/12/2015 Capsules Clonazepam 1/2 of tablet po 20tabs Unknown - 1mg Tablets qhs 09/23/2018 Vital Signs Date Vital Result Comment 09/24/2018 1:40pm Height 58 inches 4'10" Weight 135.00 lb Heart Rate 64 /min BP Systolic 122 mmHg BP Diastolic 76 mmHg BMI (Body Mass Index) 28.2 kg/m2 03/27/2018 2:19pm Height 58 inches 4'10" Weight 134.38 lb Heart Rate 64 /min BP Systolic 130 mmHg BP Diastolic 62 mmHg BMI (Body Mass Index) 28.1 kg/m2 12/22/2017 2:26pm Height 58 inches 4'10" Weight 133.00 lb BP Systolic Sitting 112 mmHg BP Diastolic Sitting 60 mmHg BMI (Body Mass Index) 27.8 kg/m2 11/11/2017 8:10am Height 58 inches 4'10" Weight 129.00 lb Heart Rate 78 /min BP Systolic Sitting 130 mmHg BP Diastolic Sitting 80 mmHg Respiratory Rate 16 /min BMI (Body Mass Index) 27.0 kg/m2 10/30/2017 1:54pm Height 58 inches 4'10" Weight 130.00 lb Heart Rate 76 /min BP Systolic 132 mmHg right arm BP Diastolic 64 mmHg right arm BMI (Body Mass Index) 27.2 kg/m2 Ejection Fraction 30-35% closer to 30% Echocardiogram 10/23/2017 07/13/2015 3:37pm Height 58 inches 4'10" Weight 125.00 lb Heart Rate 92 /min BP Systolic Sitting 118 mmHg BP Diastolic Sitting 76 mmHg Respiratory Rate 14 /min BMI (Body Mass Index) 26.1 kg/m2 09/22/2014 11:45am Height 58 inches 4'10" Weight 135.00 lb Heart Rate 56 /min BP Systolic Sitting 128 mmHg BP Diastolic Sitting 82 mmHg Respiratory Rate 14 /min BMI (Body Mass Index) 28.2 kg/m2 12/28/2013 2:30pm Height 58 inches 4'10" Weight 137.00 lb Heart Rate 60 /min BP Systolic Sitting 140 mmHg BP Diastolic Sitting 74 mmHg Respiratory Rate 16 /min BMI (Body Mass Index) 28.6 kg/m2 06/18/2013 11:07am Height 58 inches 4'10" Weight 137.00 lb Heart Rate 62 /min BP Systolic Sitting 120 mmHg BP Diastolic Sitting 70 mmHg Respiratory Rate 16 /min BMI (Body Mass Index) 28.6 kg/m2 12/17/2012 8:51am Heart Rate 76 /min BP Systolic Sitting 120 mmHg BP Diastolic Sitting 80 mmHg Respiratory Rate 17 /min Results Test Date Facility Test Result H/L Range Note Laboratory test 11/01/2017 [facility] 88 mg/dL Normal 70-100 [address] [address] [phone] Laboratory test 11/01/2017 [facility] 68 mg/dL Low 70-100 [address] [place] [address] [phone] 1 Counter Tender: [id number] 2 Counter Tender: [id number] Procedures Date Code Description Status 11/03/2017 33373 EEG Recording Awake & Asleep Completed 10/31/2017 30416 ECHO Transthoracic, Real-Time 2D With Doppler And Color Completed Flow 10/31/2017 75113 ECHO Transthoracic, Real-Time 2D With Doppler And Color Completed Flow 10/31/2017 24592 EKG Tracing & Interpretation Completed 10/26/2017 59736 EKG, Interpretation Only Completed 10/24/2017 84356 EKG, Interpretation Only Completed 10/23/2017 31756 ECHO Transthorasic Realtime 2D W Doppler & Color Flow Hosp Completed Encounters Type Date Location Provider Dx Diagnosis Office Visit 07/20/2018 [facility] Joanie Pollack, N39.0 Urinary tract 9:46a Assoc,pc PA-C infection, site Hospitalists not specified Office Visit 07/18/2018 [facility] Elissa A41.9 Sepsis, 9:45a Assoc,pc OFELIA Cash unspecified Hospitalists organism N39.0 Urinary tract infection, site not specified Office Visit 03/27/2018 [place] Davis G40.909 Epilepsy, unsp, 2:15p Michael Dolan M.D. not intractable, [facility] without status epilepticus Office Visit 12/22/2017 [place] Davis G40.909 Epilepsy, unsp, 2:15p Michael Dolan M.D. not intractable, [facility] without status epilepticus R94.01 Abnormal electroencephalogram [EEG] I51.3 Intracardiac thrombosis, not elsewhere classified Office Visit 11/11/2017 8:00a [place] [facility] Davis Dolan, R47.01 Aphasia [facility] Eric R94.01 Abnormal electroencephalogram [EEG] Office Visit 11/04/2017 [facility] Yaritza G40.909 Epilepsy, unsp, 10:13a Assoc,greg Tilley, not intractable, Hospitalists without status epilepticus R79.1 Abnormal coagulation profile I51.3 Intracardiac thrombosis, not elsewhere classified I50.23 Acute on chronic systolic (congestive) heart failure Office Visit 11/04/2017 7:00a [facility] Abdulaziz Liriano MD R47.01 Aphasia R94.01 Abnormal electroencephalogram [EEG] M51.37 Other intervertebral disc degeneration, lumbosacral region Z79.01 USP (current) use of anticoagulants Office Visit 11/03/2017 7:00a [facility] Abdulaziz Liriano MD R47.01 Aphasia R79.1 Abnormal coagulation profile R94.01 Abnormal electroencephalogram [EEG] I10 Essential (primary) hypertension Office Visit 11/01/2017 10:12a [facility]oc,greg Mccarty, N.P. 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 (Nstemi) myocardial infarction I24.0 Acute coronary thrombosis not resulting in myocardial infrc I42.9 Cardiomyopathy, unspecified E78.5 Hyperlipidemia, unspecified I10 Essential (primary) hypertension Office Visit 10/28/2017 10:58a [facility] Destiney I63.9 Cerebral Assoc,greg Parkinson, infarction, Hospitalists INHALATION THERAPY AIDE unspecified I21.4 Non-St elevation (Nstemi) myocardial infarction I51.3 Intracardiac thrombosis, not elsewhere classified I50.21 Acute systolic (congestive) heart failure I42.9 Cardiomyopathy, unspecified A69.20 Lyme disease, unspecified Office Visit 10/27/2017 2:58p [facility] Irineo Pierson I21.4 Non-St elevation Of [facility] Eric Washington (Nstemi) myocardial infarction I63.9 Cerebral infarction, unspecified Office Visit 10/27/2017 10:58a [facility] Destiney I63.9 Cerebral Assoc,pc Beverley Parkinson, infarction, Hospitalists INHALATION THERAPY AIDE unspecified I21.4 Non-St elevation (Nstemi) myocardial infarction I42.9 Cardiomyopathy, unspecified I51.3 Intracardiac thrombosis, not elsewhere classified A69.20 Lyme disease, unspecified Office Visit 10/26/2017 12:46p [facility] Wilma Watkins, I21.4 Non- St elevation Of [facility] MBriseidaDBriseida (Nstemi) myocardial infarction Office Visit 10/26/2017 10:57a [facility] Darell I63.9 Cerebral Assoc,DURAN Aguilera infarction, Hospitalists unspecified I21.4 Non-St elevation (Nstemi) myocardial infarction I50.21 Acute systolic (congestive) heart failure I42.9 Cardiomyopathy, unspecified I51.3 Intracardiac thrombosis, not elsewhere classified A69.20 Lyme disease, unspecified Office Visit 10/25/2017 10:57a [facility] Yaritza I63.9 Cerebral Assoc,greg Tilley, DO infarction, Hospitalists unspecified R79.1 Abnormal coagulation profile I21.4 Non-St elevation (Nstemi) myocardial infarction I42.9 Cardiomyopathy, unspecified I51.3 Intracardiac thrombosis, not elsewhere classified A69.20 Lyme disease, unspecified Office Visit 10/25/2017 7:00a [facility] Dina Evans, R47.01 Aphasia M.D. I24.0 Acute coronary thrombosis not resulting in myocardial infrc Office Visit 10/24/2017 7:00a [facility] Abdulaziz Liriano MD R47.01 Aphasia I24.0 Acute coronary thrombosis not resulting in myocardial infrc Office Visit 10/24/2017 10:57a [facility] Ezra Zarco, I63.9 Cerebral Assoc,greg LALA infarction, Hospitalists unspecified I21.4 Non-St elevation (Nstemi) myocardial infarction I42.9 Cardiomyopathy, unspecified I51.3 Intracardiac thrombosis, not elsewhere classified A69.20 Lyme disease, unspecified Office Visit 10/24/2017 [place] Leeroy Owens I42.9 Cardiomyopathy, 2:35p Cardiology Eric Godoy unspecified I21.4 Non-St elevation (Nstemi) myocardial infarction I63.9 Cerebral infarction, unspecified Office Visit 10/23/2017 10:55a [facility] Migdaliadeni Peguero R47.01 Aphasia Assoc,greg Meza NP Hospitalists R79.89 Other specified abnormal findings of blood chemistry A69.20 Lyme disease, unspecified Office Visit 10/23/2017 7:00a [facility] Abdulaziz Liriano MD R47.01 Aphasia R29.701 Nihss score 1 I24.0 Acute coronary thrombosis not resulting in myocardial infrc A69.20 Lyme disease, unspecified Office Visit 10/23/2017 11:57a [facility] Leeroy Owens I63.9 Cerebral Eric Godoy infarction, unspecified I42.9 Cardiomyopathy, unspecified I51.3 Intracardiac thrombosis, not elsewhere classified R79.89 Other specified abnormal findings of blood chemistry Office Visit 05/27/2017 [facility] Juni Jcaobyjanny N30.01 Acute cystitis 4:01p Assoc,greg GALO M.D. with hematuria Hospitalists K44.9 Diaphragmatic hernia without obstruction or gangrene R11.2 Nausea with vomiting, unspecified E03.9 Hypothyroidism, unspecified Office Visit 07/13/2015 [place] Tonya Wagner G43.009 Migraine w/o aura, 3:30p Neurologic Eric Brennan not intractable, [facility] w/o status migrainosus I67.9 Cerebrovascular disease, unspecified R40.0 Somnolence Office Visit 09/22/2014 11:45a Delroy Wagner 346.10 Migraine Common Neurologic Eric Brennan W/O Intractable [facility] W/O Status Migrainosus 437.9 Cerebrovascular Disease Or Lesion Unspec 780.79 Malaise And Fatigue Other Office Visit 12/28/2013 2:15p Delroy Wagner 346.10 Migraine Common Neurologic Eric Brennan W/O Intractable [facility] W/O Status Migrainosus 437.9 Cerebrovascular Disease Or Lesion Unspec 780.79 Malaise And Fatigue Other Office Visit 06/18/2013 10:45a [place] Tonya Wagner 346.10 Migraine Common Neurologic Eric Brennan W/O Intractable [facility] W/O Status Migrainosus 780.79 Malaise And Fatigue Other 437.9 Cerebrovascular Disease Or Lesion Unspec Office Visit 12/17/2012 8:45a [facility] Tonya Brennan, 784.0 Headache [facility] Eric 780.79 Malaise And Fatigue Other Office Visit 06/16/2012 3:15p [facility] [facility] Tonya Brennan, 784.0 Headache [facility] Eric 437.9 Cerebrovascular Disease Or Lesion Unspec Plan of Treatment Future Appointment(s):09/23/2019 2:15 pm - Davis Dolan M.D. at [place] [facility]09/24/2018 - Davis Dolan M.D.G40.909 Epilepsy, unspecified, not intractable, without status epileFollow up:Follow up in 1 yearR94.01 Abnormal electroencephalogram [EEG]
--- OUTSIDE RECORDS SUMMARY | 2018-11-12 20:49 | XMS REPORT | Summary of Care ---
:1935 Author Organization [facility] Address [address] [place] [address] Care Team Providers Name Role Phone Brian Hernández MD Primary Care Provider Mary Thomas RN Signallamp Chin Strap Sewer Unavailable Reason for Visit Reason Comments Follow Up Encounter Details Date Type Department Care Team Description 10/08/2018 Office Visit [facility] Thanh, OAB (overactive [address] [facility] MD Williams bladder) (Primary Dx) [place] [address] [address] [phone] [place] [address] [phone] Allergies Active Allergy Reactions Severity Noted Date Comments Risedronate-Calcium GI Reaction Medium 01/21/2007 Carbonate Demerol Cardiac Reaction High 02/16/2013 Doxy GI Reaction 01/27/2017 Nausea and vomiting Fosamax GI Reaction Medium 01/21/2007 Penicillins Hives 02/23/2007 Sulfacetamide Sodium Hives 02/23/2007 documented as of this encounter (statuses as of 10/08/2018) Medications Medication Sig Dispensed Refills Start Date [...] mouth DAILY NEEDED. Aspirin 81 MG Oral Take by mouth 0 Active Tab EC DAILY. atorvastatin Take 1 Tab by 90 Tab 5 11/15/19 Active (LIPITOR) 40 MG Oral mouth EVERY 18 Tab BEDTIME. levetiracetam Take 1 Tab by 180 Tab 5 11/15/19 Active (KEPPRA) 250 MG Oral mouth TWICE DAILY. 18 Tab levothyroxine Take 1 Tab by 90 Tab 3 12/11/19 Active (SYNTHROID) 75 MCG mouth BEFORE 18 Oral Tab BREAKFAST. clopidogrel (PLAVIX) Take 1 Tab by 90 Tab 3 01/02/20 Active 75 MG Oral Tab mouth DAILY. 18 metoprolol succinate Take 1 Tab by 90 Tab 3 03/20/19 Active (TOPROL XL) 50 MG mouth EVERY 19 Oral TABLET SR 24 BEDTIME. HRIndications: Chronic systolic CHF (congestive heart failure) ([facility]) oxaprozin (DAYPRO) Take 600 mg by 0 Active 600 MG Oral Tab mouth THREE TIMES PER WEEK. ranitidine (ZANTAC Take 150 mg by 0 Active 150 MAXIMUM STRENGTH) mouth EVERY 150 MG Oral Tab BEDTIME. acetaminophen Take 2 Tabs by 60 Tab 0 04/16/19 Active (TYLENOL) 500 MG Oral mouth EVERY 19 Tab BEDTIME. pantoprazole TAKE 1 TABLET BY 180 Tab 3 08/28/19 Active (PROTONIX) 40 MG Oral MOUTH TWICE A DAY 19 Tab ECIndications: Reflux esophagitis duloxetine (CYMBALTA) Take 1 Cap by 90 Cap 5 10/02/19 Active 60 MG Oral CAPSULE mouth DAILY. 19 ENTERIC COATED PARTICLES oxybutynin (DITROPAN Take 1 Tab by 30 Tab 3 10/09/19 Active XL) 5 MG Oral TABLET mouth DAILY. 19 SR 24 HR oxybutynin (DITROPAN Take 1 Tab by 90 Tab 5 08/27/19 10/09/19 Discontinued (Dose XL) 10 MG Oral TABLET mouth DAILY. 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 Target Range: 2.0-3.0 Duration: Indefinite Additional factors influencing anticoagulation: LV thrombus seen on echo post NSTEMI 10/25/2017 Aspirin increases bleeding risk Duloxetine increases warfarin level Levothyroxine increases warfarin effect Oxaprozin increases bleeding risk Initial Referral: 10/31/17 Initial ACS Orders: 11/05/17 Left ventricular apical thrombus following FL 10/31/2017 Essential hypertension 06/05/2017 Other specified hypothyroidism 12/13/2016 Acquired hallux valgus of right foot 11/15/2015 REM sleep behavior disorder 11/01/2015 Overview: REM atonia diagnosis made by Dr Brennan neurology [facility] Treated by Anu bowers at bedtime Primary osteoarthritis involving multiple joints 06/07/2015 Chondrocalcinosis 06/07/2015 Postmenopausal atrophic vaginitis 12/20/2014 Postlaminectomy syndrome, lumbar region 11/01/2013 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 White coat hypertension 03/08/2010 Degenerative lumbar spinal stenosis 05/16/2008 Overview: Decompressive laminectomy 02/2008 Dr Cadena [facility] phone [phone] Spinal stenosis, lumbar region, without neurogenic claudication 05/19/2007 Overview: MRI and CT myelogram 2006 MRI [facility] 10/[address] Ashutosh Cadena: s/p L3-5 laminectomy, L5-S1 mild spinal stenosis, L4-5 osteoarthritis with facet arthropathy, bilateral neural foraminal narrowing L4-5, right foraminal stenosis L3-4 Chronic low back pain 02/23/2007 Overview: [facility] 2013 s/p lumbar transforaminal steroid block Dr Spencer Laurent orthopedic [facility] [place] Vitamin D deficiency 02/23/2007 Fibromyalgia 01/21/2007 Irritable bowel syndrome 01/21/2007 Mixed hyperlipidemia 01/21/2007 Reflux esophagitis 06/21/2005 Personal history of skin cancer 06/17/1996 Overview: S/p left face skin biopsy History of non-ST elevation myocardial infarction (NSTEMI) History of CVA in adulthood documented as of this encounter (statuses as of 10/08/2018) Resolved Problems Problem Noted Date Resolved Date [...] hylgan injections and arthroscopic surgery Dr dottie Olguin [place] 2009 Sleep disorder 06/26/2011 06/05/2017 Overview: REM atonia diagnosis made by Dr Brennan neurology [facility] Treated by Anu bowers at bedtime Left knee DJD 10/02/2009 12/16/2013 Obesity (BMI 30-39.9) 11/04/2008 06/26/2011 Overview: BMI 33 9/09 Replaced inactive diagnosis Osteoporosis 10/06/2008 06/26/2011 Overview: [...] as of this encounter (statuses as of 10/08/2018) Immunizations Name Administration Dates Next Due Celestone [...] of this encounter Last Filed Vital Signs Not on filedocumented in this encounter Progress Notes Williams Law MD - 10/08/2018 1:15 PM EDT PATIENT: Opal Villanueva : 1935 DATE OF SERVICE: 10/08/2018 REFERRING PRACTITIONER: Gray PRIMARY CARE PROVIDER: Brian Hernández CHIEF COMPLAINT: No chief complaint on file. Subjective HISTORY OF PRESENT ILLNESS: Opal Villanueva is a 83-y.o. female who presents for followup of Mixed urinary incontinence. Multiple co-morbidities She has undergone aColpocleisis/TOT sling for ALEXANDER and Prolapse August [address] Lucas (OBG) at [place]. This has taken care of her prolapse Still has some UUI but no too bothersome and she would like to continue with Ditropan She was on 10 mg XL ditropan and we discussed reducing to 5 mg XL prep due to side effects and she is happy with taking 5 mg prep I offered an appointment with Dr Castillo but she would defer it for now Had UTI in early July 2018 and treated with ABX UA negative since NO UTI since and she is happy with micturition Results for OPAL VILLANUEVA ( ) as of 10/08/2018 13:25 Ref. Range 07/31/2018 07:20 Urine Color Latest Ref Range: Yellow Yellow Urine Appearance Latest Ref Range: Clear Clear Urine Specific Cope Latest Ref Range: 1.005 - 1.030 1.007 Urine Ph Latest Ref Range: 5.0 - 8.0 7.5 Urine Protein Latest Ref Range: Negative mg/dl Negative Urine Glucose (POCT) Latest Ref Range: Negative mg/dl Negative Urine Blood Latest Ref Range: Negative Negative Urine Ketones Latest Ref Range: Negative Negative Urine Bilirubin Latest Ref Range: Negative Negative Urine Nitrite Latest Ref Range: Negative Negative Urine Urobilinogen Latest Ref Range: 0.2 - 1.0 E.U./DL 0.2 Urine Leukocytes Latest Ref Range: Negative Negative Current Outpatient Medications Medication Sig acetaminophen (TYLENOL) [...] vomiting Pcn [Penicillins] Hives Sulfacetamide Sodium Hives REVIEW OF SYSTEMS: All remaining review of systems was negative except for as noted in the history of present illness/subjective. Objective PHYSICAL EXAMINATION: VITALS: There were no vitals taken for this visit. There is no height or weight on file to calculate BMI. GENERAL: healthy, well nourished, in no distress. LUNGS: good air entry bilaterally, no crackles or wheezes. HEART: regular rhythm, no murmurs, no gallops, no rubs. ABDOMEN: no palpable masses, organomegaly or hernias, no peritoneal, flank or bladder tenderness. GENITOURINARY: defer exam. LABORATORY DATA: Urine today in the office is NA DIAGNOSTIC DATA: Diagnostic tests reviewed today: Labs Plan IMPRESSION/PLAN: Continue Ditropan 5 mg XL daily Follow Up: Schedule follow-up here as needed if symptoms worsen.. Author: Williams Law MD 10/08/2018 13:25 documented in this encounter Plan of Treatment Date Type Specialty Care Team Description 12/01/2018 Office Visit Internal Medicine Brian Hernández MD [address] [place] [address] [phone] Health Maintenance Due Date Last Done Comments [...] Problems Progress Blood Pressure Blood Pressure 124/60 Elaine Hernández, < 150/90 (10/01/2018 Brian Umana, 1:53 PM EDT) Note: This is an individualized treatment (blood pressure) goal for Opal Villanueva: Displayed above (on the left) is your [...] (congestive heart failure, CHF) goal for Opal Villanueva: Displayed above (on the right) is how [...] an individualized treatment (depression) goal for Opal Villanueva: Displayed above is your goal for a depression screening (PHQ-9) score that would indicate good control of your depression. Keep a regular sleep schedule Lifestyle Brian Cordoba MD Note: This is an individualized lifestyle goal for Opal Villanueva: Please maintain a regular sleep schedule. This may help with some symptoms of depression. Consume a [id number] diet Lifestyle Brian Cordoba MD Note: This is an individualized lifestyle goal for Opal Villanueva: Please do not add additional salt to your food. Additional salt may lead to fluid retention and worsen your congestive heart failure. Take all prescribed medications as Self-management Brian Cordoba MD directed Note: This is an individualized self-management goal for Opal Villanueva: Please take all prescribed medications as directed. [...] is an individualized self-management goal for Opal Villanueva: Please check your weight daily. Refer to the accompanying CHF treatment goal and call your doctor immediately for further instructions on how to respond to unexpected weight gain. documented as of this encounter Implants Implanted Type Area Criminal Defense Attorney Device Shelf Model / Serial Identifier Expiration Date / Lot 2.5mm Fp Screw, Locking 12 Right: BIOMET [id number] / Implanted: Qty: 1 on 12/06/2015 by Nicolás Mcconnell DPM at [facility] FOOT SYSTEM / Sp Screw, Non-Locking 14 Right: BIOMET [id number] / Implanted: Qty: 1 on 12/06/2015 by Nicolás Mcconnell, DPM at [facility] Toe [employer] FOOT SYSTEM / 2.5mm Fp Screw, Locking 14 Right: BIOMET [id number] / Implanted: Qty: 1 on 12/06/2015 by Nicolás Mcconnell, DPM at [facility] Toe [employer] FOOT SYSTEM / 2.5mm Fp Screw, Locking 18 Right: BIOMET [id number] / Implanted: Qty: 1 on 12/06/2015 by Nicolás Mcconnell, DPM at [facility] Toe [employer] FOOT SYSTEM / 2.5mm Fp Screw, Locking 16 Right: BIOMET FP16 / Implanted: Qty: 2 on 12/06/2015 by Nicoáls Mcconnell, DPM at [facility] FOOT SYSTEM / 1st Mtp Fusion Small Right Right: BIOMET [id number] / Implanted: Qty: 1 on 12/06/2015 by Nicolás Mcconnell, DPM at [facility] FOOT SYSTEM / 2.5mm Multi-Directional Threaded Peg Right: BIOMET [id number] / Implanted: Qty: 1 on 12/06/2015 by Nicolás Mcconnell, DPM at [facility] FOOT SYSTEM / documented as of this encounter Results Not on filedocumented in this encounter Visit Diagnoses Diagnosis OAB (overactive bladder) - Primary Hypertonicity of bladder documented in this encounter Guarantor Name Account Type Relation to Date of Phone Billing Patient Address Opal Villanueva Personal/Family 1935 [id number] [facility] (Home) [employer] [phone] [place], [place] (Work) [id number] documented as of this encounter Advance Directives Type Date Recorded Patient Clarity Developer Explanation Advance Directives 01/26/2015 8:47 AM Health Care Proxy Advance Directives 12/07/2015 10:36 AM LIVING WILL Advance Directives 12/07/2015 10:36 AM HEALTH CARE PROXY
[2018-11-12 23:30] LABS: Urine Appearance Clear; Urine Bacteria 1+ (Absent); Urine Bilirubin Negative (Negative); Urine Blood Negative (Negative); Urine Color Yellow; Urine Glucose Negative (Negative); Urine Ketones Negative (Negative); Urine Nitrite Positive (Negative); Urine Protein Negative (Negative); Urine Red Blood Cell Absent (Absent); Urine Specific Gravity 1.004 (1.010-1.030); Urine Squamous Epithelial Cell Present (Absent); Urine Urobilinogen Negative (Negative); Urine White Blood Cell 2+(11-20/hpf) (Absent)
[2018-11-12] MEDS ORDERED: NS 0.9% 1000 ML** 1,000 ML IV ONE (23:37)
[2018-11-12] MEDS ORDERED: cefTRIAXone(*) 1 GM in NS 0.9% 50 ML* 50 ML IVPB ONE (23:38)
[2018-11-13] MEDS ORDERED: cefTRIAXone(*) 1 GM ADVAN/BAG ONE
[2018-11-13 00:11] LABS: ABS Basophils 0.1 10^3/ul (0-0.2); ABS Lymphocytes 1.1 10^3/ul (1.0-4.8); ABS Neutrophils 12.2 10^3/ul (1.5-7.7); Eosinophil % 0.1 %; Hematocrit 40 % (35-47); Hemoglobin 13.2 g/dL (12.0-16.0); Lymphocyte % 7.3 %; Mean Corpuscular HGB Conc 33 g/dL (31-36); Mean Corpuscular Hemoglobin 31 pg (27-31); Mean Corpuscular Volume 95 fL (80-97); Mean Platelet Volume 6.8 fL (7.4-10.4); Platelet Count 228 10^3/uL (150-450); Red Blood Count 4.24 10^6 /uL (3.70-4.87); Red Cell Distribution Width 13 % (10-15); White Blood Count 14.4 10^3/uL (3.5-10.8)
--- NOTE | 2018-11-13 00:15 | ED ---
HPI Febrile Illness - HPI Summary HPI Summary: 83 year old female presents with urinary symptoms today. States she had a fever of 100 at home. She states she has a headache and was little bit nauseous. She denies any vomiting. No diarrhea. No chest pain. States has occasional shortness of breath. No cough. No one else sick. Has a history of UTIs. no flank pain. admits to a decrease in appetite. has history of a fib. has history of urosepsis. no abdominal pain. took a tyenlol for fever prior to coming. - History of Current Complaint Chief Complaint: EDFever Time Seen by Provider: 11/12/18 23:27 Pain Intensity: 5 - Additional Pertinent History Primary Care Physician: [id number] - Allergy/Home Medications Allergies/Adverse Reactions: Allergies Allergy/AdvReac Type Severity Reaction Status Date / Time doxycycline Allergy Dizziness Verified 11/12/18 20:40 Penicillins Allergy Rash Verified 11/12/18 20:40 risedronate sodium Allergy Rash And Verified 11/12/18 20:40 [From Actonel] Itching Sulfa (Sulfonamide Allergy Rash Verified 11/12/18 20:40 Antibiotics) alendronate sodium AdvReac Vomiting Verified 11/12/18 20:40 [From Fosamax] meperidine [From Demerol] AdvReac Vomiting Verified 11/12/18 20:40 scopolamine AdvReac Dizziness Verified 11/12/18 20:40 Home Medications: Home Medications Lysine 500 mg PO DAILY 11/12/18 [History Confirmed 11/12/18] Psyllium Husk [Metamucil] 0.52 gm PO DAILY 11/12/18 [History Confirmed 11/12/18] raNITIdine HCl [Zantac] 150 mg PO DAILY 11/12/18 [History Confirmed 11/12/18] PMH/Surg Hx/FS Hx/Imm Hx Endocrine/Hematology History: Reports: Hx Thyroid Disease - hypo, Other Endocrine/Hematological Disorders Denies: Hx Diabetes Cardiovascular History: Reports: Hx Myocardial Infarction, Other Cardiovascular Problems/Disorders - left ventricle decrease output with clot Denies: Hx Hypertension Respiratory History: Reports: Hx Sleep Apnea - MILD, Other Respiratory Problems/ Disorders - MUSCLE SPASMS DURING REM SLEEP Denies: Hx Asthma, Hx Chronic Obstructive Pulmonary Disease (COPD) GI History: Reports: Hx Gastroesophageal Reflux Disease, Hx Irritable Bowel Denies: Hx Ulcer, Other GI Disorders History: Reports: Hx Kidney Stones - MANY YEARS AGO, Other Problems/ Disorders - bladder surgery Denies: Hx Renal Disease Musculoskeletal History: Reports: Hx Arthritis - ALL OVER, Hx Back Problems, Other Musculoskeletal History - carpal tunnel Sensory History: Reports: Hx Contacts or Glasses - GLASSES Denies: Hx Hearing Aid Opthamlomology History: Reports: Hx Contacts or Glasses - GLASSES Neurological History: Reports: Hx Migraine - 2001, SILENT MIGRAINE, Hx Seizures , Other Neuro Impairments/Disorders - stroke - Cancer History Cancer Type, Location and Year: skin ca - Surgical History Surgery Procedure, Year, and Place: TAYLER CARPAL TUNNEL, 1979, 1980,. 2009, LOW BACK, [facility]. [facility] BUNIONECTOMYS, 1985, 1989, [facility]. RIGHT [place]OULD[place], 1995, [facility] [place]. RIGHT BREAST BX, 1989, [facility]. [place] KNEE, 2004, [place]. [place]EE, [place] , 2013. DCS trial 03/16/14. R foot surgery 2016. Bladder surgery 08/19/2017 Hx Anesthesia Reactions: Yes - NO OPIATES - Immunization History Date of Tetanus Vaccine: unknown Date of Influenza Vaccine: [id number] Infectious Disease History: No Infectious Disease History: Reports: Hx Clostridium Difficile, History Other Infectious Disease - Lyme Denies: Hx Hepatitis, Hx Human Immunodeficiency Virus (HIV), Traveled Outside the in Last 30 Days - Family History Known Family History: Positive: Hypertension - Social History Alcohol Use: Rare Hx Substance Use: No Substance Use Type: Reports: None Hx Tobacco Use: No Smoking Status (MU): Never Smoked Tobacco Have You Smoked in the Last Year: No Review of Systems Positive: Fever, Chills Negative: Chest Pain Positive: Shortness Of Breath, Cough Negative: Abdominal Pain Positive: dysuria Positive: Headache All Other Systems Reviewed And Are Negative: Yes Physical Exam Triage Information Reviewed: Yes Vital Signs On Initial Exam: Initial Vitals Temp Pulse Resp BP Pulse Ox 98.5 F 109 18 141/84 95 11/12/18 20:40 11/12/18 20:40 11/12/18 20:40 11/12/18 20:40 11/12/18 20:40 Vital Signs Reviewed: Yes Appearance: Positive: Well-Appearing Skin: Positive: Warm, Dry Head/Face: Positive: Normal Head/Face Inspection Eyes: Positive: Normal, EOMI, DA, Conjunctiva Clear ENT: Positive: Normal ENT inspection, Pharynx normal, TMs normal Neck: Positive: Supple, Nontender, No Lymphadenopathy Respiratory/Lung Sounds: Positive: Clear to Auscultation, Breath Sounds Present Cardiovascular: Positive: Normal, RRR Abdomen Description: Positive: Nontender, Soft. Negative: CVA Tenderness (R), CVA Tenderness (L) Bowel Sounds: Positive: Present Musculoskeletal: Positive: Normal Neurological: Positive: Normal Psychiatric: Positive: Normal Diagnostics - Vital Signs Vital Signs Temp Pulse Resp BP Pulse Ox 11/12/18 22:52 98.1 F 102 18 146/80 97 11/12/18 20:40 98.5 F 109 18 141/84 95 - Laboratory Lab Results: Lab Results 11/12/18 11/13/18 Range/Units 22:54 00:00 WBC 14.4 H (3.5-10.8) 10^3/uL RBC 4.24 (3.70-4.87) 10^6 /uL Hgb 13.2 (12.0-16.0) g/dL Hct 40 (35-47) % MCV 95 (80-97) fL MCH 31 (27-31) pg MCHC 33 (31-36) g/dL RDW 13 (10-15) % Plt Count 228 (150-450) 10^3/uL MPV 6.8 L (7.4-10.4) fL Neut % (Auto) 84.8 % Lymph % (Auto) 7.3 % Wayne % (Auto) 7.3 % Eos % (Auto) 0.1 % Baso % (Auto) 0.5 % Absolute Neuts (auto) 12.2 H (1.5-7.7) 10^3/ul Absolute Lymphs (auto) 1.1 (1.0-4.8) 10^3/ul Absolute Monos (auto) 1.0 H (0-0.8) 10^3/ul Absolute Eos (auto) 0.0 (0-0.6) 10^3/ul Absolute Basos (auto) 0.1 (0-0.2) 10^3/ul Absolute Nucleated RBC 0.0 10^3/ul Nucleated RBC % 0.0 Urine Color Yellow Urine Appearance Clear Urine pH 7.0 (5-9) Ur Specific Etta 1.004 L (1.010-1.030) Urine Protein Negative (Negative) Urine Ketones Negative (Negative) Urine Blood Negative (Negative) Urine Nitrate Positive A (Negative) Urine Bilirubin Negative (Negative) Urine Urobilinogen Negative (Negative) Ur Leukocyte Esterase 3+ A (Negative) Urine WBC (Auto) 2+(11-20/hpf) A (Absent) Urine RBC (Auto) Absent (Absent) Ur Squamous Epith Cells Present A (Absent) Urine Bacteria 1+ A (Absent) Urine Glucose Negative (Negative) Result Diagrams: 11/13/18 00:00 11/13/18 00:00 Lab Statement: Any lab studies that have been ordered have been reviewed, and results considered in the medical decision making process. - Radiology chest Radiology Interpretation Completed By: ED Physician Summary of Radiographic Findings: no pneumonia - EKG No standard instances Cardiac Rate: NL EKG Rhythm: Sinus Rhythm EKG Comparison: No Significant Change Summary of EKG Findings: sinus rhythm Course/Dx - Course Course Of Treatment: 83 year old female presents with urinary symptoms today. States she had a fever of 100 at home. She states she has a headache and was little bit nauseous. She denies any vomiting. No diarrhea. No chest pain. States has occasional shortness of breath. No cough. No one else sick. Has a history of UTIs. no flank pain. On exam lungs CTA Abdomen soft nontender. Negative CVA tenderness. wbc 14. Urine shows a UTI. Gave dose Rocephin. Chest x-ray preliminary no acute findings. EKG shows sinus rhythm similar to previous. Troponin 0. Place patient on Cipro due to allergies. We'll have follow-up with primary. Patient understands agrees plan. - Febrile Illness Differential Diagnoses: Pneumonia, Sepsis, Other: - uti - Diagnoses Provider Diagnoses: UTI (urinary tract infection) Discharge ED - Sign-Out/Discharge Documenting (check all that apply): Patient Departure Patient Received Moderate/Deep Sedation with Procedure: No - Discharge Plan Condition: Good Disposition: HOME Prescriptions: Ciprofloxacin TAB* [Cipro 500 MG TAB*] 500 mg PO BID #10 tab Patient Education Materials: Urinary Tract Infection in Women (ED) Referrals: Brian Hernández MD [Primary Care Provider] - Additional Instructions: Take Cipro twice a day for 5 days drink plenty of fluids Follow up with primary within 5 days Return to ED if develop any new or worsening symptoms - Billing Disposition and Condition Condition: GOOD Disposition: Home
[2018-11-13 00:36] LABS: Albumin 4.3 g/dL (3.2-5.2); Calcium 9.5 mg/dL (8.6-10.3); Potassium 4.6 mmol/L (3.5-5.0); Total Bilirubin 1.1 mg/dL (0.2-1.0)
[2018-11-13 00:42] LABS: Albumin/Globulin Ratio 1.6 (1-3); BUN/Creatinine Ratio 25.9 (8-20); C Reactive Protein 39.29 mg/L (<8.01); EGFR African American 81.9 (>60); EGFR Non-African American 67.7 (>60); Globulin 2.7 g/dL (2-4)
[2018-11-13 02:06] VITALS: BP 145/90
--- NOTE | 2018-11-16 09:44 | PN ---
Progress Note - Progress Note Date of Service: 11/12/18 Note: Urine culture final grew Escherichia coli 100,000 Patient was placed on ciprofloxacin prior to discharge This is sensitive to organism Nothing further required
== END 2018-11-13 02:05 | disposition home or self-care (01) ==
LOC: ED 20:38
DX: N39.0 Urinary tract infection, site not specified (principal); I48.91 Unspecified atrial fibrillation; E03.9 Hypothyroidism, unspecified; I25.2 Old myocardial infarction; K21.9 Gastro-esophageal reflux disease without esophagitis; Z85.828 Personal history of other malignant neoplasm of skin; Z79.82 Long term (current) use of aspirin; Z79.899 Other long term (current) drug therapy; Z88.1 Allergy status to other antibiotic agents; Z88.5 Allergy status to narcotic agent; Z88.0 Allergy status to penicillin; Z88.2 Allergy status to sulfonamides; Z88.8 Allergy status to other drugs, medicaments and biological substances
CPT/HCPCS: 36415; 71046; 80053; 81003; 81015; 83605; 83880; 84484; 85025; 85610; 86140; 87040; 87077; 87086; 87186; 93005; 96365; 99283; J0696

== ENCOUNTER 2020-10-16 18:59 | Observation (INO) ==
[2020-10-16] MEDS ORDERED: NS 0.9% 1000 ml BAG 1,000 ML IV SCH (21:15)
[2020-10-16] MEDS: Enoxaparin 40 MG/0.4 ML SYR SUBCUT SCH (22:09)
[2020-10-17 06:16] LABS: ABS Monocytes 1.2 10^3/ul (0-0.8); ABS Neutrophils 9.7 10^3/ul (1.5-7.7); Eosinophil % 0.1 %; Hematocrit 30 % (35-47); Hemoglobin 10.2 g/dL (12.0-16.0); Lymphocyte % 8.1 %; Mean Corpuscular HGB Conc 34 g/dL (31-36); Mean Corpuscular Hemoglobin 32 pg (27-31); Mean Corpuscular Volume 95 fL (80-97); Mean Platelet Volume 7.3 fL (7.4-10.4); Platelet Count 189 10^3/uL (150-450); Red Cell Distribution Width 14 % (10-15); White Blood Count 11.9 10^3/uL (3.5-10.8)
[2020-10-17 06:36] LABS: Calcium 7.7 mg/dL (8.6-10.3); EGFR African American 82.7 (>60); EGFR Non-African American 68.3 (>60); Potassium 3.4 mmol/L (3.5-5.0)
[2020-10-17 06:54] LABS: TSH Ultra Thyroid Stim Horm 0.67 mcIU/mL (0.34-5.60)
[2020-10-17] MEDS: Multivitamins/Minerals TAB PO SCH (09:14)
[2020-10-17] MEDS: DULoxetine DR 60 mg CAP PO SCH (09:14)
[2020-10-17] MEDS ORDERED: Potassium Chlor 20 meq TAB.ER PO ONE (09:21)
[2020-10-17] MEDS ORDERED: cefTRIAXone 1 gm/50 mL NS BAG 1 GM/50 ML BAG IVPB SCH (13:00)
[2020-10-17] MEDS: Enoxaparin 40 MG/0.4 ML SYR SUBCUT SCH (21:55)
[2020-10-18 08:42] VITALS: BP 113/50
[2020-10-18] MEDS: DULoxetine DR 60 mg CAP PO SCH (08:43)
[2020-10-18] MEDS: Multivitamins/Minerals TAB PO SCH (08:43)
== END 2020-10-18 11:50 | disposition home or self-care (01) ==
LOC: ED 18:59 → MED 18:59 → SUATTDRO 22:27 → MED 10-17 01:39
PROVIDERS: ADMIT Internal Medicine; ATTEND Hospitalist

== ENCOUNTER 2023-05-08 19:56 | Observation (INO) ==
[2023-05-08 22:04] LABS: Hematocrit 32.8 % (35-45); Mean Corpuscular Hemoglobin 30.7 pg (27-33); Mean Corpuscular Hgb Conc 33.5 g/dL (31-36); Mean Corpuscular Volume 91.7 fL (80-97); Mean Platelet Volume 6.9 fL (7.5-11.2); Platelet Count 324 10^3/uL (150-450); Red Blood Count 3.58 10^6/uL (3.63-4.92); Red Cell Distribution Width 14.4 % (12-17)
[2023-05-08 22:49] LABS: RBC Morphology Normal (Normal); Smudge Cells Present
[2023-05-08 23:06] LABS: Albumin 3.4 g/dL (3.2-5.2); Albumin/Globulin Ratio 1.2 (1-3); Calcium 8.7 mg/dL (8.6-10.3); Creatinine, Serum 1.03 mg/dL (0.51-0.95); Globulin 2.9 g/dL (2-4); Magnesium 1.9 mg/dL (1.9-2.7); Potassium 4.3 mmol/L (3.5-5.0); Total Bilirubin 0.6 mg/dL (0.2-1.0); Total Protein 6.3 g/dL (6.4-8.9)
[2023-05-08 23:14] LABS: TSH Ultra Thyroid Stim Horm 0.95 mcIU/mL (0.34-5.60)
[2023-05-08] MEDS: Iodixanol (CONTRAST) 320 MG/ML 100 ML SDV IV ONE (23:39)
[2023-05-08 23:47] LABS: High Sensitivity Troponin 1 Hr 6 pg/mL (<15)
[2023-05-09 04:50] LABS: HDL Cholesterol 39.2 mg/dL
[2023-05-09 05:20] LABS: ABS Basophils 0.2 10^3/uL (0.0-0.1); ABS Eosinophils 0.2 10^3/uL (0.0-0.5); ABS Lymphocytes 2.2 10^3/uL (1.0-4.8); ABS Neutrophils 6.8 10^3/uL (1.5-7.6); Eosinophil % 1.8 %; Hematocrit 33.2 % (35-45); Lymphocyte % 21.5 %; Mean Corpuscular Hemoglobin 30.5 pg (27-33); Mean Corpuscular Hgb Conc 33.3 g/dL (31-36); Mean Corpuscular Volume 91.6 fL (80-97); Mean Platelet Volume 6.8 fL (7.5-11.2); Platelet Count 311 10^3/uL (150-450); Red Blood Count 3.62 10^6/uL (3.63-4.92); Red Cell Distribution Width 14.7 % (12-17); White Blood Count 10.4 10^3/uL (3.8-11.8)
[2023-05-09 05:55] LABS: Calcium 8.6 mg/dL (8.6-10.3); Creatinine, Serum 1.11 mg/dL (0.51-0.95); Magnesium 1.8 mg/dL (1.9-2.7); Potassium 4.1 mmol/L (3.5-5.0); eGFR CKD-EPI 48.4 (>60)
[2023-05-09] MEDS: Enoxaparin 40 MG/0.4 ML SYR SUBCUT SCH (06:49)
[2023-05-09 07:11] LABS: Urine Appearance Extra Turbid; Urine Bacteria 3+ /HPF (Absent); Urine Bilirubin Negative (Negative); Urine Blood Negative (Negative); Urine Color Yellow; Urine Glucose Negative (Negative); Urine Ketones Trace (Negative); Urine Nitrite 2+ (Negative); Urine Protein 1+ (>=30 mg/dL) (Negative); Urine Red Blood Cell 3+(>10/hpf) /HPF (0-Trace); Urine Specific Gravity >1.050 (1.002-1.030); Urine Squamous Epithelial Cell Present /HPF (Absent); Urine Urobilinogen Negative (Negative); Urine White Blood Cell 3+(>20/hpf) /HPF (0-Trace)
[2023-05-09] MEDS: cefTRIAXone 1 gm/50 mL D5W 1 GM/50 ML BAG IV SCH (09:14)
[2023-05-09] MEDS ORDERED: Sulfur Hexaflouride MICROSPHR 25 MG VIAL ONE (09:39)
[2023-05-09] MEDS: CMCS: Solifenacin 5 mg TAB (NF) PO SCH (10:07)
[2023-05-09] MEDS: DULoxetine DR 60 mg CAP PO SCH (10:09)
[2023-05-09] MEDS: Magnesium Sulfate 2 gm BAG 2 GM/50 ML BAG IVPB ONE (10:09)
[2023-05-09] MEDS: Aspirin EC 81 mg TAB.EC (enteric coated) PO SCH (20:21)
[2023-05-10 06:37] LABS: ABS Eosinophils 0.4 10^3/uL (0.0-0.5); ABS Lymphocytes 1.9 10^3/uL (1.0-4.8); ABS Monocytes 0.7 10^3/uL (0.0-0.9); ABS Neutrophils 4.5 10^3/uL (1.5-7.6); ABS Nucleated RBC 0.01 10^3/ul; Eosinophil % 4.9 %; Hematocrit 32.4 % (35-45); Hemoglobin 10.7 g/dL (11.5-14.3); Lymphocyte % 25.4 %; Mean Corpuscular Hemoglobin 30.5 pg (27-33); Mean Corpuscular Hgb Conc 32.9 g/dL (31-36); Mean Corpuscular Volume 92.6 fL (80-97); Nucleated Red Blood Cells % 0.1 %/100WBC (0.0-0.8); Platelet Count 299 10^3/uL (150-450); Red Cell Distribution Width 14.3 % (12-17); White Blood Count 7.5 10^3/uL (3.8-11.8)
[2023-05-10 07:42] LABS: Anion Gap 9 mmol/L (2-16); Blood Urea Nitrogen 27 mg/dL (6-24); CO2 Carbon Dioxide 25 mmol/L (22-32); Calcium 8.4 mg/dL (8.6-10.3); Chloride 105 mmol/L (101-111); Glucose 73 mg/dL (70-100); Magnesium 2.2 mg/dL (1.9-2.7); Sodium 139 mmol/L (135-145); eGFR CKD-EPI 62.3 (>60)
[2023-05-10] MEDS: cefTRIAXone 1 gm/50 mL D5W 1 GM/50 ML BAG IV SCH (08:44)
[2023-05-10 14:03] VITALS: BP 137/66
== END 2023-05-10 15:15 ==
LOC: EDHOLD 19:56 → ED 19:56 → MEDTELE 05-09 13:27
PROVIDERS: ADMIT Student in an Organized Health Care Education/Training Program; ATTEND Student in an Organized Health Care Education/Training Program